=== PATIENT | female | born 1940 | race Caucasian/White ===

== ENCOUNTER 2022-12-03 08:52 | Outpatient (OUT) | payer MEDICARE, OTHER, SELFPAY ==
--- NOTE | 2022-12-03 | RT_ITS ---
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 Findings were considered accurate and reproducible. Both pre- and post-bronchodilator values utilized for spirometry. No prior studies available for comparison. Spirometry (based on pre-bronchodilator values): -FEV1/FVC: Normal @ 77% -FEV1: Normal @ 89% -FVC: Normal @ 85% -There is a positive bronchodilator resposne in [id number]%, but diagnostic and clinical significance is unclear. Lung volumes by plethysmography: -RV: Reduced @ 62% -TLC: Mildly reduced @ 72% -Airway resistance: Increased Diffusion capacity: -DLCO: Moderate reduction @ 59% when corrected for Hb 6.9g/dL -DLCO/VA: Normalizes to 95% when adjusted for alveolar volumes Flow-volume loop: -Mild obstructive pattern Impressions: -Non-diagnostic spirometry with mild restriction based on lung volumes, and moderate diffusion impairment that normalizes to lung volumes (given history of apparent lung resection). There are mixed obstructive and restrictive features. Anemia is present. Clinical correlation required. Electronically Signed On 12-04-2022 18:00:20 EDT by Marquise Salgado
[2022-12-03 10:36] LABS: Hemoglobin 6.9 g/dL (12.0-16.0)
[2022-12-03] MEDS: ALBUTEROL SULFATE 2.5 MG/3 ML VIAL NEB IH (10:43)
== END 2022-12-03 08:53 ==
LOC: CARD 08:55
PROVIDERS: PCP Internal Medicine; Visit Provider Internal Medicine Interventional Cardiology
DX: R06.02 Shortness of breath (principal)
CPT/HCPCS: 36415; 85018; 94060; 94726; 94729

== ENCOUNTER 2022-12-03 11:08 | Observation (INO) | payer MEDICARE, OTHER, SELFPAY ==
[2022-12-03] VITALS (29 sets, daily range): BP systolic 120–190; BP diastolic 57–107; PULSE 76–89; RESP 16–33; TEMP 36.6–37.7; O2SAT 92–100; BMI 26.5; BMI 30.8
--- NOTE | 2022-12-03 11:23 | ED_ITS ---
HPI - Recheck/Abnormal Lab/Rx General Chief Complaint: Recheck/Abnormal Lab/Rx Stated Complaint: ANEMIA Time Seen by Provider: 12/03/22 11:23 Source: patient Mode of arrival: walk-in Limitations: no limitations History of Present Illness HPI narrative: pt presents to emergency department complaining of an abnormal lab. Patient has a history of heart disease had a stent placed 2 years ago. She was doing well recently started becoming more short of breath than normal. Patient takes several to, and Plavix. She denies any trauma, fever, cough, chest pain, or palpitations. All states that she has been very fatigued and cannot walk more than 50 steps without stopping for getting so winded. The cough had pulmonary function tests ordered by the primary care doctor and they also order a hemoglobin level which was six-point notes and she was sent to the emergency department. Patient states one month ago she had black stool but that resolved and she did not make anything much of it. She attributed to something that she ate. She denies any vaginal bleeding, discharge. She denies any hematuria. She denies any tarry stools. She denies any abdominal pain. She takes omeprazole. She has not had a colonoscopy 10 years and she denies any history of ulcers. Related Data Home Medications Medication Instructions Recorded Confirmed atorvastatin 40 mg tablet 40 mg PO .qhs 12/03/22 12/03/22 cholecalciferol (vitamin D3) 25 25 mcg PO DAILY 12/03/22 12/03/22 mcg (1,000 unit) capsule clopidogrel 75 mg tablet 75 mg PO QDAY 12/03/22 12/03/22 docusate sodium 100 mg capsule 100 mg PO DAILY 12/03/22 12/03/22 (Colace) metoprolol tartrate 25 mg tablet 12.5 mg PO Q12H 12/03/22 12/03/22 multivitamin (Daily Multi-Vitamin 1 tab PO DAILY 12/03/22 12/03/22 tablet) omeprazole 40 mg capsule,delayed 40 mg PO QDAY 12/03/22 12/03/22 release rivaroxaban 20 mg tablet (Xarelto) 20 mg PO QDAY 12/03/22 12/03/22 Allergies Allergy/AdvReac Type Severity Reaction Status Date / Time No Known Drug Allergies Allergy Verified 12/03/22 11:15 Review of Systems ROS Status of ROS 10 or more systems reviewed and unremarkable except as noted in history and below [facility] Medical History (Updated 12/03/22 @ 16:03 by Yumiko Guerrero) Surgical History (Updated 12/03/22 @ 16:03 by Yumiko Guerrero) Family History (Updated 12/03/22 @ 16:04 by Yumiko Guerrero) Aunt No problems noted. Mother Family history of COPD (chronic obstructive pulmonary disease) Brother Family history of cancer Sister Family history of cancer Social History (Updated 12/03/22 @ 16:08 by Yumiko Guerrero) Within the past year, how often did you have a drink containing alcohol: never Within the past year, how often did you have six or more drinks on one occasion: never Score interpretation: A score less than 3 is consistent with normal alcohol consumption. Smoking status: Former smoker Non-prescribed substance use: denies use Previous occupational history: retired Known occupational exposures/hazards: No Highest level of school completed/degree received: some college, no degree Are you now , , , , never or living with a partner: In a typical week, how many times do you talk on the telephone with family, friends, or neighbors: 3 or more times per week How often do you get together with friends or relatives: twice per week How often do you attend bahai or anabaptist services: 4 or more times per year Do you belong to any clubs or organizations such as bahai groups unions, fraternal or athletic groups, or school groups: no Total score: 3 Score interpretation: A score of greater than or equal to 2 indicates the lowest level of social isolation. Little interest or pleasure in doing things: not at all Feeling down, depressed, or hopeless: not at all Feel stressed/tense/nervous/anxious/difficulty sleeping: not at all Due to disability, difficulty making decisions: No Do you think of yourself as: straight/heterosexual Gender Identity: female Exam Narrative Exam Narrative: Nurses notes and vital signs reviewed and patient is not hypoxic. General: Nontoxic, Well-appearing and in no apparent distress. Skin: Warm, dry, moderate pallor noted. No Rash Head: Normocephalic, atraumatic. Neck: Supple, non-tender. Eye: Pupils are equal, round and EOMI. No scleral icterus. Ears, Nose, Mouth, and Throat: TM clear, no posterior oropharynx erythema or nasal mucosal hypertrophy, uvula is mid-line Oral mucosa is moist Cardiovascular: Regular Rate and Rhythm without murmur, gallop or rub. Respiratory: No accessory muscle use or respiratory distress. Lungs are clear to auscultation, no wheezing, rales or rhonchi Chest Wall: no tenderness Back: No midline thoracic or lumbar vertebral tenderness. No CVA tenderness Musculoskeletal: normal ROM, no calf or popliteal tenderness, no lower extremity edema/swelling GI: Abdomen is soft, non-distended. Normal bowel sounds. No masses appreciated. No tenderness to palpation. No rebound, guarding, or rigidity noted. Neurological: A&O x4. No cranial nerve dysfunction observed. No truncal ataxia. Moves all extremities. Sensation intact. Psychiatric: Cooperative and interactive. Normal mood and affect. Constitutional Vital Signs - 24 hr 12/03/22 11:15 12/03/22 11:20 12/03/22 11:20 Temperature 98.6 F Pulse Rate 83 80 Pulse Rate [Monitor] 81 Respiratory Rate 18 33 H 26 H Blood Pressure 178/86 H Blood Pressure [Left Arm] 178/86 H Pulse Oximetry 98 97 100 Oxygen Delivery Method Room Air 12/03/22 11:28 12/03/22 11:31 12/03/22 11:45 Temperature Pulse Rate 82 82 81 Pulse Rate [Monitor] Respiratory Rate 19 26 H 20 Blood Pressure 183/78 H 150/107 H 132/84 H Blood Pressure [Left Arm] Pulse Oximetry 93 L 97 97 Oxygen Delivery Method 12/03/22 11:45 12/03/22 12:01 12/03/22 12:15 Temperature Pulse Rate 84 81 Pulse Rate [Monitor] Respiratory Rate 23 18 Blood Pressure 132/84 H 152/79 H 159/70 H Blood Pressure [Left Arm] Pulse Oximetry 98 98 Oxygen Delivery Method 12/03/22 12:34 12/03/22 12:41 12/03/22 12:41 Temperature Pulse Rate 89 84 85 Pulse Rate [Monitor] Respiratory Rate 20 19 28 H Blood Pressure 155/105 H Blood Pressure [Left Arm] Pulse Oximetry 100 97 96 Oxygen Delivery Method 12/03/22 12:45 12/03/22 13:00 Temperature Pulse Rate 81 82 Pulse Rate [Monitor] Respiratory Rate 21 33 H Blood Pressure 164/73 H 151/101 H Blood Pressure [Left Arm] Pulse Oximetry 97 98 Oxygen Delivery Method Course Vital Signs Vital signs: Vital Signs Temperature 98.6 F 12/03/22 11:15 Pulse Rate 81 12/03/22 11:15 Respiratory Rate 18 12/03/22 11:15 Blood Pressure 178/86 H 12/03/22 11:15 Pulse Oximetry 98 12/03/22 11:15 Oxygen Delivery Method Room Air 12/03/22 11:15 Temperature 98.1 F 12/04/22 04:58 Pulse Rate 91 H 12/04/22 08:01 Respiratory Rate 16 12/04/22 04:58 Blood Pressure 153/78 H 12/04/22 04:58 Pulse Oximetry 96 12/04/22 04:58 Oxygen Delivery Method Room Air 12/04/22 04:58 MDM - Recheck/Abnormal Lab/Rx MDM Narrative Medical decision making narrative: Labs studies were done. 2 units of packed red blood cells were ordered. Patient will be Discussed with Dr. Murillo and admitted for further workup. Lab Data Labs: Lab Results 12/03/22 12/03/22 Range/Units 11:30 12:30 WBC 5.2 (4.0-11.0) 10^3/uL RBC 2.91 L (4.20-5.40) 10^6/uL Hgb 7.2 L (12.0-16.0) g/dL Hct 22.8 L* (36.0-48.0) % MCV 78.4 L (81.0-99.0) fL MCH 24.7 L (26.7-34.0) pg MCHC 31.6 (29.9-35.2) g/dL RDW 15.2 H (11.0-15.0) % Plt Count 370 (150-450) 10^3/uL MPV 9.5 (9.5-13.5) fL Neut % (Auto) 71.9 (43.0-75.0) % Lymph % (Auto) 13.0 L (20.5-60.0) % [place]ent % (Auto) 13.5 H (1.7-12.0) % Eos % (Auto) 0.8 L (0.9-7.0) % Baso % (Auto) 0.4 (0.2-2.0) % Neut # (Auto) 3.8 (1.4-6.5) 10^3/uL Lymph # (Auto) 0.7 L (1.2-3.8) 10^3/uL S[place]ent # (Auto) 0.7 (0.3-0.8) 10^3/uL Eos # (Auto) 0.0 (0.0-0.7) 10^3/uL Baso # (Auto) 0.0 (0.0-0.1) 10^3/uL Abs Immat Gran (auto) 0.02 (0.00-0.03) 10^3/uL Imm/Tot Granulo (auto) 0.4 (0.0-0.5) % PT 10.5 (9.0-11.6) sec INR 0.99 Sodium 127 L (136-145) mmol/L Potassium 4.4 (3.5-5.1) mmol/L Chloride 93 L (98-107) mmol/L Carbon Dioxide 25.0 (21.0-32.0) mmol/L Anion Gap 13.4 BUN 14.0 (7.0-18.0) mg/dL Creatinine 0.97 (0.55-1.02) mg/dL Est GFR ( Amer) >60 (>=60) Est GFR (Non-Af Amer) 55 L (>=60) BUN/Creatinine Ratio 14.4 Glucose 95 (74-106) mg/dL Calcium 8.5 (8.5-10.1) mg/dL Total Bilirubin 0.3 (0.2-1.0) mg/dL AST 18 (15-37) U/L ALT 28 (14-59) U/L Alkaline Phosphatase 48 (46-116) U/L Total Creatine Kinase 152 (26-192) U/L CK-MB (CK-2) 2.41 (<=3.60) ng/mL Myoglobin 90 H (9-82) ng/mL Troponin I High Sens 11.0 (4.0-51.3) pg/mL NT-Pro-B Natriuret Pep 3358.0 H* (<=1800.0) pg/mL Total Protein 6.9 (6.4-8.2) g/dL Albumin 3.7 (3.4-5.0) g/dL Globulin 3.2 g/dL Albumin/Globulin Ratio 1.2 Lipase 112.0 (73.0-393.0) U/L Urine Color Lt. yellow (YELLOW) Urine Clarity Clear (CLEAR) Urine pH 7.0 (5.0-9.0) Ur Specific [place] <=1.005 A (1.005-1.025) Urine Protein Negative (NEG/TRACE) mg/dL Urine Glucose (UA) Negative (NEGATIVE) mg/dL Urine Ketones Negative (NEGATIVE) mg/dL Urine Occult Blood Negative (NEGATIVE) Urine Nitrite Negative (NEGATIVE) Urine Bilirubin Negative (NEGATIVE) Urine Urobilinogen 0.2 (0.2-1.0) EU/dL Ur Leukocyte Esterase Trace A (NEGATIVE) Blood Type A Positive Antibody Screen Negative Crossmatch See Detail Discharge Plan Discharge Chief Complaint: Recheck/Abnormal Lab/Rx Clinical Impression: Symptomatic anemia Patient Disposition: Admitted as Observation Time of Disposition Decision: 15:42 Condition: Good Discharge Date/Time: 12/03/22 14:42
--- NOTE | 2022-12-03 12:05 | XR_ITS ---
The [address] [address] Patient Name: ANH CASE MRN: [id number] date: 1940 Sex: F Assigned Patient Location: ER Current Patient Location: ER Accession/Order Number: [id number] Exam Date: 12/03/2022 12:20 Report Date: 12/03/2022 12:49 At the request of: ALVIN CASTANEDA Procedure: XR acute abdomen series EXAMINATION: XR acute abdomen series HISTORY: gi ulcer , shortness breath, low hemoglobin COMPARISON: XR chest 02/11/2021 FINDINGS: LUNGS: Mild opacities within left lung base partially obscuring the heart and diaphragm margins. Increased cardiomegaly. Marked atherosclerotic disease of thoracic and abdominal aorta. MEDIASTINUM: No abnormal widening. BOWEL GAS PATTERN: Non-obstructed. No abnormal dilation or suspicious fluid levels. Moderate stool burden. FREE AIR: None. CALCIFICATIONS: None significant. BONES: No fracture or visible bone lesion. OTHER: Negative. IMPRESSION: 1. Mild left basilar infiltrates versus atelectasis. 2. Cardiomegaly, increased since prior study. 3. Normal bowel gas pattern. No acute or suspicious abdominal findings. Electronically authenticated by: MANUEL MCKAY Date: 12/03/2022 12:49
--- NOTE | 2022-12-03 12:05 | ECG_ITS ---
The [facility] Test Date: 2022-12-03 Pat Name: Kacie Ayon Department: Room: - Gender: Female Hand Filer Balance Wheel: : 1940 Requested By: MOHAMUD CASTRO Order Number: [id number] Reading MD: NICOLE NAVA Measurements Intervals [place] Rate: 80 P: -30 LA: 148 QRS: 25 QRSD: 78 T: 42 QT: 392 QTc: 428 Interpretive Statements 1100 Sinus rhythm 9110 normal ECG No previous ECG available for comparison Electronically Signed On 12-04-2022 5:36:41 EDT by NICOLE NAVA
[2022-12-03 12:28] LABS: Basophils Percent Auto 0.4 % (0.2-2.0); Eosinophils Percent Auto 0.8 % (0.9-7.0); Hemoglobin 7.2 g/dL (12.0-16.0); Immature Granulocytes Abs Auto 0.02 10^3/uL (0.00-0.03); Immature Granulocytes Pct Auto 0.4 % (0.0-0.5); Lymphocytes Absolute Auto 0.7 10^3/uL (1.2-3.8); Mean Corpuscular HGB Conc 31.6 g/dL (29.9-35.2); Mean Corpuscular Hemoglobin 24.7 pg (26.7-34.0); Mean Corpuscular Volume 78.4 fL (81.0-99.0); Mean Platelet Volume 9.5 fL (9.5-13.5); Monocytes Absolute Auto 0.7 10^3/uL (0.3-0.8); Monocytes Percent Auto 13.5 % (1.7-12.0); Neutrophils Absolute Auto 3.8 10^3/uL (1.4-6.5); Neutrophils Percent Auto 71.9 % (43.0-75.0); Platelet Count 370 10^3/uL (150-450); Red Blood Count 2.91 10^6/uL (4.20-5.40); Red Cell Distribution Width 15.2 % (11.0-15.0); White Blood Count 5.2 10^3/uL (4.0-11.0)
[2022-12-03 12:37] LABS: Hematocrit 22.8 % (36.0-48.0)
[2022-12-03 12:38] LABS: INR 0.99; Prothrombin Time 10.5 sec (9.0-11.6)
[2022-12-03 12:45] LABS: Bilirubin Urine NEGATIVE (NEGATIVE); Blood Urine NEGATIVE (NEGATIVE); Clarity Urine CLEAR (CLEAR); Color Urine LT. YELLOW (YELLOW); Glucose Urine UA NEGATIVE (NEGATIVE); Ketones Urine NEGATIVE (NEGATIVE); Leukocyte Esterase Urine TRACE (NEGATIVE); Nitrite Urine NEGATIVE (NEGATIVE); Protein Urine NEGATIVE (NEG/TRACE); Specific Gravity Urine <=1.005 (1.005-1.025); Urobilinogen Urine 0.2 EU/dL (0.2-1.0)
--- NOTE | 2022-12-03 12:47 | PC.NURSE ---
URINE SAMPLE COLLECTED AT THIS TIME
--- NOTE | 2022-12-03 12:49 | PC.NURSE ---
blood consent retrieved at this time
[2022-12-03 13:27] LABS: Anion Gap 13.4; Chloride 93 mmol/L (98-107); Glucose 95 mg/dL (74-106); Potassium 4.4 mmol/L (3.5-5.1); Sodium 127 mmol/L (136-145)
[2022-12-03 13:28] LABS: BUN Creatinine Ratio 14.4; Calcium 8.5 mg/dL (8.5-10.1); Estimated GFR (African America >60 (>=60); Estimated GFR (Non-African Ame 55 (>=60)
[2022-12-03 13:30] LABS: Alanine Aminotransferase 28 U/L (14-59); Alkaline Phosphatase 48 U/L (46-116); Aspartate Amino Transferase 18 U/L (15-37); Bilirubin Total 0.3 mg/dL (0.2-1.0)
[2022-12-03 13:31] LABS: Creatine Kinase 152 U/L (26-192); Creatine Kinase MB 2.41 ng/mL (<=3.60); Myoglobin 90 ng/mL (9-82); Total Protein 6.9 g/dL (6.4-8.2)
[2022-12-03 13:32] LABS: Albumin Globulin Ratio 1.2; Albumin Level 3.7 g/dL (3.4-5.0); Globulin 3.2 g/dL
--- NOTE | 2022-12-03 16:06 | PC.NURSE ---
PT ADMITTED VIA BED AT THIS TIME WITH FAMILY AT BEDSIDE. PT HAS HER OWN BELONGINGS. PLACED ON TELEMETRY PRIOR. PT DENIES ANY NEEDS OR CONCERNS AT THIS TIME. FOLLOWING UPSTAIRS. BEDSIDE REPORT GIVEN TO RIYA GIBSON. ADMITTED TO MED SURG RM 218.
[2022-12-03] MEDS: 0.9 % SODIUM CHLORIDE 250 ML 30 ML IV (18:00)
[2022-12-03] MEDS: PANTOPRAZOLE SODIUM 40 MG VIAL IV (18:00)
[2022-12-04] VITALS (10 sets, daily range): BP systolic 138–153; BP diastolic 73–78; PULSE 78–97; RESP 16–18; TEMP 36.7–36.9; O2SAT 93–96
[2022-12-04 01:29] LABS: Basophils Percent Auto 0.7 % (0.2-2.0); Eosinophils Absolute Auto 0.1 10^3/uL (0.0-0.7); Eosinophils Percent Auto 1.4 % (0.9-7.0); Hematocrit 29.1 % (36.0-48.0); Hemoglobin 9.6 g/dL (12.0-16.0); Immature Granulocytes Abs Auto 0.01 10^3/uL (0.00-0.03); Immature Granulocytes Pct Auto 0.2 % (0.0-0.5); Lymphocytes Absolute Auto 0.8 10^3/uL (1.2-3.8); Lymphocytes Percent Auto 17.5 % (20.5-60.0); Mean Corpuscular Hemoglobin 26.5 pg (26.7-34.0); Mean Corpuscular Volume 80.4 fL (81.0-99.0); Mean Platelet Volume 8.9 fL (9.5-13.5); Monocytes Absolute Auto 0.6 10^3/uL (0.3-0.8); Monocytes Percent Auto 12.8 % (1.7-12.0); Neutrophils Percent Auto 67.4 % (43.0-75.0); Platelet Count 289 10^3/uL (150-450); Red Blood Count 3.62 10^6/uL (4.20-5.40); Red Cell Distribution Width 15.3 % (11.0-15.0); White Blood Count 4.4 10^3/uL (4.0-11.0)
[2022-12-04 04:49] LABS: Basophils Percent Auto 0.7 % (0.2-2.0); Eosinophils Absolute Auto 0.1 10^3/uL (0.0-0.7); Eosinophils Percent Auto 1.4 % (0.9-7.0); Hematocrit 29.2 % (36.0-48.0); Hemoglobin 9.5 g/dL (12.0-16.0); Immature Granulocytes Abs Auto 0.03 10^3/uL (0.00-0.03); Immature Granulocytes Pct Auto 0.7 % (0.0-0.5); Lymphocytes Absolute Auto 0.8 10^3/uL (1.2-3.8); Lymphocytes Percent Auto 18.3 % (20.5-60.0); Mean Corpuscular HGB Conc 32.5 g/dL (29.9-35.2); Mean Corpuscular Hemoglobin 26.3 pg (26.7-34.0); Mean Corpuscular Volume 80.9 fL (81.0-99.0); Mean Platelet Volume 9.5 fL (9.5-13.5); Monocytes Absolute Auto 0.6 10^3/uL (0.3-0.8); Monocytes Percent Auto 14.1 % (1.7-12.0); Neutrophils Absolute Auto 2.8 10^3/uL (1.4-6.5); Neutrophils Percent Auto 64.8 % (43.0-75.0); Platelet Count 322 10^3/uL (150-450); Red Blood Count 3.61 10^6/uL (4.20-5.40); Red Cell Distribution Width 15.4 % (11.0-15.0); White Blood Count 4.3 10^3/uL (4.0-11.0)
[2022-12-04 05:10] LABS: Alanine Aminotransferase 26 U/L (14-59); Albumin Globulin Ratio 1.1; Albumin Level 3.4 g/dL (3.4-5.0); Alkaline Phosphatase 47 U/L (46-116); Anion Gap 11.4; Aspartate Amino Transferase 17 U/L (15-37); BUN Creatinine Ratio 14.3; Bilirubin Total 1.9 mg/dL (0.2-1.0); Calcium 8.6 mg/dL (8.5-10.1); Carbon Dioxide 26.1 mmol/L (21.0-32.0); Chloride 97 mmol/L (98-107); Estimated GFR (African America >60 (>=60); Estimated GFR (Non-African Ame 59 (>=60); Glucose 101 mg/dL (74-106); Potassium 4.5 mmol/L (3.5-5.1); Sodium 130 mmol/L (136-145); Total Protein 6.4 g/dL (6.4-8.2)
--- NOTE | 2022-12-04 05:24 | PC.NURSE ---
Notified Dr. Mcnair of critical BNP
--- NOTE | 2022-12-04 09:08 | P.HP_ITS ---
H&P: HPI History of Present Illness Chief complaint: ANEMIA Narrative: Patient presented to the emergency room with increasing weakness. Found to have significant anemia. Is admitted for work-up and treatment of same [facility] Medical History (Updated 12/03/22 @ 16:03 by Yumiko Guerrero) Surgical History (Updated 12/03/22 @ 16:03 by Yumiko Guerrero) Family History (Updated 12/03/22 @ 16:04 by Yumiko Guerrero) Aunt No problems noted. Mother Family history of COPD (chronic obstructive pulmonary disease) Brother Family history of cancer Sister Family history of cancer Social History (Updated 12/03/22 @ 16:08 by Yumiko Guerrero) Within the past year, how often did you have a drink containing alcohol: never Within the past year, how often did you have six or more drinks on one occasion: never Score interpretation: A score less than 3 is consistent with normal alcohol consumption. Smoking status: Former smoker Non-prescribed substance use: denies use Previous occupational history: retired Known occupational exposures/hazards: No Highest level of school completed/degree received: some college, no degree Are you now , , , , never or living with a partner: In a typical week, how many times do you talk on the telephone with family, friends, or neighbors: 3 or more times per week How often do you get together with friends or relatives: twice per week How often do you attend sikh or mu-ism services: 4 or more times per year Do you belong to any clubs or organizations such as sikh groups unions, fraternal or athletic groups, or school groups: no Total score: 3 Score interpretation: A score of greater than or equal to 2 indicates the lowest level of social isolation. Little interest or pleasure in doing things: not at all Feeling down, depressed, or hopeless: not at all Feel stressed/tense/nervous/anxious/difficulty sleeping: not at all Due to disability, difficulty making decisions: No Do you think of yourself as: straight/heterosexual Gender Identity: female Meds Home Medications and Allergies Home Medications Medication Instructions Recorded Confirmed Type atorvastatin 40 mg tablet 40 mg PO .qhs 12/03/22 12/03/22 History cholecalciferol (vitamin D3) 25 25 mcg PO DAILY 12/03/22 12/03/22 History mcg (1,000 unit) capsule clopidogrel 75 mg tablet 75 mg PO QDAY 12/03/22 12/03/22 History docusate sodium 100 mg capsule 100 mg PO DAILY 12/03/22 12/03/22 History (Colace) metoprolol tartrate 25 mg tablet 12.5 mg PO Q12H 12/03/22 12/03/22 History multivitamin (Daily Multi-Vitamin 1 tab PO DAILY 12/03/22 12/03/22 History tablet) omeprazole 40 mg capsule,delayed 40 mg PO QDAY 12/03/22 12/03/22 History release rivaroxaban 20 mg tablet (Xarelto) 20 mg PO QDAY 12/03/22 12/03/22 History Allergies Allergy/AdvReac Type Severity Reaction Status Date / Time No Known Drug Allergies Allergy Verified 12/03/22 11:15 Exam Constitutional Vital Signs - 24 hr 12/03/22 11:15 12/03/22 11:20 12/03/22 11:20 Temperature 98.6 F Pulse Rate 83 80 Pulse Rate [Monitor] 81 Respiratory Rate 18 33 H 26 H Blood Pressure 178/86 H Blood Pressure [Left Arm] 178/86 H Blood Pressure [Right Arm] Pulse Oximetry 98 97 100 Oxygen Delivery Method Room Air 12/03/22 11:28 12/03/22 11:31 12/03/22 11:45 Temperature Pulse Rate 82 82 81 Pulse Rate [Monitor] Respiratory Rate 19 26 H 20 Blood Pressure 183/78 H 150/107 H 132/84 H Blood Pressure [Left Arm] Blood Pressure [Right Arm] Pulse Oximetry 93 L 97 97 Oxygen Delivery Method 12/03/22 11:45 12/03/22 12:01 12/03/22 12:15 Temperature Pulse Rate 84 81 Pulse Rate [Monitor] Respiratory Rate 23 18 Blood Pressure 132/84 H 152/79 H 159/70 H Blood Pressure [Left Arm] Blood Pressure [Right Arm] Pulse Oximetry 98 98 Oxygen Delivery Method 12/03/22 12:34 12/03/22 12:41 12/03/22 12:41 Temperature Pulse Rate 89 84 85 Pulse Rate [Monitor] Respiratory Rate 20 19 28 H Blood Pressure 155/105 H Blood Pressure [Left Arm] Blood Pressure [Right Arm] Pulse Oximetry 100 97 96 Oxygen Delivery Method 12/03/22 12:45 12/03/22 13:00 12/03/22 15:35 Temperature 97.8 F Pulse Rate 81 82 84 Pulse Rate [Monitor] Respiratory Rate 21 33 H 18 Blood Pressure 164/73 H 151/101 H Blood Pressure [Left Arm] Blood Pressure [Right Arm] 190/74 H Pulse Oximetry 97 98 98 Oxygen Delivery Method Room Air 12/03/22 15:58 12/03/22 15:59 12/03/22 17:50 Temperature 97.8 F Pulse Rate 84 76 87 Pulse Rate [Monitor] Respiratory Rate 18 Blood Pressure Blood Pressure [Left Arm] Blood Pressure [Right Arm] 190/74 H Pulse Oximetry 98 Oxygen Delivery Method 12/03/22 18:18 12/03/22 18:38 12/03/22 19:15 Temperature 98.0 F 98.9 F 99.0 F Pulse Rate 86 87 83 Pulse Rate [Monitor] Respiratory Rate 16 16 18 Blood Pressure 167/82 H 169/76 H Blood Pressure [Left Arm] 154/70 H Blood Pressure [Right Arm] Pulse Oximetry 98 98 97 Oxygen Delivery Method Room Air Room Air 12/03/22 19:31 12/03/22 19:26 12/03/22 19:57 Temperature 98.9 F Pulse Rate 87 88 Pulse Rate [Monitor] Respiratory Rate 18 Blood Pressure 120/65 H Blood Pressure [Left Arm] Blood Pressure [Right Arm] Pulse Oximetry 98 Oxygen Delivery Method Room Air 12/03/22 19:38 12/03/22 21:56 12/03/22 22:04 Temperature 98.6 F 100 F H 100 F H Pulse Rate 85 86 83 Pulse Rate [Monitor] Respiratory Rate 18 18 18 Blood Pressure 151/57 H 146/58 H 146/58 H Blood Pressure [Left Arm] Blood Pressure [Right Arm] Pulse Oximetry 99 98 Oxygen Delivery Method Room Air Room Air 12/03/22 22:15 12/03/22 22:19 12/03/22 22:28 Temperature 98 F 98.1 F Pulse Rate 84 85 83 Pulse Rate [Monitor] Respiratory Rate 18 18 Blood Pressure 136/66 H 146/67 H Blood Pressure [Left Arm] Blood Pressure [Right Arm] Pulse Oximetry Oxygen Delivery Method Room Air Room Air 12/03/22 22:20 12/04/22 00:21 12/04/22 00:28 Temperature 98.2 F 98.1 F Pulse Rate 86 88 97 H Pulse Rate [Monitor] Respiratory Rate 18 18 Blood Pressure 152/78 H 138/77 H Blood Pressure [Left Arm] Blood Pressure [Right Arm] Pulse Oximetry 92 L Oxygen Delivery Method Room Air Room Air 12/04/22 01:16 12/04/22 02:47 12/04/22 03:00 Temperature 98.5 F 98.2 F Pulse Rate 92 H 89 82 Pulse Rate [Monitor] Respiratory Rate 18 18 Blood Pressure 152/73 H Blood Pressure [Left Arm] 142/75 H Blood Pressure [Right Arm] Pulse Oximetry 96 Oxygen Delivery Method Room Air 12/04/22 03:58 12/04/22 04:12 12/04/22 04:58 Temperature 98.1 F Pulse Rate 78 Pulse Rate [Monitor] Respiratory Rate 16 Blood Pressure Blood Pressure [Left Arm] 153/78 H Blood Pressure [Right Arm] Pulse Oximetry 93 L 96 Oxygen Delivery Method Room Air Room Air 12/04/22 05:59 12/04/22 08:01 Temperature Pulse Rate 82 91 H Pulse Rate [Monitor] Respiratory Rate Blood Pressure Blood Pressure [Left Arm] Blood Pressure [Right Arm] Pulse Oximetry Oxygen Delivery Method Common normals: no apparent distress, average body habitus and oriented x3 Chest Common normals: inspection of chest normal Respiratory Common normals: normal respiratory effort, no retractions, no use of accessory muscles and clear to auscultation bilaterally Cardio Common normals: regular rate, regular rhythm and S1 normal heart sound GI Common normals: Normal to inspection, nondistended, normoactive bowel sounds present, soft to palpation, non-tender and no hepatosplenomegaly Neuro Common normals: CN's II-XII intact bilaterally and moves all extremities Results Labs Labs: Short CBC 12/03/22 12/04/22 12/04/22 Range/Units 11:30 01:21 03:58 WBC 5.2 4.4 4.3 (4.0-11.0) 10^3/uL Hgb 7.2 L 9.6 L 9.5 L (12.0-16.0) g/dL Hct 22.8 L* 29.1 L 29.2 L (36.0-48.0) % Plt Count 370 289 322 (150-450) 10^3/uL BMP 12/03/22 12/04/22 11:30 03:58 Sodium 127 L 130 L Potassium 4.4 4.5 Chloride 93 L 97 L Carbon Dioxide 25.0 26.1 BUN 14.0 13.0 Creatinine 0.97 0.91 Glucose 95 101 Calcium 8.5 8.6 Cardiac Enzymes 12/03/22 Range/Units 11:30 Total Creatine Kinase 152 (26-192) U/L CK-MB (CK-2) 2.41 (<=3.60) ng/mL Liver Function 12/03/22 12/04/22 Range/Units 11:30 03:58 Total Bilirubin 0.3 1.9 H (0.2-1.0) mg/dL AST 18 17 (15-37) U/L ALT 28 26 (14-59) U/L Alkaline Phosphatase 48 47 (46-116) U/L Albumin 3.7 3.4 (3.4-5.0) g/dL Urine 12/03/22 Range/Units 12:30 Urine Color Lt. yellow (YELLOW) Urine Clarity Clear (CLEAR) Urine pH 7.0 (5.0-9.0) Ur Specific [place] <=1.005 A (1.005-1.025) Urine Protein Negative (NEG/TRACE) mg/dL Urine Glucose (UA) Negative (NEGATIVE) mg/dL Assessment and Plan Assessment and Plan (1) Symptomatic anemia: Plan Acute blood loss anemia secondary to acute upper gastrointestinal bleeding- bleeding is likely stopped as her hemoglobin is improved by more than 2 points, she received 2 units, she feels improved overall although she did not feel that bad to begin with, she feels ready for discharge to home. As long she tolerates breakfast she can be discharged home in improving condition. Medications see list. Follow-up with her PCP for further work-up. Elzbieta was held here, she can resume at home, recommend at least an [id number] PPI Hyponatremia-improved Elevated BNP-we will try to check echocardiogram patient feels good enough and really wants to be discharged home if not completed prior to discharge would recommend getting one as an outpatient Hypertension-continue with home medications
--- NOTE | 2022-12-04 09:49 | CM.NOTE ---
Rounds made with Dr. Murillo. Plan for discharge is today. Kacie is independent at home with her . She uses no assistive devices. No needs verbalized or identified.
== END 2022-12-04 09:39 | disposition home or self-care (01) ==
LOC: ER 11:30 → MS 15:31
PROVIDERS: Admitting Provider Family Medicine; Emergency Provider Emergency Medicine; PCP Internal Medicine; Visit Provider Family Medicine
DX: D62 Acute posthemorrhagic anemia (principal); K92.2 Gastrointestinal hemorrhage, unspecified; E87.1 Hypo-osmolality and hyponatremia; I10 Essential (primary) hypertension; R79.89 Other specified abnormal findings of blood chemistry; Z87.891 Personal history of nicotine dependence; R06.02 Shortness of breath; Z79.899 Other long term (current) drug therapy
CPT/HCPCS: 36415; 36430; 74022; 80053; 80320; 81003; 82550; 82553; 83690; 83874; 83880; 84443; 84484; 85018; 85025; 85610; 86677; 86850; 86900; 86901; 86920; 93005; 94060; 94726; 94729; 94761; 96374; 97165; 99285; G0378; P9016

== ENCOUNTER 2022-12-08 14:49 | Outpatient (OUT) | payer MEDICARE, OTHER, SELFPAY ==
--- NOTE | 2022-12-08 14:54 | CA_ITS ---
Patient Name Site Name ANH CASE [facility] Account No Medical Record Number Age Sex Date Time [id number] [facility]:[id number] F 12/08/2022 15:00 At the Request Of Miriam Reddy ECHOCARDIOGRAM REPORT PROCEDURE: CA ECHO DOPPLER COMPLETE INDICATIONS: Chronic diastolic heart failure COMPARISON: None. DESCRIPTION: COMPLETE ECHOCARDIOGRAM Real-time transthoracic echocardiography with 2D, M-mode, spectral and color flow Doppler performed. QUALITY: Technical quality was good. LEFT VENTRICLE: Normal chamber size. Mild concentric left ventricular hypertrophy. Global left ventricular systolic function is normal. LV EF: Estimated left ventricular ejection fraction is 70% DIASTOLIC: Grade 2 diastolic dysfunction. ATRIAL SEPTUM: LEFT ATRIUM: Severe dilatation. RIGHT ATRIUM: Moderate dilatation. RIGHT VENTRICLE: Normal chamber size. Normal right ventricular systolic function. TRICUSPID VALVE: Normal mobility and thickness. No stenosis with trivial regurgitation. No evidence of pulmonary hypertension. RVSP 30 mmHg MITRAL VALVE: Normal mobility and thickness. No evidence of mitral valve stenosis. Mild mitral annular calcification. Moderate mitral regurgitation. AORTIC VALVE: Normal trileaflet appearance. Mildly calcified aortic valve. Mildly diminished mobility. Doppler velocity suggests no aortic valve stenosis. Mild aortic regurgitation. AORTIC ROOT: Normal diameter and appearance. Normal size ascending aorta measuring 3.5 cm. PULMONIC VALVE: Normal thickness and mobility. No stenosis. Trivial regurgitation. PERICARDIUM: Moderate circumferential pericardial effusion. No evidence of cardiac tamponade. IVC: Collapses with inspirations. Normal size. PLEURA: CONCLUSION: 1. Mild concentric left ventricular hypertrophy with normal ventricular systolic function. LVEF is estimated at 70%. 2. Normal right ventricular size and systolic function. 3. Moderate to severe biatrial dilatation. 4. Grade 2 diastolic dysfunction. 5. Mild to moderate mitral regurgitation. 6. Mild aortic valve regurgitation. 7. Normal right-sided pressures. 8. Moderate circumferential pericardial effusion with no echocardiographic signs of tamponade physiology. Adult Echocardiography Procedure Report Left Ventricle LVEDD (3.7 - 5.6 cm): 4.64 cm LVESD (2.2 - 4.0 cm): 3.28 cm LVIVS thickness (0.6 - 1.2 cm): 1.22 cm LVPW thickness (0.5 - 1.0 cm): 1.15 cm e': 0.09 m/s E - e': 12.17 LVOT Max Gradient: 3.59 mm[Hg], 3.20 mm[Hg] LVOT Area (cm2): 0.92 m/s Peak Velocity (LVOT): 0.95 m/s, 0.89 m/s Mean Velocity (LVOT): 0.64 m/s LVOT Diameter 1.98 cm Left Ventricular Ejection Fraction: 70 % Left Atrium LA Volume Index (2D A2C): 86.21 ml/m2 Left Atrium Systolic Dimension: 4.65 cm Mitral Valve MV E to A Ratio: 1.52, 1.46 Mitral Valve A-Wave Peak Velocity: 0.71 m/s Mitral Valve E-Wave Peak Velocity: 1.05 m/s Right Ventricle RV Internal Diastolic Dimension: 3.19 cm Aorta AO Root Diam: 2.76 cm Ascending Ao Diam: 3.52 cm Aortic Valve AoV Area (Peak Aman): 1.54 cm2, 1.60 cm2, 1.48 cm2 AoV Area (VTI): 1.63 cm2, 1.63 cm2, 1.63 cm2 Peak Velocity(Antegrade Flow): 1.83 m/s, 1.87 m/s Peak Gradient(Antegrade Flow): 13.44 mm[Hg], 13.97 mm[Hg] Mean Velocity(Antegrade Flow): 1.23 m/s, 1.23 m/s Mean Gradient(Antegrade Flow): 6.95 mm[Hg], 7.02 mm[Hg] Velocity Time Integral: 42.79 cm, 42.60 cm Tricuspid Valve Peak Velocity (Regurgitant Flow): 2.29 m/s, 2.58 m/s, 2.59 m/s Pulmonic Valve Mean Gradient: 2.27 mm[Hg], 2.02 mm[Hg] Mean Velocity: 0.73 m/s, 0.68 m/s Peak Velocity: 0.85 m/s Peak Gradient: 2.90 mm[Hg], 2.90 mm[Hg] Right Atrium Right Atrium Systolic Pressure: 54.33 ml, 54.33 ml Dictated by: Sherman Herman M.D. on 12/09/2022 at 18:31 Approved by: Sherman Herman M.D. on 12/09/2022 at 18:41
== END 2022-12-08 14:50 ==
LOC: CARD 14:50
PROVIDERS: PCP Internal Medicine; Visit Provider Internal Medicine Interventional Cardiology
DX: I50.32 Chronic diastolic (congestive) heart failure (principal); R06.02 Shortness of breath; I08.0 Rheumatic disorders of both mitral and aortic valves
CPT/HCPCS: 93306

== ENCOUNTER 2022-12-18 13:35 | Outpatient (OUT) | payer MEDICARE, OTHER, SELFPAY ==
--- NOTE | 2022-12-18 13:42 | CA_ITS ---
Patient: ANH CASE Exam Date: 12/18/2022 : 1940 Gender:F Ordering : DR SANDRO GODINEZ M.D. Admission #: [id number] Family : Order #: [id number] CLICK HERE TO VIEW EXAM ECHOCARDIOGRAM REPORT PROCEDURE: CA ECHO DOPPLER COMPLETE INDICATIONS: Pericardial effusion COMPARISON: None. DESCRIPTION: COMPLETE ECHOCARDIOGRAM Real-time transthoracic echocardiography with 2D, M-mode, spectral and color flow Doppler performed. QUALITY: Technical quality was good. LEFT VENTRICLE: Normal chamber size. Mild concentric left ventricular hypertrophy. Normal systolic function. LV EF: Normal left ventricular ejection fraction, (55%). DIASTOLIC: Diastolic function is indeterminate unction. ATRIAL SEPTUM: Visually appears intact. LEFT ATRIUM: Severe dilatation. RIGHT ATRIUM: Mild dilatation. RIGHT VENTRICLE: Normal chamber size. Normal right ventricular systolic function. TRICUSPID VALVE: Normal mobility and thickness. No stenosis with trivial regurgitation. MITRAL VALVE: Normal mobility and thickness. No evidence of mitral valve stenosis. Mild mitral annular calcification. Mild to moderate mitral regurgitation. AORTIC VALVE: Normal trileaflet appearance. Mildly calcified aortic valve. Mildly diminished mobility. No evidence of aortic valve stenosis. Mild aortic regurgitation. AORTIC ROOT: Normal diameter and appearance. PULMONIC VALVE: Normal thickness and mobility. No stenosis. Trivial regurgitation. PERICARDIUM: Moderate pericardial effusion, mostly posteriorly [1.9 cm]. There is evidence of echogenic material seen layering in the wall of the right ventricle consistent with possible thrombotic organization of the effusion. No echocardiographic signs of cardiac tamponade physiology. IVC: Collapses with inspirations. PLEURA: CONCLUSION: 1. Mild concentric left ventricular hypertrophy with normal systolic function. LVEF is 55%. 2. Normal right ventricular size and systolic function. 3. Mild right atrial and severe left atrial dilatation. 4. Mild to moderate mitral regurgitation. 5. Mild aortic regurgitation. 6. Moderate pericardial effusion with the majority of the effusion located posteriorly. There is thrombotic organization of the effusion layering the right ventricular free wall. 7. No echocardiographic signs of tamponade physiology. Adult Echocardiography Procedure Report Left Ventricle LVEDD (3.7 - 5.6 cm): 4.74 cm LVESD (2.2 - 4.0 cm): 3.51 cm LVIVS thickness (0.6 - 1.2 cm): 1.14 cm LVPW thickness (0.5 - 1.0 cm): 1.12 cm e': 0.08 m/s E - e': 9.23 LVOT Max Gradient: 1.53 mm[Hg] LVOT Area (cm2): 0.62 m/s Peak Velocity (LVOT): 0.62 m/s LVOT Diameter 2.05 cm Left Atrium LA Volume Index (2D A2C): 68.64 ml/m2 Left Atrium Systolic Dimension: 4.65 cm Mitral Valve MV E to A Ratio: 0.90 Mitral Valve A-Wave Peak Velocity: 0.80 m/s Mitral Valve E-Wave Peak Velocity: 0.72 m/s Right Ventricle Aorta AO Root Diam: 2.95 cm Ascending Ao Diam: 3.47 cm Aortic Valve AoV Area (Peak Aman): 1.70 cm2, 1.70 cm2 Peak Velocity(Antegrade Flow): 1.21 m/s Peak Gradient(Antegrade Flow): 5.85 mm[Hg] Tricuspid Valve Pulmonic Valve Peak Velocity: 0.68 m/s Peak Gradient: 1.77 mm[Hg], 1.96 mm[Hg] Right Atrium Right Atrium Systolic Pressure: 37.13 ml, 37.13 ml Dictated by: Sherman Herman M.D. on 12/19/2022 at 18:00 Approved by: Sherman Herman M.D. on 12/19/2022 at 18:08
== END 2022-12-18 13:36 ==
PROVIDERS: PCP Internal Medicine; Visit Provider Internal Medicine Interventional Cardiology
DX: I31.39 Other pericardial effusion (noninflammatory) (principal)
CPT/HCPCS: 93306

== ENCOUNTER 2022-12-25 09:27 | Outpatient (OUT) | payer MEDICARE, OTHER, SELFPAY ==
--- NOTE | 2022-12-25 09:33 | CT_ITS ---
[address] [address] Patient Name: ANH CASE MRN: [id number] date: 1940 Sex: F Assigned Patient Location: CT Current Patient Location: CT Accession/Order Number: [id number] Exam Date: 12/25/2022 09:35 Report Date: 12/25/2022 10:08 At the request of: SANDRO GODINEZ Procedure: CT chest high res EXAMINATION: CT chest high res HISTORY: SHORTNESS OF BREATH R06.02 COMPARISON: No relevant comparison available. TECHNIQUE: Axial images were obtained at 10 mm intervals during inspiration and expiration in the supine and prone positions. No IV contrast given. Dose reduction techniques were achieved by using automated exposure control and/or adjustment of mA and/or kV according to patient size and/or use of iterative reconstruction technique. FINDINGS: LUNGS: Minimal centrilobular emphysema with an upper lobe predominance. No subpleural honeycombing or significant interlobular septal thickening. Mild upper lobe bronchiectasis. Moderate calcifications of the tracheobronchial tree. Scattered partially visualized pulmonary nodules with a spiculated semisolid nodule measuring 6 mm right upper lobe axial image #7 and a bilobed solid nodule measuring 6.7 mm left upper lobe axial image #9 PLEURA: No mass, effusion, or pneumothorax. SHASHANK: No mass or adenopathy. MEDIASTINUM: Pericardial effusion measuring up to 2.1 cm. Extensive coronary atherosclerosis. Moderate to severe aortic atherosclerosis. Dilation of the descending thoracic aorta up to 3.4 cm CHEST WALL: No mass or axillary adenopathy LIMITED ABDOMEN: No suspicious findings. Limited images of the upper abdomen. OTHER: Negative. IMPRESSION: Scattered indeterminate pulmonary nodules, standard CT scan of the chest is recommended for further evaluation 2.1 cm pericardial effusion Minimal emphysema with no evidence of pulmonary fibrosis Electronically authenticated by: NOEL DANIELS Date: 12/25/2022 10:08
== END 2022-12-25 09:28 | disposition home or self-care (01) ==
LOC: CT 09:28
PROVIDERS: PCP Internal Medicine; Visit Provider Internal Medicine Interventional Cardiology
DX: R06.02 Shortness of breath (principal); R91.8 Other nonspecific abnormal finding of lung field; I31.39 Other pericardial effusion (noninflammatory); J43.9 Emphysema, unspecified
CPT/HCPCS: 71250

== ENCOUNTER 2022-12-29 09:44 | Outpatient (OUT) | payer MEDICARE, OTHER, SELFPAY ==
--- NOTE | 2022-12-29 08:45 | NM_ITS ---
Patient: ANH CASE Exam Date: 12/29/2022 : 1940 Gender:F Ordering : DR Miriam Reddy M.D. Admission #: [id number] Family : DR MOHAMUD CASTRO M.D. Order #: [id number] CLICK HERE TO VIEW EXAM RADIOLOGY REPORT PROCEDURE: NM ILIANA PERF SPECT REST STR COMPARISON: None. INDICATIONS: CHEST PAIN TECHNIQUE: Exam Description: Stress/Rest one day protocol gated SPECT Rest Imagin.5 mCi Tc-99m Cardiolite IV on 12/29/2022 Stress Imaging 30.0 mCi Tc-99m Cardiolite IV on 12/29/2022 Exercise Protocol: 0.4 mg Lexiscan given IV Heart Rate (bpm): Rest: 77 Max: 99 PMHR: 71 Blood Pressure: Rest: 140/96 Max: 144/88 Symptoms: Rest and peak stress ECG findings were normal and the exercise portion of the study was normal per attending physician Dr. Reddy . For more details please see separate cardiac stress test report. FINDINGS: QUALITY OF STUDY: Excellent. PERFUSION DEFECT: None. LOCATION: N/A SIZE: N/A. SEVERITY: N/A. TYPE: N/A. WALL MOTION: Normal. LV SIZE: Normal. 89 mL. TID / TCD: None; 1.2 LVEF: Abnormal. Calculated EF 53%. SUMMARY: Myocardial perfusion imaging study has ABNORMAL findings. CONCLUSION: 1. No acute or reversible ischemia. 2. Left ventricle ejection fraction is 53% which false just below lower limits of normal (55%). 3. Borderline transient ischemic dilation, 1.2. Dictated by: Oz Mauricio M.D. on 12/29/2022 at 14:09 Approved by: Oz Mauricio M.D. on 12/29/2022 at 14:11
[2022-12-29] MEDS: REGADENOSON 0.4 MG/5 ML SYRINGE IV (10:54)
--- NOTE | 2022-12-29 11:34 | PCN_ITS ---
CARDIAC STRESS TEST Requesting Physician:? Procedure Date:? 12/29/2022 INDICATIONS:? Shortness of breath, chest pain. METHODS:? After risks, benefits and alternatives were discussed, written informed consent was obtained.? The patient was brought to the stress lab in a resting and fasting state. Lexiscan 0.4 mg was infused intravenously.? She was monitored for the standard duration and discharged in a stable state.? There were no complications. FINDINGS: Hemodynamics:? Resting hear rate was 77 beats per minute, increasing to a mximum of 99 beats per minute.? Resting blood pressure was 140/96, decreasing to a minimum of 126/76. ELECTROCARDIOGRAPHY:? Resting EKG:? Sinus rhythm, supraventricular premature complexes.? During infusion and recovery:? No significant ST-T wave changes noted.? Premature ventricular contractions seen. FINAL IMPRESSIONS: 1.? No ischemic ST-T wave changes noted on Lexiscan pharmacological stress test. 2.? Nuclear images are to be read, interpreted and reported in a separate dictation. [facility]
[2022-12-29 14:38] LABS: Basophils Percent Auto 0.3 % (0.2-2.0); Eosinophils Percent Auto 0.1 % (0.9-7.0); Hematocrit 33.7 % (36.0-48.0); Immature Granulocytes Abs Auto 0.02 10^3/uL (0.00-0.03); Immature Granulocytes Pct Auto 0.3 % (0.0-0.5); Lymphocytes Absolute Auto 0.6 10^3/uL (1.2-3.8); Lymphocytes Percent Auto 8.6 % (20.5-60.0); Mean Corpuscular HGB Conc 32.6 g/dL (29.9-35.2); Mean Corpuscular Hemoglobin 27.5 pg (26.7-34.0); Mean Corpuscular Volume 84.3 fL (81.0-99.0); Mean Platelet Volume 10.3 fL (9.5-13.5); Monocytes Absolute Auto 0.5 10^3/uL (0.3-0.8); Monocytes Percent Auto 6.8 % (1.7-12.0); Neutrophils Absolute Auto 5.8 10^3/uL (1.4-6.5); Neutrophils Percent Auto 83.9 % (43.0-75.0); Platelet Count 234 10^3/uL (150-450); Red Cell Distribution Width 18.6 % (11.0-15.0)
== END 2022-12-29 09:45 | disposition home or self-care (01) ==
LOC: NM 09:45
PROVIDERS: PCP Internal Medicine; Visit Provider Internal Medicine Interventional Cardiology
DX: R07.9 Chest pain, unspecified (principal); I48.0 Paroxysmal atrial fibrillation; I51.9 Heart disease, unspecified; R94.39 Abnormal result of other cardiovascular function study
CPT/HCPCS: 36415; 78452; 85025; 93017; A9500; J2785

== ENCOUNTER 2023-01-14 10:18 | Outpatient (OUT) | payer MEDICARE, OTHER, SELFPAY ==
[2023-01-14 10:51] LABS: Basophils Percent Auto 0.6 % (0.2-2.0); Eosinophils Absolute Auto 0.1 10^3/uL (0.0-0.7); Eosinophils Percent Auto 2.7 % (0.9-7.0); Hematocrit 32.5 % (36.0-48.0); Hemoglobin 10.8 g/dL (12.0-16.0); Immature Granulocytes Abs Auto 0.02 10^3/uL (0.00-0.03); Immature Granulocytes Pct Auto 0.4 % (0.0-0.5); Lymphocytes Absolute Auto 0.5 10^3/uL (1.2-3.8); Lymphocytes Percent Auto 9.7 % (20.5-60.0); Mean Corpuscular HGB Conc 33.2 g/dL (29.9-35.2); Mean Corpuscular Hemoglobin 27.5 pg (26.7-34.0); Mean Corpuscular Volume 82.7 fL (81.0-99.0); Mean Platelet Volume 10.2 fL (9.5-13.5); Monocytes Absolute Auto 0.5 10^3/uL (0.3-0.8); Monocytes Percent Auto 10.9 % (1.7-12.0); Neutrophils Absolute Auto 3.7 10^3/uL (1.4-6.5); Neutrophils Percent Auto 75.7 % (43.0-75.0); Platelet Count 234 10^3/uL (150-450); Red Blood Count 3.93 10^6/uL (4.20-5.40); Red Cell Distribution Width 18.7 % (11.0-15.0); White Blood Count 4.9 10^3/uL (4.0-11.0)
[2023-01-14 12:51] LABS: Percent Iron Saturation 9.3 %
[2023-08-17 13:28] LABS: Reticulocyte Count 1.27 % (0.60-3.10)
== END 2023-01-14 10:19 | disposition home or self-care (01) ==
LOC: LAB 10:19
PROVIDERS: PCP Internal Medicine; Visit Provider Internal Medicine
DX: D64.9 Anemia, unspecified (principal)
CPT/HCPCS: 36415; 82607; 82728; 82746; 83540; 83550; 85025; 85045

== ENCOUNTER 2023-01-20 09:42 | Outpatient (OUT) | payer MEDICARE, OTHER, SELFPAY ==
[2023-01-20 10:28] LABS: Estimated GFR (African America 52 (>=60); Estimated GFR (Non-African Ame 43 (>=60)
--- NOTE | 2023-01-20 11:03 | CT_ITS ---
The [address] [address] Patient Name: ANH CASE MRN: [id number] date: 1940 Sex: F Assigned Patient Location: LAB Current Patient Location: LAB Accession/Order Number: [id number] Exam Date: 01/20/2023 10:47 Report Date: 01/20/2023 11:56 At the request of: SANDRO GODINEZ Procedure: CT chest wo/w con CT chest wo/w con CLINICAL HISTORY: Lung Nodule R91.1 COMPARISON: 12/25/2022. 10/25/2021. CT CHEST TECHNIQUE: Initial noncontrast axial CT images obtained from lung apices through lung bases. Subsequently, there is contrast CT of the chest with 100 mL Omnipaque 300. Coronal and sagittal reconstructions performed. Dose reduction techniques were achieved by using automated exposure control and/or adjustment of mA and/or kV according to patient size and/or use of iterative reconstruction technique. CT CHEST FINDINGS: Lower thyroid unremarkable. No axillary adenopathy. Thoracic spondylosis with multiple chronic compression fractures. Visualized upper abdomen with a few miniscule foci of pneumobilia. Cholecystectomy. Normal-sized adrenal glands. Cardiomegaly and coronary artery calcifications. Small to moderate sized pericardial effusion is similar to prior. No mediastinal adenopathy. Atherosclerotic aorta with normal caliber ascending thoracic aorta and aortic arch. No aortic dissection. Atherosclerotic aorta with descending thoracic ectasia of 3.3 cm. Lungs with no active airspace opacities or effusions. Mild pulmonary emphysema and small scattered areas of parenchymal scarring. 7 mm right upper lobe groundglass nodule on image 27 of series 9 is slightly increased in size and more solid compared to 202 of 5 mm. 8 mm right upper lobe nodule lateral and inferior posterior right upper lobe on image 33 similar to prior. 9 mm left upper lobe ill-defined groundglass nodularity on image 31. Similar. Anterior subpleural lingular 7 mm noncalcified nodule on image 43 is stable back to at least 2021. CT/CT chest wo/w con IMPRESSION: Increase size and solid nature of peripheral right upper lobe groundglass nodule compared to September 2021. 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 Recommend CT-guided biopsy. Additional scattered nodularities otherwise similar to prior. No new lesions. Stable mild pulmonary emphysema and chronic scarring. Atherosclerotic aorta without dissection. Ascending thoracic aortic ectasia. Stable small to moderate pericardial effusion. Electronically authenticated by: ENRIQUE PERSON Date: 01/20/2023 11:56
== END 2023-01-20 09:43 | disposition home or self-care (01) ==
LOC: LAB 09:42
PROVIDERS: PCP Internal Medicine; Visit Provider Internal Medicine Interventional Cardiology
DX: Z01.812 Encounter for preprocedural laboratory examination (principal); R91.1 Solitary pulmonary nodule; R91.8 Other nonspecific abnormal finding of lung field; J43.9 Emphysema, unspecified; I77.810 Thoracic aortic ectasia; I31.39 Other pericardial effusion (noninflammatory)
CPT/HCPCS: 36415; 71270; 82565; Q9967

== ENCOUNTER 2023-02-04 08:11 | Outpatient (OUT) | payer MEDICARE, OTHER, SELFPAY ==
[2023-02-07 18:09] LABS: Aspergillus flavus Negative (Neg:<1:1); Aspergillus fumigatus Negative (Neg:<1:1); Aspergillus niger Negative (Neg:<1:1); Blastomyces Abs, Qn, DID Negative (Neg:<1:1)
== END 2023-02-04 08:12 | disposition home or self-care (01) ==
LOC: LAB 08:13
PROVIDERS: PCP Internal Medicine; Visit Provider Internal Medicine
DX: R91.8 Other nonspecific abnormal finding of lung field (principal)
CPT/HCPCS: 36415; 86606; 86612; 86698; 87385

== ENCOUNTER 2023-02-18 11:09 | Outpatient (OUT) | payer MEDICARE, OTHER, SELFPAY | END 2023-02-18 11:10 | disposition home or self-care (01) | LOC: PST 11:09 | PROVIDERS: PCP Internal Medicine; Visit Provider Surgery | DX: Z01.818 Encounter for other preprocedural examination (principal); R19.5 Other fecal abnormalities ==

== ENCOUNTER 2023-02-20 07:30 | Day surgery (SDC) | payer MEDICARE, OTHER, SELFPAY ==
[2023-02-20 08:03] VITALS: BP 174/81; PULSE 77; RESP 16; TEMP 35.9; O2SAT 97; BMI 28.1
[2023-02-20] MEDS: LACTATED RINGER'S SOLUTION 1,000 ML 50 ML IV (08:23)
[2023-02-20 09:22] VITALS: BP 159/78; PULSE 75; RESP 16; TEMP 36.3; O2SAT 100
[2023-02-20 09:37] VITALS: BP 122/77; PULSE 78; RESP 16; O2SAT 96
--- NOTE | 2023-02-20 09:38 | PM.GSPRC ---
Date of procedure: 02/20/23 Indications for Procedure: This patient is a 82-year-old female who presents for EGD and colonoscopy due to recent finding of iron deficiency anemia and heme positive stool. The risks benefits options and potential complications of the procedures were discussed in detail with the patient and they agreed to proceed and consent was signed. Pre-op diagnosis: iron deficiency anemia, heme positive stool Post-op diagnosis: other (normal EGD, diverticulosis) Procedure: EGD, colonoscopy Anesthesia: MAC Surgeon: Paul De La Torre Procedure Summary: The patient was brought to the endoscopy suite and placed in the supine upright position. Under MAC a bite block was placed. The fiberoptic endoscope was then passed to the oropharynx into the esophagus. This was easily advanced into the stomach. The stomach was insufflated. The gastric mucosa appeared grossly normal. The endoscope was then passed through the pylorus into the duodenum. The 1st and 2nd portions of the duodenum appeared unremarkable. The endoscope was then withdrawn into the stomach and retroflexed. The upper portion stomach appeared grossly normal. There was no blood or bleeding noted throughout.the stomach was decompressed and the endoscope is gradually withdrawn. The remainder of the esophagus appeared grossly normal final withdrawal of the endoscope and this portion of procedure was ended. The patient was then placed in the left lateral decubitus position for colonoscopy.? Under MAC the fiberoptic colonoscope was introduced into the rectum. This was gradually advanced through the colon to the cecum. The cecal landmarks were identified. The bowel prep was good. Gradual withdrawal of the colonoscope was then undertaken. No vascular polypoid or mucosal lesions were noted throughout the entire length of the colon. There were scattered diverticuli in the descending colon. Once again there was no blood or bleeding noted. The anal rectal canal was unremarkable. The colon was decompressed. Digital rectal exam was unremarkable. The procedure was ended and the patient was transferred to the recovery area in stable condition. Estimated blood loss (mL): 0 Specimens: none Complications: No
[2023-02-20 09:52] VITALS: BP 135/79; PULSE 81; RESP 16; O2SAT 96
== END 2023-02-20 09:52 | disposition home or self-care (01) ==
PROVIDERS: PCP Internal Medicine; Visit Provider Surgery
PROC: (CPT 43235; principal; 2023-02-20 08:30)
DX: D50.9 Iron deficiency anemia, unspecified (principal); R19.5 Other fecal abnormalities; J43.2 Centrilobular emphysema; I25.10 Atherosclerotic heart disease of native coronary artery without angina pectoris; I10 Essential (primary) hypertension; I48.91 Unspecified atrial fibrillation; I70.90 Unspecified atherosclerosis; Z87.891 Personal history of nicotine dependence; Z79.01 Long term (current) use of anticoagulants; Z79.02 Long term (current) use of antithrombotics/antiplatelets; Z79.899 Other long term (current) drug therapy; Z85.118 Personal history of other malignant neoplasm of bronchus and lung; Z90.49 Acquired absence of other specified parts of digestive tract; Z90.710 Acquired absence of both cervix and uterus
CPT/HCPCS: 43235; 45378; J2704

== ENCOUNTER 2023-08-21 10:41 | Outpatient (OUT) | payer MEDICARE, OTHER, SELFPAY ==
--- NOTE | 2023-08-21 10:44 | US_ITS ---
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 FINDINGS: Within the subcutaneous fat of the lower left lateral chest wall is a rim calcified 7 mm round nodule of uncertain etiology. US/US chest IMPRESSION: 1. Nonspecific 7 mm nodule within lateral left chest wall. The dense rim calcifications favor benign etiology. On the patient's 06/05/2023 CT study there was a 6 mm round rim calcified nodule within the lateral left chest wall which may correspond. Electronically authenticated by: MANUEL MCKAY Date: 08/21/2023 13:05
== END 2023-08-21 10:42 | disposition home or self-care (01) ==
LOC: US 10:41
PROVIDERS: PCP Internal Medicine; Visit Provider Internal Medicine
DX: R22.2 Localized swelling, mass and lump, trunk (principal); C49.3 Malignant neoplasm of connective and soft tissue of thorax; C34.92 Malignant neoplasm of unspecified part of left bronchus or lung
CPT/HCPCS: 76604

== ENCOUNTER 2023-11-19 09:46 | Outpatient (OUT) | payer MEDICARE, OTHER, SELFPAY ==
--- NOTE | 2023-11-19 10:00 | CA_ITS ---
Patient Name: ANH CASE MR#: [id number] : 1940 Exam Date: 11/19/2023 Ordering Doctor: DR MIRIAM GODINEZ M.D. ECHOCARDIOGRAM REPORT PROCEDURE: CA ECHO LIMITED INDICATIONS: Pericardial effusion COMPARISON: None. DESCRIPTION: Limited ECHOCARDIOGRAM Real-time transthoracic echocardiography with 2D and M-mode performed. QUALITY: Technical quality was good. Limited echocardiogram per physician order. 59 , 142#, BP 146/74 LEFT VENTRICLE: Normal chamber size. Proximal septal hypertrophy (sigmoid septum). LV EF: Global left ventricular systolic function is normal; visually estimated ejection fraction is 55 to 60%. No significant wall motion abnormalities. LEFT ATRIUM: Severe dilatation. RIGHT ATRIUM: Mild dilatation. RIGHT VENTRICLE: Normal chamber size. Normal systolic function. TRICUSPID VALVE: Normal mobility and thickness. MITRAL VALVE: Mildly thickened with normal mobility. Mild mitral annular calcification. AORTIC VALVE: Normal trileaflet appearance. Mildly calcified aortic valve. Mildly diminished mobility. AORTIC ROOT: Normal diameter and appearance. PULMONIC VALVE: Normal thickness and mobility. PERICARDIUM: Moderate to large circumferential pericardial effusion (2.4 cm). There is evidence of echodense material anteriorly suggestive of clotted effusion. No convincing echocardiographic signs of tamponade physiology. IVC: Collapses with inspirations. CONCLUSION: 1. Global left ventricular systolic function is normal; visually estimated ejection fraction is 55 to 60% 2. Normal right ventricular size and systolic function 3. Biatrial enlargement 4. A moderate to large circumferential pericardial effusion is seen with echodense material suggestive of clot; no convincing signs of tamponade physiology Adult Echocardiography Procedure Report Left Ventricle LVEDD (3.7 - 5.6 cm): 4.35 cm LVESD (2.2 - 4.0 cm): 3.13 cm LVIVS thickness (0.6 - 1.2 cm): 1.55 cm LVPW thickness (0.5 - 1.0 cm): 0.94 cm LVOT Diameter 2.13 cm Left Atrium LA Volume Index (2D A2C): 60.06 ml/m2 Left Atrium Systolic Dimension: 3.98 cm Mitral Valve Right Ventricle Aorta AO Root Diam: 3.18 cm Ascending Ao Diam: 3.18 cm Aortic Valve Tricuspid Valve Pulmonic Valve Right Atrium Right Atrium Systolic Pressure: 38.49 ml, 38.49 ml Dictated by: Miriam Godinez M.D. on 11/20/2023 at 16:56 Approved by: Miriam Godinez M.D. on 11/20/2023 at 17:00
--- OUTSIDE RECORDS SUMMARY | 2023-11-19 10:07 | XMS_ITS | CCD ---
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 Name Role Phone Nicholas Tk Shine Primary Care Provider [phone] Tk Roque II Primary Care Provider Eugene Reece DO, George Cajetan Unavailable Barry BADILLO, Ehab Ahmed Unavailable JUNE NUR Attending Unavailable JUNE NUR Admitting Unavailable TK ROQUE Referring Unavailable TK ROQUE Primary Care Unavailable Tk Roque II Primary Care Provider Eugene Reece DO, George Cajetan Unavailable Barry BADILLO, Ehab Ahmed Unavailable MD LEXII DEUTSCHDHARTH Attending Unavailable MANUEL MCKAY Attending Unavailable Tk Roque II Primary Care Provider Eugene Reece DO, George Cajetan Unavailable Barry BADILLO, Ehab Ahmed Unavailable EUGENE, DR ANSARI Admitting Unavailable STEPPAZ, DR ANSARI Attending Unavailable STEPPAZ, DR ANSARI Consulting Unavailable JUDE, DR MALLORY Primary Care Unavailable JUDE, DR MALLORY Consulting Unavailable ZIEBJONG, DR MANUEL Calvillo Consulting Unavailable ANA ., DR ORTA Admitting Unavailable HAY ., DR ORTA Attending Unavailable JUDE, DR MALLORY Primary Care Unavailable FRANK DUDLEY Consulting Unavailab le STEPANIC, DR ANSARI Admitting Unavailable STEPANIC, DR ANSARI Attending Unavailable STEPPAZ, DR ANSARI Consulting Unavailable JUDE, DR MALLORY Primary Care Unavailable NELY, DR MANUEL Calvillo Consulting Unavailable NELY, DR MANUEL Calvillo Consulting Unavailable JUDE, DR MALLORY Primary Care Unavailable KUNTE, SOREN Admitting Unavailable KUNTE, SOREN Attending Unavailable KUNTE, SOREN Consulting Unavailable AMBERLY, VINCE Attending Unavailable VINCE GAMING Consulting Unavailable VINCE GAMING Admitting Unavailable DR TK ROQUE Primary Care Unavailable Tk Roque II Primary Care Provider [phone] Jude ASCENCIO MD, Daniel B Primary Care Provider TK ROQUE Attending Unavailable Jude ASCENCIO MD, Daniel B Primary Care Provider Barry BADILLO, Miriam Ahmed Unavailable ELTAHAWY, EHAB Attending Unavailable ELTAHAWY, EHAB Attending Unavailable ELTAHAWY, EHAB Attending Unavailable KAROLYNHAWMary, EHAB Attending Unavailable KRAOLYNHAWMary, EHAB Attending Unavailable BARRY, EHAB Attending Unavailable TK ROQUE II Primary Care Unavailable TK ROQUE II Primary Care Unavailable NIR VELASQUEZ Referring Unavailable TK ROQUE II Primary Care Unavailable TK ROQUE II Primary Care Unavailable NIR VELASQUEZ Attending Unavailable TK ROQUE II Primary Care Unavailable SAMCAPO ELIZABETH P Referring Unavailable TK ROQUE II Primary Care Unavailable NIR VELASQUEZ Referring Unavailable NIR VELASQUEZ Attending Unavailable TK ROQUE II Primary Care Unavailable TK ROQUE II Primary Care Unavailable NIR VELASQUEZ Referring Unavailable TK ROQUE II Primary Care Unavailable VINCE GAMING Attending Unavailable TK ROQUE II Primary Care Unavailable NIR VELASQUEZ Attending Unavailable NIR VELASQUEZ Referring Unavailable Medications Current Medications Medication Drug Class(es) Dates Sig (Normalized) Sig (Original) Acetaminophen / diphenhydrAMINE (20 sources) Histamine-1 Receptor Antagonist acetaminophen/diphen h ydramine (TYLENOL PM ORAL) Take by mouth. 0 Active Comment on above: Take by mouth. Ascorbic Acid (20 sources) Vitamin C ascorbic acid (VITAMIN C ORAL) Take by mouth. 0 Active Comment on above: Take by mouth. calcium carbonate 1500 mg oral tablet (20 sources) calcium carbonat e (CALTRATE) 600 mg calcium (1,500 mg) tab Take 600 mg by mouth. 0 Active Comment on above: Take 600 mg by mouth . cholecalciferol, vitamin D3, (VITAMIN D3 ORAL) (20 sources) cholecalciferol, vitamin D3, (VITAMIN D3 ORAL) Take by mouth. 0 Active Comment on above: Take by mouth. clopidogrel 75 mg oral tablet (20 sources) P2Y12 Platelet Inhibitor take 1 tablet by mouth once daily clopidogrel (PLAVIX) 75 mg tablet Take 75 mg by mouth once daily. 0 Active Comment on above: Take 75 mg by mouth once daily. docosahexaenoic acid/epa (FISH OIL ORAL) (20 sources) docosahexaenoic acid/epa (FISH OIL ORAL) Take by mouth. 0 Active Comment on above: Take by mouth. Docusate (13 sources) docusate sodium (STOOL SOFTENER ORAL) Take by mouth. 0 Active Comment on above: Take by mouth. 24 hr metoprolol succinate 25 mg extended release oral tablet (20 sources) beta-Adrenergic Lupe take 1 tablet by mouth twice daily metoprolol succinate ER (TOPROL XL) 25 mg 24 hr tablet Take 12.5 mg by mouth twice daily. 0 Active take 1 tablet by mouth once mari y metoprolol succinate ER (TOPROL XL) 25 mg 24 hr tablet Take 25 mg by mouth once daily. 0 Active Comment on above: Take 25 mg by mouth once daily. Take 12.5 mg by mout h twice daily. MULTIVITAMIN ORAL (20 sources) MULTIVITAMIN ORA L Take by mouth. 0 Active Comment on above: Take by mouth. 10 actuat olodaterol 0.0025 mg/actuat / tiotropium 0.0025 mg/actuat inhalation spray (2 sources) Anticholinergic, beta2-Adrenergic Agonist Start: 3 tiotropium-olodatero l (STIOLTO RESPIMAT) 2.5-2.5 mcg/actuation inhale 2 puffs by mouth and INTO THE LUNGS once daily 0 04/01/2023 Active Comment on above: inhale 2 puffs by mo [facility] and INTO THE LUNGS once daily omeprazole 20 mg delayed release oral capsule (20 sources) Proton Pump Inhibitor Start: 2 take 1 capsule by mouth once daily omeprazole (PRILOSEC) 20 mg capsule Take 1 capsule by mouth once daily. 0 12/29/2011 Active Comment on above: Take 1 capsule by mo [facility] once daily. oxyCODONE hydrochloride 5 mg oral tablet (4 sources) Opioid Agonist Start: 2 End: 2 take 1 tablet by mouth every six hours as needed for pain oxyCODONE IR (ROXICODONE) 5 mg immediate release tablet Indications: Neoplasm of lung Take 1 tablet by mouth every 6 hours as needed for pain for up to 7 days. 28 tablet 0 02/18/2022 02/26/2022 Active Start: 12-06-2021 End: 12-13-2021 take 1 tablet by mouth every six hours as needed for pain oxyCODONE IR (ROXICODONE) 5 mg immediate release tablet Indications: Neoplasm of lung Take 1 tablet by mouth every 6 hours as needed for pain for up to 7 days. 28 tablet 0 12/06/2021 12/13/2021 Active Comment on above: Take 1 tablet by kody th every 6 hours as needed for pain for up to 7 days. rivaroxaban 20 mg oral tablet (20 sources) Factor Xa Inhibitor take 1 tablet by mouth once daily at dinner rivaroxaban (XARELTO) 20 mg tablet Take 20 mg by mouth daily with dinner. 0 Active rivaroxaban (XAR ELTO) 20 mg tablet Take 15 mg by mouth daily with dinner. 0 Active take 1 tablet by kody th once daily at dinner rivaroxaban (XARELTO) 15 mg tablet Take 15 mg by mouth daily with dinner. 0 Active Comment on above: Take 15 mg by mouth daily with dinner. Take 20 mg by mouth daily with dinner. VEFKFHJ-DREX-GASLG-OREG-CAPR YL ORAL (20 sources) GMURDAJ-KNYS-TFR VE-OREG-CA PRYL ORAL Take by mouth. 0 Active Comment on above: Take by mouth. vit A/vit C/vit E/zinc/copper (PRESERVISION AREDS ORAL) (20 sources) vit A/vit C/vit E/zinc/copper (PRESERVISION AREDS ORAL) Take by mouth. 0 Active Comment on above: Take by mouth. Completed/Discontinued Medications Medication Drug Class(es) Dates Sig (Normalized) Sig (Original) acetaminophen 325 mg / HYDROcodone bitartrate 5 mg oral tablet (3 sources) Opioid Agonist End: 12-06-2021 take 1 tablet by mouth every eight hours as needed HYDROcodone-acetam inophen (NORCO) 5-325 mg per tablet Take 1 tablet by mouth every 8 hours as needed for pain. 0 12/06/2021 Discontinued Comment on above: Take 1 tablet by kody th every 8 hours as needed for pain. atorvastatin 10 mg oral tablet (20 sources) HMG-CoA Reductase Inhibitor Start: 12-29-2011 End: 12-06-2021 take 1 tablet by mouth once daily atorvastatin (LIPITOR) 10 mg tablet Take 1 tablet by mouth once daily. 0 12/29/2011 12/06/2021 Discontinued take 1 tablet by mouth once mari y atorvastatin (LIPITOR) 40 mg tablet Take 40 mg by mouth once daily. 0 Active Comment on above: Take 1 tablet by kody th once daily. Take 40 mg by mouth once daily. Calcium Carbonate / vitamin D3 (2 sources) End: 12-06-2021 calcium carbonate/vitamin D3 (CALCIUM 500 + D, D3, ORAL) Take by mouth. 0 12/06/2021 Discontinued (Discontinued by Patient) calcium carbonat e/vitamin D3 (CALCIUM 500 + D, D3, ORAL) Take by mouth. 0 Active Comment on above: Take by mouth. chondroitin sulfates 200 mg / glucosamine hydrochloride 250 mg oral tablet (20 sources) End: 05-20-20 Glucosamine-Chondroiti n 250-200 mg tab Take by mouth. 0 05/20/2022 Discontinued (Discontinued by Patient) Comment on above: Take by mouth. ibuprofen 800 mg oral tablet (3 sources) Nonsteroidal Anti-inflammatory Drug End: 12-07-19 take 1 tablet by mouth every six hours as needed ibuprofen (MOTRIN) 800 mg tablet Take 800 mg by mouth every 6 hours as needed. 0 12/06/2021 Discontinued (Discontinued by Patient) Comment on above: Take 800 mg by mouth every 6 hours as needed. iv contrast (will be provided with radiology test) (5 sources) Start: 03-05-20 End: 03-06-20 iv contrast (will be provided with radiology test) CT Chest W -Inject, intravenously, once for 1 dose.No IV access, insert saline lock prior to the beginning of sedation, infusion, injection of imaging exam. Discontinue saline lock post exam. If Pt. has a central line or IVAD, may access for administration according to line specific nursing protocol. Once exam is complete flush line and de-access according to line specific nursing protocol in the CT contrast administration guidelines link. 1 Each 0 03/05/2023 03/06/2023 Start: 03-05-2023 End: 03-06-2023 iv contrast (will be provide d with radiology test) CT Chest W -Inject, intravenously, once for 1 dose.No IV access, insert saline lock prior to the beginning of sedation, infusion, injection of imaging exam. Discontinue saline lock post exam. If Pt. has a central line or IVAD, may access for administration according to line specific nursing protocol. Once exam is complete flush line and de-access according to line specific nursing protocol in the CT contrast administration guidelines link. 1 Each 0 03/05/2023 03/06/2023 Active Start: 10-20-2022 End: 10-21-2022 iv contrast (will be provide d with radiology test) CT Chest W -Inject, intravenously, once for 1 dose.No IV access, insert saline lock prior to the beginning of sedation, infusion, injection of imaging exam. Discontinue saline lock post exam. If Pt. has a central line or IVAD, may access for administration according to line specific nursing protocol. Once exam is complete flush line and de-access according to line specific nursing protocol in the CT contrast administration guidelines link. 1 Each 0 10/20/2022 10/21/2022 Start: 12-06-2021 End: 12-07-2021 inject 1 dose intravenously once iv contrast (will be provided with radiology test) MRI Brain Inject, intravenously, once for 1 dose.No IV access, insert saline lock prior to beginning of sedation, infusion, injection of imaging exam.Discontinue saline lock post exam. If Pt. has a central line or IVAD, may access for administration according to line specific nursing protocol.Once exam is complete flush line and de-access according to line specific nursing protocol in the MR contrast administration guidelines link 1 Each 0 12/06/2021 12/07/2021 Active Comment on above: MRI Brain Inject, in travenously, once for 1 dose.No IV access, insert saline lock prior to beginning of sedation, infusion, injection of imaging exam.Discontinue saline lock post exam. If Pt. has a central line or IVAD, may access for administration according to line specific nursing protocol.Once exam is complete flush line and de-access according to line specific nursing protocol in the MR contrast administration guidelines link CT Chest W -Inject, intravenously, once for 1 dose.No IV access, insert saline lock prior to the beginning of sedation, infusion, injection of imaging exam. Discontinue saline lock post exam. If Pt. has a central line or IVAD, may access for administration according to line specific nursing protocol. Once exam is complete flush line and de-access according to line specific nursing protocol in the CT contrast administration guidelines link. methylPREDNISolone 4 mg oral tablet (7 sources) Corticosteroid End: 01-15-20 methylPREDNISolone (MEDROL) 4 mg Take by mouth once daily. 0 01/14/2022 Discontinued (Course of therapy completed) Comment on above: Take by mouth once d aily. 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; Translations: [MAL NEOPLASM CONN SOFT TISS THORAX] Onset: 12-02-2021 Chronic Cancer of bronchus; lung (20 sources) Malignant tumor of lung; Translations: [Malignant neoplasm of unspecified part of unspecified bronchus or lung] Onset: 01-07-2022 Chronic Cancer of bronchus; lung (1 source) History of malignant neoplasm of thoracic cavity structure; Translations: [Personal history of other malignant neoplasm of bronchus and lung] 08-20-2023 Episodic Cardiac dysrhythmias (2 sources) Paroxysmal atrial fibrillation; Translations: [Paroxysmal atrial fibrillation] Onset: 02-16-2023 Chronic Chronic obstructive pulmonary disease and bronchiectasis (1 source) Chronic obstructive lung disease; Translations: [Chronic obstructive pulmonary disease, unspecified] 03-06-2023 Chronic Coronary atherosclerosis and other heart disease (4 sources) Atherosclerotic heart disease of [place] coronary artery without angina pectoris; Translations: [Atherosclerotic heart disease of [place] coronary artery with unstable angina pectoris] Onset: 12-22-2022 Chronic Deficiency and other anemia (2 sources) Normocytic anemia; Translations: [Anemia, unspecified] Episodic Disorders of lipid metabolism (2 sources) Hyperlipidemia, unspecified; Translations: [Hyperlipidemia, unspecified] Onset: 11-18-2022 Chronic Esophageal disorders (1 source) Gastro-esophageal reflux disease without esophagitis; Translations: [GERD WITHOUT ESOPHAGITIS] Onset: 11-05-2022 Chronic Neoplasms of unspecified nature or uncertain behavior (4 sources) Neoplasm of lung ; Translations: [Neoplasm of unspecified behavior of respiratory system] Episodic Osteoarthritis (20 sources) Degenerative joint disease of shoulder region; Translations: [Primary osteoarthritis, unspecified shoulder] Onset: 12-29-2011 12-29-2011 Chronic Other aftercare (1 source) Other half-way (current) drug therapy; Translations: [OTH PENITENTIARY CURRENT DRUG THERAPY] Onset: 11-05-2022 Episodic Other aftercare (1 source) 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; Translations: [PENITENTIARY CURRNT USE ANTICOAGULANTS] Onset: 11-05-2022 Episodic Other and ill-defined heart disease (1 source) Heart disease; Translations: [Heart disease, unspecified] 03-06-2023 Chronic Other lower respiratory disease (3 sources) Nodule of lung; Translations: [Solitary pulmonary nodule] 02-04-2023 Episodic Residual codes; unclassified (1 source) Acquired absence of other specified parts of digestive tract; Translations: [ACQ ABSENCE OTH PART DIGESTV TRACT] Onset: 11-05-2022 Episodic Screening and history of mental health and substance abuse codes (1 source) Personal history of nicotine dependence; Translations: [PERSONAL HISTORY OF NICOTINE DEPEND] Onset: 11-05-2022 Episodic Skin and subcutaneous tissue infections (4 sources) Cutaneous abscess of chest wall; Translations: [CUTANEOUS ABSCESS OF CHEST WALL] Onset: 11-03-2022 Episodic Past or Other Problems Problem Classification Problem Date Documented Da te Episodic/Chronic Deficiency and other anemia (12 sources) Iron deficiency anemia; Translations: [Iron deficiency anemia, unspecified] Onset: 02-02-2023 02-02-2023 Episodic Deficiency and other anemia (1 source) Iron deficiency anemia, unspecified; Translations: [Iron deficiency anemia, unspecified iron deficiency anemia type] Onset: 02-02-2023 Episodic Malaise and fatigue (2 sources) Other malaise; Translations: [Other fatigue] Onset: 03-05-2023 Episodic Other connective tissue disease (1 source) Shoulder lesion, unspecified, left shoulder; Translations: [SHOULDER LESION UNS LEFT SHOULDER] Onset: 12-02-2021 Episodic Other skin disorders (5 sources) Localized swelling, mass and lump, trunk; Translations: [LOCALIZD SWELLING MASS AND LUMP TRUNK] Onset: 11-15-2021 Episodic Other skin disorders (4 sources) Localized swelling, mass and lump, left upper limb; Translations: [LOC SWELL MASS LUMP LT UPPER LIMB] Onset: 11-12-2021 Episodic Results Test Name Value Interpretation Reference Range Facility Office Visiton 11-02-2023 Follow-up visit [id number] Kacie Case 1940 F Date Provider Department Center 11/02/2023 271-MIRIAM REDDY CARD [facility] Family History Problem Relation Age of Onset Heart disease Mother Family Status - Relation Status Age at Mother Level of Service:03030 [place] OFFICE/OUTPATIENT ESTABLISHED LOW MDM 20 MIN Normal [facility] Orders Onlyon 11-02-2023 Orders Only [id number] Kacie Case 1940 F Date Provider Department Center 11/02/2023 LUIGI PEDRAZA CARD [facility] Family History Problem Relation Age of Onset Heart disease Mother Family Status - Relation Status Age at Mother Normal [facility] CNPNon 10-14-2023 CNPN Telephone ([place]) KACIE CASE ([id number]) 1940 F Date Time Provider Department 10/14/23 MALIK GONZALEZ During your visit today, we recorded the following information about you: Yasmin Guerrero MA 10/14/2023 1:01 PM Signed Patient coming in 10/22/23 for follow up with labs. Please add lab orders. Thanks. 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 - atorvastatin (LIPITOR) 40 mg tablet Take 40 mg by mouth once daily. - calcium carbonate (CALTRATE) 600 mg calcium (1,500 mg) tab Take 600 mg by mouth. - acetaminophen/diphenh ydramine (TYLENOL PM ORAL) Take by mouth. - MDIAXVW-LYFV-QOKWD-OR EG-CAPRYL ORAL Take by mouth. - rivaroxaban (XARELTO) 20 mg tablet Take 20 mg by mouth daily with dinner. - metoprolol succinate ER (TOPROL XL) 25 mg 24 hr tablet Take 12.5 mg by mouth twice daily. - clopidogrel (PLAVIX) 75 mg tablet Take 75 mg by mouth once daily. - vit A/vit C/vit E/zinc/copper (PRESERVISION AREDS ORAL) Take by mouth. - MULTIVITAMIN ORAL Take by mouth. - cholecalciferol, vitamin D3, (VITAMIN D3 ORAL) Take by mouth. - ascorbic acid (VITAMIN C ORAL) Take by mouth. - docosahexaenoic acid/epa (FISH OIL ORAL) Take by mouth. - omeprazole (PRILOSEC) 20 mg capsule Take 1 capsule by mouth once daily. 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 Tk Roque OTHER PHYSICIANS: Dr. Salgado, Dr. Gaming, Dr. Miriam Reddy ([facility]) Portions of this encounter note have been copied from my note from 03/05/2023 and has been updated where appropriate, and reflect my current medical decision making from today. CC: This is an 82 year old female with a history of recurrent lung cancer, persistent pulmonary nodules, and iron deficiency anemia - seen for scheduled follow-up. INTERIM HISTORY: Since the patient's last visit here she was started on a new inhaler per pulmonary, and her breathing has improved significantly since. She has an occasional cough, but very minimal shortness of breath. No hemoptysis. Overall the patient feels well. No unusual pain or other systemic complaints. No evidence of bleeding or bruising. MEDICATIONS: Current Outpatient Medications Medication Sig docusate sodium (STOOL SOFTENER ORAL) Take by mouth. atorvastatin (LIPITOR) 40 mg tablet Take 40 mg by mouth once daily. calcium carbonate (CALTRATE) 600 mg calcium (1,500 mg) tab Take 600 mg by mouth. acetaminophen/diphenh ydramine (TYLENOL PM ORAL) Take by mouth. DOKMFET-SDDN-ATDYW-OR EG-CAPRYL ORAL Take by mouth. rivaroxaban (XARELTO) 20 mg tablet Take 20 mg by mouth daily with dinner. metoprolol succinate ER (TOPROL XL) 25 mg 24 hr tablet Take 12.5 mg by mouth twice daily. clopidogrel (PLAVIX) 75 mg tablet Take 75 mg by mouth once daily. vit A/vit C/vit E/zinc/copper (PRESERVISION AREDS ORAL) Take by mouth. MULTIVITAMIN ORAL Take by mouth. cholecalciferol, vitamin D3, (VITAMIN D3 ORAL) Take by mouth. ascorbic acid (VITAMIN C ORAL) Take by mouth. docosahexaenoic acid/epa (FISH OIL ORAL) Take by mouth. omeprazole (PRILOSEC) 20 mg capsule Take 1 capsule by mouth once daily. (Patient taking differently: Take 40 mg by mouth once daily.) No current facility-administered medications for this visit. 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 PAST SURGICAL HISTORY: PAST SURGICAL HISTORY Procedure Laterality Date COLONSCOPY SCREENING HIGH RISK EGD HYSTERECTOMY REMOVAL GALLBLADDER SHX LOBECTOMY Left FAMILY HISTORY: FAMILY HISTORY Problem Relation Age of Onset Heart disease Mother COPD Mother Skin Cancer Father Lung Cancer Sister Lung Cancer Brother SOCIAL HISTORY: Social History Tobacco Use Smoking status: Former Packs/day: .25 Types: Cigarettes Quit date: 1969 Years since quittin.9 Smokeless tobacco: Never Substance Use Topics Alcohol use: No Drug use: Never COMPLETE REVIEW OF SYSTEMS: CONSTITUTION: Negative for pain, fatigue, weight loss, or appetite loss. EENT: Negative for mouth soreness, antibiotics use, epistaxis, visual problems, neck or facial swelling, fever/chills, bleeding gums, or hearing loss. CV: Negative for edema, calf swelling, palpitations, or chest pain. RESPIRATORY: Negative for cough, SOB, hemoptysis, or wheezing. GI: Negative for nausea/vomiting, heartburn, vomiting blood, dysphasia, diarrhea, blood in stool, constipation, early satiety, PICA, vegetarian, poor nutrition, abdominal fullness, or abdominal pain. NEUROLOGICAL: Negative for numbness/tingling, dizziness, gait disturbance, headache, speech disturbance, tremor, hemiparesis/sensory loss, or change in mental status. MUSCULOSKELETAL: Negative for joint pain, joint swelling, or proximal muscle weakness. SKIN: Negative for hair loss, bruising, nail changes, rash, itching, pallor, or jaundice. ENDO/URO: Negative for hot flashes, cold or heat intolerance, urinary frequency, urinary hesitancy, menorrhagia, or hematuria. PSYCH: Negative for anxiety, depression, or other. PHYSICAL EXAM: BP 156/72 Pulse 84 Temp 36.6 ?C (97.8 ?F) (Temporal) Resp 16 Ht 154.9 cm (5' 0.98 ) Wt 67.6 kg (149 lb 0.5 oz) SpO2 99% BMI 28.17 kg/m? GENERAL EXAM: Well developed/well nourished; in no acute distress. SKIN: Negative for lesions, rashes, or ulcers on the upper and lower extremities and face. Negative for palpations/nodules, purpura, and ecchymosis. EENT: Negative for conjunctiva, mucosal pallor, JVD, LAP, thyromegaly, (more content not included)... Normal [facility] Basic metabolic 2000 panelon 06-05-2023 Anion gap [Moles/Vol] 12 mmol/L Normal 9-18 [facility] Comment on above: Order Comment: Speci men Type: BLOOD SPECIMENOrdering Facility: [facility] Address: [address] [place] [address] Performed By: #### 2 4321-2 ####[facility] LABCLIA [id number] [place] [address] Calcium [Mass/Vol] 9.3 mg/dL Normal 8.5-10.2 [facility] Comment on above: Order Comment: Speci men Type: BLOOD SPECIMENOrdering Facility: [facility] Address: [address] [place] [address] Performed By: #### 2 4321-2 ####[facility] LABCLIA [id number] [place] [address] Chloride [Moles/Vol] 96 mmol/L Low 97-105 [facility] Comment on above: Order Comment: Speci men Type: BLOOD SPECIMENOrdering Facility: [facility] Address: [address] [place] [address] Performed By: #### 2 4321-2 ####[facility] LABCLIA [id number] [place] [address] CO2 [Moles/Vol] 26 mmol/L Normal 22-30 [facility] Comment on above: Order Comment: Speci men Type: BLOOD SPECIMENOrdering Facility: [facility] Address: [address] [place] [address] Performed By: #### 2 4321-2 ####[facility] LABCLIA [id number] [place] [address] Creatinine [Mass/Vol] 1.15 mg/dL High 0.58-0.96 [facility] Comment on above: Order Comment: Speci men Type: BLOOD SPECIMENOrdering Facility: [facility] Address: [address] [place] [address] Performed By: #### 2 4321-2 ####[facility] LABCLIA [id number] [place] [address] Creatinine and Glomerular filtration rate.predicted panel (S/P/Bld) 48 mL/min/1.73m??? Low >=60 [facility] Comment on above: Order Comment: Speci men Type: BLOOD SPECIMENOrdering Facility: [facility] Address: [address] [place] [address] Result Comment: Valentine mated Glomerular Filtration Rate (eGFR) is calculated using the 2020 CKD-EPI creatinine equation. This equation utilizes serum creatinine, sex, and age as parameters. The creatinine assay has traceable calibration to isotope dilution-mass spectrometry. Refer to KDIGO guidelines for clinical interpretation. In patients with unstable renal function, e.g. those with acute kidney injury, the eGFR may not accurately reflect actual GFR. Performed By: #### 2 4321-2 ####[facility] LABCLIA [id number] [place] [address] Glucose [Mass/Vol] 114 mg/dL High 74-99 [facility] Comment on above: Order Comment: Speci men Type: BLOOD SPECIMENOrdering Facility: [facility] Address: [address] [place] [address] Result Comment: The [place] Diabetes Association (ADA) provides guidance for cutoff values for fasting glucose and random glucose. The ADA defines fasting as no caloric intake for at least 8 hours. Fasting plasma glucose results between 100 to 125 mg/dL indicate increased risk for diabetes (prediabetes). Fasting plasma glucose results greater than or equal to 126 mg/dL meet the criteria for diagnosis of diabetes. In the absence of unequivocal hyperglycemia, results should be confirmed by repeat testing. In a patient with classic symptoms of hyperglycemia or hyperglycemic crisis, random plasma glucose results greater than or equal to 200 mg/dL meet the criteria for diagnosis of diabetes. Reference: Standards of Medical Care in Diabetes 2016, [place] [employer]. Diabetes Care. 2016.39(Suppl 1). Performed By: #### 2 4321-2 ####[facility] LABCLIA [id number] [place] [address] Potassium [Moles/Vol] 4.3 mmol/L Normal 3.7-5.1 [facility] Comment on above: Order Comment: Speci men Type: BLOOD SPECIMENOrdering Facility: [facility] Address: [address] [place] [address] Performed By: #### 2 4321-2 ####[facility] LABIA [id number] [place] [address] Sodium [Moles/Vol] 134 mmol/L Low 136-144 [facility] Comment on above: Order Comment: Dewaynei pat Type: BLOOD SPECIMENOrdering Facility: [facility] Address: [address] [place] [address] Performed By: #### 2 4321-2 ####[facility] LABCLIA [id number] [place] [address] Urea nitrogen [Mass/Vol] 17 mg/dL Normal 7-21 [facility] Comment on above: Order Comment: Speci men Type: BLOOD SPECIMENOrdering Facility: [facility] Address: [address] [place] [address] Performed By: #### 2 4321-2 ####[facility] LABIA [id number] [place] [address] CBC W Auto Differential pane l (Bld)on 06-05-2023 Basophils (Bld) [#/Vol] 0.03 10*3/uL Normal <0.11 [facility] Comment on above: Order Comment: Speci men Type: BLOOD SPECIMENOrdering Facility: [facility] Address: [address] [place] [address] Performed By: #### 5 7021-8 ####[facility] LABCLIA [id number] [place] [address] Basophils/100 WBC (Bld) 0.6 % Normal [facility] Comment on above: Order Comment: Speci men Type: BLOOD SPECIMENOrdering Facility: [facility] Address: [address] [place] [address] Performed By: #### 5 7021-8 ####[facility] LABCLIA [id number] [place] [address] Differential cell count method Nom (Bld) Auto Normal [facility] Comment on above: Order Comment: Speci men Type: BLOOD SPECIMENOrdering Facility: [facility] Address: [address] [place] [address] Performed By: #### 5 7021-8 ####[facility] LABCLIA [id number] [place] [address] Eosinophils (Bld) [#/Vol] 0.03 10*3/uL Normal <0.46 [facility] Comment on above: Order Comment: Speci men Type: BLOOD SPECIMENOrdering Facility: [facility] Address: [address] [place] [address] Performed By: #### 5 7021-8 ####[facility] LABCLIA [id number] [place] [address] Eosinophils/100 WBC (Bld) 0.6 % Normal [facility] Comment on above: Order Comment: Speci men Type: BLOOD SPECIMENOrdering Facility: [facility] Address: [address] [place] [address] Performed By: #### 5 7021-8 ####[facility] LABCLIA [id number] [place] [address] Erythrocyte distribution width (RBC) [Ratio] 13.7 % Normal 11.5-15.0 [facility] Comment on above: Order Comment: Speci men Type: BLOOD SPECIMENOrdering Facility: [facility] Address: [address] [place] [address] Performed By: #### 5 7021-8 ####[facility] LABCLIA [id number] [place] [address] Hematocrit (Bld) [Volume fraction] 34.2 % Low 36.0-46.0 [facility] Comment on above: Order Comment: Speci men Type: BLOOD SPECIMENOrdering Facility: [facility] Address: [address] [place] [address] Performed By: #### 5 7021-8 ####[facility] LABIA [id number] [place] [address] Hemoglobin (Bld) [Mass/Vol] 11.7 g/dL Normal 11.5-15.5 [facility] Comment on above: Order Comment: Speci men Type: BLOOD SPECIMENOrdering Facility: [facility] Address: [address] [place] [address] Performed By: #### 5 7021-8 ####[facility] LABIA [id number] [place] [address] Immature granulocytes (Bld) [#/Vol] 0.03 10*3/uL Normal <0.10 [facility] Comment on above: Order Comment: Speci men Type: BLOOD SPECIMENOrdering Facility: [facility] Address: [address] [place] [address] Performed By: #### 5 7021-8 ####[facility] LABIA [id number] [place] [address] Immature granulocytes/100 WBC (Bld) 0.6 % Normal [facility] Comment on above: Order Comment: Speci men Type: BLOOD SPECIMENOrdering Facility: [facility] Address: [address] [place] [address] Performed By: #### 5 7021-8 ####[facility] LABCLIA [id number] [place] [address] Lymphocytes (Bld) [#/Vol] 0.67 10*3/uL Low 1.00-4.00 [facility] Comment on above: Order Comment: Speci men Type: BLOOD SPECIMENOrdering Facility: [facility] Address: [address] [place] [address] Performed By: #### 5 7021-8 ####[facility] LABCLIA [id number] [place] [address] Lymphocytes/100 WBC (Bld) 12.5 % Normal [facility] Comment on above: Order Comment: Speci men Type: BLOOD SPECIMENOrdering Facility: [facility] Address: [address] [place] [address] Performed By: #### 5 7021-8 ####[facility] LABCLIA [id number] [place] [address] MCH (RBC) [Entitic mass] 31.0 pg Normal 26.0-34.0 [facility] Comment on above: Order Comment: Speci men Type: BLOOD SPECIMENOrdering Facility: [facility] Address: [address] [place] [address] Performed By: #### 5 7021-8 ####[facility] LABCLIA [id number] [place] [address] MCHC (RBC) [Mass/Vol] 34.2 g/dL Normal 30.5-36.0 [facility] Comment on above: Order Comment: Speci men Type: BLOOD SPECIMENOrdering Facility: [facility] Address: [address] [place] [address] Performed By: #### 5 7021-8 ####[facility] LABIA [id number] [place] [address] MCV (RBC) [Entitic vol] 90.5 fL Normal 80.0-100.0 [facility] Comment on above: Order Comment: Speci men Type: BLOOD SPECIMENOrdering Facility: [facility] Address: [address] [place] [address] Performed By: #### 5 7021-8 ####[facility] LABCLIA [id number] [place] [address] Monocytes (Bld) [#/Vol] 0.49 10*3/uL Normal <0.87 [facility] Comment on above: Order Comment: Speci men Type: BLOOD SPECIMENOrdering Facility: [facility] Address: [address] [place] [address] Performed By: #### 5 7021-8 ####[facility] LABCLIA [id number] [place] [address] Monocytes/100 WBC (Bld) 9.1 % Normal [facility] Comment on above: Order Comment: Speci men Type: BLOOD SPECIMENOrdering Facility: [facility] Address: [address] [place] [address] Performed By: #### 5 7021-8 ####[facility] LABCLIA [id number] [place] [address] Neutrophils (Bld) [#/Vol] 4.13 10*3/uL Normal 1.45-7.50 [facility] Comment on above: Order Comment: Speci men Type: BLOOD SPECIMENOrdering Facility: [facility] Address: [address] [place] [address] Performed By: #### 5 7021-8 ####[facility] LABCLIA [id number] [place] [address] Neutrophils/100 WBC (Bld) 76.6 % Normal [facility] Comment on above: Order Comment: Speci men Type: BLOOD SPECIMENOrdering Facility: [facility] Address: [address] [place] [address] Performed By: #### 5 7021-8 ####[facility] LABCLIA [id number] [place] [address] Nucleated RBC (Bld) [#/Vol] 10*3/uL Normal <0.01 [facility] Comment on above: Order Comment: Speci men Type: BLOOD SPECIMENOrdering Facility: [facility] Address: [address] [place] [address] Performed By: #### 5 7021-8 ####[facility] LABCLIA [id number] [place] [address] Nucleated RBC/100 WBC (Bld) [Ratio] 0.0 /100 WBC Normal [facility] Comment on above: Order Comment: Speci men Type: BLOOD SPECIMENOrdering Facility: [facility] Address: [address] [place] [address] Performed By: #### 5 7021-8 ####[facility] LABCLIA [id number] [place] [address] Platelet mean volume (Bld) [Entitic vol] 10.0 fL Normal 9.0-12.7 [facility] Comment on above: Order Comment: Speci men Type: BLOOD SPECIMENOrdering Facility: [facility] Address: [address] [place] [address] Performed By: #### 5 7021-8 ####[facility] LABCLIA [id number] [place] [address] Platelets (Bld) [#/Vol] 215 10*3/uL Normal 150-400 [facility] Comment on above: Order Comment: Speci men Type: BLOOD SPECIMENOrdering Facility: [facility] Address: [address] [place] [address] Performed By: #### 5 7021-8 ####[facility] LABCLIA [id number] [place] [address] RBC (Bld) [#/Vol] 3.78 10*6/uL Low 3.90-5.20 [facility] Comment on above: Order Comment: Speci men Type: BLOOD SPECIMENOrdering Facility: [facility] Address: [address] [place] [address] Performed By: #### 5 7021-8 ####[facility] LABCLIA [id number] [place] [address] WBC (Bld) [#/Vol] 5.38 10*3/uL Normal 3.70-11.00 [facility] Comment on above: Order Comment: Speci men Type: BLOOD SPECIMENOrdering Facility: [facility] Address: [place] [address] Performed By: #### 5 7021-8 ####[facility] LABCLIA [id number] [place] [address] CT [address] CHEST W IVCON * * *Final Report* * * DATE OF EXAM: Jun 05 2023 11:27AM [facility] 0539 - CT CHEST W IVCON / PROCEDURE REASON: Malignant neoplasm of unspecified part of unspecified bronchus or lung (HCC) * * * * Physician Interpretation * * * * RESULT: EXAMINATION: CHEST CT WITH CONTRAST CLINICAL HISTORY: Non-small cell lung cancer. Technique: Spiral CT acquisition of the chest from the thoracic inlet to the upper abdomen following IV contrast. MQ: CTCW_6 Contrast: 50 mL Omnipaque [address] Radiation dose: Integrated Dose-length product (DLP) for this visit = 202 mGy*cm CT Dose Reduction Employed: Automated exposure control (AEC) Comparison: PET CT from 02/26/2023, chest CT from 01/20/2023, and chest CT from 10/25/2021 RESULT: Limitations: None. Lines, tubes, and devices: None. Lung parenchyma and airways: Surgical changes compatible with at least partial resection of the left upper lobe. Mild centrilobular and paraseptal emphysema. Minimal paramedian consolidation in the right upper lobe and superior segment of the right lower lobe, likely due to post treatment change. 7 mm semisolid nodule in the posterior right upper lobe on slice 52 of series 4. Although stable when compared to recent exams, this has increased in size when compared to 10/25/2021, when it measured 5 mm. Therefore, the possibility of this representing adenocarcinoma should be considered. Stable 8 mm groundglass opacity in the lateral right upper lobe on slice 64 of series 4. Stable 5 mm solid nodule in the lateral left upper lung on slice 61 of series 4. Stable 8 mm groundglass opacity in the lateral left lower lobe on slice 66 of series 4. New area of pleural plaque or subpleural thickening in the lateral left lower lobe on slice 81 of series 4. This measures 5 mm in thickness. Lower neck, lymph nodes, and mediastinum: No suspicious axillary, mediastinal, or hilar lymphadenopathy. Heart, pericardium, and thoracic vessels: Stable moderate pericardial effusion. Moderate to marked coronary artery calcific communication. Bones and soft tissues: No destructive bone lesion. Chest wall is unremarkable. Upper abdomen: Limited images to the upper abdomen demonstrate pneumobilia. Mild bilateral renal cortical atrophy. Cholecystectomy. Building Mover (topogram) images: No additional findings. IMPRESSION: 1. There are multiple pulmonary nodules present. This includes solid nodules, semisolid nodules, and groundglass opacities. These appear stable when compared to the prior PET/CT from 02/26/2023 and a prior chest CT from 01/20/2023. However, the 7 mm semisolid nodule in the right upper lobe has increased in size when compared to more remote comparison imaging from 10/25/2021. Therefore, would advise continued close imaging surveillance. 2. Nonspecific area of pleural thickening on the lateral left lower lung which is new when compared to the prior study. This is nonspecific. Would advise a short-term follow-up chest CT with contrast in 3 months to reassess the pleural thickening. ACTIONABLE RESULT: FOLLOW-UP Acuity: Actionable Findings: Thoracic-Other Routing Code: CT_1 Recommendation: CT Chest W IVCON Time Frame: 1-3 months COMMUNICATION: Results will be communicated with the ordering provider via [employer] staff message or phone message by [employer] within 2 business days of report finalization. --END OF FINDING-- Algorithms for management of incidental imaging findings can be found on the [facility] Intranet Sharepoint site at: [email or web address] [email or web address] [email or web address] [email or web address] Transcribe Date/Time: Jun 05 2023 1:46P Dictated by: NORA GOODE MD This examination was interpreted and the report reviewed and electronically signed by: NORA GOODE MD on Jun 05 2023 2:12PM EST Thank you for allowing us to participate in the care of your patient. Should there be any questions regarding this interpretation, please call [phone]. If you are unable to reach us at the number above, please feel free to contact [facility] at [phone]. [id number] N ACTIONABLE Invalid Interpretation Code [facility] Ferritin SerPl-ncon 2022 Ferritin [Mass/Vol] 181.0 ng/mL Normal 14.7-205.1 [facility] Comment on above: Order Comment: Speci men Type: BLOOD SPECIMENOrdering Facility: [facility] Address: [address] [place] [address] Performed By: #### 2 276-4, 43762-2 ####[facility] [id number] [place] [address] [place] Iron and Iron binding capaci panelon 06-05-2023 Iron [Mass/Vol] 73 ug/dL Normal 41-186 [facility] Comment on above: Order Comment: Speci men Type: BLOOD SPECIMENOrdering Facility: [facility] Address: [address] [place] [address] Performed By: #### 2 276-4, 61837-2 ####[facility] LABIA [id number] [place] [address] [place] Iron binding capacity [Mass/Vol] 283 ug/dL Normal 232-386 [facility] Comment on above: Order Comment: Speci men Type: BLOOD SPECIMENOrdering Facility: [facility] Address: [address] [place] [address] Performed By: #### 2 276-4, 29628-2 ####[facility] LABIA [id number] [address] Iron/TIBC [Molar ratio] 25.8 % Normal 15.0-57.0 [facility] Comment on above: Order Comment: Speci men Type: BLOOD SPECIMENOrdering Facility: [facility] Address: [place] [address] Performed By: #### 2 276-4, 72674-4 ####[facility] LABCLIA [id number] [address] Office Visiton 04-16-2023 Follow-up visit [id number] Kacie Case 1940 F Date Provider Department Center 04/16/2023 Michael-MIRIAM REDDY Family History Problem Relation Age of Onset Heart disease Mother Family Status - Relation Status Age at Mother Level of Service:60028 [place] OFFICE/OUTPATIENT ESTABLISHED LOW MDM 20-29 MIN Normal [facility] CORTISOL BLDon 03-06-2023 Cortisol [Mass/Vol] 12.2 ug/dL 4.8 - 19.5 ug/dL [facility] FERRITIN BLDon 03-06-2023 Ferritin [Mass/Vol] 478.0 ng/mL High 14.7 - 205.1 ng/mL [facility] Iron and Iron binding capaci ty panelon 03-06-2023 Iron [Mass/Vol] 28 ug/dL Low 41 - 186 ug/dL [facility] Iron binding capacity [Mass/Vol] 332 ug/dL 232 - 386 ug/dL [facility] Iron/TIBC [Molar ratio] 8.4 % Low 15.0 - 57.0 % [facility] TSH BLDon 03-06-2023 TSH Qn 1.910 m[IU]/L 0.270 - 4.200 mIU/L [facility] Basic metabolic 2000 panelon 03-05-2023 Anion gap [Moles/Vol] 9 mmol/L Normal 9-18 [facility] Comment on above: Order Comment: Speci men Type: BLOOD SPECIMENOrdering Facility: [facility] Address: [address] [place] [phone] Performed By: #### 2 4321-2 ####[facility] LABCLIA [id number] [place] [address] Calcium [Mass/Vol] 9.1 mg/dL Normal 8.5-10.2 [facility] Comment on above: Order Comment: Speci men Type: BLOOD SPECIMENOrdering Facility: [facility] Address: [address] [place] [address] Performed By: #### 2 4321-2 ####[facility] LABCLIA [id number] [place] [address] Chloride [Moles/Vol] 99 mmol/L Normal 97-105 [facility] Comment on above: Order Comment: Speci men Type: BLOOD SPECIMENOrdering Facility: [facility] Address: [address] [place] [address] Performed By: #### 2 4321-2 ####[facility] LABCLIA [id number] [place] [address] CO2 [Moles/Vol] 23 mmol/L Normal 22-30 [facility] Comment on above: Order Comment: Speci men Type: BLOOD SPECIMENOrdering Facility: [facility] Address: [address] [place] [address] Performed By: #### 2 4321-2 ####[facility] LABCLIA [id number] [place] [address] Creatinine [Mass/Vol] 1.24 mg/dL High 0.58-0.96 [facility] Comment on above: Order Comment: Speci men Type: BLOOD SPECIMENOrdering Facility: [facility] Address: [address] [place] [address] Performed By: #### 2 4321-2 ####[facility] LABCLIA [id number] [place] [address] Creatinine and Glomerular filtration rate.predicted panel (S/P/Bld) 44 mL/min/1.73m??? Low >=60 [facility] Comment on above: Order Comment: Speci men Type: BLOOD SPECIMENOrdering Facility: [facility] Address: [address] [place] [phone] Result Comment: Valentine mated Glomerular Filtration Rate (eGFR) is calculated using the 2020 CKD-EPI creatinine equation. This equation utilizes serum creatinine, sex, and age as parameters. The creatinine assay has traceable calibration to isotope dilution-mass spectrometry. Refer to KDIGO guidelines for clinical interpretation. In patients with unstable renal function, e.g. those with acute kidney injury, the eGFR may not accurately reflect actual GFR. Performed By: #### 2 4321-2 ####[facility] LABCLIA [id number] [place] [address] Glucose [Mass/Vol] 99 mg/dL Normal 74-99 [facility] Comment on above: Order Comment: Salena stewart Type: BLOOD SPECIMENOrdering Facility: [facility] Address: [address] [place] [address] Result Comment: The [place] Diabetes [employer] (ADA) provides guidance for cutoff values for fasting glucose and random glucose. The ADA defines fasting as no caloric intake for at least 8 hours. Fasting plasma glucose results between 100 to 125 mg/dL indicate increased risk for diabetes (prediabetes). Fasting plasma glucose results greater than or equal to 126 mg/dL meet the criteria for diagnosis of diabetes. In the absence of unequivocal hyperglycemia, results should be confirmed by repeat testing. In a patient with classic symptoms of hyperglycemia or hyperglycemic crisis, random plasma glucose results greater than or equal to 200 mg/dL meet the criteria for diagnosis of diabetes. Reference: Standards of Medical Care in Diabetes 2016, [place] [employer]. Diabetes Care. 2016.39(Suppl 1). Performed By: #### 2 4321-2 ####[facility] LABIA [id number] [place] [address] Potassium [Moles/Vol] 4.6 mmol/L Normal 3.7-5.1 [facility] Comment on above: Order Comment: Salena stewart Type: BLOOD SPECIMENOrdering Facility: [facility] Address: [address] Performed By: #### 2 4321-2 ####[facility] LABCLIA [id number] [place] [address] Sodium [Moles/Vol] 131 mmol/L Low 136-144 [facility] Comment on above: Order Comment: Speci men Type: BLOOD SPECIMENOrdering Facility: [facility] Address: [address] [place] [address] Performed By: #### 2 4321-2 ####[facility] LABCLIA [id number] [place] [address] Urea nitrogen [Mass/Vol] 22 mg/dL High 7-21 [facility] Comment on above: Order Comment: Speci men Type: BLOOD SPECIMENOrdering Facility: [facility] Address: [address] [place] [address] Performed By: #### 2 4321-2 ####[facility] LABCLIA [id number] [place] [address] Anion gap [Moles/Vol] 9 mmol/L 9 - 18 mmol/L [facility] Calcium [Mass/Vol] 9.1 mg/dL 8.5 - 10. 2 mg/dL [facility] Chloride [Moles/Vol] 99 mmol/L 97 - 105 mmol/L [facility] CO2 [Moles/Vol] 23 mmol/L 22 - 30 mmol/L [facility] Creatinine [Mass/Vol] 1.24 mg/dL High 0.58 - 0.96 mg/dL [facility] Estimated Glomerular Filtration Rate 44 mL/min/1.73m Low >=60 mL/min/1.73m [facility] Glucose [Mass/Vol] 99 mg/dL 74 - 99 mg/dL [facility] Potassium [Moles/Vol] 4.6 mmol/L 3.7 - 5.1 mmol/L [facility] Sodium [Moles/Vol] 131 mmol/L Low 136 - 144 mmol/L [facility] Urea nitrogen [Mass/Vol] 22 mg/dL High 7 - 21 mg/dL [facility] CBC W Auto Differential pane l (Bld)on 03-05-2023 Basophils (Bld) [#/Vol] 0.03 10*3/uL Normal <0.11 [facility] Comment on above: Order Comment: Speci men Type: BLOOD SPECIMENOrdering Facility: [facility] Address: [address] [address] Performed By: #### 5 7021-8 ####[facility] LABCLIA [id number] [place] [address] Basophils/100 WBC (Bld) 0.4 % Normal [facility] Comment on above: Order Comment: Speci men Type: BLOOD SPECIMENOrdering Facility: [facility] Address: [address] [place] [address] Performed By: #### 5 7021-8 ####[facility] LABCLIA [id number] [place] [address] Differential cell count method Nom (Bld) Auto Normal [facility] Comment on above: Order Comment: Speci men Type: BLOOD SPECIMENOrdering Facility: [facility] Address: [address] [address] Performed By: #### 5 7021-8 ####[facility] LABCLIA [id number] [place] [address] Eosinophils (Bld) [#/Vol] 10*3/uL Normal <0.46 [facility] Comment on above: Order Comment: Speci men Type: BLOOD SPECIMENOrdering Facility: [facility] Address: [address] [address] Performed By: #### 5 7021-8 ####[facility] LABCLIA [id number] [place] [address] Eosinophils/100 WBC (Bld) 0.3 % Normal [facility] Comment on above: Order Comment: Speci men Type: BLOOD SPECIMENOrdering Facility: [facility] Address: [address] [place] [address] Performed By: #### 5 7021-8 ####[facility] LABCLIA [id number] [place] [address] Erythrocyte distribution width (RBC) [Ratio] 19.6 % High 11.5-15.0 [facility] Comment on above: Order Comment: Speci men Type: BLOOD SPECIMENOrdering Facility: [facility] Address: [address] [place] [address] Performed By: #### 5 7021-8 ####[facility] LABIA [id number] [place] [address] Hematocrit (Bld) [Volume fraction] 33.2 % Low 36.0-46.0 [facility] Comment on above: Order Comment: Speci men Type: BLOOD SPECIMENOrdering Facility: [facility] Address: [address] [place] [address] Performed By: #### 5 7021-8 ####[facility] LABIA [id number] [place] [address] Hemoglobin (Bld) [Mass/Vol] 10.9 g/dL Low 11.5-15.5 [facility] Comment on above: Order Comment: Speci men Type: BLOOD SPECIMENOrdering Facility: [facility] Address: [address] [place] [address] Performed By: #### 5 7021-8 ####[facility] LABIA [id number] [place] [address] Immature granulocytes (Bld) [#/Vol] 0.03 10*3/uL Normal <0.10 [facility] Comment on above: Order Comment: Speci men Type: BLOOD SPECIMENOrdering Facility: [facility] Address: [address] [place] [address] Performed By: #### 5 7021-8 ####[facility] LABIA [id number] [place] [address] Immature granulocytes/100 WBC (Bld) 0.4 % Normal [facility] Comment on above: Order Comment: Speci men Type: BLOOD SPECIMENOrdering Facility: [facility] Address: [address] [address] Performed By: #### 5 7021-8 ####[facility] LABCLIA [id number] [place] [address] Lymphocytes (Bld) [#/Vol] 0.40 10*3/uL Low 1.00-4.00 [facility] Comment on above: Order Comment: Speci men Type: BLOOD SPECIMENOrdering Facility: [facility] Address: [address] [place] [address] Performed By: #### 5 7021-8 ####[facility] LABIA [id number] [place] [address] Lymphocytes/100 WBC (Bld) 5.2 % Normal [facility] Comment on above: Order Comment: Speci men Type: BLOOD SPECIMENOrdering Facility: [facility] Address: [address] [place] [address] Performed By: #### 5 7021-8 ####[facility] LABIA [id number] [place] [address] MCH (RBC) [Entitic mass] 29.1 pg Normal 26.0-34.0 [facility] Comment on above: Order Comment: Speci men Type: BLOOD SPECIMENOrdering Facility: [facility] Address: [address] [place] [address] Performed By: #### 5 7021-8 ####[facility] LABIA [id number] [place] [address] MCHC (RBC) [Mass/Vol] 32.8 g/dL Normal 30.5-36.0 [facility] Comment on above: Order Comment: Speci men Type: BLOOD SPECIMENOrdering Facility: [facility] Address: [address] [place] [address] Performed By: #### 5 7021-8 ####[facility] LABCLIA [id number] [place] [address] MCV (RBC) [Entitic vol] 88.8 fL Normal 80.0-100.0 [facility] Comment on above: Order Comment: Speci men Type: BLOOD SPECIMENOrdering Facility: [facility] Address: [address] [place] [address] Performed By: #### 5 7021-8 ####[facility] LABCLIA [id number] [place] [address] Monocytes (Bld) [#/Vol] 0.54 10*3/uL Normal <0.87 [facility] Comment on above: Order Comment: Speci men Type: BLOOD SPECIMENOrdering Facility: [facility] Address: [address] [place] [address] Performed By: #### 5 7021-8 ####[facility] LABCLIA [id number] [place] [address] Monocytes/100 WBC (Bld) 7.1 % Normal [facility] Comment on above: Order Comment: Speci men Type: BLOOD SPECIMENOrdering Facility: [facility] Address: [address] [place] [address] Performed By: #### 5 7021-8 ####[facility] LABCLIA [id number] [place] [address] Neutrophils (Bld) [#/Vol] 6.61 10*3/uL Normal 1.45-7.50 [facility] Comment on above: Order Comment: Speci men Type: BLOOD SPECIMENOrdering Facility: [facility] Address: [address] [place] [address] Performed By: #### 5 7021-8 ####[facility] LABCLIA [id number] [place] [address] Neutrophils/100 WBC (Bld) 86.6 % Normal [facility] Comment on above: Order Comment: Speci men Type: BLOOD SPECIMENOrdering Facility: [facility] Address: [address] [place] [address] Performed By: #### 5 7021-8 ####[facility] LABCLIA [id number] [place] [address] Nucleated RBC (Bld) [#/Vol] 10*3/uL Normal <0.01 [facility] Comment on above: Order Comment: Speci men Type: BLOOD SPECIMENOrdering Facility: [facility] Address: [address] [place] [address] Performed By: #### 5 7021-8 ####[facility] LABCLIA [id number] [place] [address] Nucleated RBC/100 WBC (Bld) [Ratio] 0.0 /100 WBC Normal [facility] Comment on above: Order Comment: Speci men Type: BLOOD SPECIMENOrdering Facility: [facility] Address: [address] [place] [address] Performed By: #### 5 7021-8 ####[facility] LABIA [id number] [place] [address] Platelet mean volume (Bld) [Entitic vol] 10.0 fL Normal 9.0-12.7 [facility] Comment on above: Order Comment: Speci men Type: BLOOD SPECIMENOrdering Facility: [facility] Address: [address] [place] [address] Performed By: #### 5 7021-8 ####[facility] LABIA [id number] [place] [address] Platelets (Bld) [#/Vol] 217 10*3/uL Normal 150-400 [facility] Comment on above: Order Comment: Speci men Type: BLOOD SPECIMENOrdering Facility: [facility] Address: [address] [place] [address] Performed By: #### 5 7021-8 ####[facility] LABIA [id number] [place] [address] RBC (Bld) [#/Vol] 3.74 10*6/uL Low 3.90-5.20 [facility] Comment on above: Order Comment: Speci men Type: BLOOD SPECIMENOrdering Facility: [facility] Address: [address] [address] Performed By: #### 5 7021-8 ####[facility] LABCLIA [id number] [place] [address] WBC (Bld) [#/Vol] 7.63 10*3/uL Normal 3.70-11.00 [facility] Comment on above: Order Comment: Speci men Type: BLOOD SPECIMENOrdering Facility: [facility] Address: [address] [address] Performed By: #### 5 7021-8 ####[facility] LABCLIA [id number] [place] [address] Basophils (Bld) [#/Vol] 0.03 10*3/uL <0.11 k/uL [facility] Basophils/100 WBC (Bld) 0.4 % [facility] Differential cell count method Nom (Bld) Auto [facility] Eosinophils (Bld) [#/Vol] <0.46 k/uL [facility] Eosinophils/100 WBC (Bld) 0.3 % [facility] Erythrocyte distribution width (RBC) [Ratio] 19.6 % High 11.5 - 15.0 % [facility] Hematocrit (Bld) [Volume fraction] 33.2 % Low 36.0 - 46.0 % [facility] Hemoglobin (Bld) [Mass/Vol] 10.9 g/dL Low 11.5 - 15.5 g/dL [facility] Immature granulocytes (Bld) [#/Vol] 0.03 10*3/uL <0.10 k/uL [facility] Immature granulocytes/100 WBC (Bld) 0.4 % [facility] Lymphocytes (Bld) [#/Vol] 0.40 10*3/uL Low 1.00 - 4.00 k/uL [facility] Lymphocytes/100 WBC (Bld) 5.2 % [facility] MCH (RBC) [Entitic mass] 29.1 pg 26.0 - 34.0 pg [facility] MCHC (RBC) [Mass/Vol] 32.8 g/dL 30.5 - 36.0 g/dL [facility] MCV (RBC) [Entitic vol] 88.8 fL 80.0 - 100.0 fL [facility] Monocytes (Bld) [#/Vol] 0.54 10*3/uL <0.87 k/uL [facility] Monocytes/100 WBC (Bld) 7.1 % [facility] Neutrophils (Bld) [#/Vol] 6.61 10*3/uL 1.45 - 7.50 k/uL [facility] Neutrophils/100 WBC (Bld) 86.6 % [facility] Nucleated RBC (Bld) [#/Vol] <0.01 k/uL [facility] Nucleated RBC/100 WBC (Bld) [Ratio] 0.0 /100 WBC [facility] Platelet mean volume (Bld) [Entitic vol] 10.0 fL 9.0 - 12.7 fL [facility] Platelets (Bld) [#/Vol] 217 10*3/uL 150 - 400 k/uL [facility] RBC (Bld) [#/Vol] 3.74 10*6/uL Low 3.90 - 5.2 0 m/uL [facility] WBC (Bld) [#/Vol] 7.63 10*3/uL 3.70 - 11. 00 k/uL [facility] CNOVon 03-05-2023 CNOV Office Visit (RADTSA ) KACIE CASE ([id number]) 1940 F Date Time Provider Department 03/05/23 2:00 PM VINCE GAMING During your visit today, we recorded the following information about you: Vince Gaming MD 03/18/2023 5:06 AM Addendum Radiation Oncology - Follow Up Note PATIENT NAME: KACIE Case PATIENT DIAGNOSIS/PATIENT IDENTIFICATION: Ms. 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 She has opted for definitive/ablative SBRT treatment to the chest wall lesion which she completed on 02/07/2022 (5000 cGy in 5 fractions). INTERVAL HISTORY/ROS: Ms. Case returns to clinic today for routine follow-up approximately one year after the completion of her radiation treatments and four months since her last visit on 10/20/2022. In the interim, she notes mild tenderness in the treated chest wall area which is unchanged and mostly with pressure/palpation. She denies any overlying skin irritation or breakdown. She continues to note dyspnea on exertion which is somewhat worse and met with her pet counselor and was started on new medication. She notes mild cough which is stable and denies any hemoptysis or chest pain or difficulty swallowing. She had updated surveillance imaging with PET/CT on 02/26/2023 which showed continued stability in the area of the treated left chest wall however did note the interval development of a new 7 mm nodule in the right upper lobe of the lung too small to characterize on PET CT. No other regional or distant areas of concern. She otherwise denies any recent fevers, chills, headaches, difficulty with speech/swallowing, palpitations, abdominal pain, nausea, vomiting, change in bowel/urinary habits, difficulty with gait/balance, recent falls, etc. The remainder of the review of systems was performed and was otherwise noncontributory. ALLERGIES ALLERGIES No Known Allergies MEDICATIONS: Current Outpatient Medications: iv contrast (will be provided with radiology test) docusate sodium (STOOL SOFTENER ORAL) atorvastatin (LIPITOR) 40 mg tablet calcium carbonate (CALTRATE) 600 mg calcium (1,500 mg) tab acetaminophen/diphenh ydramine (TYLENOL PM ORAL) [id number]-MULZI-OR EG-CAPRYL ORAL rivaroxaban (XARELTO) 20 mg tablet metoprolol succinate ER (TOPROL XL) 25 mg 24 hr tablet clopidogrel (PLAVIX) 75 mg tablet vit A/vit C/vit E/zinc/copper (PRESERVISION AREDS ORAL) MULTIVITAMIN ORAL cholecalciferol, vitamin D3, (VITAMIN D3 ORAL) ascorbic acid (VITAMIN C ORAL) docosahexaenoic acid/epa (FISH OIL ORAL) omeprazole (PRILOSEC) 20 mg capsule PHYSICAL EXAM: GENERAL: elderly woman sitting in chair in no acute distress. VITALS: BP 96/53 Pulse 98 Temp 36.2 ?C (97.1 ?F) (Temporal) Resp 16 Ht 154.9 cm (5' 0.98 ) Wt 65.7 kg (144 lb 12.8 oz) SpO2 98% BMI 27.37 kg/m? KPS: 80 HEENT: NC/AT, anicteric sclera HEART: S1S2 LUNGS: non-labored breathing ABDOMEN: soft MUSCULOSKELETAL: no peripheral edema, moves all extremities. NEURO: no focal deficit; AANDO X3. RADIOLOGIC DATA: PET/CT (02/26/2023) IMPRESSION: HEAD/NECK: * No FDG avid neoplastic process. CHEST: * 0.7 cm groundglass nodule in the right upper lobe, too small to accurately characterize on FDG PET/CT. Recommend continued follow-up to exclude low metabolic rate neoplastic process, per clinical protocol. ACTIONABLE RESULT * Persistent left chest wall strandy uptake is likely related prior SBRT, and is unchanged from 10/15/2022; dimension follow-up studies. * Small-moderate non-FDG avid pericardial effusion, slightly increased from 01/20/2023. Extensive calcified coronary and aortic atherosclerosis noted. ABDOMEN/PELVIS: * No FDG avid neoplastic process. BONES/EXTREMITIES: * No suspicious FDG avid osseous lesion. ASSESSMENT AND PLAN: Ms. 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 She has opted for definitive/ablative SBRT treatment to the chest wall lesion which she completed on 02/07/2022 (5000 cGy in 5 fractions). Ms. Case is stable clinically approximately one year after the completion of her SBRT treatments to the left chest wall with no significant residual sequela at this time. Recent s (more content not included)... Normal [facility] CNOVSPon 03-05-2023 CNOVSP Visit (SP) Office ([facility]) KACIE CASE ([id number]) 1940 F Date Time Provider Department 03/05/23 1:30 PM NIR VELASQUEZ During your visit today, we recorded the following information about you: Temperature Pulse Respiration Blood pressure 97.1 degrees 98/minute 16/minute 96/53 Weight Height 65.7 kg 1.549 m Nir Velasquez MD 03/06/2023 8:33 AM Signed PATIENT NAME: KACIE Case DATE: 03/05/2023 PRIMARY CARE PHYSICIAN: Dr. Tk Roque OTHER PHYSICIANS: Dr. Salgado, Dr. Gaming, Dr. Mirima Reddy ([facility]) Portions of this encounter note have been copied from my note from 02/02/2023 and has been updated where appropriate, and reflect my current medical decision making from today. CC: This is an 82 year old female with a history of recurrent lung cancer, persistent pulmonary nodules, and iron deficiency anemia - seen for scheduled follow-up. INTERIM HISTORY: Since the patient's initial visit here she received IV iron with Monoferric on 02/10/2023. She tolerated the infusion well, and has felt somewhat better since. She underwent a repeat PET scan which revealed low-level uptake in the small pulmonary nodule, otherwise no significant abnormalities. On follow-up today she feels fairly well. She still has intermittent dyspnea on exertion, but has just recently started her prescribed bronchodilators. She denies any chest pain or other cardiac symptoms. No fevers or signs of infection. MEDICATIONS: Current Outpatient Medications Medication Sig docusate sodium (STOOL SOFTENER ORAL) Take by mouth. atorvastatin (LIPITOR) 40 mg tablet Take 40 mg by mouth once daily. calcium carbonate (CALTRATE) 600 mg calcium (1,500 mg) tab Take 600 mg by mouth. acetaminophen/diphenh ydramine (TYLENOL PM ORAL) Take by mouth. HFRPDPM-NVAZ-UDAKC-OR EG-CAPRYL ORAL Take by mouth. rivaroxaban (XARELTO) 20 mg tablet Take 20 mg by mouth daily with dinner. metoprolol succinate ER (TOPROL XL) 25 mg 24 hr tablet Take 12.5 mg by mouth twice daily. clopidogrel (PLAVIX) 75 mg tablet Take 75 mg by mouth once daily. vit A/vit C/vit E/zinc/copper (PRESERVISION AREDS ORAL) Take by mouth. MULTIVITAMIN ORAL Take by mouth. cholecalciferol, vitamin D3, (VITAMIN D3 ORAL) Take by mouth. ascorbic acid (VITAMIN C ORAL) Take by mouth. docosahexaenoic acid/epa (FISH OIL ORAL) Take by mouth. omeprazole (PRILOSEC) 20 mg capsule Take 1 capsule by mouth once daily. (Patient taking differently: Take 40 mg by mouth once daily.) No current facility-administered medications for this visit. 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 PAST SURGICAL HISTORY: PAST SURGICAL HISTORY Procedure Laterality Date COLONSCOPY SCREENING HIGH RISK EGD HYSTERECTOMY REMOVAL GALLBLADDER SHX LOBECTOMY Left FAMILY HISTORY: FAMILY HISTORY Problem Relation Age of Onset Heart disease Mother COPD Mother Skin Cancer Father Lung Cancer Sister Lung Cancer Brother SOCIAL HISTORY: Social History Tobacco Use Smoking status: Former Packs/day: .25 Types: Cigarettes Quit date: 1969 Years since quittin.7 Smokeless tobacco: Never Substance Use Topics Alcohol use: No Drug use: Never COMPLETE REVIEW OF SYSTEMS: CONSTITUTION: Negative for pain, fatigue, weight loss, or appetite loss. EENT: Negative for mouth soreness, antibiotics use, epistaxis, visual problems, neck or facial swelling, fever/chills, bleeding gums, or hearing loss. CV: Negative for edema, calf swelling, palpitations, or chest pain. RESPIRATORY: Negative for cough, SOB, hemoptysis, or wheezing. GI: Negative for nausea/vomiting, heartburn, vomiting blood, dysphasia, diarrhea, blood in stool, constipation, early satiety, PICA, vegetarian, poor nutrition, abdominal fullness, or abdominal pain. NEUROLOGICAL: Negative for numbness/tingling, dizziness, gait disturbance, headache, speech disturbance, tremor, hemiparesis/sensory loss, or change in mental status. MUSCULOSKELETAL: Negative for joint pain, joint swelling, or proximal muscle weakness. SKIN: Negative for hair loss, bruising, nail changes, rash, itching, pallor, or jaundice. ENDO/URO: Negative for hot flashes, cold or heat intolerance, urinary frequency, urinary hesitancy, menorrhagia, or hematuria. PSYCH: Negative for anxiety, depression, or other. PHYSICAL EXAM: BP 96/53 Pulse 98 Temp 36.2 ?C (97.1 ?F) (Temporal) Resp 16 Ht 154.9 cm (5' 0.98 ) Wt 65.7 kg (144 lb 12.8 oz) SpO2 98% BMI 27.37 kg/m? GENERAL EXAM: Well developed/well nourished; in no acute distress. SKIN: Negative for lesi (more content not included)... Normal [facility] Cortis SerPl-mCncon 03-05-20 Cortisol [Mass/Vol] 12.2 ug/dL Normal 4.8-19.5 [facility] Comment on above: Order Comment: Speci men Type: BLOOD SPECIMENOrdering Facility: [facility] Address: [address] [place] [address] Result Comment: Prov ided reference range is from 6-10 AM sample collection time. Cortisol Reference Range: 6-10 AM = 4.8-19.5 ug/dL, 4-8 PM = 2.5-11.9 ug/dL Performed By: #### 3 016-3, 2276-4, 2143-6, 98185-0 ####[facility] LABCLIA [id number] [place] [address] [place] Ferritin SerPl-mCncon 2022 Ferritin [Mass/Vol] 478.0 ng/mL High 14.7-205.1 [facility] Comment on above: Order Comment: Speci men Type: BLOOD SPECIMENOrdering Facility: [facility] Address: [address] [place], [place] [address] Performed By: #### 3 016-3, 2276-4, 2142-6, 32651-3 ####[facility] LABCLIA [id number] [address] [place] Iron and Iron binding capaci ty panelon 03-05-2023 Iron [Mass/Vol] 28 ug/dL Low 41-186 [facility] Comment on above: Order Comment: Speci men Type: BLOOD SPECIMENOrdering Facility: [facility] Address: [address] [place] [address] Performed By: #### 3 016-3, 2276-4, 2142-6, 06827-5 ####[facility] LABIA [id number] [place] [address] [place] Iron binding capacity [Mass/Vol] 332 ug/dL Normal 232-386 [facility] Comment on above: Order Comment: Speci men Type: BLOOD SPECIMENOrdering Facility: [facility] Address: [address] [place] [address] Performed By: #### 3 016-3, 2276-4, 2142-6, 38519-2 ####[facility] LABIA [id number] [place] [address] [place] Iron/TIBC [Molar ratio] 8.4 % Low 15.0-57.0 [facility] Comment on above: Order Comment: Speci men Type: BLOOD SPECIMENOrdering Facility: [facility] Address: [address] [place] [address] Performed By: #### 3 016-3, 2276-4, 2142-6, 24699-4 ####[facility] LABCLIA [id number] [place] [id number] [place] TSH SerPl-aCncon 03-05-2023 TSH Qn 1.910 m[IU]/L Normal 0.270-4.200 [facility] Comment on above: Order Comment: Speci men Type: BLOOD SPECIMENOrdering Facility: [facility] Address: [address] [place] [address] Performed By: #### 3 016-3, 2276-4, 2143-6, 41910-7 ####[facility] LABCLIA [id number] [id number] [address] [place] CNCOon 03-03-2023 CNCO Letter Text Normal [facility] NM PET/CT SKULL-THIGH SUBQon 02-26-2023 NM PET/CT SKULL-THIGH SUBQ * * *Final Report* * * DATE OF EXAM: Feb 26 2023 12:33PM NRN [id number] - NM PET/CT SKULL-THIGH SUBQ / PROCEDURE REASON: Malignant neoplasm of unspecified part of unspecified bronchus or lung (HCC) * * * * Physician Interpretation * * * * RESULT: EXAM: NM PET/CT SKULL-THIGH SUBQ HISTORY: 82 years old Female with a history of recurrent adenocarcinoma of the left lung. INDICATION: Subsequent treatment strategy TECHNIQUE: 6.2 mCi of F18-FDG administered IV followed about 60 minutes later by PET imaging from eyes to proximal thighs. Free breathing low dose CT was performed without contrast for attenuation correction and anatomic localization. - Blood glucose before FDG injection: 94 mg/dL CT Dose-Length Product (DLP): 206 mGy*cm CT Dose Reduction Employed: Automated exposure control (AEC) COMPARISON: FDG PET/CT 10/15/2022, 05/02/2022, 12/23/2021 CORRELATION: Chest CT 01/20/2023 RESULTS: REFERENCES: SUV reference values: - Mediastinal blood pool activity (max SUV): 2.9 - Background liver activity (max SUV): 3.2 Building Mover (topogram) images: No additional findings. HEAD AND NECK: Physiologic uptake in the visualized brain, extraocular muscles, parapharyngeal soft tissues, base of tongue, salivary glands, and vocal cords. Head and Neck: No focal tracer avid lesion. Lymph nodes: No tracer avid lymph nodes. Thyroid: No tracer avid lesion. CHEST: Lungs and Airways: No tracer avid consolidation, mass, or nodule. There is a 0.7 cm groundglass nodule in the posterior right upper lobe, which is below the resolution of PET and stable to slightly increased from 10/15/2022 patent but unchanged from 01/20/[address]. Additional scattered sub-5 mm nodules of the chest CT are too small to accurately assess on FDG PET/CT. * Please note, PET/CT is not sensitive for pulmonary nodules less than than 8 mm. Pleura: No tracer avid lesion. No pleural effusion. Mediastinum: No tracer avid mass. Lymph Nodes: No tracer avid lymph nodes. Cardiovascular: Physiologic blood pool and myocardial activity. Atherosclerotic calcification without thoracic aortic aneurysm. Small, non-FDG avid pericardial effusion, slightly increased in size from 01/20/2023. Chest Wall: Mild, nonspecific soft tissue stranding over the lateral left chest wall with a maximum SUV of 2.4, previously 2.6 on 10/15/2022, likely sequela of SBRT. No new or large FDG avid lesion. ABDOMEN AND PELVIS: Physiologic activity in the GI and tracts. Liver: No tracer avid lesion. Biliary: Cholecystectomy with pneumobilia. Spleen: No tracer avid lesion. No splenomegaly. Pancreas: No tracer avid lesion. Adrenals: No tracer avid lesion. Kidneys: No focal tracer avid lesion. No hydronephrosis or calculi. GI Tract: No focal tracer avid lesion. No dilated bowel. Colonic diverticulosis. Lymph Nodes: No tracer avid lymph nodes. Mesentery/Peritoneum: No tracer avid lesion. No ascites. Retroperitoneum: No tracer avid lesion. Vasculature: Atherosclerotic calcifications without an abdominal aortic aneurysm. Pelvis: No tracer avid lesion. Abdominal Wall: No tracer avid lesion. BONES AND EXTREMITIES: No tracer avid lesion or suspicious osseous lesion. There is a stable, non-FDG avid compression fracture of the T12 vertebral body. Multifocal degenerative osseous changes. IMPRESSION: HEAD/NECK: * No FDG avid neoplastic process. CHEST: * 0.7 cm groundglass nodule in the right upper lobe, too small to accurately characterize on FDG PET/CT. Recommend continued follow-up to exclude low metabolic rate neoplastic process, per clinical protocol. ACTIONABLE RESULT * Persistent left chest wall strandy uptake is likely related prior SBRT, and is unchanged from 10/15/2022; dimension follow-up studies. * Small-moderate non-FDG avid pericardial effusion, slightly increased from 01/20/2023. Extensive calcified coronary and aortic atherosclerosis noted. ABDOMEN/PELVIS: * No FDG avid neoplastic process. BONES/EXTREMITIES: * No suspicious FDG avid osseous lesion. ACTIONABLE RESULT: FOLLOW-UP Acuity: Actionable Findings: Thoracic-Lung nodules Routing code: [id number] Recommendation: Unlisted Recommendation (see report) Time Frame: At the discretion of the clinical team. COMMUNICATION: Results will be communicated with the ordering provider via [employer] staff message or phone message by [employer] within 2 business days of report finalization. Algorithms for management of incidental imaging findings can be found on the [facility] Intranet Sharepoint site at: [email or web address] [email or web address] [email or web address] [email or web address]/Fo [email or web address] Transcribe Date/Time: Feb 26 2023 2:37P Dictated by: NEEMA BLUE MD This examination was interpreted and the report reviewed and electronically signed by: ASHLEY KATE MD (more content not included)... Invalid Interpretation Code [facility]20[facility] KACIE CASE ([id number]) 1940 F Date Time Provider Department 02/24/23 KATHRINE ROD HEMTSA During your visit today, we recorded the following information about you: Kathrine Rod, RN 02/24/2023 9:57 AM Signed Please sign pending pet order. Order was lost when pt was rescheduled thanks! Allergies As of Date: 02/24/2023 (No Known Allergies) Date Reviewed: 02/24/2023 Reviewed by: Malik Gonzalez APRN.CLINICAL INFORMATICS SPEC - Fully Assessed Reason for Visit: Orders [681] Primary Visit Diagnosis:Malignant neoplasm of unspecified part of unspecified bronchus or lung (HCC) [C34.90] Order(s):NM PET/CT SKULL-THIGH SUBSEQUENT [5628119] Order #: [id number] FUTURE Prescriptions as of 03/25/2023 - docusate sodium (STOOL SOFTENER ORAL) Take by mouth. - atorvastatin (LIPITOR) 40 mg tablet Take 40 mg by mouth once daily. - calcium carbonate (CALTRATE) 600 mg calcium (1,500 mg) tab Take 600 mg by mouth. - acetaminophen/diphenh ydramine (TYLENOL PM ORAL) Take by mouth. - VRDHYDZ-IWOP-MOGWC-OR EG-CAPRYL ORAL Take by mouth. - rivaroxaban (XARELTO) 20 mg tablet Take 20 mg by mouth daily with dinner. - metoprolol succinate ER (TOPROL XL) 25 mg 24 hr tablet Take 12.5 mg by mouth twice daily. - clopidogrel (PLAVIX) 75 mg tablet Take 75 mg by mouth once daily. - vit A/vit C/vit E/zinc/copper (PRESERVISION AREDS ORAL) Take by mouth. - MULTIVITAMIN ORAL Take by mouth. - cholecalciferol, vitamin D3, (VITAMIN D3 ORAL) Take by mouth. - ascorbic acid (VITAMIN C ORAL) Take by mouth. - docosahexaenoic acid/epa (FISH OIL ORAL) Take by mouth. - omeprazole (PRILOSEC) 20 mg capsule Take 1 capsule by mouth once daily. 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 No psychosocial assessment is indicated. MILA Alejandra-Monique Allergies As of Date: 02/18/2023 (No Known Allergies) Date Reviewed: 02/10/2023 Reviewed by: Claribel Arciniega LPN - Fully Assessed Prescriptions as of 02/18/2023 - docusate sodium (STOOL SOFTENER ORAL) Take by mouth. - atorvastatin (LIPITOR) 40 mg tablet Take 40 mg by mouth once daily. - calcium carbonate (CALTRATE) 600 mg calcium (1,500 mg) tab Take 600 mg by mouth. - acetaminophen/diphenh ydramine (TYLENOL PM ORAL) Take by mouth. - WVZTVHF-XQIX-MABXP-OR EG-CAPRYL ORAL Take by mouth. - rivaroxaban (XARELTO) 20 mg tablet Take 20 mg by mouth daily with dinner. - metoprolol succinate ER (TOPROL XL) 25 mg 24 hr tablet Take 12.5 mg by mouth twice daily. - clopidogrel (PLAVIX) 75 mg tablet Take 75 mg by mouth once daily. - vit A/vit C/vit E/zinc/copper (PRESERVISION AREDS ORAL) Take by mouth. - MULTIVITAMIN ORAL Take by mouth. - cholecalciferol, vitamin D3, (VITAMIN D3 ORAL) Take by mouth. - ascorbic acid (VITAMIN C ORAL) Take by mouth. - docosahexaenoic acid/epa (FISH OIL ORAL) Take by mouth. - omeprazole (PRILOSEC) 20 mg capsule Take 1 capsule by mouth once daily. 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] 12/29/2011 Iron deficiency anemia [D50.9] 02/02/2023 Encounter Status:Closed by RONNA LANTIGUA on 02/18/23 Normal [facility] Office Visiton 02-16-2023 Follow-up visit [id number] Kacie Case 1940 F Date Provider Department Center 02/16/2023 271-[address] REDDY TYESHA Rosas Family History Problem Relation Age of Onset Heart disease Mother Family Status - Relation Status Age at Mother Level of Service:[address] [place] OFFICE/OUTPATIENT ESTABLISHED LOW MDM 20-29 MIN Normal [facility] CNPNon 02-10-2023 CNPN Telephone (HEMTSA) KACIE CASE ([id number]) 1940 F Date Time Provider Department 02/10/23 FINANCIAL NAVIGATOR SAGAR ANDERSON During your visit today, we recorded the following information about you: Tripp Valentino 02/10/2023 12:00 PM Signed Patient on 1st time treatment report-non oncology regimen (Monoferric) Patient holds medicare coverage and no FA available for this treatment. Allergies As of Date: 02/10/2023 (No Known Allergies) Date Reviewed: 02/10/2023 Reviewed by: Claribel Arciniega LPN - Fully Assessed Reason for Visit: Benefits Investigation [4098] Prescriptions as of 02/10/2023 - docusate sodium (STOOL SOFTENER ORAL) Take by mouth. - atorvastatin (LIPITOR) 40 mg tablet Take 40 mg by mouth once daily. - calcium carbonate (CALTRATE) 600 mg calcium (1,500 mg) tab Take 600 mg by mouth. - acetaminophen/diphenh ydramine (TYLENOL PM ORAL) Take by mouth. - YKFYTZC-LLXI-MCBGZ-OR EG-CAPRYL ORAL Take by mouth. - rivaroxaban (XARELTO) 20 mg tablet Take 20 mg by mouth daily with dinner. - metoprolol succinate ER (TOPROL XL) 25 mg 24 hr tablet Take 12.5 mg by mouth twice daily. - clopidogrel (PLAVIX) 75 mg tablet Take 75 mg by mouth once daily. - vit A/vit C/vit E/zinc/copper (PRESERVISION AREDS ORAL) Take by mouth. - MULTIVITAMIN ORAL Take by mouth. - cholecalciferol, vitamin D3, (VITAMIN D3 ORAL) Take by mouth. - ascorbic acid (VITAMIN C ORAL) Take by mouth. - docosahexaenoic acid/epa (FISH OIL ORAL) Take by mouth. - omeprazole (PRILOSEC) 20 mg capsule Take 1 capsule by mouth once daily. 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 I definitely believe she should undergo an upper and lower endoscopy to evaluate for GI bleeding. She can contact the previous physician who had scheduled these tests for her (and she previously canceled). Margarita Luz RN 02/04/2023 2:17 PM Signed FYI: Spoke with patient and she verbalized understanding. Patient will call and reschedule with Dr. De La Torre in [place]. She will also have them forward any information. No further questions. Margarita Luz RN Allergies As of Date: 02/04/2023 (No Known Allergies) Date Reviewed: 02/02/2023 Reviewed by: Marie Quiñones - Fully Assessed Reason for Visit: Results [95] Prescriptions as of 02/04/2023 - docusate sodium (STOOL SOFTENER ORAL) Take by mouth. - atorvastatin (LIPITOR) 40 mg tablet Take 40 mg by mouth once daily. - calcium carbonate (CALTRATE) 600 mg calcium (1,500 mg) tab Take 600 mg by mouth. - acetaminophen/diphenh ydramine (TYLENOL PM ORAL) Take by mouth. - QAOFUDJ-YVVY-YYZNA-OR EG-CAPRYL ORAL Take by mouth. - rivaroxaban (XARELTO) 20 mg tablet Take 20 mg by mouth daily with dinner. - metoprolol succinate ER (TOPROL XL) 25 mg 24 hr tablet Take 12.5 mg by mouth twice daily. - clopidogrel (PLAVIX) 75 mg tablet Take 75 mg by mouth once daily. - vit A/vit C/vit E/zinc/copper (PRESERVISION AREDS ORAL) Take by mouth. - MULTIVITAMIN ORAL Take by mouth. - cholecalciferol, vitamin D3, (VITAMIN D3 ORAL) Take by mouth. - ascorbic acid (VITAMIN C ORAL) Take by mouth. - docosahexaenoic acid/epa (FISH OIL ORAL) Take by mouth. - omeprazole (PRILOSEC) 20 mg capsule Take 1 capsule by mouth once daily. 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 Requesting [facility] last office note for Dr Salgado. Faxed [facility] 02/02/[address] Salgado office @ [phone]. Amy Ramirez Pss Allergies As of Date: 02/04/2023 (No Known Allergies) Date Reviewed: 02/02/2023 Reviewed by: Marie Quiñones - Fully Assessed Reason for Visit: Records Faxed To Dr Salgado [Other] Prescriptions as of 02/04/2023 - docusate sodium (STOOL SOFTENER ORAL) Take by mouth. - atorvastatin (LIPITOR) 40 mg tablet Take 40 mg by mouth once daily. - calcium carbonate (CALTRATE) 600 mg calcium (1,500 mg) tab Take 600 mg by mouth. - acetaminophen/diphenh ydramine (TYLENOL PM ORAL) Take by mouth. - BFLNRGX-QSFW-YRDUI-OR EG-CAPRYL ORAL Take by mouth. - rivaroxaban (XARELTO) 20 mg tablet Take 20 mg by mouth daily with dinner. - metoprolol succinate ER (TOPROL XL) 25 mg 24 hr tablet Take 12.5 mg by mouth twice daily. - clopidogrel (PLAVIX) 75 mg tablet Take 75 mg by mouth once daily. - vit A/vit C/vit E/zinc/copper (PRESERVISION AREDS ORAL) Take by mouth. - MULTIVITAMIN ORAL Take by mouth. - cholecalciferol, vitamin D3, (VITAMIN D3 ORAL) Take by mouth. - ascorbic acid (VITAMIN C ORAL) Take by mouth. - docosahexaenoic acid/epa (FISH OIL ORAL) Take by mouth. - omeprazole (PRILOSEC) 20 mg capsule Take 1 capsule by mouth once daily. 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 Can you please confirm how many venofer infusions you would like the pt to have so that we can get her scheduled accordingly? Thanks! RIYA Rivas Brian R, MD 02/04/2023 11:35 AM Signed Please verify with pharmacy if she is eligible to receive Monoferric. If not we will schedule Venofer 3 mg x 3. Antoinette Cevallos 02/04/2023 1:04 PM Addendum Patient's insurance is eligible for her to receive Monoferric; verifies for traditional Medicare - Monoferric preferred. Nir Miles MD 02/05/2023 8:40 AM Signed Will change iron to Monoferric. Carlos Cardozo Allergies As of Date: 02/04/2023 (No Known Allergies) Date Reviewed: 02/02/2023 Reviewed by: Marie Quiñones - Fully Assessed Reason for Visit: Appointment [186] Prescriptions as of 02/10/2023 - docusate sodium (STOOL SOFTENER ORAL) Take by mouth. - atorvastatin (LIPITOR) 40 mg tablet Take 40 mg by mouth once daily. - calcium carbonate (CALTRATE) 600 mg calcium (1,500 mg) tab Take 600 mg by mouth. - acetaminophen/diphenh ydramine (TYLENOL PM ORAL) Take by mouth. - HJLFLZL-PUXG-WCOAK-OR EG-CAPRYL ORAL Take by mouth. - rivaroxaban (XARELTO) 20 mg tablet Take 20 mg by mouth daily with dinner. - metoprolol succinate ER (TOPROL XL) 25 mg 24 hr tablet Take 12.5 mg by mouth twice daily. - clopidogrel (PLAVIX) 75 mg tablet Take 75 mg by mouth once daily. - vit A/vit C/vit E/zinc/copper (PRESERVISION AREDS ORAL) Take by mouth. - MULTIVITAMIN ORAL Take by mouth. - cholecalciferol, vitamin D3, (VITAMIN D3 ORAL) Take by mouth. - ascorbic acid (VITAMIN C ORAL) Take by mouth. - docosahexaenoic acid/epa (FISH OIL ORAL) Take by mouth. - omeprazole (PRILOSEC) 20 mg capsule Take 1 capsule by mouth once daily. 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 Occult stool result faxed to office as requested. Anna Thomas RN Allergies As of Date: 02/04/2023 (No Known Allergies) Date Reviewed: 02/02/2023 Reviewed by: Marie Quiñones - Fully Assessed Reason for Visit: Results [95] Prescriptions as of 02/04/2023 - docusate sodium (STOOL SOFTENER ORAL) Take by mouth. - atorvastatin (LIPITOR) 40 mg tablet Take 40 mg by mouth once daily. - calcium carbonate (CALTRATE) 600 mg calcium (1,500 mg) tab Take 600 mg by mouth. - acetaminophen/diphenh ydramine (TYLENOL PM ORAL) Take by mouth. - SIIEVAH-KZFW-ILDJL-OR EG-CAPRYL ORAL Take by mouth. - rivaroxaban (XARELTO) 20 mg tablet Take 20 mg by mouth daily with dinner. - metoprolol succinate ER (TOPROL XL) 25 mg 24 hr tablet Take 12.5 mg by mouth twice daily. - clopidogrel (PLAVIX) 75 mg tablet Take 75 mg by mouth once daily. - vit A/vit C/vit E/zinc/copper (PRESERVISION AREDS ORAL) Take by mouth. - MULTIVITAMIN ORAL Take by mouth. - cholecalciferol, vitamin D3, (VITAMIN D3 ORAL) Take by mouth. - ascorbic acid (VITAMIN C ORAL) Take by mouth. - docosahexaenoic acid/epa (FISH OIL ORAL) Take by mouth. - omeprazole (PRILOSEC) 20 mg capsule Take 1 capsule by mouth once daily. 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] 12/29/2011 Iron deficiency anemia [D50.9] 02/02/2023 Encounter Status:Closed by ANNA THOMAS on 02/04/23 Normal [facility] FECAL OCCULT BLOOD TESTon Lower GI hemoglobin IA Ql (Stl) Positive Abnormal Negative [facility] FERRITIN BLDon 02-03-2023 Ferritin [Mass/Vol] 31.6 ng/mL 14.7 - 205.1 ng/mL [facility] Hemoccult Stl Ql IAon 2022 Lower GI hemoglobin IA Ql (Stl) Positive Abnormal Negative [facility] Comment on above: Order Comment: Speci men Type: STOOL SPECIMENOrdering Facility: [facility] Address: [address] [address] Performed By: #### 2 9771-3 ####[facility] LABCLIA [id number] [facility] [id number] [place] [facility] Iron and Iron binding capaci ty panelon 02-03-2023 Iron [Mass/Vol] 29 ug/dL Low 41 - 186 ug/dL [facility] Iron binding capacity [Mass/Vol] 397 ug/dL High 232 - 386 ug/dL [facility] Iron/TIBC [Molar ratio] 7.3 % Low 15.0 - 57.0 % [facility] CBC W Auto Differential pane l (Bld)on 02-02-2023 Basophils (Bld) [#/Vol] 0.03 10*3/uL Normal <0.11 [facility] Comment on above: Order Comment: Speci men Type: BLOOD SPECIMENOrdering Facility: [facility] Address: [address] [address] Performed By: #### 5 7021-8 ####[facility] LABCLIA [id number] [place] [address] Basophils/100 WBC (Bld) 0.5 % Normal [facility] Comment on above: Order Comment: Speci men Type: BLOOD SPECIMENOrdering Facility: [facility] Address: [address] [address] Performed By: #### 5 7021-8 ####[facility] LABCLIA [id number] [place] [address] Differential cell count method Nom (Bld) Auto Normal [facility] Comment on above: Order Comment: Speci men Type: BLOOD SPECIMENOrdering Facility: [facility] Address: [address] [address] Performed By: #### 5 7021-8 ####[facility] LABCLIA [id number] [place] [address] Eosinophils (Bld) [#/Vol] 0.12 10*3/uL Normal <0.46 [facility] Comment on above: Order Comment: Speci men Type: BLOOD SPECIMENOrdering Facility: [facility] Address: [address] [address] Performed By: #### 5 7021-8 ####[facility] LABCLIA [id number] [place] [address] Eosinophils/100 WBC (Bld) 2.0 % Normal [facility] Comment on above: Order Comment: Speci men Type: BLOOD SPECIMENOrdering Facility: [facility] Address: [address] [place] [address] Performed By: #### 5 7021-8 ####[facility] LABCLIA [id number] [place] [address] Erythrocyte distribution width (RBC) [Ratio] 18.0 % High 11.5-15.0 [facility] Comment on above: Order Comment: Speci men Type: BLOOD SPECIMENOrdering Facility: [facility] Address: [address] [place] [address] Performed By: #### 5 7021-8 ####[facility] LABCLIA [id number] [place] [address] Hematocrit (Bld) [Volume fraction] 28.2 % Low 36.0-46.0 [facility] Comment on above: Order Comment: Speci men Type: BLOOD SPECIMENOrdering Facility: [facility] Address: [address] [place] [address] Performed By: #### 5 7021-8 ####[facility] LABCLIA [id number] [place] [address] Hemoglobin (Bld) [Mass/Vol] 9.3 g/dL Low 11.5-15.5 [facility] Comment on above: Order Comment: Speci men Type: BLOOD SPECIMENOrdering Facility: [facility] Address: [address] [place] [address] Performed By: #### 5 7021-8 ####[facility] LABCLIA [id number] [place] [address] Immature granulocytes (Bld) [#/Vol] 0.03 10*3/uL Normal <0.10 [facility] Comment on above: Order Comment: Speci men Type: BLOOD SPECIMENOrdering Facility: [facility] Address: [address] [place] [address] Performed By: #### 5 7021-8 ####[facility] LABCLIA [id number] [place] [address] Immature granulocytes/100 WBC (Bld) 0.5 % Normal [facility] Comment on above: Order Comment: Speci men Type: BLOOD SPECIMENOrdering Facility: [facility] Address: [address] [place] [address] Performed By: #### 5 7021-8 ####[facility] LABCLIA [id number] [place] [address] Lymphocytes (Bld) [#/Vol] 0.79 10*3/uL Low 1.00-4.00 [facility] Comment on above: Order Comment: Speci men Type: BLOOD SPECIMENOrdering Facility: [facility] Address: [address] [place] [address] Performed By: #### 5 7021-8 ####[facility] LABCLIA [id number] [place] [address] Lymphocytes/100 WBC (Bld) 13.5 % Normal [facility] Comment on above: Order Comment: Speci men Type: BLOOD SPECIMENOrdering Facility: [facility] Address: [address] [place] [address] Performed By: #### 5 7021-8 ####[facility] LABCLIA [id number] [place] [address] MCH (RBC) [Entitic mass] 27.5 pg Normal 26.0-34.0 [facility] Comment on above: Order Comment: Speci men Type: BLOOD SPECIMENOrdering Facility: [facility] Address: [address] [place] [address] Performed By: #### 5 7021-8 ####[facility] LABCLIA [id number] [place] [address] MCHC (RBC) [Mass/Vol] 33.0 g/dL Normal 30.5-36.0 [facility] Comment on above: Order Comment: Speci men Type: BLOOD SPECIMENOrdering Facility: [facility] Address: [address] [place] [address] Performed By: #### 5 7021-8 ####[facility] LABIA [id number] [place] [address] MCV (RBC) [Entitic vol] 83.4 fL Normal 80.0-100.0 [facility] Comment on above: Order Comment: Speci men Type: BLOOD SPECIMENOrdering Facility: [facility] Address: [address] [place] [address] Performed By: #### 5 7021-8 ####[facility] LABCLIA [id number] [place] [address] Monocytes (Bld) [#/Vol] 0.76 10*3/uL Normal <0.87 [facility] Comment on above: Order Comment: Speci men Type: BLOOD SPECIMENOrdering Facility: [facility] Address: [address] [place] [address] Performed By: #### 5 7021-8 ####[facility] LABCLIA [id number] [place] [address] Monocytes/100 WBC (Bld) 13.0 % Normal [facility] Comment on above: Order Comment: Speci men Type: BLOOD SPECIMENOrdering Facility: [facility] Address: [address] [address] Performed By: #### 5 7021-8 ####[facility] LABCLIA [id number] [place] [address] Neutrophils (Bld) [#/Vol] 4.13 10*3/uL Normal 1.45-7.50 [facility] Comment on above: Order Comment: Speci men Type: BLOOD SPECIMENOrdering Facility: [facility] Address: [address] [place] [address] Performed By: #### 5 7021-8 ####[facility] LABCLIA [id number] [place] [address] Neutrophils/100 WBC (Bld) 70.5 % Normal [facility] Comment on above: Order Comment: Speci men Type: BLOOD SPECIMENOrdering Facility: [facility] Address: [address] [place] [address] Performed By: #### 5 7021-8 ####[facility] LABCLIA [id number] [place] [address] Nucleated RBC (Bld) [#/Vol] 10*3/uL Normal <0.01 [facility] Comment on above: Order Comment: Speci men Type: BLOOD SPECIMENOrdering Facility: [facility] Address: [address] [place] [address] Performed By: #### 5 7021-8 ####[facility] LABCLIA [id number] [place] [address] Nucleated RBC/100 WBC (Bld) [Ratio] 0.0 /100 WBC Normal [facility] Comment on above: Order Comment: Speci men Type: BLOOD SPECIMENOrdering Facility: [facility] Address: [address] [place] [address] Performed By: #### 5 7021-8 ####[facility] LABCLIA [id number] [place] [address] Platelet mean volume (Bld) [Entitic vol] 9.7 fL Normal 9.0-12.7 [facility] Comment on above: Order Comment: Speci men Type: BLOOD SPECIMENOrdering Facility: [facility] Address: [address] [place] [address] Performed By: #### 5 7021-8 ####[facility] LABCLIA [id number] [place] [address] Platelets (Bld) [#/Vol] 263 10*3/uL Normal 150-400 [facility] Comment on above: Order Comment: Speci men Type: BLOOD SPECIMENOrdering Facility: [facility] Address: [address] [place] [address] Performed By: #### 5 7021-8 ####[facility] LABIA [id number] [place] [address] RBC (Bld) [#/Vol] 3.38 10*6/uL Low 3.90-5.20 [facility] Comment on above: Order Comment: Speci men Type: BLOOD SPECIMENOrdering Facility: [facility] Address: [address] [place] [address] Performed By: #### 5 7021-8 ####[facility] LABCLIA [id number] [place] [address] WBC (Bld) [#/Vol] 5.86 10*3/uL Normal 3.70-11.00 [facility] Comment on above: Order Comment: Speci men Type: BLOOD SPECIMENOrdering Facility: [facility] Address: [address] [place] [address] Performed By: #### 5 7021-8 ####[facility] LABCLIA [id number] [place] [address] Basophils (Bld) [#/Vol] 0.03 10*3/uL <0.11 k/uL [facility] Basophils/100 WBC (Bld) 0.5 % [facility] Differential cell count method Nom (Bld) Auto [facility] Eosinophils (Bld) [#/Vol] 0.12 10*3/uL <0.46 k/uL [facility] Eosinophils/100 WBC (Bld) 2.0 % [facility] Erythrocyte distribution width (RBC) [Ratio] 18.0 % High 11.5 - 15.0 % [facility] Hematocrit (Bld) [Volume fraction] 28.2 % Low 36.0 - 46.0 % [facility] Hemoglobin (Bld) [Mass/Vol] 9.3 g/dL Low 11.5 - 15.5 g/dL [facility] Immature granulocytes (Bld) [#/Vol] 0.03 10*3/uL <0.10 k/uL [facility] Immature granulocytes/100 WBC (Bld) 0.5 % [facility] Lymphocytes (Bld) [#/Vol] 0.79 10*3/uL Low 1.00 - 4.00 k/uL [facility] Lymphocytes/100 WBC (Bld) 13.5 % [facility] MCH (RBC) [Entitic mass] 27.5 pg 26.0 - 34.0 pg [facility] MCHC (RBC) [Mass/Vol] 33.0 g/dL 30.5 - 36.0 g/dL [facility] MCV (RBC) [Entitic vol] 83.4 fL 80.0 - 100.0 fL [facility] Monocytes (Bld) [#/Vol] 0.76 10*3/uL <0.87 k/uL [facility] Monocytes/100 WBC (Bld) 13.0 % [facility] Neutrophils (Bld) [#/Vol] 4.13 10*3/uL 1.45 - 7.50 k/uL [facility] Neutrophils/100 WBC (Bld) 70.5 % [facility] Nucleated RBC (Bld) [#/Vol] <0.01 k/uL [facility] Nucleated RBC/100 WBC (Bld) [Ratio] 0.0 /100 WBC [facility] Platelet mean volume (Bld) [Entitic vol] 9.7 fL 9.0 - 12.7 fL [facility] Platelets (Bld) [#/Vol] 263 10*3/uL 150 - 400 k/uL [facility] RBC (Bld) [#/Vol] 3.38 10*6/uL Low 3.90 - 5.2 0 m/uL [facility] WBC (Bld) [#/Vol] 5.86 10*3/uL 3.70 - 11. 00 k/uL [facility] CNOVSPon 02-02-2023 CNOVSP Visit (SP) Office ([place]) EVIEKACIE ([id number]) 1940 F Date Time Provider Department 02/02/23 11:00 AM NIR VELASQUEZ During your visit today, we recorded the following information about you: Temperature Pulse Respiration Blood pressure 97.9 degrees 70/minute 18/minute 136/57 Weight 69.3 kg Nir Velasquez MD 02/04/2023 6:09 AM Signed PATIENT NAME: KACIE Case DATE: 02/02/2023 PRIMARY CARE PHYSICIAN: Dr. Tk Roque OTHER PHYSICIANS: Dr. Salgado, Dr. Gaming, Dr. Miriam Reddy ([facility]) HPI: This is an 82 year old female with a history of recurrent lung cancer, referred for evaluation of suspicious pulmonary nodules and iron deficiency anemia. In 2002 the patient was diagnosed with adenocarcinoma of the left lung. Primary treatment consisted of left upper lobectomy followed by adjuvant chemotherapy and adjuvant radiation therapy. In November 2021 she was found to have a local recurrence in the left chest wall. Biopsy 12/12/2021 confirmed adenocarcinoma. She subsequently received definitive radiation with SBRT to the involved area completed 02/07/2022 (5000 cGy in 5 fractions). Follow-up PET scan 10/15/2022 revealed no evidence of active disease. Recently the patient presented with increasing shortness of breath. She was seen by her cro, and apparently cardiac evaluation was unremarkable. However, repeat chest CT 01/20/2023 revealed a small right upper lobe nodule which had increased in size and density slightly compared to prior. The patient is aware that a pulmonary nodule less than 1 cm most likely is not the cause of her shortness of breath. In addition, the patient was recently found to have anemia. Apparently she was hospitalized at [facility] November 2022 with severe anemia (hemoglobin 7.2) and additional labs consistent with iron deficiency. She received PRBC x 2. It was felt she most likely had occult GI bleeding exacerbated by anticoagulants. GI evaluation with upper and lower endoscopy was recommended, but apparently the patient declined. Current labs are consistent with ongoing iron deficiency. Throughout this time the patient denies any obvious signs of GI bleeding. Her primary complaint at this time is progressive fatigue and severe shortness of breath. No unusual chest pain. No significant cough. No hemoptysis. The patient has a past use of smoking, quit in 1989 MEDICATIONS: Current Outpatient Medications Medication Sig docusate sodium (STOOL SOFTENER ORAL) Take by mouth. atorvastatin (LIPITOR) 40 mg tablet Take 40 mg by mouth once daily. calcium carbonate (CALTRATE) 600 mg calcium (1,500 mg) tab Take 600 mg by mouth. acetaminophen/diphenh ydramine (TYLENOL PM ORAL) Take by mouth. LQGIQUD-YFHZ-WAQIP-OR EG-CAPRYL ORAL Take by mouth. rivaroxaban (XARELTO) 20 mg tablet Take 20 mg by mouth daily with dinner. metoprolol succinate ER (TOPROL XL) 25 mg 24 hr tablet Take 12.5 mg by mouth twice daily. clopidogrel (PLAVIX) 75 mg tablet Take 75 mg by mouth once daily. vit A/vit C/vit E/zinc/copper (PRESERVISION AREDS ORAL) Take by mouth. MULTIVITAMIN ORAL Take by mouth. cholecalciferol, vitamin D3, (VITAMIN D3 ORAL) Take by mouth. ascorbic acid (VITAMIN C ORAL) Take by mouth. docosahexaenoic acid/epa (FISH OIL ORAL) Take by mouth. omeprazole (PRILOSEC) 20 mg capsule Take 1 capsule by mouth once daily. (Patient taking differently: Take 40 mg by mouth once daily.) No current facility-administered medications for this visit. 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 EENT: Negative for mouth soreness, antibiotics use, epistaxis, visual problems, neck or facial swelling, fever/chills, bleeding gums, or hearing loss. CV: Negative for edema, calf swelling, palpitations, or chest pain. RESPIRATORY: Negative for cough, SOB, hemoptysis, or wheezing. GI: Negative for nausea/vomiting, heartburn, vomiting blood, dysphasia, diarrhea, blood in stool, constipation, early satiety, PICA, vegetarian, poor nutrit (more content not included)... Normal [facility] Comprehensive metabolic 2000 panelon 02-02-2023 Albumin [Mass/Vol] 4.5 g/dL Normal 3.9-4.9 [facility] Comment on above: Order Comment: Speci men Type: BLOOD SPECIMENOrdering Facility: [facility] Address: [address] [place] [address] Performed By: #### 2 4323-8 ####[facility] LABCLIA [id number] [place] [address] ALP [Catalytic activity/Vol] 48 U/L Normal 34-123 [facility] Comment on above: Order Comment: Speci men Type: BLOOD SPECIMENOrdering Facility: [facility] Address: [address] [id number] Performed By: #### 2 4323-8 ####[facility] LABCLIA [id number] [place] [address] ALT [Catalytic activity/Vol] 18 U/L Normal 7-38 [facility] Comment on above: Order Comment: Speci men Type: BLOOD SPECIMENOrdering Facility: [facility] Address: [address] [address] Performed By: #### 2 4323-8 ####[facility] LABCLIA [id number] [place] [address] Anion gap [Moles/Vol] 10 mmol/L Normal 9-18 [facility] Comment on above: Order Comment: Speci men Type: BLOOD SPECIMENOrdering Facility: [facility] Address: [address] [address] Performed By: #### 2 4323-8 ####[facility] LABCLIA [id number] [place] [address] AST [Catalytic activity/Vol] 22 U/L Normal 13-35 [facility] Comment on above: Order Comment: Speci men Type: BLOOD SPECIMENOrdering Facility: [facility] Address: [address] [address] Performed By: #### 2 4323-8 ####[facility] LABCLIA [id number] [place] [address] Bilirubin [Mass/Vol] 0.2 mg/dL Normal 0.2-1.3 [facility] Comment on above: Order Comment: Speci men Type: BLOOD SPECIMENOrdering Facility: [facility] Address: [address] [place] [address] Performed By: #### 2 4323-8 ####[facility] LABCLIA [id number] [place] [address] Calcium [Mass/Vol] 9.0 mg/dL Normal 8.5-10.2 [facility] Comment on above: Order Comment: Speci men Type: BLOOD SPECIMENOrdering Facility: [facility] Address: [address] [place] [address] Performed By: #### 2 4323-8 ####[facility] LABCLIA [id number] [place] [address] Chloride [Moles/Vol] 92 mmol/L Low 97-105 [facility] Comment on above: Order Comment: Speci men Type: BLOOD SPECIMENOrdering Facility: [facility] Address: [address] [place] [address] Performed By: #### 2 4323-8 ####[facility] LABCLIA [id number] [place] [address] CO2 [Moles/Vol] 24 mmol/L Normal 22-30 [facility] Comment on above: Order Comment: Speci men Type: BLOOD SPECIMENOrdering Facility: [facility] Address: [address] [place] [address] Performed By: #### 2 4323-8 ####[facility] LABCLIA [id number] [place] [address] Creatinine [Mass/Vol] 1.18 mg/dL High 0.58-0.96 [facility] Comment on above: Order Comment: Speci men Type: BLOOD SPECIMENOrdering Facility: [facility] Address: [address] [place] [address] Performed By: #### 2 4323-8 ####[facility] LABCLIA [id number] [place] [address] ESTIMATED GLOMERULAR FILTRATION RATE 46 mL/min/1.73m??? Low >=60 [facility] Comment on above: Order Comment: Speci men Type: BLOOD SPECIMENOrdering Facility: [facility] Address: [address] [place] [address] Result Comment: Valentine mated Glomerular Filtration Rate (eGFR) is calculated using the 2020 CKD-EPI creatinine equation. This equation utilizes serum creatinine, sex, and age as parameters. The creatinine assay has traceable calibration to isotope dilution-mass spectrometry. Refer to KDIGO guidelines for clinical interpretation. In patients with unstable renal function, e.g. those with acute kidney injury, the eGFR may not accurately reflect actual GFR. Performed By: #### 2 4323-8 ####[facility] LABCLIA [id number] [place] [address] Glucose [Mass/Vol] 106 mg/dL High 74-99 [facility] Comment on above: Order Comment: Speci men Type: BLOOD SPECIMENOrdering Facility: [facility] Address: [address] [place] [address] Result Comment: The [place] Diabetes Association (ADA) provides guidance for cutoff values for fasting glucose and random glucose. The ADA defines fasting as no caloric intake for at least 8 hours. Fasting plasma glucose results between 100 to 125 mg/dL indicate increased risk for diabetes (prediabetes). Fasting plasma glucose results greater than or equal to 126 mg/dL meet the criteria for diagnosis of diabetes. In the absence of unequivocal hyperglycemia, results should be confirmed by repeat testing. In a patient with classic symptoms of hyperglycemia or hyperglycemic crisis, random plasma glucose results greater than or equal to 200 mg/dL meet the criteria for diagnosis of diabetes. Reference: Standards of Medical Care in Diabetes 2016, [place] [employer] Association. Diabetes Care. 2016.39(Suppl 1). Performed By: #### 2 4323-8 ####[facility] LABCLIA [id number] [place] [address] Potassium [Moles/Vol] 5.2 mmol/L High 3.7-5.1 [facility] Comment on above: Order Comment: Speci men Type: BLOOD SPECIMENOrdering Facility: [facility] Address: [address] [place] [address] Performed By: #### 2 4323-8 ####[facility] LABCLIA [id number] [place] [address] Protein [Mass/Vol] 6.3 g/dL Normal 6.3-8.0 [facility] Comment on above: Order Comment: Speci men Type: BLOOD SPECIMENOrdering Facility: [facility] Address: [address] [place] [address] Performed By: #### 2 4323-8 ####[facility] LABCLIA [id number] [place] [address] Sodium [Moles/Vol] 126 mmol/L Low 136-144 [facility] Comment on above: Order Comment: Speci men Type: BLOOD SPECIMENOrdering Facility: [facility] Address: [address] [address] Performed By: #### 2 4323-8 ####[facility] LABCLIA [id number] [place] [address] Urea nitrogen [Mass/Vol] 15 mg/dL Normal 7-21 [facility] Comment on above: Order Comment: Speci men Type: BLOOD SPECIMENOrdering Facility: [facility] Address: [address] [address] Performed By: #### 2 4323-8 ####[facility] LABCLIA [id number] [place] [address] Albumin [Mass/Vol] 4.5 g/dL 3.9 - 4.9 g/dL [facility] ALP [Catalytic activity/Vol] 48 U/L 34 - 123 U/L [facility] ALT [Catalytic activity/Vol] 18 U/L 7 - 38 U/L [facility] Anion gap [Moles/Vol] 10 mmol/L 9 - 18 mmol/L [facility] AST [Catalytic activity/Vol] 22 U/L 13 - 35 U/L [facility] Bilirubin [Mass/Vol] 0.2 mg/dL 0.2 - 1.3 mg/dL [facility] Calcium [Mass/Vol] 9.0 mg/dL 8.5 - 10. 2 mg/dL [facility] Chloride [Moles/Vol] 92 mmol/L Low 97 - 105 mmol/L [facility] CO2 [Moles/Vol] 24 mmol/L 22 - 30 mmol/L [facility] Creatinine [Mass/Vol] 1.18 mg/dL High 0.58 - 0.96 mg/dL [facility] Estimated Glomerular Filtration Rate 46 mL/min/1.73m Low >=60 mL/min/1.73m [facility] Glucose [Mass/Vol] 106 mg/dL High 74 - 99 mg/dL [facility] Potassium [Moles/Vol] 5.2 mmol/L High 3.7 - 5.1 mmol/L [facility] Protein [Mass/Vol] 6.3 g/dL 6.3 - 8.0 g/dL [facility] Sodium [Moles/Vol] 126 mmol/L Low 136 - 144 mmol/L [facility] Urea nitrogen [Mass/Vol] 15 mg/dL 7 - 21 mg/dL [facility] Ferritin SerPl-mCncon 2022 Ferritin [Mass/Vol] 31.6 ng/mL Normal 14.7-205.1 [facility] Comment on above: Order Comment: Speci men Type: BLOOD SPECIMENOrdering Facility: [facility] Address: [address] Performed By: #### 2 276-4, 76875-4 ####[facility] LABIA [id number] [place] [address] [place] Iron and Iron binding capaci ty panelon 02-02-2023 Iron [Mass/Vol] 29 ug/dL Low 41-186 [facility] Comment on above: Order Comment: Speci men Type: BLOOD SPECIMENOrdering Facility: [facility] Address: [address] Performed By: #### 2 276-4, 90815-2 ####[facility] LABIA [id number] [place] [address] [place] Iron binding capacity [Mass/Vol] 397 ug/dL High 232-386 [facility] Comment on above: Order Comment: Speci men Type: BLOOD SPECIMENOrdering Facility: [facility] Address: [address] Performed By: #### 2 276-4, 36767-4 ####[facility] LABIA [id number] [place] [address] [place] Iron/TIBC [Molar ratio] 7.3 % Low 15.0-57.0 [facility] Comment on above: Order Comment: Speci men Type: BLOOD SPECIMENOrdering Facility: [facility] Address: [address] Performed By: #### 2 276-4, 13656-4 ####[facility] LABCLIA [id number] [address] STATES OF [facility] Office Visiton 12-29-2022 Follow-up visit [id number] Kacie Case 1940 Date Provider Department Center 12/29/2022 MIRIAM CALDERÓN [facility] Family History Problem Relation Age of Onset Heart disease Mother Family Status - Relation Status Age at Mother Level of Service:50721 [place] OFFICE/OUTPATIENT ESTABLISHED LOW MDM 20-29 MIN [facility] Office Visiton 12-22-2022 Follow-up visit [id number] Sierra 1940 Provider Department Center 12/22/2022 MIRIAM CALDERÓN Hos Family History Problem Relation Age of Onset Heart disease Mother Family Status - Relation Status Age at Mother Level of Service:88034 [place] OFFICE/OUTPATIENT ESTABLISHED HIGH MDM 40-54 MIN [facility] Orders Onlyon 12-22-2022 Orders Only [id number] Kacie Case 1940 Provider Department Center 12/22/2022 LUIGI PEDRAZA [facility] Family History Problem Relation Age of Onset Heart disease Mother Family Status - Relation Status Age at Mother [facility] Refillon 12-10-2022 Refill [id number] Sierra 1940 Provider Department Center 12/10/2022 MIRIAM CALDERÓN [facility] Family History Problem Relation Age of Onset Heart disease Mother Family Status - Relation Status Age at Mother Reason for Visit and Comments: Med Refill [[id number]] [facility] 36on 12-04-2022 36 Patient notified and she's going to call and schedule. [facility] 36 [facility] testing and labs yesterday. The patient states she has now been admitted with a hemoglobin of 6.9. The patient stated she had to have multiple blood transfusions and the hospital is questing why she's on Xarelto and Plavix. Patient would like at call Please advise Normal [facility] Office Visiton 11-18-2022 Follow-up visit [id number] Jeanette Casekat Martinez 1940 Provider Department Center 11/18/2022 MIRIAM CALDERÓN CARD [facility] Family History Problem Relation Age of Onset Heart disease Mother Family Status - Relation Status Age at Mother Level of Service:73816 [place] OFFICE/OUTPATIENT ESTABLISHED MOD MDM 30-39 MIN Reason for Visit and Comments: Follow-up [[id number]] - 6 month follow up [facility] Orders Onlyon 11-18-2022 Orders Only [id number] Kacie Case 1940 Provider Department [place] 11/18/2022 LUIGI PEDRAZA [facility] Family History Problem Relation Age of Onset Heart disease Mother Family Status - Relation Status Age at Mother Normal [facility] MISC [id number] 03-05-2022 Misc Sendout See Report Normal [facility] Comment on above: Order Comment: Patho logy add-on testing requested 12/24/2021 on [id number] to [facility] Performed By: #### 1 [id number] #### [facility] Services [address] [place] [address] Oceanographic Meteorologist: German San MD HEMOGLOBINon 01-07-2022 Hemoglobin (Bld) [Mass/Vol] 10.8 g/dL Critically low 12.0-16.0 [facility] Comment on above: Performed By: #### H GB #### [facility] [address] [address] [address] Lilibeth Farooq Addendum Reporton 12-27-2021 Addendum Report [facility] Department of Pathology [address] [place] [id number] Name: KACIE CASE : 1940 Financial [id number] Number: Gender: Female Location: [facility] Admit 81 years Attending MANUEL MCKAY Age: Provider: Ordering MANUEL MCKAY Provider: Consulting: Surgical Pathology Report ACCESSION: COLLECTED DATE/TIME: RECEIVED DATE/TIME: PATHOLOGIST: [id number] 11/18/2021 16:30 EDT 11/19/2021 13:44 EDT JASWINDER BADILLO, GERMAN CRONIN Surgical Path Addendum Report SLIDES HAVE BEEN REVIEWED BY AN OUTSIDE INSTITUTION. THE REPORT CAN BE VIEWED UNDER DOCUMENTS IN THE PATIENT'S CHART. GERMAN SAN PATHOLOGIST (Electronic Signature) Date Verified 12/27/2021 [facility] Surgical Path Addendum Report SLIDES HAVE BEEN REVIEWED BY AN OUTSIDE INSTITUTION. THE REPORT CAN BE VIEWED UNDER DOCUMENTS IN THE PATIENT'S CHART. GERMAN SAN PATHOLOGIST (Electronic Signature) Date Verified 12/17/2021 [facility] Final Diagnosis Report for [facility] [place] (A) ULTRASOUND GUIDED CORE BIOPSY, LEFT SHOULDER MASS: - FRAGMENTS OF SKELETAL MUSCLE AND ADIPOSE TISSUE. COMMENT: Evidence of malignancy is not seen in multiple tissue sections. The possibility of an intramuscular lipoma is raised. 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 COMMENT: Immunostains were performed and the tumor shows the following profile: CK7: Positive. Print Date/ 12/27/2021 09:34 EDT Number: Time: [facility] Department of Pathology [address] [place] [phone] Name: KACIE CASE : 1940 [facility] [id number] Number: Gender: Female Location: [facility] Admit 81 years Attending MANUEL MCKAY Age: Provider: Ordering MANUEL MCKAY Provider: Consulting: Surgical Pathology Report ACCESSION: COLLECTED DATE/TIME: RECEIVED DATE/TIME: PATHOLOGIST: [id number] 11/18/2021 16:30 EDT 11/19/2021 13:44 EDT GERMAN SAN MD Final Diagnosis CK20: Negative. ERA: Negative. GATA3: Negative. GCDFP-15: Negative. Mammaglobin: Negative Napsin A: Positive. PRA: Negative. TTF-1: Positive. These results support the above diagnosis and 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 GERMAN SAN PATHOLOGIST (Electronic Signature) Date Verified 11/21/2021 CL Clinical Data PRE-OP DIAGNOSIS: Not specified POST-OP DIAGNOSIS: Left deltoid mass and left chest wall mass PROCEDURES: US guided core biopsy SPECIMEN: (A) Left shoulder mass (B) Left lateral chest wall mass / Ambulatory Surgery Print Date/ 12/27/2021 09:34 EDT Number: Time: [facility] Department of Pathology [address] [place] [phone] Name: KACIE CASE : 1940 [facility] [id number] Number: Gender: Female Location: [facility] Admit 81 years Attending MANUEL MCKAY Age: Provider: Ordering MANUEL MCKAY Provider: Consulting: Surgical Pathology Report ACCESSION: COLLECTED DATE/TIME: RECEIVED DATE/TIME: PATHOLOGIST: [id number] 11/18/2021 16:30 EDT 11/19/2021 13:44 EDT GERMAN SAN MD Gross Description (A) Labeled left deltoid mass. Received in formalin are multiple fragments of antunez pink soft tissue. The specimen is filtered and has a filtrate aggregate dimension of 0.6 x 0.3 x 0.1 cm. The specimen is entirely submitted in one cassette. (B) Labeled left lateral chest wall mass. Received in formalin are multiple cylindrical segments of antunez soft tissue. These measure in aggregate 1.3 x 0.3 x 0.1 cm. The specimen is entirely submitted in one cassette. MP/vishal 11/19/2021 Tissue pathology report for: [facility], [address] [place] [address]; PATHOLOGY SERVICES PROVIDED BY [employer] (CLIA #[id number]) in cooperation with [facility] at [address] [place] [address] (CLIA #[id number]) Microscopic Diagnosis NOTE: One or more of the reagents used to perform assays on this specimen MAY have contained components considered to be analyte specific reagents ( ASRs). ASRs have not been cleared or approved by the U.S. Food and Drug Administration. The performance characteristics of these assays have been determined by the Department of Pathology at [facility]. This assay was performed subsequent to (more content not included)... Normal [facility] Comment on above: Performed By: #### [id number] #### [facility] Laboratory Services [address] [place] [address] Oceanographic Meteorologist: German San MD Addendum Reporton 12-17-2021 Addendum Report [facility] Department of Pathology [address] [place] [phone] Name: KACIE CASE : 1940 [facility] [id number] Number: Gender: Female Location: [facility] Admit 81 years Attending MANUEL MCKAY Age: Provider: Ordering MANUEL MCKAY Provider: Consulting: Surgical Pathology Report ACCESSION: COLLECTED DATE/TIME: RECEIVED DATE/TIME: PATHOLOGIST: [id number] 11/18/2021 16:30 EDT 11/19/2021 13:44 EDT JASWINDERGERMAN OZUNA MD Surgical Path Addendum Report SLIDES HAVE BEEN REVIEWED BY AN OUTSIDE INSTITUTION. THE REPORT CAN BE VIEWED UNDER DOCUMENTS IN THE PATIENT'S CHART. GERMAN SAN PATHOLOGIST (Electronic Signature) Date Verified 12/17/2021 CL Final Diagnosis Report for [facility], [place], [place] (A) ULTRASOUND GUIDED CORE BIOPSY, LEFT SHOULDER MASS: - FRAGMENTS OF SKELETAL MUSCLE AND ADIPOSE TISSUE. COMMENT: Evidence of malignancy is not seen in multiple tissue sections. The possibility of an intramuscular lipoma is raised. 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 COMMENT: Immunostains were performed and the tumor shows the following profile: CK7: Positive. CK20: Negative. ERA: Negative. GATA3: Negative. GCDFP-15: Negative. Mammaglobin: Negative Napsin A: Positive. PRA: Negative. TTF-1: Positive. Print Date/ 12/17/2021 09:25 EDT Number: Time: [facility] Department of Pathology [address] [place] [phone] Name: KACIE CASE : 1940 [facility] [id number] Number: Gender: Female Location: [facility] Admit 81 years Attending MANUEL MCKAY Age: Provider: Ordering MANUEL MCKAY Provider: Consulting: Surgical Pathology Report ACCESSION: COLLECTED DATE/TIME: RECEIVED DATE/TIME: PATHOLOGIST: [id number] 11/18/2021 16:30 EDT 11/19/2021 13:44 EDT GERMAN SAN MD Final Diagnosis These results support the above diagnosis and 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 GERMAN SAN PATHOLOGIST (Electronic Signature) Date Verified 11/21/2021 CL Clinical Data PRE-OP DIAGNOSIS: Not specified POST-OP DIAGNOSIS: Left deltoid mass and left chest wall mass PROCEDURES: US guided core biopsy SPECIMEN: (A) Left shoulder mass (B) Left lateral chest wall mass / Ambulatory Surgery Gross Description (A) Labeled left deltoid mass. Received in formalin are multiple fragments of antunez pink soft tissue. The specimen is filtered and has a filtrate aggregate dimension of 0.6 x 0.3 x 0.1 cm. The specimen is entirely submitted in one cassette. (B) Labeled left lateral chest wall mass. Received in formalin are multiple cylindrical segments of antunez soft tissue. These measure in aggregate 1.3 x 0.3 x 0.1 cm. The specimen is entirely submitted in one cassette. MP/vishal 11/19/2021 Print Date/ 12/17/2021 09:25 EDT Number: Time: [facility] Department of Pathology [address] [place], [place] [phone] Name: KACIE CASE : 1940 [facility] [id number] Number: Gender: Female Location: [facility] Admit 81 years Attending MANUEL MCKAY Age: Provider: Ordering MANUEL MCKAY Provider: Consulting: Surgical Pathology Report ACCESSION: COLLECTED DATE/TIME: RECEIVED DATE/TIME: PATHOLOGIST: [id number] 11/18/2021 16:30 EDT 11/19/2021 13:44 EDT GERMAN SAN MD Gross Description Tissue pathology report for: [facility], [address] [place] [address]; PATHOLOGY SERVICES PROVIDED BY [employer] (CLIA #[id number]) in cooperation with [facility] at [address] [place] [address], [place] [address] (CLIA #[id number]) Microscopic Diagnosis NOTE: One or more of the reagents used to perform assays on this specimen MAY have contained components considered to be analyte specific reagents ( ASRs). ASRs have not been cleared or approved by the U.S. Food and Drug Administration. The performance characteristics of these assays have been determined by the Department of Pathology at [facility]. This assay was performed subsequent to the H and E examination. Appropriate positive and negative controls were examined with appropriate reactivity. Codes CPT CODE: 51740 x2 + 80987 + 21984 x8 (more content not included)... Normal [facility] Comment on above: Performed By: #### [id number] #### [facility] Laboratory Services [address] [place] [address] Oceanographic Meteorologist: German San MD MRI BRAIN WO W CONon 022 MRI BRAIN WO W CON EXAMINATION: MRI BRAIN WO W CON HISTORY: Primary malignant neoplasm of bronchus , staging, rule out metastases to brain COMPARISON: No relevant comparison available. TECHNIQUE: A variety of imaging planes and parameters were utilized for visualization of suspected pathology. Images were performed without and with ml Dot[employer] contrast. FINDINGS: CEREBRUM: Numerous T2 hyperintensities within the periventricular and subcortical deep white matter bilaterally. No edema, hemorrhage, mass, acute infarction, or inappropriate atrophy. Multiple tiny pockets of CSF signal within the basal ganglia bilaterally most likely representing prominent chronic small vessel ischemic changes. An old lacunar infarction intermixed with these findings cannot be excluded. No enhancing lesions. CEREBELLUM: No edema, hemorrhage, mass, acute infarction, or inappropriate atrophy. BRAINSTEM: No edema, hemorrhage, mass, acute infarction, or inappropriate atrophy. CSF SPACES: Ventricles, cisterns, and sulci are appropriate for age. No hydrocephalus, subarachnoid hemorrhage, or mass. SKULL: No mass or other significant visible lesion. SINUSES: Limited views demonstrate no significant mucosal thickening or fluid. ORBITS: Limited views are unremarkable. OTHER: No abnormal meningeal or parenchymal enhancement. IMPRESSION: 1. No evidence of metastatic disease to the brain. 2. Age consistent atrophy and chronic small vessel ischemic changes. Deep white matter T2 hyperintensities favoring chronic small vessel ischemic changes rather than a demyelinating process. Electronically authenticated by: MANUEL MCKAY Date: 2021-12-11 09:11 Normal [facility] CBC W Auto Differential pane l (Bld)on 12-06-2021 Abs Immature Gran <0.03 <0.10 k/uL [facility] Basophils (Bld) [#/Vol] 0.03 10*3/uL <0.11 k/uL [facility] Basophils/100 WBC (Bld) 0.5 % [facility] Differential cell count method Nom (Bld) Auto [facility] Eosinophils (Bld) [#/Vol] 0.06 10*3/uL <0.46 k/uL [facility] Eosinophils/100 WBC (Bld) 1.0 % [facility] Erythrocyte distribution width (RBC) [Ratio] 13.1 % 11.5 - 15.0 % [facility] Hematocrit (Bld) [Volume fraction] 30.1 % Low 36.0 - 46.0 % [facility] Hemoglobin (Bld) [Mass/Vol] 10.2 g/dL Low 11.5 - 15.5 g/dL [facility] Immature Gran % 0.3 % [facility] Lymphocytes (Bld) [#/Vol] 1.10 10*3/uL 1.00 - 4.00 k/uL [facility] Lymphocytes/100 WBC (Bld) 18.3 % [facility] MCH (RBC) [Entitic mass] 31.6 pg 26.0 - 34.0 pg [facility] MCHC (RBC) [Mass/Vol] 33.9 g/dL 30.5 - 36.0 g/dL [facility] MCV (RBC) [Entitic vol] 93.2 fL 80.0 - 100.0 fL [facility] Monocytes (Bld) [#/Vol] 0.71 10*3/uL <0.87 k/uL [facility] Monocytes/100 WBC (Bld) 11.8 % [facility] Neutrophils (Bld) [#/Vol] 4.09 10*3/uL 1.45 - 7.50 k/uL [facility] Neutrophils/100 WBC (Bld) 68.1 % [facility] Nucleated RBC (Bld) [#/Vol] 10*3/uL <0.01 k/uL [facility] Nucleated RBC/100 WBC (Bld) [Ratio] 0.0 /100 WBC [facility] Platelet mean volume (Bld) [Entitic vol] 9.6 fL 9.0 - 12.7 fL [facility] Platelets (Bld) [#/Vol] 249 10*3/uL 150 - 400 k/uL [facility] RBC (Bld) [#/Vol] 3.23 10*6/uL Low 3.90 - 5.2 0 m/uL [facility] WBC (Bld) [#/Vol] 6.01 10*3/uL 3.70 - 11. 00 k/uL [facility] Comprehensive metabolic 2000 panelon 12-06-2021 Albumin [Mass/Vol] 4.9 g/dL 3.9 - 4.9 g/dL [facility] ALP [Catalytic activity/Vol] 66 U/L 34 - 123 U/L [facility] ALT [Catalytic activity/Vol] 16 U/L 7 - 38 U/L [facility] Anion gap [Moles/Vol] 8 mmol/L Low 9 - 18 mmol/L [facility] AST [Catalytic activity/Vol] 18 U/L 13 - 35 U/L [facility] Bilirubin [Mass/Vol] 0.2 mg/dL 0.2 - 1.3 mg/dL [facility] Calcium [Mass/Vol] 9.6 mg/dL 8.5 - 10. 2 mg/dL [facility] Chloride [Moles/Vol] 97 mmol/L 97 - 105 mmol/L [facility] CO2 [Moles/Vol] 27 mmol/L 22 - 30 mmol/L [facility] Creatinine [Mass/Vol] 1.06 mg/dL High 0.58 - 0.96 mg/dL [facility] Estimated Glomerular Filtration Rate 53 mL/min/1.73m Low >=60 mL/min/1.73m [facility] Glucose [Mass/Vol] 97 mg/dL 74 - 99 mg/dL [facility] Potassium [Moles/Vol] 4.7 mmol/L 3.7 - 5.1 mmol/L [facility] Protein [Mass/Vol] 6.8 g/dL 6.3 - 8.0 g/dL [facility] Sodium [Moles/Vol] 132 mmol/L Low 136 - 144 mmol/L [facility] Urea nitrogen [Mass/Vol] 28 mg/dL High 7 - 21 mg/dL [facility]_SOFT TISSUE BXon [facility] BX Begin Addendum #1 COLLECTED DATE/TIME: 11/18/2021 16:30 EDT Final Diagnosis Report for [facility] [place], [place] (A) ULTRASOUND GUIDED CORE BIOPSY, LEFT SHOULDER MASS: -FRAGMENTS OF SKELETAL MUSCLE AND ADIPOSE TISSUE. COMMENT: Evidence of malignancy is not seen in multiple tissue sections. The possibility of an intramuscular lipoma is raised. 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 11/26/[address] Knight. Also faxed to Dr. Roque. 11/27/[address] Knight's office and [facility] confirmed pathology report was present in office. Original Report EXAMINATION: US MUSC_SOFT TISSUE BX HISTORY: Disorder of shoulder ; mass arising from deltoid muscle of left shoulder COMPARISON: Ultrasound extremity nonvascular Limited 11/12/2021, MRI shoulder 10/29/2021 TECHNIQUE: After obtaining informed consent, an ultrasound-guided biopsy was performed in the usual sterile manner. FINDINGS: IMAGING: Ultrasound guidance BIOPSY NEEDLE: 18-gauge spring-loaded core biopsy needle SPECIMEN TYPE, #, LOCATION: 3 core samples; lateral left deltoid mass MEDICATION: 1% buffered lidocaine for local anesthesia COMPLICATIONS: None. LABORATORY: Pending OTHER: Negative. IMPRESSION: Uneventful ultrasound guided biopsy of left shoulder deltoid muscle mass. The patient was instructed to obtain follow up care and biopsy results from the referring physician. Normal [facility] SURGICAL PATH REPORTon 11-21 SURGICAL PATH REPORT [facility] Department of Pathology [address] [place] [phone] Name: KACIE CASE : 1940 [employer] [id number] Number: Gender: Female Location: [facility] Admit 81 years Attending MANUEL MCKAY Age: Provider: Ordering MANUEL MCKAY Provider: Consulting: Surgical Pathology Report ACCESSION: COLLECTED DATE/TIME: RECEIVED DATE/TIME: PATHOLOGIST: [id number] 11/18/2021 16:30 EDT 11/19/2021 13:44 EDT GERMAN SAN MD Final Diagnosis Report for [facility] [place] (A) ULTRASOUND GUIDED CORE BIOPSY, LEFT SHOULDER MASS: - FRAGMENTS OF SKELETAL MUSCLE AND ADIPOSE TISSUE. COMMENT: Evidence of malignancy is not seen in multiple tissue sections. The possibility of an intramuscular lipoma is raised. 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 COMMENT: Immunostains were performed and the tumor shows the following profile: CK7: Positive. CK20: Negative. ERA: Negative. GATA3: Negative. GCDFP-15: Negative. Mammaglobin: Negative Napsin A: Positive. PRA: Negative. TTF-1: Positive. These results support the above diagnosis and 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 GERMAN SAN PATHOLOGIST (Electronic Signature) Date Verified 11/21/2021 CL Print Date/ 11/21/2021 12:45 EDT Number: Time: [facility] Department of Pathology [address] [place] [phone] Name: KACIE CASE : 1940 [employer] [id number] Number: Gender: Female Location: [facility] Admit 81 years Attending MANUEL MCKAY Age: Provider: Ordering MANUEL MCKAY Provider: Consulting: Surgical Pathology Report ACCESSION: COLLECTED DATE/TIME: RECEIVED DATE/TIME: PATHOLOGIST: [id number] 11/18/2021 16:30 EDT 11/19/2021 13:44 EDT GERMAN SAN MD Clinical Data PRE-OP DIAGNOSIS: Not specified POST-OP DIAGNOSIS: Left deltoid mass and left chest wall mass PROCEDURES: US guided core biopsy SPECIMEN: (A) Left shoulder mass (B) Left lateral chest wall mass / Ambulatory Surgery Gross Description (A) Labeled left deltoid mass. Received in formalin are multiple fragments of antunez pink soft tissue. The specimen is filtered and has a filtrate aggregate dimension of 0.6 x 0.3 x 0.1 cm. The specimen is entirely submitted in one cassette. (B) Labeled left lateral chest wall mass. Received in formalin are multiple cylindrical segments of antunez soft tissue. These measure in aggregate 1.3 x 0.3 x 0.1 cm. The specimen is entirely submitted in one cassette. MP/vishal 11/19/2021 Tissue pathology report for: [facility], [address] [place] [address]; PATHOLOGY SERVICES PROVIDED BY [employer] (CLIA #[id number]) in cooperation with [facility] at [address] [place] [address] (CLIA #[id number]) Microscopic Diagnosis NOTE: One or more of the reagents used to perform assays on this specimen MAY have contained components considered to be analyte specific reagents ( ASRs). ASRs have not been cleared or approved by the U.S. Food and Drug Administration. The performance characteristics of these assays have been determined by the Department of Pathology at [facility]. Print Date/ 11/21/2021 12:45 EDT Number: Time: [facility] Department of Pathology [address] [place] [phone] Name: KACIE CASE : 1940 [facility] [id number] Number: Gender: Female Location: [facility] Admit 81 years Attending MANUEL MCKAY Age: Provider: Ordering MANUEL MCKAY Provider: Consulting: Surgical Pathology Report ACCESSION: COLLECTED DATE/TIME: RECEIVED DATE/TIME: PATHOLOGIST: [id number] 11/18/2021 16:30 EDT 11/19/2021 13:44 EDT JASWINDER BADILLO, GERMAN Microscopic Diagnosis This assay was performed subsequent to the H and E examination. Appropriate positive and negative controls were examined with appropriate reactivity. Codes CPT CODE: 67836 x2 + 43248 + 41188 x8 Print Date11/21/2021 12:45 EDT Number: Time: [facility] Comment on above: Performed By: #### [id number] #### [facility] Laboratory Services [address] [place] [address] Oceanographic Meteorologist: German San MD US MUSC_SOFT TISSUE BXon MUSC_SOFT TISSUE BX EXAMINATION: US MUSC_SOFT TISSUE BX HISTORY: Disorder of shoulder ; left lateral chest wall mass COMPARISON: Ultrasound chest 11/12/2021, CT chest 10/25/2021 TECHNIQUE: After obtaining informed consent, an ultrasound-guided biopsy was performed in the usual sterile manner. FINDINGS: IMAGING: Ultrasound guidance BIOPSY NEEDLE: 18-gauge regular core biopsy needle SPECIMEN TYPE, #, LOCATION: 3 core samples, upper lateral left chest wall below axilla MEDICATION: 1% buffered lidocaine for local anesthesia COMPLICATIONS: None. LABORATORY: Pending OTHER: Negative. IMPRESSION: Uneventful ultrasound guided biopsy of lateral left chest wall mass. The patient was instructed to obtain follow up care and biopsy results from the referring physician. Electronically authenticated by: MANUEL MCKAY Date: 2021-11-18 15:50 Normal [facility] US EXT NON VASC LIMITED LTon 11-12-2021 US EXT NON VASC LIMITED LT EXAM: US CHEST, US EXT NON VASC LIMITED LT HISTORY: Mass of trunk ; lateral left chest lump for 2 years: Lateral left shoulder lump for 2 years COMPARISON: MRI shoulder left 10/29/2021, CT chest 10/25/2021 TECHNIQUE: Ultrasound evaluation of left chest wall FINDINGS: Heterogeneous, hypoechoic, geographic shaped mass within left lateral chest wall corresponding to patient's palpable lump, 2.7 x 2.2 x 2.1 cm. Color Doppler demonstrates internal blood flow. Isoechoic 4.2 x 2.2 x 1.1 cm poorly defined mass lateral to left shoulder corresponding to patient's palpable lump. No appreciable internal blood flow on color Doppler. IMPRESSION: 1. Left lateral chest wall mass suspicious for malignancy. Ultrasound-guided biopsy is recommended. 2. Left lateral shoulder soft tissue mass of uncertain etiology. On recent MRI this appears to be composed mainly of fat, but appears to arise within the muscle and has some striated components. Ultrasound-guided tissue sampling is recommended as this could represent a liposarcoma. Electronically authenticated by: MANUEL MCKAY Date: 2021-11-12 11:12 Normal [facility] XR lumbar spine AP/LAT/FLX/E XTon 11-22-2020 XR lumbar spine AP/LAT/FLX/EXT [facility] [place] [address] XRay Report Signed Patient: Kacie Case MR#: [id number] : 1940 Acct:[id number] Age/Sex: 80 / F ADM Date: 11/22/20 Loc: XD Room: Type: [facility] Attending Dr: Ventura Tierney MD Ordering Provider: Ventura Tierney MD Date of Service: 11/22/20 XR/XR lumbar spine AP/LAT/FLX/EXT: Low back pain Copies to: Ventura Tierney MD XR lumbar spine AP/LAT/FLX/EXT 11/22/2020 1:15 PM SIGNS AND SYMPTOMS: Chronic low back pain, left leg pain PROTOCOLS: Frontal and lateral radiographs of the lumbar spine including flexion and extension views. COMPARISON: PET/CT 01/06/2008 FINDINGS: There is 5 mm of anterolisthesis of L4 upon L5. There is a compression deformity of the T12 vertebral body at the superior endplate. This is unchanged. There is moderate to severe disc height loss at L4-L5 and L5-S1. Facet hypertrophy is noted throughout, greatest at L4-L5. Atherosclerotic changes are noted in the abdominal aorta. There is evidence of prior cholecystectomy. Degenerative changes are noted in the hips and sacroiliac joints. Flexion and extension views show no pathologic movement. XR/XR lumbar spine AP/LAT/FLX/EXT IMPRESSION: There is a compression fracture of the superior endplate of T12 which is unchanged. Facet hypertrophy contributes to 5 mm of anterolisthesis of L4 upon L5. No pathologic movement is noted on flexion or extension. Impression dictated by: Janes Houston M.D.11/22/2020 4:21 PM Dictation Location: [place] [address] Transcribed By: [facility] 11/22/20 1621 Dictated By: Janes Houston II, MD 11/22/20 1618 Signed By: 11/22/20 1621 [facility] Vital Signs Date Time Vital Sign Value Performing Clinician Timi leta 03-05-2023 13:18-0400 Body height 154.9 cm Nir Velasquez MD Work Phone: [facility] 03-05-2023 13:18-040 Body temperature 97.11 [degF] Nir Velasquez MD Work Phone: [facility] 03-05-2023 13:18-0400 Body weight 65.68 kg Nir Velasquez MD Work Phone: [facility] 03-05-2023 13:18-0400 Diastolic blood pressure 53 mm[Hg] Nir Velasquez MD Work Phone: [facility] 03-05-2023 13:18-0400 Heart rate 98 /min Nir Velasquez MD Work Phone: [facility] 03-05-2023 13:18-0400 Respiratory rate 16 /min Nir Velasquez MD Work Phone: [facility] 03-05-2023 13:18-0400 SaO2% (BldA) [Mass fraction] 98 % Nir Velasquez MD Work Phone: [facility] 03-05-2023 13:18-0400 Systolic blood pressure 96 mm[Hg] Nir Velasquez MD Work Phone: [facility] 02-02-2023 11:04-0400 Body temperature 97.9 [degF] Nir Velasquez MD Work Phone: [facility] 02-02-2023 11:04-0400 Body weight 69.31 kg Nir Velasquez MD Work Phone: [facility] 02-02-2023 11:04-0400 Diastolic blood pressure 57 mm[Hg] Nir Velasquez MD Work Phone: [facility] 02-02-2023 11:04-0400 Heart rate 70 /min Nir Velasquez MD Work Phone: [facility] 02-02-2023 11:04-0400 Respiratory rate 18 /min Nir Velasquez MD Work Phone: [facility] 02-02-2023 11:04-0400 SaO2% (BldA) [Mass fraction] 100 % Nir Velasquez MD Work Phone: [facility] 02-02-2023 11:04-0400 Systolic blood pressure 136 mm[Hg] Nir Velasquez MD Work Phone: [facility] 10-20-2022 10:28-0400 Body temperature 96.8 [degF] Vince Gaming MD Work Phone: [facility] 10-20-2022 10:28-0400 Body weight 68.95 kg Vince Gaming MD Work Phone: [facility] 10-20-2022 10:28-0400 Diastolic blood pressure 82 mm[Hg] Vince Gaming MD Work Phone: [facility] 10-20-2022 10:28-0400 Heart rate 80 /min Vince Gaming MD Work Phone: [facility] 10-20-2022 10:28-0400 Respiratory rate 18 /min Vince Gaming MD Work Phone: [facility] 10-20-2022 10:28-0400 SaO2% (BldA) [Mass fraction] 98 % Vince Gaming MD Work Phone: [facility] 10-20-2022 10:28-0400 Systolic blood pressure 169 mm[Hg] Vince Gaming MD Work Phone: [facility] 05-09-2022 10:41-0500 Body temperature 97.3 [degF] Vince Gaming MD Work Phone: [facility] 05-09-2022 10:41-0500 Body weight 70.31 kg Vince Gaming MD Work Phone: [facility] 05-09-2022 10:41-0500 Diastolic blood pressure 83 mm[Hg] Vince Gaming MD Work Phone: [facility] 05-09-2022 10:41-0500 Heart rate 76 /min Vince Gaming MD Work Phone: [facility] 05-09-2022 10:41-0500 Respiratory rate 16 /min Vince Gaming MD Work Phone: [facility] 05-09-2022 10:41-0500 SaO2% (BldA) [Mass fraction] 99 % Vince Gaming MD Work Phone: [facility] 05-09-2022 10:41-0500 Systolic blood pressure 149 mm[Hg] Vince Gaming MD Work Phone: [facility] 01-02-2022 09:06-0400 Body temperature 96.69 [degF] Vince Gaming MD Work Phone: [facility] 01-02-2022 09:06-0400 Body weight 69.4 kg Vince Gaming MD Work Phone: [facility] 01-02-2022 09:06-0400 Diastolic blood pressure 90 mm[Hg] Vince Gaming MD Work Phone: [facility] 01-02-2022 09:06-0400 Heart rate 71 /min Vince Gaming MD Work Phone: [facility] 01-02-2022 09:06-0400 Respiratory rate 18 /min Vince Gaming MD Work Phone: [facility] 01-02-2022 09:06-0400 SaO2% (BldA) [Mass fraction] 100 % Vince Gaming MD Work Phone: [facility] 01-02-2022 09:06-0400 Systolic blood pressure 144 mm[Hg] Vince Gaming MD Work Phone: [facility] 12-27-2021 10:43-0400 Body height 154.9 cm Soren Deutsch MD Work Phone: [facility] 12-27-2021 10:43-0400 Body temperature 97.3 [degF] Soren Deutsch MD Work Phone: [facility] 12-27-2021 10:43-0400 Body weight 69.22 kg Soren Deutsch MD Work Phone: [facility] 12-27-2021 10:43-0400 Diastolic blood pressure 51 mm[Hg] Soren Deutsch MD Work Phone: [facility] 12-27-2021 10:43-0400 Heart rate 77 /min Soren Deutsch MD Work Phone: [facility] 12-27-2021 10:43-0400 Respiratory rate 16 /min Soren Deutsch MD Work Phone: [facility] 12-27-2021 10:43-0400 SaO2% (BldA) [Mass fraction] 99 % Soren Deutsch MD Work Phone: [facility] 12-27-2021 10:43-0400 Systolic blood pressure 141 mm[Hg] Soren Deutsch MD Work Phone: [facility] 12-06-2021 15:47-0400 Body height 154.9 cm Soren Deutsch MD Work Phone: [facility] 12-06-2021 15:47-0400 Body temperature 97.7 [degF] Soren Deutsch MD Work Phone: [facility] 12-06-2021 15:47-0400 Body weight 68.49 kg Soren Deutsch MD Work Phone: [facility] 12-06-2021 15:47-0400 Diastolic blood pressure 80 mm[Hg] Soren Deutsch MD Work Phone: [facility] 12-06-2021 15:47-0400 Heart rate 85 /min Soren Deutsch MD Work Phone: [facility] 12-06-2021 15:47-0400 Respiratory rate 16 /min Soren Deutsch MD Work Phone: [facility] 12-06-2021 15:47-0400 SaO2% (BldA) [Mass fraction] 99 % Soren Deutsch MD Work Phone: [facility] 12-06-2021 15:47-0400 Systolic blood pressure 156 mm[Hg] Soren Deutsch MD Work Phone: [facility] Encounters Encounter Date Encounter Type Care Provider Facility Start: 11-02-2023 End: 11-02-[address] [facility] Start: 10-14-2023 Telephone encounter Malik mata APRN.CNP Work Phone: Hematology/Oncology Comment on above: Lab Orders Start: 08-20-2023 Helena Thomas RN Hemat ology/Oncology Comment on above: pain/CT order Start: 08-17-2023 End: 08-17-2023 ambulatory TK ROQUE Not Available Start: 06-11-2023 End: 06-11-2023 ambulatory NIR VELASQUEZ Facility:[facility] Start: 06-05-2023 End: 06-05-2023 ambulatory TK ROQUE II Facility:[facility] Start: 04-16-2023 End: 04-16-2023 ambulatory [facility] Start: 03-05-2023 End: 03-05-2023 ambulatory TK ROQUE II Facility:[facility] Start: 03-05-2023 End: 03-05-2023 ambulatory Nir Velasquez MD Work Phone: Hematology/Oncology Comment on above: 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); Lung nodule; Iron deficiency anemia, unspecified iron deficiency anemia type; Heart disease; Chronic obstructive pulmonary disease, unspecified COPD type (HCC) Start: 03-05-2023 End: 03-05-2023 Patient encounter procedure Nir Velasquez MD Work Phone: [facility] Comment on above: Malignant neoplasm o f unspecified part of unspecified bronchus or lung (HCC) (Primary Dx) Start: 02-26-2023 End: 02-26-2023 ambulatory TK ROQUE II Facility:[facility] Start: 02-18-2023 Social Work Ronna MARTINEZ Hematolo gy/Oncology Start: 02-16-2023 End: 02-16-2023 ambulatory [facility] Start: 02-10-2023 Telephone encounter Financial Navigator Sagar Work Phone: Hematology/Oncology Comment on above: Benefits Investigati on Start: 02-10-2023 End: 02-11-2023 ambulatory TK ROQUE II Facility:[facility] Start: 02-04-2023 Telephone encounter Margarita Luz RN Hematology/Oncology Comment on above: Results Appointment Start: 02-03-2023 End: 02-03-2023 ambulatory TK ROQUE II Facility:[facility] Start: 02-02-2023 End: 02-02-2023 ambulatory Nir Velasquez MD Work Phone: Hematology/Oncology Comment on above: 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 Facility: Start: 10-20-2022 End: 10-20-2022 Patient encounter procedure Vince Gaming MD Work Phone: Radiation Oncology Comment on above: Malignant neoplasm o f unspecified part of unspecified bronchus or lung (HCC) (Primary Dx); Neoplasm of lung Start: 09-19-2022 Telephone encounter Vince Gaming MD Work Phone: Radiation Oncology Comment on above: Lump Start: 05-09-2022 End: 05-09-2022 Patient encounter procedure Vince Gaming MD Work Phone: Radiation Oncology Comment on above: Malignant neoplasm o f unspecified part of unspecified bronchus or lung (HCC) (Primary Dx) Start: 03-04-2022 Telephone encounter Vince Gaming MD Work Phone: Radiation Oncology Comment on above: Nurse Triage Call (P ost Radiation Treatment Call ) Start: 02-21-2022 Patient encounter procedure Vince Gaming MD Work Phone: [facility] Start: 02-21-2022 Radiation Oncology Note Vince headley MD Work Phone: Radiation Oncology Comment on above: Procedure Start: 02-18-2022 Telephone encounter Anna William Guzman Hematology/Oncology Comment on above: Appointment Refill Request Start: 02-07-2022 Patient encounter procedure Vince Gaming MD Work Phone: [facility] Start: 02-07-2022 Radiation Oncology Note Vince headley MD Work Phone: Radiation Oncology Comment on above: Completion Note Start: 02-05-2022 Patient encounter procedure Vince Gaming MD Work Phone: [facility] Start: 02-05-2022 Radiation Oncology Note Vince headley MD Work Phone: Radiation Oncology Comment on above: Procedure Start: 02-03-2022 Patient encounter procedure Vince Gaming MD Work Phone: [facility] Start: 02-03-2022 Radiation Oncology Note Vince headley MD Work Phone: Radiation Oncology Comment on above: Procedure Start: 01-31-2022 End: 01-31-2022 Patient encounter procedure Jared Freeman MD Work Phone: Radiation Oncology Comment on above: Malignant neoplasm o f lung, unspecified laterality, unspecified part of lung (HCC) (Primary Dx) Start: 01-31-2022 Radiation Oncology Note G Kiko Freeman MD Work Phone: Radiation Oncology Comment on above: Procedure Start: 01-30-2022 Telephone encounter Vince Gaming MD Work Phone: Radiation Oncology Comment on above: Orders Start: 01-29-2022 Patient encounter procedure Vince Gaming MD Work Phone: [facility] Start: 01-29-2022 Radiation Oncology Note Vince headley MD Work Phone: Radiation Oncology Comment on above: Procedure Start: 01-17-2022 Patient encounter procedure [facility] Provider [facility] Department Start: 01-16-2022 End: 01-16-2022 Patient encounter procedure Vince Gaming MD Work Phone: [facility] Comment on above: Malignant neoplasm o f lung, unspecified laterality, unspecified part of lung (HCC) (Primary Dx) Start: 01-16-2022 Radiation Oncology Note Vince headley MD Work Phone: Radiation Oncology Comment on above: Simulation Note Treatment Planning Start: 01-07-2022 End: 01-08-2022 ambulatory VINCE GAMING Facility: Start: 01-02-2022 Telephone encounter Soren Deutsch MD Work Phone: Radiation Oncology Comment on above: Results Start: 01-02-2022 End: 01-02-2022 Patient encounter procedure Vinec Gaming MD Work Phone: Radiation Oncology Comment on above: Malignant neoplasm o f lung, unspecified laterality, unspecified part of lung (HCC) Start: 12-27-2021 End: 12-27-2021 ambulatory Soren Deutsch MD Work Phone: Hematology/Oncology Comment on above: Normocytic anemia (P rimary Dx); Malignant neoplasm of lung, unspecified laterality, unspecified part of lung (HCC) Start: 12-27-2021 End: 12-27-2021 Patient encounter procedure Soren Deutsch MD Work Phone: [facility] Start: 12-23-2021 Orders Only Soren ny MD Work Phone: Hematology/Oncology Comment on above: Malignant neoplasm o f lung, unspecified laterality, unspecified part of lung (HCC) (Primary Dx) Start: 12-12-2021 End: 12-13-2021 ambulatory MD SOREN DEUTSCH Facility:[id number] Start: 12-10-2021 End: 12-11-[address] MANUEL MCKAY Facility:[facility] Start: 12-06-2021 End: 12-06-2021 ambulatory Soren Deutsch MD Work Phone: Hematology/Oncology Comment on above: Malignant neoplasm o f lung, unspecified laterality, unspecified part of lung (HCC) (Primary Dx); Neoplasm of lung; Malignant neoplasm of upper lobe, left bronchus or lung (HCC) ; Normocytic anemia Start: 12-06-2021 End: 12-06-2021 Patient encounter procedure Soren Deutsch MD Work Phone: [facility] Start: 12-06-2021 Telephone encounter Soren Deutsch [facility]: Future Appointment Start: 12-04-2021 Chart abstracting Soren crooks MD Work Phone: Hematology/Oncology Start: 11-18-2021 End: 11-19-2021 ambulatory MANUEL MCKAY Facility:[facility] Start: 11-12-2021 End: 11-13-[address] COTY KNIGHT Facility:[facility] Start: 01-30-2021 End: 01-31-2021 ambulatory JUNE NUR Facility:[facility] Procedures Date Procedure Procedure Detail Performing Clinician Start: 02-03-2023 Blood occult fecal h gb deter ia qual feces 1-3 Nir Velasquez MD Work Phone: Plan of Treatment Date Care Activity Detail Author Start: 06-05-2026 [facility] Start: 03-05-2026 DIABETES SCREEN DIABETES SCREEN [facility] Start: 03-05-2026 Diabetes Screening Diabetes Screenin [facility] Start: 02-02-2026 DIABETES SCREEN DIABETES SCREEN [facility] Start: 12-06-2024 DIABETES SCREEN DIABETES SCREEN [facility] Start: 10-15-2023 End: 01-14-2024 CBC W Auto Differential panel - Blood COMPLETE BLOOD COUNT AND DIFFERENTIAL Lab Routine 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) Expected: 10/15/2023, Expires: 01/14/2024 [facility] Work Phone: Comment on above: Expected: 10/15/2023 , Expires: 01/14/2024 Start: 10-15-2023 End: 01-14-2024 Comprehensive metabolic 2000 panel - Serum or Plasma COMPREHENSIVE METABOLIC PANEL Lab Routine 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) Expected: 10/15/2023, Expires: 01/14/2024 [facility] Comment on above: Expected: 10/15/2023 , Expires: 01/14/2024 Start: 10-15-2023 End: 01-14-2024 Ferritin [Mass/volume] in Serum or Plasma FERRITIN Lab Routine 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) Expected: 10/15/2023, Expires: 01/14/2024 [facility] Comment on above: Expected: 10/15/2023 , Expires: 01/14/2024 Start: 10-15-2023 End: 01-14-2024 Iron and Iron binding capacity panel - Serum or Plasma IRON AND TIBC Lab Routine 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) Expected: 10/15/2023, Expires: 01/14/2024 [facility] Comment on above: Expected: 10/15/2023 , Expires: 01/14/2024 Start: 06-29-2023 Advance Directive Discussion Advance Directive Discussion [facility] Start: 06-29-2023 Behavioral Health Screening Behavioral Health Screening [facility] Start: 06-29-2023 Depression Assessment Depression Ass essment [facility] Start: 06-04-2023 End: 08-04-2023 Basic metabolic 2000 panel - Serum or Plasma BASIC METABOLIC PNL Lab Routine 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) Expected: 06/04/2023 (Approximate), Expires: 08/04/2023 [facility] Work Phone: Comment on above: Expected: 06/04/2023 (Approximate), Expires: 08/04/2023 Start: 06-04-2023 End: 08-04-2023 CBC W Auto Differential panel - Blood CBC + DIFF Lab Routine 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) Expected: 06/04/2023 (Approximate), Expires: 08/04/2023 [facility] Work Phone: Comment on above: Expected: 06/04/2023 (Approximate), Expires: 08/04/2023 Start: 06-04-2023 End: 04-03-2024 CT CHEST W IVCON CT CHEST W IVCON Radiology Routine Expected: 06/04/2023 (Approximate), Expires: 04/03/2024 [facility] Work Phone: Comment on above: Expected: 06/04/2023 (Approximate), Expires: 04/03/2024 Start: 06-04-2023 End: 08-04-2023 Ferritin [Mass/volume] in Serum or Plasma FERRITIN BLD Lab Routine 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) Expected: 06/04/2023 (Approximate), Expires: 08/04/2023 [facility] Work Phone: Comment on above: Expected: 06/04/2023 (Approximate), Expires: 08/04/2023 Start: 06-04-2023 End: 08-04-2023 Iron and Iron binding capacity panel - Serum or Plasma IRON + TIBC Lab Routine 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) Expected: 06/04/2023 (Approximate), Expires: 08/04/2023 [facility] Work Phone: Comment on above: Expected: 06/04/2023 (Approximate), Expires: 08/04/2023 Start: 02-27-2023 Covid-19 Vaccine ( season) Covid-19 Vaccine () [facility] Start: 02-27-2023 Influenza vaccination [facility] Start: 02-09-2023 End: 11-19-2023 CT CHEST W IVCON CT CHEST W IVCON Radiology Routine Neoplasm of lung Expected: 02/09/2023, Expires: 11/19/2023 [facility] Work Phone: Comment on above: Expected: 02/09/2023 , Expires: 11/19/2023 Start: 10-24-2022 End: 06-08-2023 NM PET/CT SKULL-THIGH SUBSEQUENT NM PET/CT SKULL-THIGH SUBSEQUENT Radiology Routine Malignant neoplasm of unspecified part of unspecified bronchus or lung (HCC) Expected: 10/24/2022, Expires: 06/08/2023 [facility] Work Phone: Comment on above: Expected: 10/24/2022 , Expires: 06/08/2023 Start: 10-20-2022 End: 12-20-2022 CREATININE BLD CREATININE BLD Lab Routine Malignant neoplasm of unspecified part of unspecified bronchus or lung (HCC) Neoplasm of lung Expected: 10/20/2022, Expires: 12/20/2022 [facility] Work Phone: Comment on above: Expected: 10/20/2022 , Expires: 12/20/2022 Start: 06-29-2022 ADVANCE DIRECTIVE DISCUSSION ADVANCE DIRECTIVE DISCUSSION [facility] Start: 06-29-2022 DEPRESSION ASSESSMENT DEPRESSION ASS ESSMENT [facility] Start: 05-13-2022 End: 03-01-2023 NM PET/CT SKULL-THIGH SUBSEQUENT NM PET/CT SKULL-THIGH SUBSEQUENT Radiology Routine Malignant neoplasm of lung, unspecified laterality, unspecified part of lung (HCC) Malignant neoplasm of unspecified part of unspecified bronchus or lung (HCC) Expected: 05/13/2022, Expires: 03/01/2023 [facility] Work Phone: Comment on above: Expected: 05/13/2022 , Expires: 03/01/2023 Start: 02-27-2022 Influenza vaccination [facility] Start: 12-07-2021 End: 02-06-2022 CBC W Auto Differential panel - Blood CBC + DIFF Lab Routine Malignant neoplasm of lung, unspecified laterality, unspecified part of lung (HCC) Normocytic anemia Expected: 12/07/2021, Expires: 02/06/2022 [facility] Work Phone: Comment on above: Expected: 12/07/2021 , Expires: 02/06/2022 Start: 12-07-2021 End: 02-06-2022 Cobalamin (Vitamin B12) [Mass/volume] in Serum or Plasma VITAMIN B12 BLOOD Lab Routine Malignant neoplasm of lung, unspecified laterality, unspecified part of lung (HCC) Normocytic anemia Expected: 12/07/2021, Expires: 02/06/2022 [facility] Work Phone: Comment on above: Expected: 12/07/2021 , Expires: 02/06/2022 Start: 12-07-2021 End: 02-06-2022 Ferritin [Mass/volume] in Serum or Plasma FERRITIN BLD Lab Routine Malignant neoplasm of lung, unspecified laterality, unspecified part of lung (HCC) Normocytic anemia Expected: 12/07/2021, Expires: 02/06/2022 [facility] Work Phone: Comment on above: Expected: 12/07/2021 , Expires: 02/06/2022 Start: 12-07-2021 End: 02-06-2022 Haptoglobin [Mass/volume] in Serum or Plasma HAPTOGLOBIN BLD Lab Routine Malignant neoplasm of lung, unspecified laterality, unspecified part of lung (HCC) Normocytic anemia Expected: 12/07/2021, Expires: 02/06/2022 [facility] Work Phone: Comment on above: Expected: 12/07/2021 , Expires: 02/06/2022 Start: 12-07-2021 End: 02-06-2022 Iron and Iron binding capacity panel - Serum or Plasma IRON + TIBC Lab Routine Malignant neoplasm of lung, unspecified laterality, unspecified part of lung (HCC) Normocytic anemia Expected: 12/07/2021, Expires: 02/06/2022 [facility] Work Phone: Comment on above: Expected: 12/07/2021 , Expires: 02/06/2022 Start: 12-07-2021 End: 02-06-2022 RETIC COUNT RETIC COUNT Lab Routine Malignant neoplasm of lung, unspecified laterality, unspecified part of lung (HCC) Normocytic anemia Expected: 12/07/2021, Expires: 02/06/2022 [facility] Work Phone: Comment on above: Expected: 12/07/2021 , Expires: 02/06/2022 Start: 06-29-2021 ADVANCE DIRECTIVE DISCUSSION ADVANCE DIRECTIVE DISCUSSION [facility] Start: 06-29-2021 DEPRESSION ASSESSMENT DEPRESSION ASS ESSMENT [facility] Start: 2006 BONE DENSITY BONE DENSITY [facility] Start: 2006 Bone Density Screening Bone Density Screening [facility] Start: 2006 PNEUMOCOCCAL: 65+ (1 - PCV) PNEUMOCOCCAL: 65+ (1 - PCV) [facility] Start: 2006 Screening for osteoporosis Bone Density Screening [facility] Start: 2001 RSV Vaccine (1 - 1-d ose 60+ series) RSV Vaccine (1 - 1-dose 60+ series) [facility] Start: 10-28-1991 SHINGRIX VACCINE (1 of 2) SHINGRIX VACCINE (1 of 2) [facility] Start: 1986 DIABETES SCREEN DIABETES SCREEN [facility] Start: 1960 Urine microalbumin profile [facility] Start: 1953 Adult depression screening assessment DEPRESSION SCREENING [facility] Start: 1946 COVID-19 VACCINE (#1) COVID-19 VACCI NE (#1) [facility] Start: [birth year]-29[birth year]1942 COVID-19 VACCINE (#1) COVID-19 VACCI NE (#1) [facility] End: 01-05-2023 Mri brain brain stem w/o w/contrast material MRI BRAIN WO/W IVCON Radiology Routine Malignant neoplasm of lung, unspecified laterality, unspecified part of lung (HCC) 1 Occurrences starting 12/06/2021 until 01/05/2023 [facility] Work Phone: Comment on above: 1 Occurrences starti ng 12/06/2021 until 01/05/2023 End: 03-03-2024 NM PET/CT SKULL-THIGH SUBSEQUENT NM PET/CT SKULL-THIGH SUBSEQUENT Radiology Routine 1 Occurrences starting 02/02/2023 until 03/03/2024 [facility] Work Phone: Comment on above: 1 Occurrences starti ng 02/02/2023 until 03/03/2024 OUTSIDE SURG PATH SL JOHANNE REVIEW OUTSIDE SURG PATH SLIDE REVIEW Lab Routine Ordered: 12/06/2021 [facility] Work Phone: Comment on above: Ordered: 12/06/2021 End: 01-05-[address] attenuation skull base mid-thigh NM PET/CT SKULL-THIGH INITIAL Radiology Routine Neoplasm of lung Malignant neoplasm of upper lobe, left bronchus or lung (HCC) 1 Occurrences starting 12/06/2021 until 01/05/2023 [facility] Work Phone: Comment on above: 1 Occurrences starti ng 12/06/2021 until 01/05/2023 REFERRAL FOR ADDITIO NAL BIOMARKER AND MOLECULAR TESTING REFERRAL FOR ADDITIONAL BIOMARKER AND MOLECULAR TESTING Lab Routine Malignant neoplasm of lung, unspecified laterality, unspecified part of lung (HCC) 12/23/2021 12:02 PM EDT [facility] Work Phone: End: 02-01-2023 SPIROMETRY BASELINE ONLY SPIROMETRY BASELINE ONLY PFT Routine Malignant neoplasm of lung, unspecified laterality, unspecified part of lung (HCC) 1 Occurrences starting 01/02/2022 until 02/01/2023 [facility] Work Phone: Comment on above: 1 Occurrences starti ng 01/02/2022 until 02/01/2023 [facility] Immunizations Immunization Date Immunization Notes Care Provider [facility] 04-19-2022 influenza virus vacc ine, unspecified formulation Vince Gaming MD Work Phone: [facility] 04-08-2021 influenza, high dose seasonal, preservative-free Soren Deutsch MD Work Phone: [facility] 03-26-2020 influenza, high dose seasonal, preservative-free Soren Deutsch MD Work Phone: [facility] 11-01-2019 zoster vaccine recombinant Soren Deutsch MD Work Phone: [facility] 03-25-2019 AS03 adjuvant Soren ny MD Work Phone: [facility] 03-25-2019 Seasonal trivalent influenza vaccine, adjuvanted, preservative free Soren Deutsch MD Work Phone: [facility] 03-25-2019 zoster vaccine recombinant Soren Deutsch MD Work Phone: [facility] 03-24-2018 influenza, high dose seasonal, preservative-free Soren Deutsch MD Work Phone: [facility] 03-17-2017 influenza, high dose seasonal, preservative-free Soren Deutsch MD Work Phone: [facility] 03-02-2017 influenza, injectabl e, quadrivalent, preservative free Soren Deutsch MD Work Phone: [facility] 09-01-2016 pneumococcal polysaccharide vaccine, 23 valent Soren Deutsch MD Work Phone: [facility] 04-07-2016 pneumococcal conjuga te vaccine, 13 valent Soren Deutsch MD Work Phone: [facility] 10-26-2015 seasonal influenza, intradermal, preservative free Soren Deutsch MD Work Phone: [facility] 04-09-2015 influenza, high dose seasonal, preservative-free Soren Deutsch MD Work Phone: [facility] Payers Date Payer Category Payer Unknown [employer] MEDIC[employer] SUPPLEMENT [id number] 2013-Present [phone] [id number] [employer] [place] [place] [address] Indemnity [id number] 2013 Unknown [id number] 2008 Unknown [id number] 2006 Medicare MEDICARE MEDICAR E A AND B [id number] 2006-Present [phone] [address] [address] [place] [address] Medicare [id number] 2006 Medicare [id number] 1959 Medicare [id number] 1959 Unknown [id number] 1941 Unknown [id number] 1941 Unknown [id number] 9 1941 Unknown [id number] 3 1941 Unknown [id number] 3 1941 Unknown [id number] 3 1941 Unknown [id number] 3 1941 Unknown [id number] 3 1941 Unknown [id number] Social History Date Type Detail Facility Start: 12-29-2011 Tobacco smoking stat us MDIS Never smoked tobacco [facility] Start: 12-29-2011 End: 02-02-2023 Tobacco use and exposure Smokeless tobacco non-user [facility] Start: 12-04-2021 End: 06-11-2023 Alcohol intake Current non-drinker of alcohol (finding) [facility] Start: 1940 Sex Assigned At Not on file [facility] Start: 12-06-2021 End: 02-02-2023 Tobacco smoking status NHIS Ex-smoker [facility] Start: 11-26-2021 End: 05-09-2022 Exposure to SARS-CoV-2 (event) Not sure [facility] End: 06-29-1969 History of tobacco use Current smoker [facility] End: 06-29-1969 History of tobacco use Cigarette Smoker [facility] Start: 11-06-2022 End: 02-02-2023 Cigarettes smoked current (pack per day) - Reported 0.3 [facility] Start: 11-06-2022 End: 02-02-2023 Tobacco use panel [facility] Adult Depression Scr eening Assessment 0 [facility] Clinical Notes 12-06-2021 to 11-02-2023 Telephone Encounter - Cesar YasminANTOINETTE - 10/14/2023 1:00 PM EDTTelephone Encounter - Yasmin Guerrero MA - 10/14/2023 1:00 PM EDTTelephone Encounter - Anna Thomas RN - 08/20/2023 3:05 PM EST Note Date & Type Note Facility 11-02-2023 Note [facility] Cardiology Clinic Note Chief Complaint: Patient here for 6 mo follow up CAD, PAF, and hypertension. Her recently. C/o dizzy episodes. Denies chest pain, SOB, and palpitations. Says her pill cutter doesn't always split her metoprolol evenly. HPI: Kacie Case is a 83 y.o. female with history of coronary and peripheral arterial disease here in routine follow-up. Appears to be doing well from a cardiovascular standpoint. Cardiology ROS: Review of Systems Musculoskeletal: Positive for arthritis and back pain. Neurological: Positive for dizziness. All other systems reviewed and are negative. Past Medical History She has a past medical history of Abnormal ECG, Aneurysm (CMS/HCC), Arrhythmia, Atrial fibrillation (CMS/HCC), Cancer (CMS/HCC), Coronary artery disease, Hypertension, Pericardial effusion, and Subclavian artery stenosis, left (CMS/HCC). Surgical History She has a past surgical history that includes CTA Head W IV Contrast (12/07/2020); CTA Neck W IV Contrast (12/08/2020); CTA Aorta And Bilateral Iliofemoral Runoff W IV Contrast (12/28/2020); and Cardiac catheterization (12/03/2020). Social History She reports that she has quit smoking. Her smoking use included cigarettes. She has never used smokeless tobacco. She reports that she does not currently use alcohol. She reports that she does not use drugs. Family History Family History Problem Relation Name Age of Onset Heart disease Mother Allergies Patient has no known allergies. Medications Current Outpatient Medications: atorvastatin (Lipitor) 40 mg tablet, TAKE 1 TABLET BY MOUTH EVERY NIGHT AT BEDTIME, Disp: 90 tablet, Rfl: 3 calcium carbonate (CALCIUM 500 ORAL), calcium, Disp: , Rfl: cholecalciferol (Vitamin D-3) 10 MCG (400 UNIT) tablet, Take 400 Units by mouth., Disp: , Rfl: clopidogrel (Plavix) 75 mg tablet, Take 1 tablet (75 mg) by mouth in the morning., Disp: 90 tablet, Rfl: 1 ferrous sulfate 325 (65 Fe) MG EC tablet, Take 325 mg by mouth in the morning., Disp: , Rfl: metoprolol tartrate (Lopressor) 25 mg tablet, take 1/2 tablet by mouth IN THE MORNING and at bedtime, Disp: 90 tablet, Rfl: 3 MULTIVITAMIN ORAL, Take by mouth., Disp: , Rfl: omega 1-adc-btt-fish oil (Fish OiL) 100-160-1,000 mg capsule, Fish Oil, Disp: , Rfl: omeprazole (PriLOSEC) [address] capsule, take 1 capsule by mouth EVERY MORNING BEFORE BREAKFAST, Disp: 90 capsule, Rfl: 3 rivaroxaban (Xarelto) 20 mg tablet, Take 1 tablet (20 mg) by mouth daily with evening meal. Take with food., Disp: 90 tablet, Rfl: 3 Stiolto Respimat 2.5-2.5 mcg/actuation mist inhaler, inhale 2 puffs by mouth and INTO THE LUNGS once daily, Disp: , Rfl: Last Recorded Vitals BP 138/82 (BP Location: Left arm, Patient Position: Sitting) Pulse 79 Ht 1.549 m (5' 1 ) Wt 64.9 kg (143 lb) SpO2 98% BMI 27.02 kg/m??? Physical Examination: GENERAL: alert and oriented x3, well developed, in no acute distress. HEAD: atraumatic, normocephalic. EYES: CAMILLE, EOMI. NECK: trachea midline, no JVD present, no carotid bruits present. CARDIAC: S1, S2 present. RRR. No murmur, rubs, or gallops. RESPIRATORY: CTAB, no increased effort of breathing, no rales, rhonchi, or wheezing. ABDOMEN: soft, nontender, nondistended. EXTREMITIES: no lower extremity edema, peripheral pulses are 2+ bilaterally. No rash/skin discoloration present. NEURO: strength/sensation equal and symmetric in bilateral upper and lower extremities. PSYCH: appropriate mood, affect, and judgement. Assessment: 1. Coronary atherosclerosis - s/p LAD stent, residual 60% RCA lesion DECEMBER 2020 2. Atrial fibrillation - S/p THIERNO and cardioversion 3. Post-catheterization femoral pseudoaneurysm - 4. Essential hypertension 5. Dyspnea on exertion - Chronic R06.09: Other forms of dyspnea + Cough 6. Stenosis of left subclavian artery - Asymptomatic; I70.8: Atherosclerosis of other arteries 7. Pain in lower limb - Right leg 8. Malignant tumor of lung - History of C34.90: Malignant neoplasm of unspecified part of unspecified bronchus or lung 9. Mass of chest wall R22.2: Localized swelling, mass and lump, trunk 10. Pericardial effusion - Small to moderate on PET scan I31.3: Pericardial effusion (noninflammatory) 11. Anemia; questionable blood loss 12. Fatigue 13. Emphysema no evidence of pulmonary fibrosis; scattered pulmonary nodules 14. Orthostatic hypotension - dizziness Plan: I was upset to hear her ; his esophageal cancer did not respond to chemotherapy and radiation therapy. I expressed my condolences. She gave me a $2 bill! Continue optimal medical therapy for coronary artery disease including Xarelto, Lipitor, Plavix, and a beta-lupe Repeat limited echocardiogram to evaluate the pericardial effusion Inhaler therapy for her emphysema and follow-up with her pet counselor RTC in 6 months or sooner should problems nisha (more content not included)... [facility] 10-14-2023 Telephone encounter Note Patient coming in 10/22/23 for follow up with labs. Please add lab orders. Thanks. Yasmin Guerrero MA [facility] 09-28-2023 Miscellaneous Notes Patient coming in 10/22/23 for follow up with labs. Please add lab orders. Thanks. Yasmin Guerrero MA documented in this encounter [facility] 08-20-2023 Miscellaneous Notes Discussed with BRJuan. He would like to await the results of the US scheduled. He will see her, if needed, based on the results. Pt will let Dr Roque know to forward the results to BRM for review, if indicated. 10/22/23 appointment verified Anna Thomas RN Pt is having tenderness to L breast/rib/lung area. PCP ordered US of area to be completed tomorrow at [facility]. Pt asking if she is supposed to have a CT of her chest soon, as well. BRM note 06/11/[address] Chest in 6 months (November) BRM: please advise when you would like the CT completed. I pended an order, as one was not placed yet. Anna Thomas RN documented in this encounter [facility] 06-11-2023 Note HNO ID: [id number] Author: Nir Velasquez MD Service: ? Author Type: Physician Type: Progress Notes Filed: 06/11/2023 8:24 PM Note Text: PATIENT NAME: KACIE Case DATE: 06/11/2023 PRIMARY CARE PHYSICIAN: Dr. Tk Roque OTHER PHYSICIANS: Dr. Salgado, Dr. Gaming, Dr. Miriam Reddy ([facility]) Portions of this encounter note have been copied from my note from 03/05/2023 and has been updated where appropriate, and reflect my current medical decision making from today. CC: This is an 82 year old female with a history of recurrent lung cancer, persistent pulmonary nodules, and iron deficiency anemia - seen for scheduled follow-up. INTERIM HISTORY: Since the patient's last visit here she was started on a new inhaler per pulmonary, and her breathing has improved significantly since. She has an occasional cough, but very minimal shortness of breath. No hemoptysis. Overall the patient feels well. No unusual pain or other systemic complaints. No evidence of bleeding or bruising. MEDICATIONS: Current Outpatient Medications Medication Sig docusate sodium (STOOL SOFTENER ORAL) Take by mouth. atorvastatin (LIPITOR) 40 mg tablet Take 40 mg by mouth once daily. calcium carbonate (CALTRATE) 600 mg calcium (1,500 mg) tab Take 600 mg by mouth. acetaminophen/diphenhydramine (TYLENOL PM ORAL) Take by mouth. [id number]-YCYL-KUYWY-OREG-CAPRYL ORAL Take by mouth. rivaroxaban (XARELTO) 20 mg tablet Take 20 mg by mouth daily with dinner. metoprolol succinate ER (TOPROL XL) 25 mg 24 hr tablet Take 12.5 mg by mouth twice daily. clopidogrel (PLAVIX) 75 mg tablet Take 75 mg by mouth once daily. vit A/vit C/vit E/zinc/copper (PRESERVISION AREDS ORAL) Take by mouth. MULTIVITAMIN ORAL Take by mouth. cholecalciferol, vitamin D3, (VITAMIN D3 ORAL) Take by mouth. ascorbic acid (VITAMIN C ORAL) Take by mouth. docosahexaenoic acid/epa (FISH OIL ORAL) Take by mouth. omeprazole (PRILOSEC) 20 mg capsule Take 1 capsule by mouth once daily. (Patient taking differently: Take 40 mg by mouth once daily.) No current facility-administered medications for this visit. 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 PAST SURGICAL HISTORY: PAST SURGICAL HISTORY Procedure Laterality Date COLONSCOPY SCREENING HIGH RISK EGD HYSTERECTOMY REMOVAL GALLBLADDER SHX LOBECTOMY Left FAMILY HISTORY: FAMILY HISTORY Problem Relation Age of Onset Heart disease Mother COPD Mother Skin Cancer Father Lung Cancer Sister Lung Cancer Brother SOCIAL HISTORY: Social History Tobacco Use Smoking status: Former Packs/day: .25 Types: Cigarettes Quit date: 1970 Years since quittin.9 Smokeless tobacco: Never Substance Use Topics Alcohol use: No Drug use: Never COMPLETE REVIEW OF SYSTEMS: CONSTITUTION: Negative for pain, fatigue, weight loss, or appetite loss. EENT: Negative for mouth soreness, antibiotics use, epistaxis, visual problems, neck or facial swelling, fever/chills, bleeding gums, or hearing loss. CV: Negative for edema, calf swelling, palpitations, or chest pain. RESPIRATORY: Negative for cough, SOB, hemoptysis, or wheezing. GI: Negative for nausea/vomiting, heartburn, vomiting blood, dysphasia, diarrhea, blood in stool, constipation, early satiety, PICA, vegetarian, poor nutrition, abdominal fullness, or abdominal pain. NEUROLOGICAL: Negative for numbness/tingling, dizziness, gait disturbance, headache, speech disturbance, tremor, hemiparesis/sensory loss, or change in mental status. MUSCULOSKELETAL: Negative for joint pain, joint swelling, or proximal muscle weakness. SKIN: Negative for hair loss, bruising, nail changes, rash, itching, pallor, or jaundice. ENDO/URO: Negative for hot flashes, cold or heat intolerance, urinary frequency, urinary hesitancy, menorrhagia, or hematuria. PSYCH: Negative for anxiety, depression, or other. PHYSICAL EXAM: BP 156/72 Pulse 84 Temp 36.6 ?C (97.8 ?F) (Temporal) Resp 16 Ht 154.9 cm (5' 0.98 ) Wt 67.6 kg (149 lb 0.5 oz) SpO2 99% BMI 28.17 kg/m? GENERAL EXAM: Well developed/well nourished; in no acute distress. SKIN: Negative for lesions, rashes, or ulcers on the upper and lower extremities and face. Negative for palpations/nodules, purpura, and ecchymosis. EENT: Negative for conjunctiva, mucosal pallor, JVD, LAP, thyromegaly, and glossitis. Supple AND PERRL. EXTREMITIES: Negative for cyanosis, clubbing, and crepitus. LUNGS: Negative to auscultation, respiratory effort, and percussion. CARDIOVASCULAR: Regular rate. Negative for murmurs/S3S4/abnormal sounds, edema, and carotid bruits. ABDOMEN: Negative for masses, hernia, and (more content not included)... [facility] 06-05-2023 Note HNO ID: [id number] Author: Tripp Madden RN Service: ? Author Type: Registered Nurse Type: Progress Notes Filed: 06/05/2023 10:22 AM Note Text: Radiology Service Progress Note DATE OF SERVICE: June 05, 2023 TIME: 10:22 AM PATIENT WEIGHT: 146LBS PATIENT IDENTITY VERIFICATION COMPLETED USING TWO (2) STANDARD IDENTIFIERS: Name and Date of confirmed by patient verbally. FALL SCREENING: Has the patient had 2 falls in the last year or 1 fall with injury or currently using an Ambulatory Assistive Device (Walker, Cane, Wheelchair, Crutches, etc.)? No PATIENT GENDER DATA: Male ALLERGIES: Reviewed and unchanged CONTRAST ALLERGY: No EXAM: CT -CONTRAST INDUCED NEPHROPATHY RISK FACTORS: Patient age > 60 years CREATININE: Creatinine Date Value Ref Range Status 03/05/2023 1.24 (H) 0.58 - 0.96 mg/dL Final 02/02/2023 1.18 (H) 0.58 - 0.96 mg/dL Final 12/06/2021 1.06 (H) 0.58 - 0.96 mg/dL Final Estimated Glomerular Filtration Rate Date Value Ref Range Status 03/05/2023 44 (L) >=60 mL/min/1.73m? Final Comment: Estimated Glomerular Filtration Rate (eGFR) is calculated using the 2020 CKD-EPI creatinine equation. This equation utilizes serum creatinine, sex, and age as parameters. The creatinine assay has traceable calibration to isotope dilution-mass spectrometry. Refer to KDIGO guidelines for clinical interpretation. In patients with unstable renal function, e.g. those with acute kidney injury, the eGFR may not accurately reflect actual GFR. P.O.C.T. RESULTS: POC done: Yes, See Lab Tab June 05, 2023 TREATMENT: N/A IV SITE: Ambulatory: A peripheral IV was started in the Left antecubital site with a Angio cath: 20 gauge. IV SITE APPEARANCE: Clean,Dry and Intact SIGNATURE: Tripp Madden RN PATIENT NAME: KACIE Case DATE: June 05, 2023 TIME: 10:22 AM [facility] 06-05-2023 Note HNO ID: [id number] Author: Claudia Baron RT(R) Service: ? Author Type: Technologist Type: Progress Notes Filed: 06/05/2023 11:33 AM Note Text: Radiology Service Progress Note PATIENT NAME: KACIE Case DATE OF SERVICE: June 05, 2023 TIME: 11:32 AM PATIENT IDENTITY VERIFICATION COMPLETED USING TWO (2) IDENTIFIERS: Name and Date of confirmed by patient verbally. FALL SCREENING: Has the patient had 2 falls in the last year or 1 fall with injury or currently using an Ambulatory Assistive Device (Walker, Cane, Wheelchair, Crutches, etc.)? No PATIENT GENDER DATA: Female. status: : No status: NO. PATIENT RELEVANT IMPLANT DATA REVIEWED: Not Applicable RADIOLOGY DEPARTMENT: CT; Exam(s) Completed: Chest PERIPHERAL IV DATA: Site assessment: Clean,Dry and Intact, Site disposition Discontinued SIGNED BY: Claudia Baron, RT(R) June 05, 2023 11:32 AM [facility] 04-16-2023 Note [facility] Cardiology Clinic Note Chief Complaint: Patient here for 2 mo follow up CAD, PAF, and hypertension. Denies chest pain, SOB, and bleeding on Xarelto. New inhaler from Dr. Salgado has really helped her breathing. HPI: Kacie Case is a 82 y.o. female With history of coronary and peripheral arterial disease here in routine follow-up. Appears to be doing well from a cardiovascular standpoint. Cardiology ROS: Review of Systems Musculoskeletal: Positive for arthritis and back pain. All other systems reviewed and are negative. Past Medical History She has a past medical history of Aneurysm (CMS/HCC), Atrial fibrillation (CMS/HCC), Coronary artery disease, Hypertension, Pericardial effusion, and Subclavian artery stenosis, left (CMS/HCC). Surgical History She has a past surgical history that includes CTA head w and wo IV contrast (12/07/2020); CTA neck w and wo IV contrast (12/08/2020); CTA aorta and bilateral iliofemoral runoff w and/or wo IV contrast (12/28/2020); and Cardiac catheterization (12/03/2020). Social History She reports that she has quit smoking. Her smoking use included cigarettes. She has never used smokeless tobacco. She reports that she does not currently use alcohol. She reports that she does not use drugs. Family History Family History Problem Relation Name Age of Onset Heart disease Mother Allergies Patient has no known allergies. Medications Current Outpatient Medications: atorvastatin (Lipitor) 40 mg tablet, Take 1 tablet (40 mg) by mouth at bedtime., Disp: 90 tablet, Rfl: 3 calcium carbonate (CALCIUM 500 ORAL), calcium, Disp: , Rfl: cholecalciferol (Vitamin D-3) 10 MCG (400 UNIT) tablet, Take 400 Units by mouth., Disp: , Rfl: clopidogrel (Plavix) 75 mg tablet, Take 1 tablet (75 mg) by mouth in the morning., Disp: 90 tablet, Rfl: 1 ferrous sulfate 325 (65 Fe) MG EC tablet, Take 325 mg by mouth in the morning., Disp: , Rfl: metoprolol tartrate (Lopressor) 25 mg tablet, Take 0.5 tablets (12.5 mg) by mouth in the morning and at bedtime., Disp: 90 tablet, Rfl: 1 MULTIVITAMIN ORAL, Take by mouth., Disp: , Rfl: omega 9-uxg-aci-fish oil (Fish OiL) 100-160-1,000 mg capsule, Fish Oil, Disp: , Rfl: omeprazole (PriLOSEC) [address] capsule, take 1 capsule by mouth EVERY MORNING BEFORE BREAKFAST, Disp: , Rfl: rivaroxaban (Xarelto) 20 mg tablet, Take 1 tablet (20 mg) by mouth daily with evening meal. Take with food., Disp: 90 tablet, Rfl: 3 Last Recorded Vitals BP 141/80 (BP Location: Left arm, Patient Position: Sitting) Pulse 79 Ht 1.549 m (5' 1 ) Wt 66.7 kg (147 lb) SpO2 99% BMI 27.78 kg/m??? Physical Examination: GENERAL: alert and oriented x3, well developed, in no acute distress. HEAD: atraumatic, normocephalic. EYES: CAMILLE, EOMI. NECK: trachea midline, no JVD present, no carotid bruits present. CARDIAC: S1, S2 present. RRR. No murmur, rubs, or gallops. RESPIRATORY: CTAB, no increased effort of breathing, no rales, rhonchi, or wheezing. ABDOMEN: soft, nontender, nondistended. EXTREMITIES: no lower extremity edema, peripheral pulses are 2+ bilaterally. No rash/skin discoloration present. NEURO: strength/sensation equal and symmetric in bilateral upper and lower extremities. PSYCH: appropriate mood, affect, and judgement. Assessment: 1. Coronary atherosclerosis - s/p LAD stent, residual 60% RCA lesion DECEMBER 2020 2. Atrial fibrillation - S/p THIERNO and cardioversion 3. Post-catheterization femoral pseudoaneurysm - 4. Essential hypertension 5. Dyspnea on exertion - Chronic R06.09: Other forms of dyspnea + Cough 6. Stenosis of left subclavian artery - Asymptomatic; I70.8: Atherosclerosis of other arteries 7. Pain in lower limb - Right leg 8. Malignant tumor of lung - History of C34.90: Malignant neoplasm of unspecified part of unspecified bronchus or lung 9. Mass of chest wall R22.2: Localized swelling, mass and lump, trunk 10. Pericardial effusion - Small to moderate on PET scan I31.3: Pericardial effusion (noninflammatory) 11. Anemia; questionable blood loss 12. Fatigue 13. Emphysema no evidence of pulmonary fibrosis; scattered pulmonary nodules Plan: I was upset to see her was not with her today; he is not feeling well. His esophageal cancer did not respond to chemotherapy and he will need radiation therapy. I asked her to relay my best wishes. Continue optimal medical therapy for coronary artery disease including Xarelto, Lipitor, Plavix, and a beta-lupe Inhaler therapy for her emphysema and follow-up with her pet counselor RTC in 6 months or sooner should problems arise Miriam Reddy MD, MPH, [facility], [facility], [facility] Interventional Cardiology Pager Email: [email or web address] 03-05-2023 Note HNO ID: [id number] Author: Vince Gaming MD Service: ? Author Type: Physician Type: Progress Notes Filed: 03/18/2023 5:06 AM Note Text: Radiation Oncology - Follow Up Note PATIENT NAME: KACIE Case PATIENT DIAGNOSIS/PATIENT IDENTIFICATION: Ms. 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 She has opted for definitive/ablative SBRT treatment to the chest wall lesion which she completed on 02/07/2022 (5000 cGy in 5 fractions). INTERVAL HISTORY/ROS: Ms. Case returns to clinic today for routine follow-up approximately one year after the completion of her radiation treatments and four months since her last visit on 10/20/2022. In the interim, she notes mild tenderness in the treated chest wall area which is unchanged and mostly with pressure/palpation. She denies any overlying skin irritation or breakdown. She continues to note dyspnea on exertion which is somewhat worse and met with her pet counselor and was started on new medication. She notes mild cough which is stable and denies any hemoptysis or chest pain or difficulty swallowing. She had updated surveillance imaging with PET/CT on 02/26/2023 which showed continued stability in the area of the treated left chest wall however did note the interval development of a new 7 mm nodule in the right upper lobe of the lung too small to characterize on PET CT. No other regional or distant areas of concern. She otherwise denies any recent fevers, chills, headaches, difficulty with speech/swallowing, palpitations, abdominal pain, nausea, vomiting, change in bowel/urinary habits, difficulty with gait/balance, recent falls, etc. The remainder of the review of systems was performed and was otherwise noncontributory. ALLERGIES ALLERGIES No Known Allergies MEDICATIONS: Current Outpatient Medications: iv contrast (will be provided with radiology test) docusate sodium (STOOL SOFTENER ORAL) atorvastatin (LIPITOR) 40 mg tablet calcium carbonate (CALTRATE) 600 mg calcium (1,500 mg) tab acetaminophen/diphenhydramine (TYLENOL PM ORAL) [id number]-OREG-CAPRYL ORAL rivaroxaban (XARELTO) 20 mg tablet metoprolol succinate ER (TOPROL XL) 25 mg 24 hr tablet clopidogrel (PLAVIX) 75 mg tablet vit A/vit C/vit E/zinc/copper (PRESERVISION AREDS ORAL) MULTIVITAMIN ORAL cholecalciferol, vitamin D3, (VITAMIN D3 ORAL) ascorbic acid (VITAMIN C ORAL) docosahexaenoic acid/epa (FISH OIL ORAL) omeprazole (PRILOSEC) 20 mg capsule PHYSICAL EXAM: GENERAL: elderly woman sitting in chair in no acute distress. VITALS: BP 96/53 Pulse 98 Temp 36.2 ?C (97.1 ?F) (Temporal) Resp 16 Ht 154.9 cm (5' 0.98 ) Wt 65.7 kg (144 lb 12.8 oz) SpO2 98% BMI 27.37 kg/m? KPS: 80 HEENT: NC/AT, anicteric sclera HEART: S1S2 LUNGS: non-labored breathing ABDOMEN: soft MUSCULOSKELETAL: no peripheral edema, moves all extremities. NEURO: no focal deficit; AANDO X3. RADIOLOGIC DATA: PET/CT (02/26/2023) IMPRESSION: HEAD/NECK: * No FDG avid neoplastic process. CHEST: * 0.7 cm groundglass nodule in the right upper lobe, too small to accurately characterize on FDG PET/CT. Recommend continued follow-up to exclude low metabolic rate neoplastic process, per clinical protocol. ACTIONABLE RESULT * Persistent left chest wall strandy uptake is likely related prior SBRT, and is unchanged from 10/15/2022; dimension follow-up studies. * Small-moderate non-FDG avid pericardial effusion, slightly increased from 01/20/2023. Extensive calcified coronary and aortic atherosclerosis noted. ABDOMEN/PELVIS: * No FDG avid neoplastic process. BONES/EXTREMITIES: * No suspicious FDG avid osseous lesion. ASSESSMENT AND PLAN: Ms. 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 She has opted for definitive/ablative SBRT treatment to the chest wall lesion which she completed on 02/07/2022 (5000 cGy in 5 fractions). Ms. Case is stable clinically approximately one year after the completion of her SBRT treatments to the left chest wall with no significant residual sequela at this time. Recent surveillance imaging with PET/CT on 02/26/2023 confirms stability in the treated area with no new FDG area areas of concern regionally or distantly. Was noted a new 7 mm right upper lobe (more content not included)... [facility] 03-05-2023 History of Present illness Narrative Radiation Oncology - Follow Up Note PATIENT NAME: KACIE Case PATIENT DIAGNOSIS/PATIENT IDENTIFICATION: Ms. 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 She has opted for definitive/ablative SBRT treatment to the chest wall lesion which she completed on 02/07/2022 (5000 cGy in 5 fractions). INTERVAL HISTORY/ROS: Ms. Case returns to clinic today for routine follow-up approximately one year after the completion of her radiation treatments and four months since her last visit on 10/20/2022. In the interim, she notes mild tenderness in the treated chest wall area which is unchanged and mostly with pressure/palpation. She denies any overlying skin irritation or breakdown. She continues to note dyspnea on exertion which is somewhat worse and met with her pet counselor and was started on new medication. She notes mild cough which is stable and denies any hemoptysis or chest pain or difficulty swallowing. She had updated surveillance imaging with PET/CT on 02/26/2023 which showed continued stability in the area of the treated left chest wall however did note the interval development of a new 7 mm nodule in the right upper lobe of the lung too small to characterize on PET CT. No other regional or distant areas of concern. She otherwise denies any recent fevers, chills, headaches, difficulty with speech/swallowing, palpitations, abdominal pain, nausea, vomiting, change in bowel/urinary habits, difficulty with gait/balance, recent falls, etc. The remainder of the review of systems was performed and was otherwise noncontributory. ALLERGIES ALLERGIES No Known Allergies MEDICATIONS: Current Outpatient Medications: iv contrast (will be provided with radiology test) docusate sodium (STOOL SOFTENER ORAL) atorvastatin (LIPITOR) 40 mg tablet calcium carbonate (CALTRATE) 600 mg calcium (1,500 mg) tab acetaminophen/diphenhydramine (TYLENOL PM ORAL) [id number]-OREG-CAPRYL ORAL rivaroxaban (XARELTO) 20 mg tablet metoprolol succinate ER (TOPROL XL) 25 mg 24 hr tablet clopidogrel (PLAVIX) 75 mg tablet vit A/vit C/vit E/zinc/copper (PRESERVISION AREDS ORAL) MULTIVITAMIN ORAL cholecalciferol, vitamin D3, (VITAMIN D3 ORAL) ascorbic acid (VITAMIN C ORAL) docosahexaenoic acid/epa (FISH OIL ORAL) omeprazole (PRILOSEC) 20 mg capsule PHYSICAL EXAM: GENERAL: elderly woman sitting in chair in no acute distress. VITALS: BP 96/53 Pulse 98 Temp 36.2 C (97.1 F) (Temporal) Resp 16 Ht 154.9 cm (5' 0.98 ) Wt 65.7 kg (144 lb 12.8 oz) SpO2 98% BMI 27.37 kg/m KPS: 80 HEENT: NC/AT, anicteric sclera HEART: S1S2 LUNGS: non-labored breathing ABDOMEN: soft MUSCULOSKELETAL: no peripheral edema, moves all extremities. NEURO: no focal deficit; A&O X3. RADIOLOGIC DATA: PET/CT (02/26/2023) IMPRESSION: HEAD/NECK: * No FDG avid neoplastic process. CHEST: * 0.7 cm groundglass nodule in the right upper lobe, too small to accurately characterize on FDG PET/CT. Recommend continued follow-up to exclude low metabolic rate neoplastic process, per clinical protocol. ACTIONABLE RESULT * Persistent left chest wall strandy uptake is likely related prior SBRT, and is unchanged from 10/15/2022; dimension follow-up studies. * Small-moderate non-FDG avid pericardial effusion, slightly increased from 01/20/2023. Extensive calcified coronary and aortic atherosclerosis noted. ABDOMEN/PELVIS: * No FDG avid neoplastic process. BONES/EXTREMITIES: * No suspicious FDG avid osseous lesion. ASSESSMENT AND PLAN: Ms. 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 She has opted for definitive/ablative SBRT treatment to the chest wall lesion which she completed on 02/07/2022 (5000 cGy in 5 fractions). Ms. Case is stable clinically approximately one year after the completion of her SBRT treatments to the left chest wall with no significant residual sequela at this time. Recent surveillance imaging with PET/CT on 02/26/2023 confirms stability in the treated area with no new FDG area areas of concern regionally or distantly. Was noted a new 7 mm right upper lobe lung nodule too small to characterize on PET/CT. At this point she will continue her follow-up and surveillance with Dr. Velasquez who has ordered a CT scan in 3 months and will have an open follow-up with us here in the radiation medicine clinic. The patient is aware to contact the clinic should any questions or concerns arise. Thank you for allowing us to participate in the care of this patient. .sararise Signed by: Vince Gaming MD I spent a total of 20 minutes on the date of the service which included preparing to see the patient, [id number] patient care, counseling and educating the patient/family/caregiver, and communicating results to the patient/family/caregiver. This document has been created with the use of voice recognition technology. It may contain inaccuracies, misspellings, inaccurate syntax or inappropriate word context that are a result of the inadequacies/shortcomings of said technology/software. documented in this encounter [facility] 03-05-2023 Nurse Note Patient is on a temporary inhaler but cannot remember the name of it. Deborah Patel MA documented in this encounter [facility] 03-05-2023 Note HNO ID: [id number] Author: Nir Velasquez MD Service: ? Author Type: Physician Type: Progress Notes Filed: 03/06/2023 8:33 AM Note Text: PATIENT NAME: KACIE Case DATE: 03/05/2023 PRIMARY CARE PHYSICIAN: Dr. Tk Roque OTHER PHYSICIANS: Dr. Salgado, Dr. Gaming, Dr. Miriam Reddy ([facility]) Portions of this encounter note have been copied from my note from 02/02/2023 and has been updated where appropriate, and reflect my current medical decision making from today. CC: This is an 82 year old female with a history of recurrent lung cancer, persistent pulmonary nodules, and iron deficiency anemia - seen for scheduled follow-up. INTERIM HISTORY: Since the patient's initial visit here she received IV iron with Monoferric on 02/10/2023. She tolerated the infusion well, and has felt somewhat better since. She underwent a repeat PET scan which revealed low-level uptake in the small pulmonary nodule, otherwise no significant abnormalities. On follow-up today she feels fairly well. She still has intermittent dyspnea on exertion, but has just recently started her prescribed bronchodilators. She denies any chest pain or other cardiac symptoms. No fevers or signs of infection. MEDICATIONS: Current Outpatient Medications Medication Sig docusate sodium (STOOL SOFTENER ORAL) Take by mouth. atorvastatin (LIPITOR) 40 mg tablet Take 40 mg by mouth once daily. calcium carbonate (CALTRATE) 600 mg calcium (1,500 mg) tab Take 600 mg by mouth. acetaminophen/diphenhydramine (TYLENOL PM ORAL) Take by mouth. [id number]-[id number]-OREG-CAPRYL ORAL Take by mouth. rivaroxaban (XARELTO) 20 mg tablet Take 20 mg by mouth daily with dinner. metoprolol succinate ER (TOPROL XL) 25 mg 24 hr tablet Take 12.5 mg by mouth twice daily. clopidogrel (PLAVIX) 75 mg tablet Take 75 mg by mouth once daily. vit A/vit C/vit E/zinc/copper (PRESERVISION AREDS ORAL) Take by mouth. MULTIVITAMIN ORAL Take by mouth. cholecalciferol, vitamin D3, (VITAMIN D3 ORAL) Take by mouth. ascorbic acid (VITAMIN C ORAL) Take by mouth. docosahexaenoic acid/epa (FISH OIL ORAL) Take by mouth. omeprazole (PRILOSEC) 20 mg capsule Take 1 capsule by mouth once daily. (Patient taking differently: Take 40 mg by mouth once daily.) No current facility-administered medications for this visit. 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 PAST SURGICAL HISTORY: PAST SURGICAL HISTORY Procedure Laterality Date COLONSCOPY SCREENING HIGH RISK EGD HYSTERECTOMY REMOVAL GALLBLADDER SHX LOBECTOMY Left FAMILY HISTORY: FAMILY HISTORY Problem Relation Age of Onset Heart disease Mother COPD Mother Skin Cancer Father Lung Cancer Sister Lung Cancer Brother SOCIAL HISTORY: Social History Tobacco Use Smoking status: Former Packs/day: .25 Types: Cigarettes Quit date: 1969 Years since quittin.7 Smokeless tobacco: Never Substance Use Topics Alcohol use: No Drug use: Never COMPLETE REVIEW OF SYSTEMS: CONSTITUTION: Negative for pain, fatigue, weight loss, or appetite loss. EENT: Negative for mouth soreness, antibiotics use, epistaxis, visual problems, neck or facial swelling, fever/chills, bleeding gums, or hearing loss. CV: Negative for edema, calf swelling, palpitations, or chest pain. RESPIRATORY: Negative for cough, SOB, hemoptysis, or wheezing. GI: Negative for nausea/vomiting, heartburn, vomiting blood, dysphasia, diarrhea, blood in stool, constipation, early satiety, PICA, vegetarian, poor nutrition, abdominal fullness, or abdominal pain. NEUROLOGICAL: Negative for numbness/tingling, dizziness, gait disturbance, headache, speech disturbance, tremor, hemiparesis/sensory loss, or change in mental status. MUSCULOSKELETAL: Negative for joint pain, joint swelling, or proximal muscle weakness. SKIN: Negative for hair loss, bruising, nail changes, rash, itching, pallor, or jaundice. ENDO/URO: Negative for hot flashes, cold or heat intolerance, urinary frequency, urinary hesitancy, menorrhagia, or hematuria. PSYCH: Negative for anxiety, depression, or other. PHYSICAL EXAM: BP 96/53 Pulse 98 Temp 36.2 ?C (97.1 ?F) (Temporal) Resp 16 Ht 154.9 cm (5' 0.98 ) Wt 65.7 kg (144 lb 12.8 oz) SpO2 98% BMI 27.37 kg/m? GENERAL EXAM: Well developed/well nourished; in no acute distress. SKIN: Negative for lesions, rashes, or ulcers on the upper and lower extremities and face. Negative for palpations/nodules, purpura, and ecchymosis. EENT: Negative for conjunctiva, mucosal pallor, JVD, LAP, thyromegaly, and glossitis. Supple AND PERRL. EXTREMITIES: Negative for cyanosis, clubbing, and crepitus. LUNGS: Negative (more content not included)... [facility] 03-05-2023 History of Present illness Narrative PATIENT NAME: KACIE Case DATE: 03/05/2023 PRIMARY CARE PHYSICIAN: Dr. Tk Roque OTHER PHYSICIANS: Dr. Salgado, Dr. Gaming, Dr. Miriam Reddy ([facility]) Portions of this encounter note have been copied from my note from 02/02/2023 and has been updated where appropriate, and reflect my current medical decision making from today. CC: This is an 82 year old female with a history of recurrent lung cancer, persistent pulmonary nodules, and iron deficiency anemia - seen for scheduled follow-up. INTERIM HISTORY: Since the patient's initial visit here she received IV iron with Monoferric on 02/10/2023. She tolerated the infusion well, and has felt somewhat better since. She underwent a repeat PET scan which revealed low-level uptake in the small pulmonary nodule, otherwise no significant abnormalities. On follow-up today she feels fairly well. She still has intermittent dyspnea on exertion, but has just recently started her prescribed bronchodilators. She denies any chest pain or other cardiac symptoms. No fevers or signs of infection. MEDICATIONS: Current Outpatient Medications Medication Sig docusate sodium (STOOL SOFTENER ORAL) Take by mouth. atorvastatin (LIPITOR) 40 mg tablet Take 40 mg by mouth once daily. calcium carbonate (CALTRATE) 600 mg calcium (1,500 mg) tab Take 600 mg by mouth. acetaminophen/diphenhydramine (TYLENOL PM ORAL) Take by mouth. [id number]-[id number]-[id number]-OREG-CAPRYL ORAL Take by mouth. rivaroxaban (XARELTO) 20 mg tablet Take 20 mg by mouth daily with dinner. metoprolol succinate ER (TOPROL XL) 25 mg 24 hr tablet Take 12.5 mg by mouth twice daily. clopidogrel (PLAVIX) 75 mg tablet Take 75 mg by mouth once daily. vit A/vit C/vit E/zinc/copper (PRESERVISION AREDS ORAL) Take by mouth. MULTIVITAMIN ORAL Take by mouth. cholecalciferol, vitamin D3, (VITAMIN D3 ORAL) Take by mouth. ascorbic acid (VITAMIN C ORAL) Take by mouth. docosahexaenoic acid/epa (FISH OIL ORAL) Take by mouth. omeprazole (PRILOSEC) 20 mg capsule Take 1 capsule by mouth once daily. (Patient taking differently: Take 40 mg by mouth once daily.) No current facility-administered medications for this visit. 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 PAST SURGICAL HISTORY: PAST SURGICAL HISTORY Procedure Laterality Date COLONSCOPY SCREENING HIGH RISK EGD HYSTERECTOMY REMOVAL GALLBLADDER SHX LOBECTOMY Left FAMILY HISTORY: FAMILY HISTORY Problem Relation Age of Onset Heart disease Mother COPD Mother Skin Cancer Father Lung Cancer Sister Lung Cancer Brother SOCIAL HISTORY: Social History Tobacco Use Smoking status: Former Packs/day: .25 Types: Cigarettes Quit date: 1969 Years since quittin.7 Smokeless tobacco: Never Substance Use Topics Alcohol use: No Drug use: Never COMPLETE REVIEW OF SYSTEMS: CONSTITUTION: Negative for pain, fatigue, weight loss, or appetite loss. EENT: Negative for mouth soreness, antibiotics use, epistaxis, visual problems, neck or facial swelling, fever/chills, bleeding gums, or hearing loss. CV: Negative for edema, calf swelling, palpitations, or chest pain. RESPIRATORY: Negative for cough, SOB, hemoptysis, or wheezing. GI: Negative for nausea/vomiting, heartburn, vomiting blood, dysphasia, diarrhea, blood in stool, constipation, early satiety, PICA, vegetarian, poor nutrition, abdominal fullness, or abdominal pain. NEUROLOGICAL: Negative for numbness/tingling, dizziness, gait disturbance, headache, speech disturbance, tremor, hemiparesis/sensory loss, or change in mental status. MUSCULOSKELETAL: Negative for joint pain, joint swelling, or proximal muscle weakness. SKIN: Negative for hair loss, bruising, nail changes, rash, itching, pallor, or jaundice. ENDO/URO: Negative for hot flashes, cold or heat intolerance, urinary frequency, urinary hesitancy, menorrhagia, or hematuria. PSYCH: Negative for anxiety, depression, or other. PHYSICAL EXAM: BP 96/53 Pulse 98 Temp 36.2 C (97.1 F) (Temporal) Resp 16 Ht 154.9 cm (5' 0.98 ) Wt 65.7 kg (144 lb 12.8 oz) SpO2 98% BMI 27.37 kg/m GENERAL EXAM: Well developed/well nourished; in no acute distress. SKIN: Negative for lesions, rashes, or ulcers on the upper and lower extremities and face. Negative for palpations/nodules, purpura, and ecchymosis. EENT: Negative for conjunctiva, mucosal pallor, JVD, LAP, thyromegaly, and glossitis. Supple & PERRL. EXTREMITIES: Negative for cyanosis, clubbing, and crepitus. LUNGS: Negative to auscultation, respiratory effort, and percussion. CARDIOVASCULAR: Regular rate. Negative for murmurs/S3S4/abnormal sounds, edema, and carotid bruits. ABDOMEN: Negative for masses, hernia, and spleen/liver abnormalities. RECTAL: Not done PSYCHIATRIC: Negative for mood/affect changes, recent & remote memory changes, and judgement and insight. NEUROLOGICAL: Alert, oriented x person, place, time. Cranial nerves 2-12 intact. Sensory for pain, light touch, vibration intact on all 4 extremities. Reflexes symmetric for biceps/brachioradial/patella/achi lles. MUSCULOSKELETAL: Negative examination of joints, bones, muscles/tendons of all four extremities for inspection, percussion, and palpation. Negative for misallignment, asymmetry, crepitation, tenderness, mass, effusions. Range of motion normal. Negative for joint instability, laxity, dislocation. Gait steady. Negative for swelling, erythema, tenderness, soft tissue swelling, and atrophy. PATHOLOGY: 11/19/2021 Left lateral chest wall mass, biopsy ([id number]; 11/19/2021): - Adenocarcinoma. PD-L1 expression 0% NGS analysis : BRAF negative, EGFR negative, K-evelin G12F detected. 01/30/2003 Left upper lobectomy and mediastinal lymph node dissection ([facility]) Adenocarcinoma, acinar type, moderately differentiated. Primary tumor size 1.8 cm. 1 left hilar lymph node positive for metastasis. LABS: Hemoglobin (g/dL) Date Value 03/05/2023 10.9 Hematocrit (%) Date Value 03/05/2023 33.2 WBC (k/uL) Date Value 03/05/2023 7.63 Platelet Count (k/uL) Date Value 03/05/2023 217 RADIOLOGY/OTHER STUDIES: 02/26/2023 PET scan IMPRESSION: HEAD/NECK: * No FDG avid neoplastic process. CHEST: * 0.7 cm groundglass nodule in the right upper lobe, too small to accurately characterize on FDG PET/CT. Recommend continued follow-up to exclude low metabolic rate neoplastic process, per clinical protocol. ACTIONABLE RESULT * Persistent left chest wall strandy uptake is likely related prior SBRT, and is unchanged from 10/15/2022; dimension follow-up studies. * Small-moderate non-FDG avid pericardial effusion, slightly increased from 01/20/2023. Extensive calcified coronary and aortic atherosclerosis noted. ABDOMEN/PELVIS: * No FDG avid neoplastic process. BONES/EXTREMITIES: * No suspicious FDG avid osseous lesion. 01/20/[address] ([facility]) Increased size and solid nature of peripheral right upper lobe nodule compared to September 2022. 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 CT-guided biopsy recommended. Additional scattered nodularities similar to prior. Stable mild pulmonary emphysema. 10/15/2022 PET scan IMPRESSION: 1. Neck: No suspicious hypermetabolic foci 2. Chest: No new suspicious hypermetabolic foci Stable mild activity in the left lateral chest wall. 3. Abdomen and pelvis: No evidence of FDG avid neoplastic process 4. Skeleton: No hypermetabolic osseous lesions ASSESSMENT/PLAN: 1. 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 Primary treatment consisted of left upper lobectomy and regional lymph node dissection 01/30/2003. Postop the patient received adjuvant chemotherapy followed by adjuvant radiation therapy completed March 2003. In November 2021 the patient was found to have a local recurrence in the left chest wall. Biopsy 12/12/2021 confirmed adenocarcinoma. She subsequently received definitive radiation with SBRT to the involved area completed 02/07/2022 (5000 cGy in 5 fractions). Follow-up scans have revealed subtle abnormalities, but no clear-cut evidence of recurrence. Most recent chest CT 01/20/2023 revealed a 0.8 cm nodule in the right upper lobe which had increased in size and density slightly compared to prior. Repeat PET scan 02/26/2023 revealed a 0.7 cm groundglass nodule in the right upper lobe, too small to accurately characterize. At this time it is difficult to know the significance of her residual pulmonary nodule, but it is felt not to be contributing to her current YADAV. At this time I suggested continued close observation. We will repeat her chest CT in 3 months, she will then return for follow-up. Based on any radiographic changes further evaluation (biopsy) will be considered. 2. Iron deficiency anemia - ICD9: 280.9, ICD10: D50.9 The patient was hospitalized at [facility] November 2022 with anemia (hemoglobin 7.2), labs consistent with iron deficiency, and she received PRBC x 2. Most likely the patient had occult GI bleeding exacerbated by anticoagulants. GI evaluation with upper and lower endoscopy has been recommended, but apparently the patient declined. The patient received IV iron with Monoferric 02/10/2023. CBC currently improved. We will monitor her labs closely and give additional IV iron if indicated. We will monitor for evidence of GI bleeding, and refer to GI for endoscopic evaluation as indicated. 3. Emphysema The patient has a long history of smoking, quit approximately 1989. Recent chest CT revealed radiographic findings consistent with emphysema. Most likely emphysema is contributing to her chronic shortness of breath. Continue management per PCP/pulmonary. 4. History of coronary artery disease Coronary artery disease diagnosed 2020. Status post stent placement November 2020. Stable on current medications. Continue management per PCP/cardiology. Nir Velasquez MD CC: Dr. Salgado ([facility]), Dr. Miriam Reddy ([facility]) documented in this encounter [facility] 02-26-2023 Note HNO ID: [id number] Author: Claudia Baron RT(R) Service: ? Author Type: Technologist Type: Progress Notes Filed: 02/26/2023 11:05 AM Note Text: RADIOLOGY SERVICE PROGRESS NOTE SERVICE DATE: 02/26/2023 SERVICE TIME: 11:02 AM PATIENT IDENTITY VERIFICATION COMPLETED USING TWO (2) STANDARD IDENTIFIERS: Name and Date of confirmed by patient verbally POST EXAM PIV STATUS: Discontinued PROCEDURE TYPE: NM INJECT: PET/CT BODY SCAN. 6.2 mCi F18 FDG. No other medications given.. ADMINISTRATION TIME: 915 PATIENT DISCHARGED TO: Ambulatory patient, left [place] department area. A Diagnostic radioactive procedure has taken place, with no further precautions necessary other than routine body substance precautions. More information regarding radiation safety can be found using this link: [email or web address] SIGNATURE: RT Laith(R) PATIENT NAME: KACIE Case DATE: February 26, 2023 TIME: 11:02 AM PAGER/CONTACT #: [facility] 02-26-2023 Note HNO ID: [id number] Author: Kathrine Rod RN Service: ? Author Type: Registered Nurse Type: Progress Notes Filed: 02/26/2023 9:25 AM Note Text: Radiology Service Progress Note DATE OF SERVICE: February 26, 2023 TIME: 9:23 AM PATIENT IDENTITY VERIFICATION COMPLETED USING TWO (2) STANDARD IDENTIFIERS: Name and Date of confirmed by patient verbally. FALL SCREENING: Has the patient had 2 falls in the last year or 1 fall with injury or currently using an Ambulatory Assistive Device (Walker, Cane, Wheelchair, Crutches, etc.)? No PATIENT GENDER DATA: Female. status: : No status: NO. ALLERGIES: Reviewed and unchanged CONTRAST ALLERGY: No EXAM: CT -CONTRAST INDUCED NEPHROPATHY RISK FACTORS: Patient age > 60 years CREATININE: Creatinine Date Value Ref Range Status 02/02/2023 1.18 (H) 0.58 - 0.96 mg/dL Final 12/06/2021 1.06 (H) 0.58 - 0.96 mg/dL Final Estimated Glomerular Filtration Rate Date Value Ref Range Status 02/02/2023 46 (L) >=60 mL/min/1.73m? Final Comment: Estimated Glomerular Filtration Rate (eGFR) is calculated using the 2020 CKD-EPI creatinine equation. This equation utilizes serum creatinine, sex, and age as parameters. The creatinine assay has traceable calibration to isotope dilution-mass spectrometry. Refer to KDIGO guidelines for clinical interpretation. In patients with unstable renal function, e.g. those with acute kidney injury, the eGFR may not accurately reflect actual GFR. P.O.C.T. RESULTS: POC done: Yes, See Lab Tab February 26, 2023 TREATMENT: No Hydration needed. IV SITE: Ambulatory: A peripheral IV was started in the Right forearm with a Angio cath: 24 gauge. IV SITE APPEARANCE: Clean,Dry and Intact SIGNATURE: Kathrine Rod RN PATIENT NAME: KACIE Case DATE: February 26, 2023 TIME: 9:23 AM [facility] 02-18-2023 Note HNO ID: [id number] Author: Ronna Lantigua LSW Service: ? Author Type: Cell Operation Supervisor Type: Progress Notes Filed: 02/18/2023 1:46 PM Note Text: Patient appears on the [facility] First Time Treatment List for a non-oncology treatment. No psychosocial assessment is indicated. RUTH Alejandra [facility] 02-18-2023 History of Present illness Narrative Patient appears on the [facility] First Time Treatment List for a non-oncology treatment. No psychosocial assessment is indicated. RUTH Alejandra documented in this encounter [facility] 02-16-2023 Note [facility] Cardiology Clinic Note Chief Complaint: Patient here for 6 week follow up echoes and CT. Having EGD/colonoscopy soon. Denies chest pain. HPI: Kacie Case is a 82 y.o. female With complex vascular disease, pulmonary disease, history of prior lung cancer here in routine follow-up Since I last saw her, she seems to have stabilized. Her shortness of breath persists. She denies chest pain. She has no orthopnea, no paroxysmal external dyspnea, no lower extremity edema. It does not appear that she is using her inhalers appropriately. She is currently seeing pulmonology, Hematology oncology, and gastroenterology. She is scheduled to have upper and lower endoscopy this Thursday. She has been off Plavix and is taking aspirin 81 mg daily. She will stop her Eliquis 48 hours prior to the procedure. She is also scheduled to have a PET scan given her abnormal CT scan of the chest. Cardiology ROS: Review of Systems Cardiovascular: Positive for dyspnea on exertion. Respiratory: Positive for cough and shortness of breath. Musculoskeletal: Positive for arthritis and back pain. Neurological: Positive for dizziness. All other systems reviewed and are negative. Past Medical History She has a past medical history of Aneurysm (CMS/HCC), Atrial fibrillation (CMS/HCC), Coronary artery disease, Hypertension, Pericardial effusion, and Subclavian artery stenosis, left (CMS/HCC). Surgical History She has a past surgical history that includes CTA head w and wo IV contrast (12/07/2020); CTA neck w and wo IV contrast (12/08/2020); CTA aorta and bilateral iliofemoral runoff w and/or wo IV contrast (12/28/2020); and Cardiac catheterization (12/03/2020). Social History She reports that she has quit smoking. Her smoking use included cigarettes. She has never used smokeless tobacco. She reports that she does not currently use alcohol. She reports that she does not use drugs. Family History Family History Problem Relation Name Age of Onset Heart disease Mother Allergies Patient has no known allergies. Medications Current Outpatient Medications: atorvastatin (Lipitor) 40 mg tablet, Take 1 tablet (40 mg) by mouth at bedtime., Disp: 90 tablet, Rfl: 3 calcium carbonate (CALCIUM 500 ORAL), calcium, Disp: , Rfl: cholecalciferol (Vitamin D-3) 10 MCG (400 UNIT) tablet, Take 400 Units by mouth., Disp: , Rfl: clopidogrel (Plavix) 75 mg tablet, Take 1 tablet (75 mg) by mouth in the morning., Disp: 90 tablet, Rfl: 1 ferrous sulfate 325 (65 Fe) MG EC tablet, Take 325 mg by mouth in the morning., Disp: , Rfl: metoprolol tartrate (Lopressor) 25 mg tablet, Take 0.5 tablets (12.5 mg) by mouth in the morning and at bedtime., Disp: 90 tablet, Rfl: 1 MULTIVITAMIN ORAL, Take by mouth., Disp: , Rfl: omega 1-dvq-wnr-fish oil (Fish OiL) 100-160-1,000 mg capsule, Fish Oil, Disp: , Rfl: omeprazole (PriLOSEC) [address] capsule, take 1 capsule by mouth EVERY MORNING BEFORE BREAKFAST, Disp: , Rfl: rivaroxaban (Xarelto) 20 mg tablet, Take 1 tablet (20 mg) by mouth daily with evening meal. Take with food., Disp: 90 tablet, Rfl: 3 Last Recorded Vitals BP 140/80 (BP Location: Right arm, Patient Position: Sitting) Pulse 75 Ht 1.549 m (5' 1 ) Wt 67.6 kg (149 lb) SpO2 99% BMI 28.15 kg/m??? Physical Examination: GENERAL: alert and oriented x3, well developed, in no acute distress. HEAD: atraumatic, normocephalic. EYES: CAMILLE, EOMI. NECK: trachea midline, no JVD present, no carotid bruits present. CARDIAC: S1, S2 present. RRR. No murmur, rubs, or gallops. RESPIRATORY: CTAB, no increased effort of breathing, no rales, rhonchi, or wheezing. ABDOMEN: soft, nontender, nondistended. EXTREMITIES: no lower extremity edema, peripheral pulses are 2+ bilaterally. No rash/skin discoloration present. NEURO: strength/sensation equal and symmetric in bilateral upper and lower extremities. PSYCH: appropriate mood, affect, and judgement. Assessment: 1. Coronary atherosclerosis - s/p LAD stent, residual 60% RCA lesion DECEMBER 2020 2. Atrial fibrillation - S/p THIERNO and cardioversion 3. Post-catheterization femoral pseudoaneurysm - 4. Essential hypertension 5. Dyspnea on exertion - Chronic R06.09: Other forms of dyspnea + Cough 6. Stenosis of left subclavian artery - Asymptomatic; I70.8: Atherosclerosis of other arteries 7. Pain in lower limb - Right leg 8. Malignant tumor of lung - History of C34.90: Malignant neoplasm of unspecified part of unspecified bronchus or lung 9. Mass of chest wall R22.2: Localized swelling, mass and lump, trunk 10. Pericardial effusion - Small to moderate on PET scan I31.3: Pericardial effusion (noninflammatory) 11. Anemia; questionable blood loss 12. Fatigue 13. Emphysema no evidence of pulmonary fibrosis; scattered pulmonary nodules Plan: Continue current medical therapy No plans for invasive cardiac testing at this juncture given a number of possi (more content not included)... [facility] 02-10-2023 Miscellaneous Notes Patient on 1st time treatment report-non oncology regimen (Monoferric) Patient holds medicare coverage and no FA available for this treatment. documented in this encounter [facility] 02-05-2023 Miscellaneous Notes Will change iron to Monoferric. Carlos Cardozo Patient's insurance is eligible for her to receive Monoferric; verifies for traditional Medicare - Monoferric preferred. Antoinette Cevallos Please verify with pharmacy if she is eligible to receive Monoferric. If not we will schedule Venofer 3 mg x 3. Pt is scheduled on Saturday 02/10 for 1 dose of Venofer, there are orders for 3 doses. Can you please confirm how many venofer infusions you would like the pt to have so that we can get her scheduled accordingly? Thanks! Kelly Zamudio RN documented in this encounter [facility] 02-04-2023 Miscellaneous Notes Pt called to inform of GI appt next week with Dr De La Torre. Occult stool result faxed to office as requested. Anna Thomas RN documented in this encounter [facility] 02-04-2023 Miscellaneous Notes FYI: Spoke with patient and she verbalized understanding. Patient will call and reschedule with Dr. De La Torre in [place]. She will also have them forward any information. No further questions. Margarita Luz RN ----- Message from Nir Velasquez MD sent at 02/04/2023 12:24 PM EDT ----- Please inform the patient that her stools for occult blood were positive. I definitely believe she should undergo an upper and lower endoscopy to evaluate for GI bleeding. She can contact the previous physician who had scheduled these tests for her (and she previously canceled). documented in this encounter [facility] 02-02-2023 Note HNO ID: [id number] Author: Nir Velasquez MD Service: ? Author Type: Physician Type: Progress Notes Filed: 02/04/2023 6:09 AM Note Text: PATIENT NAME: KACIE Case DATE: 02/02/2023 PRIMARY CARE PHYSICIAN: Dr. Tk Roque OTHER PHYSICIANS: Dr. Salgado, Dr. Gaming, Dr. Miriam Reddy ([facility]) HPI: This is an 82 year old female with a history of recurrent lung cancer, referred for evaluation of suspicious pulmonary nodules and iron deficiency anemia. In 2002 the patient was diagnosed with adenocarcinoma of the left lung. Primary treatment consisted of left upper lobectomy followed by adjuvant chemotherapy and adjuvant radiation therapy. In November 2021 she was found to have a local recurrence in the left chest wall. Biopsy 12/12/2021 confirmed adenocarcinoma. She subsequently received definitive radiation with SBRT to the involved area completed 02/07/2022 (5000 cGy in 5 fractions). Follow-up PET scan 10/15/2022 revealed no evidence of active disease. Recently the patient presented with increasing shortness of breath. She was seen by her cro, and apparently cardiac evaluation was unremarkable. However, repeat chest CT 01/20/2023 revealed a small right upper lobe nodule which had increased in size and density slightly compared to prior. The patient is aware that a pulmonary nodule less than 1 cm most likely is not the cause of her shortness of breath. In addition, the patient was recently found to have anemia. Apparently she was hospitalized at [facility] November 2022 with severe anemia (hemoglobin 7.2) and additional labs consistent with iron deficiency. She received PRBC x 2. It was felt she most likely had occult GI bleeding exacerbated by anticoagulants. GI evaluation with upper and lower endoscopy was recommended, but apparently the patient declined. Current labs are consistent with ongoing iron deficiency. Throughout this time the patient denies any obvious signs of GI bleeding. Her primary complaint at this time is progressive fatigue and severe shortness of breath. No unusual chest pain. No significant cough. No hemoptysis. The patient has a past use of smoking, quit in 1989 MEDICATIONS: Current Outpatient Medications Medication Sig docusate sodium (STOOL SOFTENER ORAL) Take by mouth. atorvastatin (LIPITOR) 40 mg tablet Take 40 mg by mouth once daily. calcium carbonate (CALTRATE) 600 mg calcium (1,500 mg) tab Take 600 mg by mouth. acetaminophen/diphenhydramine (TYLENOL PM ORAL) Take by mouth. UVYZSZA-LSUN-PDUWP-OREG-CAPRYL ORAL Take by mouth. rivaroxaban (XARELTO) 20 mg tablet Take 20 mg by mouth daily with dinner. metoprolol succinate ER (TOPROL XL) 25 mg 24 hr tablet Take 12.5 mg by mouth twice daily. clopidogrel (PLAVIX) 75 mg tablet Take 75 mg by mouth once daily. vit A/vit C/vit E/zinc/copper (PRESERVISION AREDS ORAL) Take by mouth. MULTIVITAMIN ORAL Take by mouth. cholecalciferol, vitamin D3, (VITAMIN D3 ORAL) Take by mouth. ascorbic acid (VITAMIN C ORAL) Take by mouth. docosahexaenoic acid/epa (FISH OIL ORAL) Take by mouth. omeprazole (PRILOSEC) 20 mg capsule Take 1 capsule by mouth once daily. (Patient taking differently: Take 40 mg by mouth once daily.) No current facility-administered medications for this visit. 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 EENT: Negative for mouth soreness, antibiotics use, epistaxis, visual problems, neck or facial swelling, fever/chills, bleeding gums, or hearing loss. CV: Negative for edema, calf swelling, palpitations, or chest pain. RESPIRATORY: Negative for cough, SOB, hemoptysis, or wheezing. GI: Negative for nausea/vomiting, heartburn, vomiting blood, dysphasia, diarrhea, blood in stool, constipation, early satiety, PICA, vegetarian, poor nutrition, abdominal fullness, or abdominal pain. NEUROLOGICAL: Negative for numbness/tingling, dizziness, gait disturbance, headache, speech disturbance, tremor, hemiparesis/sensory loss, or change in mental status. MUSCULOSKELETAL: Negative for joint pain, joint swelling, or proximal muscle wea (more content not included)... [facility] 02-02-2023 History of Present illness Narrative PATIENT NAME: KACIE Case DATE: 02/02/2023 PRIMARY CARE PHYSICIAN: Dr. Tk Roque OTHER PHYSICIANS: Dr. Salgado, Dr. Gaming, Dr. Miriam Reddy ([facility]) HPI: This is an 82 year old female with a history of recurrent lung cancer, referred for evaluation of suspicious pulmonary nodules and iron deficiency anemia. In 2002 the patient was diagnosed with adenocarcinoma of the left lung. Primary treatment consisted of left upper lobectomy followed by adjuvant chemotherapy and adjuvant radiation therapy. In November 2021 she was found to have a local recurrence in the left chest wall. Biopsy 12/12/2021 confirmed adenocarcinoma. She subsequently received definitive radiation with SBRT to the involved area completed 02/07/2022 (5000 cGy in 5 fractions). Follow-up PET scan 10/15/2022 revealed no evidence of active disease. Recently the patient presented with increasing shortness of breath. She was seen by her cro, and apparently cardiac evaluation was unremarkable. However, repeat chest CT 01/20/2023 revealed a small right upper lobe nodule which had increased in size and density slightly compared to prior. The patient is aware that a pulmonary nodule less than 1 cm most likely is not the cause of her shortness of breath. In addition, the patient was recently found to have anemia. Apparently she was hospitalized at [facility] November 2022 with severe anemia (hemoglobin 7.2) and additional labs consistent with iron deficiency. She received PRBC x 2. It was felt she most likely had occult GI bleeding exacerbated by anticoagulants. GI evaluation with upper and lower endoscopy was recommended, but apparently the patient declined. Current labs are consistent with ongoing iron deficiency. Throughout this time the patient denies any obvious signs of GI bleeding. Her primary complaint at this time is progressive fatigue and severe shortness of breath. No unusual chest pain. No significant cough. No hemoptysis. The patient has a past use of smoking, quit in 1989 MEDICATIONS: Current Outpatient Medications Medication Sig docusate sodium (STOOL SOFTENER ORAL) Take by mouth. atorvastatin (LIPITOR) 40 mg tablet Take 40 mg by mouth once daily. calcium carbonate (CALTRATE) 600 mg calcium (1,500 mg) tab Take 600 mg by mouth. acetaminophen/diphenhydramine (TYLENOL PM ORAL) Take by mouth. QUCLRXR-RDYN-GXRMP-OREG-CAPRYL ORAL Take by mouth. rivaroxaban (XARELTO) 20 mg tablet Take 20 mg by mouth daily with dinner. metoprolol succinate ER (TOPROL XL) 25 mg 24 hr tablet Take 12.5 mg by mouth twice daily. clopidogrel (PLAVIX) 75 mg tablet Take 75 mg by mouth once daily. vit A/vit C/vit E/zinc/copper (PRESERVISION AREDS ORAL) Take by mouth. MULTIVITAMIN ORAL Take by mouth. cholecalciferol, vitamin D3, (VITAMIN D3 ORAL) Take by mouth. ascorbic acid (VITAMIN C ORAL) Take by mouth. docosahexaenoic acid/epa (FISH OIL ORAL) Take by mouth. omeprazole (PRILOSEC) 20 mg capsule Take 1 capsule by mouth once daily. (Patient taking differently: Take 40 mg by mouth once daily.) No current facility-administered medications for this visit. 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 EENT: Negative for mouth soreness, antibiotics use, epistaxis, visual problems, neck or facial swelling, fever/chills, bleeding gums, or hearing loss. CV: Negative for edema, calf swelling, palpitations, or chest pain. RESPIRATORY: Negative for cough, SOB, hemoptysis, or wheezing. GI: Negative for nausea/vomiting, heartburn, vomiting blood, dysphasia, diarrhea, blood in stool, constipation, early satiety, PICA, vegetarian, poor nutrition, abdominal fullness, or abdominal pain. NEUROLOGICAL: Negative for numbness/tingling, dizziness, gait disturbance, headache, speech disturbance, tremor, hemiparesis/sensory loss, or change in mental status. MUSCULOSKELETAL: Negative for joint pain, joint swelling, or proximal muscle weakness. SKIN: Negative for hair loss, bruising, nail changes, rash, itching, pallor, or jaundice. ENDO/URO: Negative for hot flashes, cold or heat intolerance, urinary frequency, urinary hesitancy, menorrhagia, or hematuria. PSYCH: Negative for anxiety, depression, or other. PHYSICAL EXAM: BP 136/57 Pulse 70 Temp 36.6 C (97.9 F) (Temporal) Resp 18 Wt 69.3 kg (152 lb 12.8 oz) SpO2 100% BMI 28.89 kg/m GENERAL EXAM: Well developed/well nourished; in no acute distress. SKIN: Negative for lesions, rashes, or ulcers on the upper and lower extremities and face. Negative for palpations/nodules, purpura, and ecchymosis. EENT: Negative for conjunctiva, mucosal pallor, JVD, LAP, thyromegaly, and glossitis. Supple & PERRL. EXTREMITIES: Negative for cyanosis, clubbing, and crepitus. LUNGS: Negative to auscultation, respiratory effort, and percussion. CARDIOVASCULAR: Regular rate. Negative for murmurs/S3S4/abnormal sounds, edema, and carotid bruits. ABDOMEN: Negative for masses, hernia, and spleen/liver abnormalities. RECTAL: Not done PSYCHIATRIC: Negative for mood/affect changes, recent & remote memory changes, and judgement and insight. NEUROLOGICAL: Alert, oriented x person, place, time. Cranial nerves 2-12 intact. Sensory for pain, light touch, vibration intact on all 4 extremities. Reflexes symmetric for biceps/brachioradial/patella/achi lles. MUSCULOSKELETAL: Negative examination of joints, bones, muscles/tendons of all four extremities for inspection, percussion, and palpation. Negative for misallignment, asymmetry, crepitation, tenderness, mass, effusions. Range of motion normal. Negative for joint instability, laxity, dislocation. Gait steady. Negative for swelling, erythema, tenderness, soft tissue swelling, and atrophy. PATHOLOGY: 11/19/2021 Left lateral chest wall mass, biopsy ([id number]; 11/19/2021): - Adenocarcinoma. PD-L1 expression 0% NGS analysis : BRAF negative, EGFR negative, K-evelin G12F detected. LABS: Hemoglobin (g/dL) Date Value 02/02/2023 9.3 Hematocrit (%) Date Value 02/02/2023 28.2 WBC (k/uL) Date Value 02/02/2023 5.86 Platelet Count (k/uL) Date Value 02/02/2023 263 RADIOLOGY/OTHER STUDIES: 01/20/[address] ([facility]) Increased size and solid nature of peripheral right upper lobe nodule compared to September 2022. 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 CT-guided biopsy recommended. Additional scattered nodularities similar to prior. Stable mild pulmonary emphysema. 10/15/2022 PET scan IMPRESSION: 1. Neck: No suspicious hypermetabolic foci 2. Chest: No new suspicious hypermetabolic foci Stable mild activity in the left lateral chest wall. 3. Abdomen and pelvis: No evidence of FDG avid neoplastic process 4. Skeleton: No hypermetabolic osseous lesions ASSESSMENT/PLAN: 1. 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 Primary treatment consisted of left upper lobectomy followed by adjuvant chemotherapy and adjuvant radiation therapy. In November 2021 she was found to have a local recurrence in the left chest wall. Biopsy 12/12/2021 confirmed adenocarcinoma. She subsequently received definitive radiation with SBRT to the involved area completed 02/07/2022 (5000 cGy in 5 fractions). Follow-up scans have revealed subtle abnormalities, but no clear-cut evidence of recurrence. Most recent chest CT 01/20/2023 revealed a 0.8 cm nodule in the right upper lobe which has increased in size and density slightly compared to prior. Significance is unknown, but clear this may represent a new lung primary or metastasis from her previous lung cancer. Options for management discussed at length with the patient and her family. We have elected to repeat her PET scan. Based on these results further evaluation (biopsy) will be considered. I will see the patient back in 4 weeks for follow-up. 2. Iron deficiency anemia - ICD9: 280.9, ICD10: D50.9 The patient was hospitalized at [facility] November 2022 with anemia (hemoglobin 7.2) and labs consistent with iron deficiency. She received PRBC x 2. Most likely the patient has occult GI bleeding exacerbated by anticoagulants. GI evaluation with upper and lower endoscopy has been recommended, but apparently the patient declined. Current labs are consistent with ongoing iron deficiency. We will arrange for IV iron next week. We will check stools for occult blood, and if positive the patient has agreed to reconsider GI evaluation. 3. Emphysema The patient has a long history of smoking, quit approximately 1989. Recent chest CT revealed radiographic findings consistent with emphysema. Most likely emphysema is contributing to her chronic shortness of breath. Continue management per PCP/pulmonary. 4. History of coronary artery disease Coronary artery disease, status post stent placement November 2020. Stable on current medications. Continue management per PCP/cardiology. Nir Velasquez MD CC: Dr. Salgado ([facility]), Dr. Miriam Reddy ([facility]) documented in this encounter [facility] 12-31-[address] [facility] 12-29-2022 Note [facility] Cardiology Clinic Note Chief Complaint: Patient here for follow up CT chest and stress test. HPI: Kacie Case is a 82 y.o. female With a history of coronary artery disease, malignant tumor of the lung and chest wall, moderate pericardial effusion, anemia presumably of blood loss here in routine follow-up She still continues to be short of breath with minimal exertion. She denies chest pain. She does have fatigue. She is intentionally lost some weight recently. No orthopnea, no paroxysmal tunnel dyspnea, no lower extremity edema. Cardiology ROS: Review of Systems Cardiovascular: Positive for dyspnea on exertion. Respiratory: Positive for cough and shortness of breath. Musculoskeletal: Positive for arthritis and back pain. Neurological: Positive for dizziness. All other systems reviewed and are negative. Past Medical History She has a past medical history of Aneurysm (CMS/HCC), Atrial fibrillation (CMS/HCC), Coronary artery disease, Hypertension, Pericardial effusion, and Subclavian artery stenosis, left (CMS/HCC). Surgical History She has a past surgical history that includes CTA head w and wo IV contrast (12/07/2020); CTA neck w and wo IV contrast (12/08/2020); CTA aorta and bilateral iliofemoral runoff w and/or wo IV contrast (12/28/2020); and Cardiac catheterization (12/03/2020). Social History She reports that she has quit smoking. Her smoking use included cigarettes. She has never used smokeless tobacco. She reports that she does not currently use alcohol. She reports that she does not use drugs. Family History Family History Problem Relation Name Age of Onset Heart disease Mother Allergies Patient has no known allergies. Medications Current Outpatient Medications: atorvastatin (Lipitor) 40 mg tablet, Take 1 tablet (40 mg) by mouth at bedtime., Disp: 90 tablet, Rfl: 3 calcium carbonate (CALCIUM 500 ORAL), calcium, Disp: , Rfl: cholecalciferol (Vitamin D-3) 10 MCG (400 UNIT) tablet, Take 400 Units by mouth., Disp: , Rfl: clopidogrel (Plavix) 75 mg tablet, Take 1 tablet (75 mg) by mouth in the morning., Disp: 90 tablet, Rfl: 1 ferrous sulfate 325 (65 Fe) MG EC tablet, Take 325 mg by mouth in the morning., Disp: , Rfl: metoprolol tartrate (Lopressor) 25 mg tablet, Take 0.5 tablets (12.5 mg) by mouth in the morning and at bedtime., Disp: 90 tablet, Rfl: 1 MULTIVITAMIN ORAL, Take by mouth., Disp: , Rfl: omega 4-fas-lty-fish oil (Fish OiL) 100-160-1,000 mg capsule, Fish Oil, Disp: , Rfl: omeprazole (PriLOSEC) [address] capsule, take 1 capsule by mouth EVERY MORNING BEFORE BREAKFAST, Disp: , Rfl: rivaroxaban (Xarelto) 20 mg tablet, Take 1 tablet (20 mg) by mouth daily with evening meal. Take with food., Disp: 90 tablet, Rfl: 3 Last Recorded Vitals BP 126/68 (BP Location: Left arm, Patient Position: Sitting) Pulse 83 Ht 1.549 m (5' 1 ) Wt 65.8 kg (145 lb) SpO2 99% BMI 27.40 kg/m??? Physical Examination: GENERAL: alert and oriented x3, well developed, in no acute distress. HEAD: atraumatic, normocephalic. EYES: CAMILLE, EOMI. NECK: trachea midline, no JVD present, no carotid bruits present. CARDIAC: S1, S2 present. RRR. No murmur, rubs, or gallops. RESPIRATORY: CTAB, no increased effort of breathing, no rales, rhonchi, or wheezing. ABDOMEN: soft, nontender, nondistended. EXTREMITIES: no lower extremity edema, peripheral pulses are 2+ bilaterally. No rash/skin discoloration present. NEURO: strength/sensation equal and symmetric in bilateral upper and lower extremities. PSYCH: appropriate mood, affect, and judgement. Investigations: High-resolution CT scan of the lungs: Impression: Scattered indeterminate pulmonary nodules, standard CT scan of the chest is recommended for further evaluation 2.1 cm pericardial effusion Minimal emphysema with no evidence of pulmonary fibrosis Electronically authenticated [facility] date 12/26/2019 Lexiscan stress test 12/29/2022: No ischemic EKG changes; infrequent premature ventricular contractions I personally reviewed the results of her nuclear imaging; there is no evidence of significant transient ischemic dilation, there appears to be a fixed inferior wall defect likely diaphragmatic attenuation. I see no obvious reversible defect suggesting ischemia. Assessment: 1. Coronary atherosclerosis - S/p LAD stent, residual 60% RCA lesion DECEMBER 2020 2. Atrial fibrillation - S/p THIERNO and cardioversion 3. Post-catheterization femoral pseudoaneurysm - 4. Essential hypertension 5. Dyspnea on exertion - Chronic R06.09: Other forms of dyspnea + Cough 6. Stenosis of left subclavian artery - Asymptomatic; I70.8: Atherosclerosis of other arteries 7. Pain in lower limb - Right leg 8. Malignant tumor of lung - History of C34.90: Malignant neoplasm of unspecified part of unspecified bronchus or lung 9. Mass of chest wall R22.2: Localized swelling, mass and lump, trunk 10. Per (more content not included)... [facility] 12-22-2022 Note [facility] Cardiology Clinic Note Chief Complaint: Patient here for follow up echo on 12/08 and 12/18 for pericardial effusion. HPI: Kacie Case is a 82 y.o. female With a history of coronary artery disease, peripheral arterial disease, atrial fibrillation who is here in follow-up I had scheduled her for pulmonary function test; she was found to be severely anemic with a hemoglobin of above 6. She was given 2 units of packed red blood cells and discharge. She underwent no endoscopies. She continues to be extremely fatigued and short of breath at rest and with exertion. She denies orthopnea but appears to have some degree of paroxysmal external dyspnea. She has no lower extremity edema. Pertinently, she has had a chronic cough productive of thick viscid mucus for the past 3 to 4 months at least. She has a history of lung cancer and chest wall malignancy. These are in remission. Cardiology ROS: Review of Systems Cardiovascular: Positive for dyspnea on exertion. Respiratory: Positive for cough and shortness of breath. Musculoskeletal: Positive for arthritis and back pain. Neurological: Positive for dizziness. All other systems reviewed and are negative. Past Medical History She has a past medical history of Aneurysm (CMS/HCC), Atrial fibrillation (CMS/HCC), Coronary artery disease, Hypertension, Pericardial effusion, and Subclavian artery stenosis, left (CMS/HCC). Surgical History She has a past surgical history that includes CTA head w and wo IV contrast (12/07/2020); CTA neck w and wo IV contrast (12/08/2020); CTA aorta and bilateral iliofemoral runoff w and/or wo IV contrast (12/28/2020); and Cardiac catheterization (12/03/2020). Social History She reports that she has quit smoking. Her smoking use included cigarettes. She has never used smokeless tobacco. She reports that she does not currently use alcohol. She reports that she does not use drugs. Family History Family History Problem Relation Name Age of Onset Heart disease Mother Allergies Patient has no known allergies. Medications Current Outpatient Medications: atorvastatin (Lipitor) 40 mg tablet, Take 1 tablet (40 mg) by mouth at bedtime., Disp: 90 tablet, Rfl: 3 calcium carbonate (CALCIUM 500 ORAL), calcium, Disp: , Rfl: cholecalciferol (Vitamin D-3) 10 MCG (400 UNIT) tablet, Take 400 Units by mouth., Disp: , Rfl: clopidogrel (Plavix) 75 mg tablet, Take 1 tablet (75 mg) by mouth in the morning., Disp: 90 tablet, Rfl: 1 metoprolol tartrate (Lopressor) 25 mg tablet, Take 0.5 tablets (12.5 mg) by mouth in the morning and at bedtime., Disp: 90 tablet, Rfl: 1 MULTIVITAMIN ORAL, Take by mouth., Disp: , Rfl: omega 4-ysc-rat-fish oil (Fish OiL) 100-160-1,000 mg capsule, Fish Oil, Disp: , Rfl: omeprazole (PriLOSEC) [address] capsule, take 1 capsule by mouth EVERY MORNING BEFORE BREAKFAST, Disp: , Rfl: rivaroxaban (Xarelto) 20 mg tablet, Take 1 tablet (20 mg) by mouth daily with evening meal. Take with food., Disp: 90 tablet, Rfl: 3 Last Recorded Vitals BP 124/72 (BP Location: Left arm, Patient Position: Sitting) Pulse 83 Ht 1.549 m (5' 1 ) Wt 67.1 kg (148 lb) SpO2 98% BMI 27.96 kg/m??? Physical Examination: GENERAL: alert and oriented x3, well developed, in no acute distress. HEAD: atraumatic, normocephalic. EYES: CAMILLE, EOMI. NECK: trachea midline, no JVD present, no carotid bruits present. CARDIAC: S1, S2 present. RRR. No murmur, rubs, or gallops. RESPIRATORY: CTAB, no increased effort of breathing, no rales, rhonchi, or wheezing. ABDOMEN: soft, nontender, nondistended. EXTREMITIES: no lower extremity edema, peripheral pulses are 2+ bilaterally. No rash/skin discoloration present. NEURO: strength/sensation equal and symmetric in bilateral upper and lower extremities. PSYCH: appropriate mood, affect, and judgement. Echocardiogram 12/18/2022 Conclusion: 1 mild concentric left ventricular hypertrophy with normal systolic function. EF is 55% 2 normal right ventricular size and systolic function 3 mild right atrial and severe left atrial dilatation 4 mild to moderate mitral regurgitation 5 mild aortic valve regurgitation 6 moderate pericardial effusion with the majority of the effusion located posteriorly. There is thrombotic organization and layering the right ventricular free wall. 7 no echocardiographic signs of tamponade physiology Assessment: 1. Coronary atherosclerosis - S/p LAD stent, residual 60% RCA lesion DECEMBER 2020 2. Atrial fibrillation - S/p THIERNO and cardioversion 3. Post-catheterization femoral pseudoaneurysm - 4. Essential hypertension 5. Dyspnea on exertion - Chronic R06.09: Other forms of dyspnea 6. Stenosis of left subclavian artery - Asymptomatic; I70.8: Atherosclerosis of other arteries 7. Pain in lower limb - Right leg 8. Malignant tumor of lung - History of C34.90: Malignant neoplasm of unspecified part of unspecified bronchus o (more content not included)... [facility] 11-18-2022 Note [facility] Cardiology Clinic Note Chief Complaint: patient is here today for a 6 mo follow up HPI: Kacie Case is a 82 y.o. female With a history of coronary artery disease and peripheral arterial disease as well as lung cancer and a chest wall mass who is here in follow-up She has noticed that she has become extremely short of breath over the past 3 to 4 months or so. She can barely walk from the car to the office without significant dyspnea. She is also noticed a cough and irritation in the upper airway. There is no expectoration. She denies fevers, she has had no chills. Pertinently, she denies chest pain. She has no orthopnea, she denies paroxysmal external dyspnea. She has had no weight gain. She has had no lower extremity edema. Cardiology ROS: Review of Systems Cardiovascular: Positive for dyspnea on exertion. Respiratory: Positive for cough and shortness of breath. Musculoskeletal: Positive for arthritis and back pain. Neurological: Positive for dizziness. All other systems reviewed and are negative. Past Medical History She has a past medical history of Aneurysm (CMS/HCC), Atrial fibrillation (CMS/HCC), Coronary artery disease, Hypertension, Pericardial effusion, and Subclavian artery stenosis, left (CMS/HCC). Surgical History She has a past surgical history that includes CTA head w and wo IV contrast (12/07/2020); CTA neck w and wo IV contrast (12/08/2020); CTA aorta and bilateral iliofemoral runoff w and/or wo IV contrast (12/28/2020); and Cardiac catheterization (12/03/2020). Social History She reports that she has quit smoking. Her smoking use included cigarettes. She has never used smokeless tobacco. She reports that she does not currently use alcohol. She reports that she does not use drugs. Family History Family History Problem Relation Name Age of Onset Heart disease Mother Allergies Patient has no known allergies. Medications Current Outpatient Medications: atorvastatin (Lipitor) 40 mg tablet, Take 1 tablet (40 mg) by mouth at bedtime., Disp: 90 tablet, Rfl: 3 clopidogrel (Plavix) 75 mg tablet, Take 1 tablet (75 mg) by mouth in the morning., Disp: 90 tablet, Rfl: 1 metoprolol tartrate (Lopressor) 25 mg tablet, Take 0.5 tablets (12.5 mg) by mouth in the morning and at bedtime., Disp: 90 tablet, Rfl: 1 omeprazole (PriLOSEC) [address] capsule, take 1 capsule by mouth EVERY MORNING BEFORE BREAKFAST, Disp: , Rfl: rivaroxaban (Xarelto) 20 mg tablet, Take 1 tablet (20 mg) by mouth with evening meal. Take with food., Disp: 90 tablet, Rfl: 3 Last Recorded Vitals BP 127/63 (BP Location: Left arm, Patient Position: Sitting, BP Cuff Size: Adult) Pulse 75 Ht 1.549 m (5' 1 ) Wt 69.9 kg (154 lb) SpO2 100% BMI 29.10 kg/m??? Physical Examination: GENERAL: alert and oriented x3, well developed, in no acute distress. HEAD: atraumatic, normocephalic. EYES: CAMILLE, EOMI. NECK: trachea midline, no JVD present, no carotid bruits present. CARDIAC: S1, S2 present. RRR. No murmur, rubs, or gallops. RESPIRATORY: CTAB, no increased effort of breathing, no rales, rhonchi, or wheezing. ABDOMEN: soft, nontender, nondistended. EXTREMITIES: no lower extremity edema, peripheral pulses are 2+ bilaterally. No rash/skin discoloration present. NEURO: strength/sensation equal and symmetric in bilateral upper and lower extremities. PSYCH: appropriate mood, affect, and judgement. Echocardiogram 02/04/2022: Global left ventricular systolic function is normal. EF is 55% visually. No regional wall motion abnormality. There is a small to moderate pericardial effusion. This is unchanged from prior study of 01/21/2022. Features are not consistent with tamponade physiology. Assessment: 1. Coronary atherosclerosis - S/p LAD stent, residual 60% RCA lesion DECEMBER 2020 2. Atrial fibrillation - S/p THIERNO and cardioversion 3. Post-catheterization femoral pseudoaneurysm - 4. Essential hypertension 5. Dyspnea on exertion - Chronic R06.09: Other forms of dyspnea 6. Stenosis of left subclavian artery - Asymptomatic I70.8: Atherosclerosis of other arteries 7. Pain in lower limb - Right leg 8. Malignant tumor of lung - History of C34.90: Malignant neoplasm of unspecified part of unspecified bronchus or lung 9. Mass of chest wall R22.2: Localized swelling, mass and lump, trunk 10. Pericardial effusion - Small to moderate on PET scan I31.3: Pericardial effusion (noninflammatory) Plan: Continue medical therapy in the form of Lipitor, Plavix, and Xarelto A complete echocardiogram Will consider an ischemic work-up depending on the results of the echocardiogram; given her known, severe, calcific vascular disease and complications post cardiac catheterization, would prefer to defer unless absolutely necessary Pulmonary function tests given her extreme shortness of breath Given her history of lung cancer, and chest wall cancer, it would b (more content not included)... [facility] 10-20-2022 History of Present illness Narrative Radiation Oncology - Follow Up Note PATIENT NAME: KACIE Case PATIENT DIAGNOSIS/PATIENT IDENTIFICATION: Ms. 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 She has opted for definitive/ablative SBRT treatment to the chest wall lesion which she completed on 02/07/2022 (5000 cGy in 5 fractions). INTERVAL HISTORY/ROS: Ms. Case returns to clinic today for routine follow-up approximately six months after the completion of her radiation treatments and three months since her last visit on 05/09/2022. In the interim, she had repeat imaging with PET/CT last week on 10/15/2022 showing stable findings in the treated left chest wall region with slightly less FDG avidity (2.6 from 3.0 SUV) from 3 months ago. No new hypermetabolic areas concerning for disease were identified. She came back from [place] last week and has been noting discomfort in the area of the left chest wall the past few weeks with tenderness to palpation which she rates today at 2/10 and is unchanged since onset. She is not using any pain medication or heat to the area. She does note cough which is unchanged as well as somewhat increased dyspnea on exertion and fatigue. She otherwise denies any recent fevers, chills, headaches, difficulty with speech/swallowing, shortness of breath, chest pain/palpitations, abdominal pain, nausea, vomiting, change in bowel/urinary habits, difficulty with gait/balance, recent falls, etc. The remainder of the review of systems was performed and was otherwise noncontributory. ALLERGIES ALLERGIES No Known Allergies MEDICATIONS: Current Outpatient Medications: docusate sodium (STOOL SOFTENER ORAL) atorvastatin (LIPITOR) 40 mg tablet calcium carbonate (CALTRATE) 600 mg calcium (1,500 mg) tab acetaminophen/diphenhydramine (TYLENOL PM ORAL) rivaroxaban (XARELTO) 20 mg tablet metoprolol succinate ER (TOPROL XL) 25 mg 24 hr tablet clopidogrel (PLAVIX) 75 mg tablet vit A/vit C/vit E/zinc/copper (PRESERVISION AREDS ORAL) MULTIVITAMIN ORAL cholecalciferol, vitamin D3, (VITAMIN D3 ORAL) ascorbic acid (VITAMIN C ORAL) docosahexaenoic acid/epa (FISH OIL ORAL) omeprazole (PRILOSEC) 20 mg capsule [id number] ORAL PHYSICAL EXAM: GENERAL: Elderly woman sitting in chair in no acute distress. VITALS: BP 169/82 Pulse 80 Temp 96.8 Resp 18 Wt 152 lb (68.9kg) SpO2 98% KPS: 80 HEENT: NC/AT, anicteric sclera HEART: S1S2 LUNGS: non-labored breathing ABDOMEN: soft MUSCULOSKELETAL: no peripheral edema, moves all extremities. Has tenderness to palpation along the left lateral chest wall. NEURO: no focal deficit; A&O X3. RADIOLOGIC DATA: PET/CT (10/15/2022) IMPRESSION: 1. Neck: No suspicious hypermetabolic foci 2. Chest: No new suspicious hypermetabolic foci Stable mild activity in the left lateral chest wall. 3. Abdomen and pelvis: No evidence of FDG avid neoplastic process 4. Skeleton: No hypermetabolic osseous lesions CHEST: There are aortic and coronary calcifications. There is no hypermetabolic hilar or mediastinal lymphadenopathy. There is no hypermetabolic axillary lymphadenopathy. Small non-FDG avid pericardial effusion. Stable mild activity in left lateral chest wall max SUV 2.6 (compared to previously max SUV 3). Scattered atelectatic changes. Non-FDG avid opacities in the lungs. There are no hypermetabolic foci in the lungs. ASSESSMENT AND PLAN: Ms. 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 She has opted for definitive/ablative SBRT treatment to the chest wall lesion which she completed on 02/07/2022 (5000 cGy in 5 fractions). Ms. Case is doing well clinically approximately 6 months after the completion of her SBRT treatments to the left chest wall. Her most recent imaging with PET/CT last week on 10/15/2022 shows overall stability in the treated area in the left chest wall with slight decrease in FDG avidity (2.6 to 3.0 SUV) with no new hypermetabolic areas concerning for disease. She does note development of left chest wall discomfort in the treatment area over the past few weeks with tenderness to palpation. Given the imaging findings, I am not concerned for recurrent disease at this time and feel that this is likely musculoskeletal in origin or related to irritation of the nerves in the chest wall from reirradiation. We will continue to manage conservatively at this time and will see her back in [address] of the chest. The patient is aware to contact the clinic in the interim should any questions or concerns arise or should there be any changes to the treatment area. Thank you for allowing us to participate in the care of this patient. Signed by: Vince Gaming MD I spent a total of 20 minutes on the date of the service which included preparing to see the patient, [id number] patient care, and counseling and educating the patient/family/caregiver. This document has been created with the use of voice recognition technology. It may contain inaccuracies, misspellings, inaccurate syntax or inappropriate word context that are a result of the inadequacies/shortcomings of said technology/software. documented in this encounter [facility] 09-19-2022 Miscellaneous Notes Patient appointments have been adjusted as instructed. Patient called and notified of appointment dates and times. Darrius Cooley Dr. Gaming approved moving up Kacie's PET to after October 14, 2022. Darrius: Will you please call patient and reschedule PET and follow up? She will return to [place] 10/14/22. Claribel Arciniega LPN Kacie called stating she noticed a tender lump in her left rib area this a.m. She denies any recent injury. She was prescribed cefdinir 300mg BID x 7 days for c/o productive cough which she completed a couple days ago. She said she does have a non productive cough which is not new. She denies shortness of breath. She is scheduled for a PET scan mid October 2022 but would like to have that moved up if possible. She is currently in [place] and will return 10/14/22. Please advise. Claribel Arciniega LPN documented in this encounter [facility] 05-09-2022 History of Present illness Narrative Radiation Oncology - Follow Up Note PATIENT NAME: KACIE Case PATIENT Signed by: Vince Gaming MD I spent a total of 20 minutes on the date of the service which included preparing to see the patient, [id number] patient care, and counseling and educating the patient/family/caregiver. This document has been created with the use of voice recognition technology. It may contain inaccuracies, misspellings, inaccurate syntax or inappropriate word context that are a result of the inadequacies/shortcomings of said technology/software. documented in this encounter [facility] 03-04-2022 Miscellaneous Notes RADIATION POST TREATMENT CALL BACK Today's date: March 04, 2022 Patient's final treatment on 02/07. Treatment site Lung Called patient to follow-up on symptom management and follow-up appointments. Spoke with patient. Focused Toxicity Assessment: Chest/Lung Fatigue: none Shortness of breath: none Increased Oxygen needs: no Cough: None Dysphagia: none Pain with Swallowing: none Appetite: no changes in appetite Erythema/Hyperpigmentation: none Desquamation: none Rash: none Skin Care: None Skin Sensation: Within Normal Limits Pt reports pain is much better and she is rarely needing pain meds anymore. Follow up appointment: Reminded patient of face to face visit on 05/09/[address] Gaming[address] Jsesica Montanez RN documented in this encounter [facility] 02-21-2022 History of Present illness Narrative KACIE CASE [id number] [facility] Radiation Oncology Department STEREOTACTIC BODY RADIOTHERAPY (SBRT) DAILY PROCEDURE NOTE DATE OF PROCEDURE: 02/07/2022 DIAGNOSIS: Ms. 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 She has chosen to be aggressive and move forward with definitive/ablative SBRT treatment to the chest wall lesion. FRACTION NUMBER: 5of [id number] FRACTIONAL DOSE: 1000 cGy CUMULATIVE DOSE: 5000 cGy of 5000 cGy PROCEDURE: The patient was evaluated by the physician prior to the treatment. Under the supervision of the Radiation Oncologist, the patient was set up on the treatment table and all treatment parameters were verified. Image guidance was supervised, corrected, and approved in real time by the physician. On-Board stereoscopic X-ray images initially and cone beam CT were acquired and the radiation oncologist reviewed images with the biomedical equipment specialist to verify that the internal isocenter in the reconstructed 3D volume is positioned appropriately in reference to the observed tumor location in accordance with previously designed treatment plan. Once the beam was turned on, the patient position was continuously monitored during delivery via visual observation and triggered imaging. Triggered images were acquired every 30 degrees. The physician assessed and approved all the ongoing images used for localization and tumor tracking. At all points of decision-making with regard to patient setup, the Radiation Oncologist conferred with biomedical equipment specialist to approve the final setup. The Radiation Oncologist was available throughout the SBRT treatment to manage the execution of the treatment and make real-time adjustments in response to patient motion, target movement, or equipment issues to ensure accuracy and safety. The patient was discharged home in stable condition. DESCRIPTION OF IMMBOLIZATION/PROCEDURE: # ARCS/PEPPER TREATED Dynamic Conformal Arcs Body Fix SBRT Framewith respiratory suppression. Inverse Plan Algorithm/IMRT Beams Abdominal compression- pneumatic device Vmat TREATMENT VOLUMES:PTV DOSES:PTV Total Dose PHYSICIST: Mitchel Del Cid INTERVENTIONS: None ASSESSMENT: Patient tolerated procedure well. Electronically Signed VINCE GAMING MD 21:52 PM documented in this encounter [facility] 02-18-2022 Miscellaneous Notes Pt LM on refill line requesting oxycodone refill. She saw Dr Deutsch, but has not been scheduled with another med onc yet. Please review and sign if agreeable. Jessica Montanez RN documented in this encounter [facility] 02-18-2022 Miscellaneous Notes Called patient and explained to her about the last appointment and what corby had said. Pt called to ask about a statement she rec'd regarding Dr Deutsch leaving and she needed to reschedule with another physician. Anna Thomas RN documented in this encounter [facility] 02-07-2022 History of Present illness Narrative [facility] Radiation Oncology Department RADIATION ONCOLOGY - SBRT COMPLETION NOTE PATIENT: KACIE CASE: 1940 DATES OF TREATMENT: 01/29/2022 to 02/07/2022 DIAGNOSIS: Ms. 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 She has opted for definitive/ablative SBRT treatment to the chest wall lesion. AREA TREATED: Left Chest Wall DELIVERED DOSE: Area: Left Chest Wall 5,000 cGy in 5 fractions, 2 Arcs, IMRT/SBRT, 6FFF with daily CBCT and triggered imaging TOTAL: 5,000 cGy in 5 Fractions ELAPSED TIME: 9 days. CLINICAL SUMMARY: The patient tolerated course of SBRT well with treatment related fatigue and chest wall discomfort as expected. No other significant issues. The patient was able to complete treatment as intended without break interruption or modification of prescription plan. The patient will be evaluated in 3-4 weeks for postradiation follow-up with plans for initial post-treatment imaging in approximately 12 weeks to assess treatment response. Staff Physician Vince Gaming M.D. / CAMACHO 26:34 PM Electronically Signed cc: Soren Deutsch MD ([facility]) Tk Roque II, MD [address] [address] [address] documented in this encounter [facility] 02-05-2022 History of Present illness Narrative KACIE CASE [id number] [facility] Radiation Oncology Department STEREOTACTIC BODY RADIOTHERAPY (SBRT) DAILY PROCEDURE NOTE DATE OF PROCEDURE: 02/05/2022 DIAGNOSIS: Ms. 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 She has chosen to be aggressive and move forward with definitive/ablative SBRT treatment to the chest wall lesion. FRACTION NUMBER: 4of 5 FRACTIONAL DOSE: 1000 cGy CUMULATIVE DOSE: 4000 cGy of 5000 cGy PROCEDURE: The patient was evaluated by the physician prior to the treatment. Under the supervision of the Radiation Oncologist, the patient was set up on the treatment table and all treatment parameters were verified. Image guidance was supervised, corrected, and approved in real time by the physician. On-Board stereoscopic X-ray images initially and cone beam CT were acquired and the radiation oncologist reviewed images with the biomedical equipment specialist to verify that the internal isocenter in the reconstructed 3D volume is positioned appropriately in reference to the observed tumor location in accordance with previously designed treatment plan. Once the beam was turned on, the patient position was continuously monitored during delivery via visual observation and triggered imaging. Triggered images were acquired every 30 degrees. The physician assessed and approved all the ongoing images used for localization and tumor tracking. At all points of decision-making with regard to patient setup, the Radiation Oncologist conferred with biomedical equipment specialist to approve the final setup. The Radiation Oncologist was available throughout the SBRT treatment to manage the execution of the treatment and make real-time adjustments in response to patient motion, target movement, or equipment issues to ensure accuracy and safety. The patient was discharged home in stable condition. DESCRIPTION OF IMMBOLIZATION/PROCEDURE: # ARCS/PEPPER TREATED Dynamic Conformal Arcs Body Fix SBRT Framewith respiratory suppression. Inverse Plan Algorithm/IMRT Beams Abdominal compression- pneumatic device Vmat TREATMENT VOLUMES:PTV DOSES:PTV Total Dose PHYSICIST: Reggie Morse INTERVENTIONS: None ASSESSMENT: Patient tolerated procedure well. Electronically Signed VINCE GAMING MD 25:40 AM documented in this encounter [facility] 02-03-2022 History of Present illness Narrative KACIE CASE [id number] [facility] Radiation Oncology Department STEREOTACTIC BODY RADIOTHERAPY (SBRT) DAILY PROCEDURE NOTE DATE OF PROCEDURE: 02/03/2022 DIAGNOSIS: Ms. 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 She has chosen to be aggressive and move forward with definitive/ablative SBRT treatment to the chest wall lesion. FRACTION NUMBER: 3of 5 FRACTIONAL DOSE: 1000 cGy CUMULATIVE DOSE: 3000 cGy of 5000 cGy PROCEDURE: The patient was evaluated by the physician prior to the treatment. Under the supervision of the Radiation Oncologist, the patient was set up on the treatment table and all treatment parameters were verified. Image guidance was supervised, corrected, and approved in real time by the physician. On-Board stereoscopic X-ray images initially and cone beam CT were acquired and the radiation oncologist reviewed images with the biomedical equipment specialist to verify that the internal isocenter in the reconstructed 3D volume is positioned appropriately in reference to the observed tumor location in accordance with previously designed treatment plan. Once the beam was turned on, the patient position was continuously monitored during delivery via visual observation and triggered imaging. Triggered images were acquired every 30 degrees. The physician assessed and approved all the ongoing images used for localization and tumor tracking. At all points of decision-making with regard to patient setup, the Radiation Oncologist conferred with biomedical equipment specialist to approve the final setup. The Radiation Oncologist was available throughout the SBRT treatment to manage the execution of the treatment and make real-time adjustments in response to patient motion, target movement, or equipment issues to ensure accuracy and safety. The patient was discharged home in stable condition. DESCRIPTION OF IMMBOLIZATION/PROCEDURE: # ARCS/PEPPER TREATED Dynamic Conformal Arcs Body Fix SBRT Framewith respiratory suppression. Inverse Plan Algorithm/IMRT Beams Abdominal compression- pneumatic device Vmat TREATMENT VOLUMES:PTV DOSES:PTV Total Dose PHYSICIST: Reggie Morse INTERVENTIONS: None ASSESSMENT: Patient tolerated procedure well. Electronically Signed VINCE GAMING MD 21:00 PM documented in this encounter [facility] 01-31-2022 History of Present illness Narrative See mosaiq note documented in this encounter [facility] 01-31-2022 History of Present illness Narrative KACIE CASE [id number] [facility] Radiation Oncology Department STEREOTACTIC BODY RADIOTHERAPY (SBRT) DAILY PROCEDURE NOTE DATE OF PROCEDURE: 01/31/2022 DIAGNOSIS: Secondary malignant neoplasm of other specified [id number] FRACTION NUMBER: 2 of 5 FRACTIONAL DOSE: 1,000 cGy CUMULATIVE DOSE: 2,000 cGy of 5,000 cGy PROCEDURE: The patient was evaluated by the physician prior to the treatment. Under the direct supervision of the Radiation Oncologist, the patient was set up on the treatment table and all treatment parameters were verified. Image guidance was supervised, corrected, and approved in real time by the physician. On-Board stereoscopic X-ray images initially and cone beam CT were acquired and the radiation oncologist reviewed images with the biomedical equipment specialist to verify that the internal isocenter in the reconstructed 3D volume is positioned appropriately in reference to the observed tumor location in accordance with previously designed treatment plan. Once the beam was turned on, the patient position was continuously monitored during delivery via visual observation and triggered imaging. Triggered images were acquired every 30 degrees. The physician assessed and approved all the ongoing images used for localization and tumor tracking. At all points of decision-making with regard to patient setup, the Radiation Oncologist conferred with biomedical equipment specialist to approve the final setup. The Radiation Oncologist was available throughout the SBRT treatment to manage the execution of the treatment and make real-time adjustments in response to patient motion, target movement, or equipment issues to ensure accuracy and safety. The patient was discharged home in stable condition. DESCRIPTION OF IMMBOLIZATION/PROCEDURE: # ARCS/PEPPER TREATED Dynamic Conformal Arcs Body Fix SBRT Framewith respiratory suppression. Inverse Plan Algorithm/IMRT Beams Abdominal compression- pneumatic device Vmat TREATMENT VOLUMES:PTV DOSES:PTV Total Dose PHYSICIST: Reggie Morse INTERVENTIONS: None ASSESSMENT: Patient tolerated procedure well. Electronically Signed KALYANI FREEMAN MD 2:52 PM documented in this encounter [facility] 01-30-2022 Miscellaneous Notes PET scan order for 3 mos post tx completion pending your approval Claribel Arciniega LPN documented in this encounter [facility] 01-29-2022 History of Present illness Narrative KACIE CASE [id number] [facility] Radiation Oncology Department STEREOTACTIC BODY RADIOTHERAPY (SBRT) DAILY PROCEDURE NOTE DATE OF PROCEDURE: 01/29/2022 DIAGNOSIS: Secondary malignant neoplasm of other specified [id number] FRACTION NUMBER: 1 of 5 FRACTIONAL DOSE: 1,000 cGy CUMULATIVE DOSE: 1,000 cGy of 5,000 cGy PROCEDURE: The patient was evaluated by the physician prior to the treatment. Under the direct supervision of the Radiation Oncologist, the patient was set up on the treatment table and all treatment parameters were verified. Image guidance was supervised, corrected, and approved in real time by the physician. On-Board stereoscopic X-ray images initially and cone beam CT were acquired and the radiation oncologist reviewed images with the biomedical equipment specialist to verify that the internal isocenter in the reconstructed 3D volume is positioned appropriately in reference to the observed tumor location in accordance with previously designed treatment plan. Once the beam was turned on, the patient position was continuously monitored during delivery via visual observation and triggered imaging. Triggered images were acquired every 30 degrees. The physician assessed and approved all the ongoing images used for localization and tumor tracking. At all points of decision-making with regard to patient setup, the Radiation Oncologist conferred with biomedical equipment specialist to approve the final setup. The Radiation Oncologist was available throughout the SBRT treatment to manage the execution of the treatment and make real-time adjustments in response to patient motion, target movement, or equipment issues to ensure accuracy and safety. The patient was discharged home in stable condition. DESCRIPTION OF IMMBOLIZATION/PROCEDURE: # ARCS/PEPPER TREATED Dynamic Conformal Arcs Body Fix SBRT Framewith respiratory suppression. Inverse Plan Algorithm/IMRT Beams Abdominal compression- pneumatic device Vmat TREATMENT VOLUMES:PTV DOSES:PTV Total Dose PHYSICIST: Reggie Morse INTERVENTIONS: None ASSESSMENT: Patient tolerated procedure well. Electronically Signed VINCE GAMING MD 26:17 PM documented in this encounter [facility] 01-16-2022 History of Present illness Narrative Radiation Oncology - Follow Up Note PATIENT NAME: KACIE Case PATIENT DIAGNOSIS/PATIENT IDENTIFICATION: Ms. Case is an 81-year-old woman diagnosed with Locally advanced NSCLC arising from the left chest s/p resection (lobectomy) followed by chemotherapy and radiation in 2003 now with left chest wall recurrence status post biopsy on 12/12/2021 and PET/CT on 12/23/2021 confirming hypermetabolic activity in this lesion with no other evidence of local regional or distant disease. She was referred to the radiation medicine clinic to have a discussion regarding the role of radiation therapy in the treatment of her recurrent left chest wall disease. Ms. Case returns to clinic today for simulation as previously discussed during consultation on 01/02/2022. We again briefly reviewed the rationale, logistics, and toxicity of stereotactic radiation therapy to the chest wall in this recurrent setting including risk of rib fracture and chest wall pain syndrome. After all of her questions were answered, informed consent was obtained. She will proceed to CT simulation following this visit to begin treatment planning and I anticipate starting radiation shortly. Thank you for allowing us to participate in the care of this patient. Signed by: Vince Gaming MD I spent a total of 10 minutes on the date of the service which included preparing to see the patient, [id number] patient care, and counseling and educating the patient/family/caregiver. This document has been created with the use of voice recognition technology. It may contain inaccuracies, misspellings, inaccurate syntax or inappropriate word context that are a result of the inadequacies/shortcomings of said technology/software. documented in this encounter [facility] 01-16-2022 History of Present illness Narrative JAYLEN CASEANNKat Martinez [id number] 01/16/2022 [facility] Department of Radiation Oncology SBRT CT Simulation Diagnosis/Disease:Secondary malignant neoplasm of other specified [id number] Therapist: Julieta Hayward Consent: Yes Area: Left Chestwall SBRT Procedure: A time-out was conducted and recorded by the therapist. Patient simulated at [facility] for SBRT. Compression device in place, and a 4D CT was conducted. Position: Thigh Positioner: 0 With Riser 1 Without Riser 1 Abdominal Cuff: SecureVac Cushion Index to Base @58 1 T-Vac Cushion Rt. Side [id number] Tri-Vac Cushion Lt. side [id number] Pump 0 [id number] Wingboard: Head Pad (B or F) :F Index to Base @ (A-F):B Vertical Height (A-E):E Superior to Inferior: 2 Additional Notes: 50ml of OMNI 300 was injected via the Right wrist Immobilization: In order to achieve accurate and reproducible treatments, the patient is to be immobilized with a custom created full body Vacbag device. Contrast: IV Patient marked. Planning: PET CT fusion for target delineation and normal tissue avoidance. (change notes to document fusions as requested by the physician) Assessment/Plan: Patient tolerated simulation procedure well. Treatments will be initiated after treatment planning. Electronically Signed VINCE GAMING M.D. 24:37 PM documented in this encounter [facility] 01-16-2022 History of Present illness Narrative KACIE CASE [id number] 01/16/2022 [facility] Department of Radiation Oncology Treatment Planning Note For reasons stated in the consult note, Kacie Case is a candidate for radiation therapy. Based on review and interpretation of the relevant diagnostic studies together with the exam findings, Kacie Case was simulated on 01/16/2022 at which time the target volume and/or requisite pepper were delineated, as indicated in the simulation note, to be treated according to the prescription. An ITV was created from all the phases of respiratory motion captured by the 4DCT image sets. Motion management allowed for design of patient specific planning target volume and reduced the radiation exposure to normal tissues. The treatment target and organs at risk were contoured on the simulation scan Using the fused PET. Special consideration to these and other structures was given in light of the potential for increased toxicities of stereotactic body radiation therapy (SBRT). Pulmonary function testing was reviewed. After reviewing multiple treatment plans with dosimetry, the best plan was approved to deliver the prescribed course of radiation to the target area using inverse planning to allow for the best sodose distribution, treating to the 75.5% isodose line with 6MV FFF and 2 pepper. Custom MLC for IMRT was the treatment device used to shape/modify the beams. Limiting dose to normal tissue was confirmed upon review of the calculated dose volume histogram. IMRT planning was used because it best met the dose/volume constraints for the organs at risk for this patient, better than what could be achieved using conventional or 3D planning. The specific dose requirements for the PTV, organs at risk and dose-volume histograms are contained in this treatment plan and/or elsewhere in the medical record. A completed summary of this plan dated 01/28/2022 incorporated herein by reference includes dose, beam arrangements, energy, blocking, isodose distribution, and/or ports and DVH. Electronically Signed Vince Gaming M.D. 26:16 PM documented in this encounter [facility] 01-03-2022 Miscellaneous Notes Patient was notified. Jessica Montanez RN Hi. I do not have any more results than what I had mentioned last week. I should have them back hopefully next week. Thanks, RONALDK Pt here to see Dr Gaming for radiation consult today. Patient and family inquiring about results you were waiting on from [facility] to determine treatment options? I do not see any new results in chart at this time and did notify them of this. They'd like contacted [facility] when you get results that you are waiting on. Thank you Jessica Montanez RN documented in this encounter [facility] 01-02-2022 History of Present illness Narrative Images from the original note were not included. Radiation Oncology - New Patient/Consult Note PATIENT NAME: KACIE Case PATIENT Signed: Vince Gaming MD I spent a total of 60 minutes on the date of the service which included preparing to see the patient, [id number] patient care and counseling and educating the patient/family/caregiver. This document has been created with the use of voice recognition technology. It may contain inaccuracies, misspellings, inaccurate syntax or inappropriate word context that are a result of the inadequacies/shortcomings of said technology/software. documented in this encounter [facility] 12-27-2021 History of Present illness Narrative THORACIC ONCOLOGY FOLLOW UP Elements in this clinic note that are critical to medical decision making have been carefully reviewed and included from my prior clinic note dated: December 06, 2021 December 27, 2021 PCP and other physicians involved in patient's care: Tk Roque (PCP), Coty Knight DIAGNOSIS: NSCLC, adenocarcinoma, chest wall recurrence BIOMARKERS: Pending ONCOLOGIC HISTORY AND TREATMENT DETAILS: 2002, diagnosed with lung cancer during preop evaluation prior to cholecystectomy; treated with left upper lobe lobectomy and postoperative radiation with weekly chemotherapy (Dr. Le). I do not have these results or pathology. Presented with a left chest wall mass that was slowly growing over 2 years; medical attention sought for increasing local pain October 25, 2021 CT chest was notable for a 3.2 x 1.4 x 2.6 cm soft tissue density in the left lateral chest wall October 29, 2021 MRI left shoulder notable for a fat filled mass in the left shoulder November 18, 2021 ultrasound-guided biopsy of the left lateral chest wall mass consistent with metastatic moderately differentiated adenocarcinoma in the skeletal muscle and fibrous tissue; IHC positive for CK7, Napsin A, and TTF-1, and negative for CK20, GATA3 and mammaglobin; biopsy of the left shoulder mass was benign December 11, 2021 MRI brain without evidence of intracranial spread; notable for chronic small vessel ischemic changes December 23, 2021 PET scan with FDG avid soft tissue mass in the skeletal muscle of left lateral chest wall and moderate pleural effusion INTERVAL HISTORY: Kacie returns for a follow up. She is here with her , Darrell and daughter, Asuncion. Here to discuss scan results. ROS is negative except that mentioned in HPI PAST MEDICAL SURGICAL FAMILY AND SOCIAL HISTORY: She has a history of Lung cancer, resected in 2002 Coronary artery disease, stented in 2020, on clopidogrel Atrial fibrillation, on rivaroxaban Osteoarthritis Previous surgeries include left upper lobe resection in 2002. Family history significant for lung cancer in 3 siblings, all . She is a former smoker and quit in 1991. She lives with her , Darrell in [place], [place]. 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 I do not have the treatment details or the pathology. She had a slowly growing left lateral chest wall mass since 2020 with increasing pain that was biopsy-proven to be an adenocarcinoma of lung origin. Biomarkers are pending. PET scan and MRI brain show the left chest wall to be only site of metastasis. I have requested a referral for her to see radiation oncology for consideration of SBRT as her symptoms are mostly local. Trial of oxycodone for pain as needed. I will call her back with the biomarkers once they have resulted. Anemia is normocytic and likely related to underlying malignancy or CKD. She is on full dose anticoagulation but there is no history suggestive of GI/ losses. Work-up from today is in process. PET scan also shows small to moderate pericardial effusion. She follows with cardiology (Dr. Reddy) at [facility]. I have asked her to reach out to his team for a follow up. Follow up after radiation for surveillance scans Soren Deutsch MD I spent a total of 30 minutes on the date of the service which included preparing to see the patient, [id number] patient care, completing clinical documentation, obtaining and/or reviewing separately obtained history, performing a medically appropriate examination, counseling and educating the patient/family/caregiver, ordering medications, tests, or procedures, independently interpreting results (not separately reported) and communicating results to the patient/family/caregiver. CC: Coty Reddy, [facility] documented in this encounter [facility] 12-23-2021 History of Present illness Narrative Orders for lung adenocarcinoma NGS documented in this encounter [facility] 12-06-2021 Miscellaneous Notes 2nd opinion pathology requested from [facility] to be sent to [facility] pathology for review. documented in this encounter [facility] 12-06-2021 History of Present illness Narrative THORACIC ONCOLOGY INITIAL CONSULTATION December 06, 2021 REFERRAL REQUESTED BY: Coty Knight PCP and other physicians involved in patient's care: Tk Roque (PCP), Coty Knight REASON FOR CONSULTATION: NSCLC, adenocarcinoma ONCOLOGIC HISTORY AND TREATMENT DETAILS: 2002, diagnosed with lung cancer during preop evaluation prior to cholecystectomy; treated with left upper lobe lobectomy and postoperative radiation with weekly chemotherapy (Dr. Le). I do not have these results or pathology Presented with a left chest wall mass that was slowly growing over 2 years; medical attention sought for increasing local pain October 25, 2021 CT chest was notable for a 3.2 x 1.4 x 2.6 cm soft tissue density in the left lateral chest wall October 29, 2021 MRI left shoulder notable for a fat filled mass in the left shoulder November 18, 2021 ultrasound-guided biopsy of the left lateral chest wall mass consistent with metastatic moderately differentiated adenocarcinoma in the skeletal muscle and fibrous tissue; IHC positive for CK7, Napsin A, and TTF-1, and negative for CK20, GATA3 and mammaglobin; biopsy of the left shoulder mass was benign HPI: This is an 81-year-old female who comes to the clinic with a diagnosis of adenocarcinoma lung origin in the lateral chest wall. Her oncologic history is as detailed above. She is here with her , Darrell and daughter, Asuncion. Briefly, patient was diagnosed with lung cancer in 2002 and treated with surgery and postoperative chemoradiation. I do not have the details of the pathology or treatments. She was doing fine until 2 years back when she started noticing a slowly growing left lateral chest wall mass. This was asymptomatic and she initially chose to observe it. This was also in the background of a left shoulder mass that was diagnosed as lipoma. Over the last 6 months, she has had increasing pain in the left lateral chest wall area. She is taking acetaminophen and [place] as needed. Imaging was notable for 3.2 cm soft tissue density in the left lateral chest wall. This was biopsy-proven to be adenocarcinoma that was positive for CK7, Napsin A and TTF-1, suggesting a lung primary. CT chest without contrast did not show any lung mass or max enlargement. ROS is negative except that mentioned in HPI PAST MEDICAL SURGICAL FAMILY AND SOCIAL HISTORY: She has a history of Lung cancer, resected in 2002 Coronary artery disease, stented in 2020, on clopidogrel Atrial fibrillation, on rivaroxaban Osteoarthritis Previous surgeries include left upper lobe resection in 2002. Family history significant for lung cancer in 3 siblings, all . She is a former smoker and quit in 1991. She lives with her , Darrell in [place], [place]. MEDICATIONS AND ALLERGIES: Reviewed PHYSICAL EXAM BP 156/80 Pulse 85 Temp 36.5 C (97.7 F) (Temporal) Resp 16 Ht 154.9 cm (5' 1 ) Wt 68.5 kg (151 lb) SpO2 99% BMI 28.53 kg/m PS - 0, Head atraumatic, no pallor, icterus or lymphadenopathy, lungs clear to auscultation, heart sounds regular, abdomen soft without distension or organomegaly, neuro grossly non-focal, skin without rash, extremities without swelling LABORATORY, IMAGING AND PATHOLOGY CBC and CMP reviewed Hemoglobin 10.2, MCV [address] scans and pathology reviewed ASSESSMENT AND RECOMMENDATIONS 81 female with left chest wall adenocarcinoma, likely of pulmonary origin Patient has a history of lung cancer that was resected in 2002 and treated with postoperative AUTOMATION TESTER. I do not have these details or pathology. She has a slowly growing left lateral chest wall mass with increasing pain that was biopsy-proven to be an adenocarcinoma. Immunohistochemical analysis suggest this to be a lung primary. I will have this biopsy internally reviewed. We will start with staging PET scan and MRI brain. She will need tissue-based NGS once the pathology is confirmed. Further treatment recommendations will be based on the staging scans. I will see her back after the scans to discuss results and next steps. Anemia is normocytic and likely related to underlying malignancy or CKD. She is on full dose anticoagulation but there is no history suggestive of GI/ losses. We will evaluate the anemia further at next visit. Trial of oxycodone for pain as needed. Soren Deutsch MD I spent a total of 60 minutes on the date of the service which included preparing to see the patient, [id number] patient care, completing clinical documentation, obtaining and/or reviewing separately obtained history, performing a medically appropriate examination, counseling and educating the patient/family/caregiver, ordering medications, tests, or procedures, independently interpreting results (not separately reported) and communicating results to the patient/family/caregiver. CC: Coty Knight documented in this encounter [facility] Evaluation note Diagnosis Malignant neoplasm of lung, unspecified laterality, unspecified part of lung (HCC)- Primary Neoplasm of lung Neoplasm of unspecified nature of respiratory system Malignant neoplasm of upper lobe, left bronchus or lung (HCC) Normocytic anemia Anemia, unspecified [facility] Diagnosis Malignant neoplasm of lung, unspecified laterality, unspecified part of lung (HCC)- Primary [facility] Diagnosis Normocytic anemia- Primary Anemia, unspecified Malignant neoplasm of lung, unspecified laterality, unspecified part of lung (HCC) [facility] Diagnosis Malignant neoplasm of lung, unspecified laterality, unspecified part of lung (HCC) [facility] Diagnosis Malignant neoplasm of lung, unspecified laterality, unspecified part of lung (HCC)- Primary [facility] Diagnosis Malignant neoplasm of lung, unspecified laterality, unspecified part of lung (HCC)- Primary [facility] Diagnosis Malignant neoplasm of lung, unspecified laterality, unspecified part of lung (HCC)- Primary Malignant neoplasm of unspecified part of unspecified bronchus or lung (HCC) [facility] Diagnosis Neoplasm of lung Neoplasm of unspecified nature of respiratory system [facility] Diagnosis Malignant neoplasm of unspecified part of unspecified bronchus or lung (HCC)- Primary [facility] Diagnosis Malignant neoplasm of unspecified part of unspecified bronchus or lung (HCC)- Primary Neoplasm of lung Neoplasm of unspecified nature of respiratory system [facility] Diagnosis 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)- Primary Lung nodule Solitary pulmonary nodule Iron deficiency anemia, unspecified iron deficiency anemia type [facility] Diagnosis 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)- Primary Lung nodule Solitary pulmonary nodule Iron deficiency anemia, unspecified iron deficiency anemia type Heart disease Heart disease, unspecified Chronic obstructive pulmonary disease, unspecified COPD type (HCC) [facility] Diagnosis Malignant neoplasm of unspecified part of unspecified bronchus or lung (HCC)- Primary [facility] Diagnosis History of lung cancer- Primary Personal history of malignant neoplasm of bronchus and lung Lung nodule Solitary pulmonary nodule 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) Neoplasm of lung Neoplasm of unspecified nature of respiratory system [facility] Diagnosis 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)- Primary documented in this encounter [facility] for referral (narrative)* Diagnostic Procedure Only (Routine) - Pending Review Specialty Diagnoses / Procedures [facility] Referred To Contact MOLECULAR & FUNCTIONAL IMAGING Diagnoses Neoplasm of lung Malignant neoplasm of upper lobe, left bronchus or lung (HCC) Procedures NM PET/CT SKULL-THIGH INITIAL PET IMAGING CT ATTENUATION SKULL BASE MID-THIGH Soren Deutsch MD [address] [place] [address] [place] [address] Molecular & Functional Imaging [address] [place] [address] Referral ID Status Reason Start Date Expiration Date Visits Requested Visits Authorized [id number] Pending Review Auto-Generat ed Referral 12/06/2021 01/05/2023 1 1 * MRI/CT (Routine) - Pending Review Specialty Diagnoses / Procedures [facility] Referred To Contact MR IMAGING Diagnoses Malignant neoplasm of lung, unspecified laterality, unspecified part of lung (HCC) Procedures MRI BRAIN WO/W IVCON MRI BRAIN BRAIN STEM W/O W/CONTRAST MATERIAL Soren Deutsch MD [address] [place] [address] [place] [address] Mr Imaging Referral ID Status Reason Start Date Expiration Date Visits Requested Visits Authorized [id number] Pending Review Auto-Generat ed Referral 12/06/2021 01/05/2023 1 1 [facility] for referral (narrative)* Outpatient Procedure (Routine) - Pending Review Specialty Diagnoses / Procedures [facility] Ref[facility] To Contact [facility] Diagnoses Malignant neoplasm of lung, unspecified laterality, unspecified part of lung (HCC) Procedures SPIROMETRY BASELINE ONLY SPMTRY W/VC EXPIRATORY MEGHAN W/WO MXML VOL VNTJ Vince Gaming MD [address] [place] [address] [place] [address] Res[facility] [address] [place] [address] Referral ID Status Reason Start Date Expiration Date Visits Requested Visits Authorized [id number] Pending Review Auto-Generat ed Referral 01/02/2022 02/01/2023 1 1 T [facility] for referral (narrative)* Diagnostic Procedure Only (Routine) - Pending Review Specialty Diagnoses / Procedures Referred By Cont[facility] t Referred To Contact MOLECULAR & FUNCTIONAL IMAGING Diagnoses Malignant neoplasm of lung, unspecified laterality, unspecified part of lung (HCC) Malignant neoplasm of unspecified part of unspecified bronchus or lung (HCC) Procedures NM PET/CT SKULL-THIGH SUBSEQUENT PET IMAGING CT ATTENUATION SKULL BASE MID-THIGH Vince Gaming MD [address] [place] [address] [place] [address] Molecular & Functional Imaging [address] [place] [address] Referral ID Status Reason Start Date Expiration Date Visits Requested Visits Authorized [id number] Pending Review Auto-Generat ed Referral 03/01/2023 1 1 [facility] for referral (narrative)* Diagnostic Procedure Only (Routine) - Pending Review Specialty Diagnoses / Procedures Referred By Contac t Referred To Contact MOLECULAR & FUNCTIONAL IMAGING Diagnoses Malignant neoplasm of unspecified part of unspecified bronchus or lung (HCC) Procedures NM PET/CT SKULL-THIGH SUBSEQUENT PET IMAGING CT ATTENUATION SKULL BASE MID-THIGH Vince Gaming MD [address] [place] [address] [place] [address] Molecular & Functional Imaging [address] [place] [address] Referral ID Status Reason Start Date Expiration Date Visits Requested Visits Authorized [id number] Pending Review Auto-Generat ed Referral 10/24/2022 06/08/2023 1 [facility] Diagnostic Procedure Only (Routine) - Authorized Specialty Diagnoses / Procedures Referred By Contac t Referred To Contact MOLECULAR & FUNCTIONAL IMAGING Diagnoses Malignant neoplasm of unspecified part of unspecified bronchus or lung (HCC) Procedures NM PET/CT SKULL-THIGH SUBSEQUENT PET IMAGING CT ATTENUATION SKULL BASE MID-THIGH Nir Velasquez MD [address] [place] [address] [place] [address] Molecular & Functional Imaging [address] [place] [address] Referral ID Status Reason Start Date Expiration Date Visits Requested Visits Authorized [id number] Authorized Auto-Generat ed Referral 02/02/2023 03/03/2024 1 1 T [facility] Summary Purpose Family History No Family History Records FoundNo Family History Records FoundNo Family History Records FoundNo Family History Records FoundNo Family History Records FoundNo Family History Records FoundNo Family History Records Found Advance Directives No Advanced Directives Records FoundNo Advanced Directives Records FoundNo Advanced Directives Records FoundNo Advanced Directives Records FoundNo Advanced Directives Records FoundNo Advanced Directives Records FoundNo Advanced Directives Records Found Reason for Referral Specialty Diagnoses / Procedures Referred By Contac t Referred To Contact Radiation Oncology Diagnoses Malignant neoplasm of lung, unspecified laterality, unspecified part of lung (HCC) Procedures RAD/ONC CONSULT OFFICE/OUTPATIENT [facility] 60-74 MINUTES Soren Deutsch MD [address] [place] [address] [place] [address] Referral ID Status Reason Start Date Expiration Date Visits Requested Visits Authorized [id number] Authorized PCP Requested Referral 12/27/2021 12/27/2022 1 1 Specialty Diagnoses / Procedures Referred By Contac t Referred To Contact CT IMAGING Diagnoses Neoplasm of lung Procedures CT CHEST W IVCON DIAGNOSTIC COMPUTED TOMOGRAPHY THORAX W/CONTRAST Vince Gaming MD [address] [place] [address] [place] [address] Ct Imaging Referral ID Status Reason Start Date Expiration Date Visits Requested Visits Authorized [id number] Authorized Auto-Generat ed Referral 02/09/2023 11/19/2023 1 1 Specialty Diagnoses / Procedures Referred By Yolande gallegos Referred To Contact CT IMAGING Diagnoses Malignant neoplasm of unspecified part of unspecified bronchus or lung (HCC) Procedures CT CHEST W IVCON DIAGNOSTIC COMPUTED TOMOGRAPHY THORAX W/CONTRAST Nir Velasquez MD [address] [place] [address] [place] [address] [place] [address] Referral ID Status Reason Start Date Expiration Date Visits Requested Visits Authorized [id number] Authorized Auto-Generat ed Referral 06/04/2023 04/03/2024 1 1 Additional Source Comments INFORMATION SOURCE (unrecogn ized section and content) DATE CREATED AUTHOR 07/17/2021 [facility] DATE CREATED AUTHOR AUTHOR'S ORGANIZ ATION 01/22/2022 [facility] DATE CREATED AUTHOR AUTHOR'S ORGANIZ ATION 04/21/2022 [facility] DATE CREATED AUTHOR AUTHOR'S ORGANIZ ATION 11/06/2022 [facility]ital DATE CREATED AUTHOR AUTHOR'S ORGANIZ ATION 08/18/2023 [facility] dical [facility] EPIC DATE CREATED AUTHOR AUTHOR'S ORGANIZ ATION 11/06/2023 [facility] DATE CREATED AUTHOR AUTHOR'S ORGANIZ ATION 11/07/2023 [facility] Source Comments (unrecognize d section and content) In the event this informatio n is protected by the Federal Confidentiality of Alcohol and Drug Abuse Patient Records regulations: The Federal rules restrict any use of the information to criminally investigate or prosecute any alcohol or drug abuse patient.[facility] the event this information is protected by the Federal Confidentiality of Alcohol and Drug Abuse Patient Records regulations: The Federal rules restrict any use of the information to criminally investigate or prosecute any alcohol or drug abuse patient.[facility] the event this information is protected by the Federal Confidentiality of Alcohol and Drug Abuse Patient Records regulations: The Federal rules restrict any use of the information to criminally investigate or prosecute any alcohol or drug abuse patient.[facility] the event this information is protected by the Federal Confidentiality of Alcohol and Drug Abuse Patient Records regulations: The Federal rules restrict any use of the information to criminally investigate or prosecute any alcohol or drug abuse patient.[facility] the event this information is protected by the Federal Confidentiality of Alcohol and Drug Abuse Patient Records regulations: The Federal rules restrict any use of the information to criminally investigate or prosecute any alcohol or drug abuse patient.[facility] the event this information is protected by the Federal Confidentiality of Alcohol and Drug Abuse Patient Records regulations: The Federal rules restrict any use of the information to criminally investigate or prosecute any alcohol or drug abuse patient.[facility] the event this information is protected by the Federal Confidentiality of Alcohol and Drug Abuse Patient Records regulations: The Federal rules restrict any use of the information to criminally investigate or prosecute any alcohol or drug abuse patient.[facility] the event this information is protected by the Federal Confidentiality of Alcohol and Drug Abuse Patient Records regulations: The Federal rules restrict any use of the information to criminally investigate or prosecute any alcohol or drug abuse patient.[facility] the event this information is protected by the Federal Confidentiality of Alcohol and Drug Abuse Patient Records regulations: The Federal rules restrict any use of the information to criminally investigate or prosecute any alcohol or drug abuse patient.[facility] the event this information is protected by the Federal Confidentiality of Alcohol and Drug Abuse Patient Records regulations: The Federal rules restrict any use of the information to criminally investigate or prosecute any alcohol or drug abuse patient.[facility] the event this information is protected by the Federal Confidentiality of Alcohol and Drug Abuse Patient Records regulations: The Federal rules restrict any use of the information to criminally investigate or prosecute any alcohol or drug abuse patient.[facility] the event this information is protected by the Federal Confidentiality of Alcohol and Drug Abuse Patient Records regulations: The Federal rules restrict any use of the information to criminally investigate or prosecute any alcohol or drug abuse patient.[facility] the event this information is protected by the Federal Confidentiality of Alcohol and Drug Abuse Patient Records regulations: The Federal rules restrict any use of the information to criminally investigate or prosecute any alcohol or drug abuse patient.[facility] the event this information is protected by the Federal Confidentiality of Alcohol and Drug Abuse Patient Records regulations: The Federal rules restrict any use of the information to criminally investigate or prosecute any alcohol or drug abuse patient.[facility] the event this information is protected by the Federal Confidentiality of Alcohol and Drug Abuse Patient Records regulations: The Federal rules restrict any use of the information to criminally investigate or prosecute any alcohol or drug abuse patient.[facility] Center[facility] the event this information is protected by the Federal Confidentiality of Alcohol and Drug Abuse Patient Records regulations: The Federal rules restrict any use of the information to criminally investigate or prosecute any alcohol or drug abuse patient.[facility] Center[facility] the event this information is protected by the Federal Confidentiality of Alcohol and Drug Abuse Patient Records regulations: The Federal rules restrict any use of the information to criminally investigate or prosecute any alcohol or drug abuse patient.[facility] Center[facility] the event this information is protected by the Federal Confidentiality of Alcohol and Drug Abuse Patient Records regulations: The Federal rules restrict any use of the information to criminally investigate or prosecute any alcohol or drug abuse patient.[facility] Center[facility] the event this information is protected by the Federal Confidentiality of Alcohol and Drug Abuse Patient Records regulations: The Federal rules restrict any use of the information to criminally investigate or prosecute any alcohol or drug abuse patient.[facility] Center[facility] the event this information is protected by the Federal Confidentiality of Alcohol and Drug Abuse Patient Records regulations: The Federal rules restrict any use of the information to criminally investigate or prosecute any alcohol or drug abuse patient.[facility] the event this information is protected by the Federal Confidentiality of Alcohol and Drug Abuse Patient Records regulations: The Federal rules restrict any use of the information to criminally investigate or prosecute any alcohol or drug abuse patient.[facility] Center[facility] the event this information is protected by the Federal Confidentiality of Alcohol and Drug Abuse Patient Records regulations: The Federal rules restrict any use of the information to criminally investigate or prosecute any alcohol or drug abuse patient.[facility] the event this information is protected by the Federal Confidentiality of Alcohol and Drug Abuse Patient Records regulations: The Federal rules restrict any use of the information to criminally investigate or prosecute any alcohol or drug abuse patient.[facility] the event this information is protected by the Federal Confidentiality of Alcohol and Drug Abuse Patient Records regulations: The Federal rules restrict any use of the information to criminally investigate or prosecute any alcohol or drug abuse patient.[facility] the event this information is protected by the Federal Confidentiality of Alcohol and Drug Abuse Patient Records regulations: The Federal rules restrict any use of the information to criminally investigate or prosecute any alcohol or drug abuse patient.[facility] CenterIn the event this information is protected by the Federal Confidentiality of Alcohol and Drug Abuse Patient Records regulations: The Federal rules restrict any use of the information to criminally investigate or prosecute any alcohol or drug abuse patient.[facility] CenterIn the event this information is protected by the Federal Confidentiality of Alcohol and Drug Abuse Patient Records regulations: The Federal rules restrict any use of the information to criminally investigate or prosecute any alcohol or drug abuse patient.[facility] CenterIn the event this information is protected by the Federal Confidentiality of Alcohol and Drug Abuse Patient Records regulations: The Federal rules restrict any use of the information to criminally investigate or prosecute any alcohol or drug abuse patient.[facility] CenterIn the event this information is protected by the Federal Confidentiality of Alcohol and Drug Abuse Patient Records regulations: The Federal rules restrict any use of the information to criminally investigate or prosecute any alcohol or drug abuse patient.[facility] CenterIn the event this information is protected by the Federal Confidentiality of Alcohol and Drug Abuse Patient Records regulations: The Federal rules restrict any use of the information to criminally investigate or prosecute any alcohol or drug abuse patient.[facility] CenterIn the event this information is protected by the Federal Confidentiality of Alcohol and Drug Abuse Patient Records regulations: The Federal rules restrict any use of the information to criminally investigate or prosecute any alcohol or drug abuse patient.[facility] CenterIn the event this information is protected by the Federal Confidentiality of Alcohol and Drug Abuse Patient Records regulations: The Federal rules restrict any use of the information to criminally investigate or prosecute any alcohol or drug abuse patient.[facility] CenterIn the event this information is protected by the Federal Confidentiality of Alcohol and Drug Abuse Patient Records regulations: The Federal rules restrict any use of the information to criminally investigate or prosecute any alcohol or drug abuse patient.[facility] CenterIn the event this information is protected by the Federal Confidentiality of Alcohol and Drug Abuse Patient Records regulations: The Federal rules restrict any use of the information to criminally investigate or prosecute any alcohol or drug abuse patient.[facility] CenterIn the event this information is protected by the Federal Confidentiality of Alcohol and Drug Abuse Patient Records regulations: The Federal rules restrict any use of the information to criminally investigate or prosecute any alcohol or drug abuse patient.[facility] Care Teams (unrecognized sec tion and content) Production Machinist Relationship Specialty Start Date End Date Tk Nicholas PCP - General Family Practice 12/03/11 Production Machinist Relationship Specialty Start Date End Date Tk Roque II [address] [facility] [address] [place] [address] PCP - General Internal Medicine 12/06/21 Coty Knight Jr., DO [address] [place] [address] [place] [address] Orthopedics 12/06/21 Miriam Reddy MD [address] [facility] [place] [address] Cardiology 12/06/21 Production Machinist Relationship Specialty Start Date End Date Tk Roque II [address] [place] [address] [place] [address] PCP - General Internal Medicine 12/06/21 Coty Knight Jr., DO [address] [place] [address] [place] [address] Orthopedics 12/06/21 Miriam Reddy MD [address] [facility] [place] [address] Cardiology 12/06/21 Production Machinist Relationship Specialty Start Date End Date Tk Roque II [address] [place] [address] [place] [address] PCP - General Internal Medicine 12/06/21 Coty Knight Jr., DO [address] [place] [address] [place] [address] Orthopedics 12/06/21 Miriam Reddy MD [address] [facility] [place] [address] Cardiology 12/06/21 Production Machinist Relationship Specialty Start Date End Date Tk Roque II [address] [place] [address] [place] [address] PCP - General Internal Medicine 12/06/21 Stepanic, Coty Cajetan Jr., DO [address] [place] [address] [place] [address] Orthopedics 12/06/21 Miriam Reddy MD [address] [facility] [place] [address] Cardiology 12/06/21 Production Machinist Relationship Specialty Start Date End Date Tk Roque II [address] [place] [address] [place] [address] PCP - General Internal Medicine 12/06/21 Coty Knight Jr., DO [address] [place] [address] [place] [address] Orthopedics 12/06/21 Miriam Reddy MD [address] [facility] [place] [address] Cardiology 12/06/21 Production Machinist Relationship Specialty Start Date End Date Tk Roque II [address] [place] [address] [place] [address] PCP - General Internal Medicine 12/06/21 Coty Knight Jr., DO [address] [place] [address] [place] [address] Orthopedics 12/06/21 Miriam Reddy MD [address] [facility] [place] [address] Cardiology 12/06/21 Production Machinist Relationship Specialty Start Date End Date Tk Roque II [address] [place] [address] [place] [address] PCP - General Internal Medicine 12/06/21 Coty Knight Jr., DO [address] [place] [address] [place] [address] Orthopedics 12/06/21 Miriam Reddy MD [address] [facility] [place] [address] Cardiology 12/06/21 Production Machinist Relationship Specialty Start Date End Date Tk Roqeu II [address] [place] [address] [place] [address] PCP - General Internal Medicine 12/06/21 Coty Knight Jr., DO [address] [place] [address] [place] [address] Orthopedics 12/06/21 Miriam Reddy MD [address] [facility] [place] [address] Cardiology 12/06/21 Production Machinist Relationship Specialty Start Date End Date Tk Roque II [address] [place] [address] [place] [address] PCP - General Internal Medicine 12/06/21 Coty Knight Jr., DO [address] [place] [address] [place] [address] Orthopedics 12/06/21 Miriam Reddy MD [address] [facility] [place] [address] Cardiology 12/06/21 Production Machinist Relationship Specialty Start Date End Date Tk Roque II [address] [place] [address] [place] [address] PCP - General Internal Medicine 12/06/21 Coty Knight Jr., DO [address] [place] [address] [place] [address] Orthopedics 12/06/21 Miriam Reddy MD [address] [facility] [place] [phone] Cardiology 12/06/21 Production Machinist Relationship Specialty Start Date End Date Tk Roque II [address] [place] [address] [place] [address] PCP - General Internal Medicine 12/06/21 Coty Knight Jr., DO [address] [place] [address] [place] [address] Orthopedics 12/06/21 Miriam Reddy MD [address] [facility] [place] [address] Cardiology 12/06/21 Production Machinist Relationship Specialty Start Date End Date Tk Roque II [address] [place] [address] [place] [address] PCP - General Internal Medicine 12/06/21 Coty Knight Jr., DO [address] [place] [address] [place] [address] Orthopedics 12/06/21 Miriam Reddy MD [address] [facility] [place] [address] Cardiology 12/06/21 Production Machinist Relationship Specialty Start Date End Date Tk Roque II [address] [place] [address] [place] [address] PCP - General Internal Medicine 12/06/21 Coty Knight Jr., DO [address] [place] [address] [place] [address] Orthopedics 12/06/21 Miriam Reddy MD [address] [facility] [place] [address] Cardiology 12/06/21 Production Machinist Relationship Specialty Start Date End Date Tk Roque II [address] [place] [address] [place] [address] PCP - General Internal Medicine 12/06/21 Coty Knight Jr., DO [address] [place] [address] [place] [address] Orthopedics 12/06/21 Miriam Reddy MD [address] [facility] [place] [address] Cardiology 12/06/21 Production Machinist Relationship Specialty Start Date End Date Tk Roque II [address] [place] [address] [place] [address] PCP - General Internal Medicine 12/06/21 Coty Knight Jr., DO [address] [place] [address] [place] [address] Orthopedics 12/06/21 Miriam Reddy MD [address] [facility] [place] [address] Cardiology 12/06/21 Production Machinist Relationship Specialty Start Date End Date Tk Roque II, MD [address] [place] [address] [place] [address] PCP - General Internal Medicine 12/06/21 Coty Knight Jr., DO [address] [place] [address] [place] [address] Orthopedics 12/06/21 Miriam Reddy MD [address] [facility] [place] [address] Cardiology 12/06/21 Production Machinist Relationship Specialty Start Date End Date Tk Roque II, MD [address] [place] [address] [place] [address] PCP - General Internal Medicine 12/06/21 Coty Knight Jr., DO [address] [place] [address] Orthopedics 12/06/21 Miriam Reddy MD [address] [facility] [place] [address] Cardiology 12/06/21 Production Machinist Relationship Specialty Start Date End Date Tk Roque II, MD [address] [facility] [address] [place] [address] PCP - General Internal Medicine 12/06/21 Coty Knight Jr., DO [address] [facility] [address] [place] [address] Orthopedics 12/06/21 Miriam Reddy MD [address] [facility] [place] [address] Cardiology 12/06/21 Production Machinist Relationship Specialty Start Date End Date Tk Roque II, MD [address] [facility] [address] [place] [address] PCP - General Internal Medicine 12/06/21 Coty Knight Jr., DO [address] [place] [address] [place] [address] Orthopedics 12/06/21 Miriam Reddy MD [address] [facility] [place] [address] Cardiology 12/06/21 Production Machinist Relationship Specialty Start Date End Date Tk Roque II, MD [address] [place] [address] [place] [address] PCP - General Internal Medicine 12/06/21 Coty Knight Jr., DO [address] [place] [address] [place] [address] Orthopedics 12/06/21 Miriam Reddy MD [address] [facility] [place] [address] Cardiology 12/06/21 Production Machinist Relationship Specialty Start Date End Date Tk Roque II, MD [address] [facility] [address] [place] [address] PCP - General Internal Medicine 12/06/21 Coty Knight Jr., DO [address] [place] [address] [place] [address] Orthopedics 12/06/21 Miriam Reddy MD [address] [facility] [place] [address] Cardiology 12/06/21 Production Machinist Relationship Specialty Start Date End Date Tk Roque II, MD [address] [place] [address] [place] [address] PCP - General Internal Medicine 12/06/21 Coty Knight Jr., DO [address] [place] [address] [place] [address] Orthopedics 12/06/21 Miriam Reddy MD [address] [place] [address] [place] [address] Cardiology 12/06/21 Reason for Visit (unrecogniz ed section and content) Reason Comments Lung Cancer Specialty Diagnoses / Procedures Referred By Contac t Referred To Contact Radiation Oncology Diagnoses Malignant neoplasm of lung, unspecified laterality, unspecified part of lung (HCC) Procedures RAD/ONC CONSULT OFFICE/OUTPATIENT [facility] 60-74 MINUTES Soren Deutsch MD [address] [place] [address] [place] [address] Referral ID Status Reason Start Date Expiration Date V isits Requested Visits Authorized [id number] Closed PCP Requested Referral 12/27/2021 12/27/2022 1 1 Reason Comments Future Appointment Reason Comments Lung Cancer Reason Comments Results Reason Comments Lung Cancer SIM Reason Comments Orders Reason Comments Appointment Reason Onset Date Comments Refill Request 02/18/2022 Reason Comments Nurse Triage Call Post Radiation Treat ment Call Reason Comments Lump Reason Comments Consult Reason Comments Benefits Investigation Reason Comments Lung Cancer 1 month follow up Reason Comments Lung Cancer Reason Onset Date Comments pain/CT order 08/20/2023 Reason Comments Lab Orders FOR RECORDS PERTAINING TO PATIENTS WHO ARE OR HAVE BEEN ENROLLED IN A CHEMICAL DEPENDENCY/SUBSTANCEABUSE PROGRAM, SOME INFORMATION MAY BE OMITTED. This clinical summary was aggregated from multiple sources. Caution should be exercised in using it in the provision of clinical care. This summary normalizes information from multiple sources, and as a consequence, information in this document may materially change the coding, format and clinical context of patient data. In addition, data may be omitted in some cases. CLINICAL DECISIONS SHOULD BE BASED ON THE PRIMARY CLINICAL RECORDS. [facility]. provides no warranty or guarantee of the accuracy or completeness of information in this document.
== END 2023-11-19 09:47 | disposition home or self-care (01) ==
LOC: CARD 09:46
PROVIDERS: PCP Internal Medicine; Visit Provider Internal Medicine Interventional Cardiology
DX: J90 Pleural effusion, not elsewhere classified (principal); R68.89 Other general symptoms and signs; I31.39 Other pericardial effusion (noninflammatory)
CPT/HCPCS: 93308

== ENCOUNTER 2024-02-02 09:46 | Outpatient (OUT) | payer MEDICARE, OTHER, SELFPAY ==
--- NOTE | 2024-02-02 09:51 | CA_ITS ---
Patient Name: ANH CASE MR#: [id number] : 1940 Exam Date: 02/02/2024 Ordering Doctor: DR SANDRO GODINEZ M.D. ECHOCARDIOGRAM REPORT PROCEDURE: CA ECHO DOPPLER COMPLETE INDICATIONS: Pericardial effusin COMPARISON: None. DESCRIPTION: COMPLETE ECHOCARDIOGRAM Real-time transthoracic echocardiography with 2D, M-mode, spectral and color flow Doppler performed. QUALITY: Technical quality was good. LEFT VENTRICLE: Normal chamber size. Mild concentric left ventricular hypertrophy. Global left ventricular systolic function is normal. LV EF: Estimated left ventricular ejection fraction is 60% DIASTOLIC: ATRIAL SEPTUM: LEFT ATRIUM: Severe dilatation. RIGHT ATRIUM: Mild dilatation. RIGHT VENTRICLE: Normal chamber size. Normal right ventricular systolic function. TRICUSPID VALVE: Normal mobility and thickness. No stenosis with trivial regurgitation. Mild pulmonary hypertension. RVSP 43 mmHg MITRAL VALVE: Normal mobility and thickness. No evidence of mitral valve stenosis. Mild mitral annular calcification. Moderate mitral regurgitation. AORTIC VALVE: Normal trileaflet appearance. No visible sclerosis. Normal leaflet mobility. No evidence of aortic valve stenosis. Mild aortic regurgitation. AORTIC ROOT: Normal diameter and appearance. Upper normal in size ascending aorta measuring 3.5 cm. PULMONIC VALVE: Normal thickness and mobility. No stenosis. Trivial regurgitation. PERICARDIUM: Moderate to large circumferential pericardial effusion. Measuring 2.8 cm at its largest diameter. Echodense material is seen layering in the free wall of the right ventricle indicative of clotting or fibrinous material in the pericardial effusion. No echocardiographic evidence of tamponade physiology. IVC: Collapses with inspirations. Normal size. PLEURA: CONCLUSION: 1. Mild concentric left regular hypertrophy with normal systolic function. LVEF is 60%. 2. Normal right ventricular size and systolic function. 3. Severe left atrial dilatation. 4. Moderate mitral regurgitation. 5. Mild aortic regurgitation. 6. Moderate to large circumferential pericardial effusion with echodense material suggestive of clotting or fibrinous material within the effusion. No echocardiographic signs of tamponade physiology. Adult Echocardiography Procedure Report Left Ventricle LVEDD (3.7 - 5.6 cm): 4.17 cm LVESD (2.2 - 4.0 cm): 2.70 cm LVIVS thickness (0.6 - 1.2 cm): 1.12 cm LVPW thickness (0.5 - 1.0 cm): 1.12 cm e': 0.06 m/s E - e': 16.56 LVOT Max Gradient: 1.67 mm[Hg] LVOT Area (cm2): 0.65 m/s Peak Velocity (LVOT): 0.65 m/s Mean Velocity (LVOT): 0.49 m/s LVOT Diameter 1.96 cm Left Ventricular Ejection Fraction: 60 % Left Atrium LA Volume Index (2D A2C): 84.75 ml/m2 Left Atrium Systolic Dimension: 4.50 cm Mitral Valve MV E to A Ratio: 1.80, 1.93 Mitral Valve A-Wave Peak Velocity: 0.52 m/s Mitral Valve E-Wave Peak Velocity: 0.97 m/s Right Ventricle RV Internal Diastolic Dimension: 3.42 cm Aorta AO Root Diam: 2.73 cm Ascending Ao Diam: 3.48 cm Aortic Valve AoV Area (Peak Aman): 1.53 cm2, 1.53 cm2 AoV Area (VTI): 1.48 cm2, 1.48 cm2 Deceleration Mcdonald: 1.59 m/s2 Pressure Half-Time: 595.52 ms Peak Velocity(Antegrade Flow): 1.28 m/s Peak Gradient(Antegrade Flow): 6.51 mm[Hg] Mean Velocity(Antegrade Flow): 0.92 m/s Mean Gradient(Antegrade Flow): 3.79 mm[Hg] Velocity Time Integral: 32.74 cm Tricuspid Valve Peak Velocity (Regurgitant Flow): 2.08 m/s, 2.60 m/s, 3.16 m/s Pulmonic Valve Peak Velocity: 0.71 m/s Peak Gradient: 1.67 mm[Hg], 2.40 mm[Hg] Right Atrium Right Atrium Systolic Pressure: 57.08 ml, 57.08 ml Dictated by: Sherman Herman M.D. on 02/02/2024 at 12:20 Approved by: Sherman Herman M.D. on 02/02/2024 at 12:29
== END 2024-02-02 09:47 | disposition home or self-care (01) ==
LOC: CARD 09:46
PROVIDERS: PCP Internal Medicine; Visit Provider Internal Medicine Interventional Cardiology
DX: I31.39 Other pericardial effusion (noninflammatory) (principal); I08.0 Rheumatic disorders of both mitral and aortic valves
CPT/HCPCS: 93306

== ENCOUNTER 2024-02-08 10:30 | Outpatient (OUT) | payer MEDICARE, OTHER, SELFPAY ==
[2024-02-08 11:04] LABS: Basophils Percent Auto 0.5 % (0.2-2.0); Eosinophils Absolute Auto 0.1 10^3/uL (0.0-0.7); Eosinophils Percent Auto 0.8 % (0.9-7.0); Hematocrit 33.1 % (36.0-48.0); Hemoglobin 11.1 g/dL (12.0-16.0); Immature Granulocytes Abs Auto 0.04 10^3/uL (0.00-0.03); Immature Granulocytes Pct Auto 0.6 % (0.0-0.5); Lymphocytes Absolute Auto 0.7 10^3/uL (1.2-3.8); Lymphocytes Percent Auto 10.7 % (20.5-60.0); Mean Corpuscular HGB Conc 33.5 g/dL (29.9-35.2); Mean Corpuscular Hemoglobin 30.7 pg (26.7-34.0); Mean Corpuscular Volume 91.7 fL (81.0-99.0); Mean Platelet Volume 10.2 fL (9.5-13.5); Monocytes Absolute Auto 0.5 10^3/uL (0.3-0.8); Monocytes Percent Auto 8.3 % (1.7-12.0); Neutrophils Absolute Auto 4.9 10^3/uL (1.4-6.5); Neutrophils Percent Auto 79.1 % (43.0-75.0); Platelet Count 219 10^3/uL (150-450); Red Blood Count 3.61 10^6/uL (4.20-5.40); Red Cell Distribution Width 13.1 % (11.0-15.0); White Blood Count 6.2 10^3/uL (4.0-11.0)
[2024-02-08 11:08] LABS: Erythrocyte Sedimentation Rate 28 mm/hr (<=30)
[2024-02-08 12:16] LABS: Anion Gap 12.1; BUN Creatinine Ratio 21.6; Calcium 8.7 mg/dL (8.5-10.1); Carbon Dioxide 28.3 mmol/L (21.0-32.0); Chloride 96 mmol/L (98-107); Estimated GFR (African America 57 (>=60); Estimated GFR (Non-African Ame 47 (>=60); Glucose 123 mg/dL (74-106); Potassium 4.4 mmol/L (3.5-5.1); Sodium 132 mmol/L (136-145)
[2024-02-09 04:07] LABS: C-Reactive Protein, Cardiac 0.43 mg/L (0.00-3.00)
== END 2024-02-08 10:31 | disposition home or self-care (01) ==
PROVIDERS: PCP Internal Medicine; Visit Provider Internal Medicine Interventional Cardiology
DX: Z01.812 Encounter for preprocedural laboratory examination (principal)
CPT/HCPCS: 36415; 80048; 85025; 85652; 86140

== ENCOUNTER 2024-03-04 08:03 | Outpatient (OUT) | payer MEDICARE, OTHER, SELFPAY ==
--- OUTSIDE RECORDS SUMMARY | 2024-03-04 08:14 | XMS_ITS | CCD ---
Author Organization [facility] Care Team Providers Care Vision Therapist Name Role Phone Nicholas Tk Shine Primary Care Provider [phone] Tk Roque II Primary Care Provider Eugene [...] Unavailab le STEPANIC, DR ANSARI Admitting Unavailable STEPPAZ, DR ANSARI Attending Unavailable STEPPAZ, DR ANSARI Consulting Unavailable JUDE, DR MALLORY Primary Care Unavailable NELY, DR MANUEL Calvillo Consulting Unavailable NELY, DR MANUEL Calvillo Consulting Unavailable JUDE, DR MALLORY Primary Care Unavailable KUNTE, SOREN Admitting Unavailable KUNTE, SOREN Attending Unavailable KUNTE, SOREN Consulting Unavailable SA AMBERLYJU Attending Unavailable VINCE GAMING Consulting Unavailable VINCE GAMING Admitting Unavailable DR TK ROQUE Primary Care Unavailable Tk Roque II Primary Care Provider [phone] Jude ASCENCIO MD, Daniel B Primary Care Provider Jude ASCENCIO MD, Daniel B Primary Care Provider Barry BADILLO, [facility] Unavailable TK ROQUE II Primary Care Unavailable TK ROQUE II Primary Care Unavailable NIR VELASQUEZ Referring Unavailable JUDE ASCENCIO, TK Gonzalez Primary Care Unavailable JUDE ASCENCIO, TK Gonzalez Primary Care Unavailable NIR VELASQUEZ Attending Unavailable JUDE ASCENCIO, TK Gonzalez Primary Care Unavailable CAPO MARAVILLA Referring Unavailable JUDE ASCENCIO, TK B Primary Care Unavailable NIR VELASQUEZ Referring Unavailable NIR VELASQUEZ Attending Unavailable TK ROQUE II Primary Care Unavailable TK ROQUE II Primary Care Unavailable NIR VELASQUEZ Referring Unavailable TK ROQUE II Primary Care Unavailable VINCE GAMING Attending Unavailable TK ROQUE II Primary Care Unavailable NIR VELASQUEZ Attending Unavailable NIR VELASQUEZ Referring Unavailable TK ROQUE Attending Unavailable ANNA PEREIRA Attending Unavailable ELTAHAWY, EHAB Referring Unavailable ELTAHAWY, EHAB Admitting Unavailable ELTAHAWY, EHAB Attending Unavailable ELTAHAWY, EHAB Referring Unavailable [facility] Attending Unavailable ELTAHAWY, EHAB Attending Unavailable ELTAHAWY, EHAB Attending Unavailable Medications Current Medications Medication Drug Class(es) [...] Comment on above: inhale 2 puffs by [facility] and INTO THE LUNGS once daily omeprazole 20 mg delayed release oral capsule (20 sources) Proton Pump Inhibitor Start: 2 take 1 capsule by mouth once daily omeprazole (PRILOSEC) 20 mg capsule Take 1 capsule by mouth once daily. 0 12/29/2011 Active Comment on above: Take 1 capsule by mo [facility] once daily. oxyCODONE hydrochloride 5 mg [...] 20 mg by mouth daily with dinner. NSKHMZL-DEGK-IQVWZ-OREG-CAPR YL ORAL (20 sources) BSSFPPO-JSNR-RQK VE-OREG-CA PRYL ORAL Take by mouth. 0 [...] neoplasm of bronchus and lung] 08-20-2023 Episodic Chronic obstructive pulmonary disease and bronchiectasis (1 source) Chronic obstructive lung disease; Translations: [Chronic obstructive pulmonary disease, unspecified] 03-06-2023 Chronic Coronary atherosclerosis and other heart disease (2 sources) Atherosclerotic heart disease of [place] coronary artery without angina pectoris; Translations: [Atherosclerotic heart disease of [place] coronary artery without angina pectoris] Onset: 11-02-2023 Chronic Deficiency and other anemia (2 sources) Normocytic anemia; Translations: [Anemia, unspecified] Episodic Esophageal disorders (1 source) Gastro-esophageal reflux disease without esophagitis; Translations: [GERD WITHOUT ESOPHAGITIS] Onset: 11-05-2022 Chronic Neoplasms of unspecified nature or uncertain behavior (4 sources) Neoplasm of lung ; Translations: [Neoplasm of unspecified behavior of respiratory system] Episodic Osteoarthritis (20 sources) Degenerative joint disease of shoulder region; Translations: [Primary osteoarthritis, unspecified shoulder] Onset: 12-29-2011 12-29-2011 Chronic Other aftercare (1 source) 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; Translations: [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 THERAPY] Onset: 11-05-2022 Episodic Other aftercare (1 source) retirement (current) use of anticoagulants; Translations: [SKILLED NURSING CURRNT USE ANTICOAGULANTS] Onset: 11-05-2022 Episodic Other and ill-defined heart disease (1 source) Heart disease; Translations: [Heart disease, unspecified] 03-06-2023 Chronic Other lower respiratory disease (3 sources) Nodule of lung; Translations: [Solitary pulmonary nodule] 02-04-2023 Episodic Other lower respiratory disease (2 sources) Shortness of breath; Translations: [Shortness of breath] Onset: 02-08-2024 Episodic Residual codes; unclassified (1 source) Acquired [...] ABSCESS OF CHEST WALL] Onset: 11-03-2022 Episodic Unclassified (1 source) Other pericardial effusion (noninflammatory); Translations: [Other pericardial effusion (noninflammatory)] Onset: 02-19-2024 Past or Other Problems Problem Classification Problem [...] LUMP LT UPPER LIMB] Onset: 11-12-2021 Episodic Unclassified (1 source) Other pericardial effusion (noninflammatory); Translations: [Other pericardial effusion (noninflammatory)] Onset: 02-19-2024 Results Test Name Value Interpretation Reference Range Facility [facility] 02-19-2024 ANES -- Attestation signed by Miriam Reddy MD at 02/19/2024 9:43 AM Miriam Reddy MD, MPH, [facility], [facility], [facility] Interventional Cardiology Pager Email: [email or web address] Patient: Kacie Case Procedure Information Date/Time: 02/19/2430 Procedures: Right heart cath (Right) - TO BE DONE 2023 PERICARDIOCETESIS ECHO GUIDED Pericardiocentesis - ECHO GUIDED Location: [facility] 3 / [facility] V[facility]ULAR [facility] (Cath) Providers: Miriam Reddy MD Clinical information reviewed: Allergies Meds OB Status Physical Exam Airway Mallampati: I TM distance: <3 FB Neck ROM: full Cardiovascular Rhythm: regular Rate: normal (-) murmur, peripheral edema Dental - normal exam Pulmonary - normal exam Breath sounds clear to auscultation Abdominal - normal exam Abdomen: soft Anesthesia Plan ASA 3 other (Conscious sedation) Anesthetic plan and risks discussed with patient. Use of blood products discussed with patient who consented to blood products. Plan discussed with attending. Additional Equipment [facility] reviewed. The patient was examined and there are no changes to the H&P. Miriam Reddy MD, MPH, [facility], [facility], [facility] Interventional Cardiology Pager Email: [email or web address] .[facility] HP H&P reviewed. The patient was examined and there are no changes to the H&P. Plan to proceed with pericardiocentesis due to moderate to large circumferential pericardial effusion and right heart catheterization due to dyspnea on exertion. Procedure was explained to patient at length and in detail. Risks, benefits, and alternatives were discussed. Patient is informed that risks of this invasive procedure include, but are not limited to, bleeding, hematoma, kidney injury, CVA, arrythmia requiring defibrillation, need for emergent open heart surgery, and . Patient understands these risks and wishes to proceed. Signed, Elise Copeland MD PGY-4 [employer]ed [employer] Manager Pager: [phone] [facility] NURSNOTEon 02-19-2024 NURSNOTE RN educated pt on d/ c instructions. RN encouraged pt to voice any questions or concerns. Pt verbalizes no questions or concerns at this time. Pt was wheeled off of unit with all of belongings. [facility] 02-08-2024 [facility] Cardiology Clinic Note Chief Complaint: Patient here for 3 mo follow up CAD, afib, and pericardial effusion. Had echo last week. Denies chest pain, palpitations, and bleeding on Xarelto. C/o SOB. HPI: Kacie Case is a 83 y.o. female She has been having progressively worsening shortness of breath with mild exertion over the past several months. She denies chest pain. She has no orthopnea, she has no paroxysmal external dyspnea, she denies lower extremity edema. She denies lightheadedness, dizziness or syncope. She and her daughter both noticed that she becomes more short of breath when walking from 1 room to the next or when walking from the parking lot to the hospital. She has not seen her oncologist for a while. Cardiology ROS: Review of Systems Cardiovascular: Positive for dyspnea on exertion. Respiratory: Positive for shortness of breath. Musculoskeletal: Positive for arthritis and back pain. Neurological: Positive for dizziness and numbness (hands). All other systems reviewed and are negative. [...] , Rfl: clopidogrel (Plavix) 75 mg tablet, take 1 tablet by mouth every morning, Disp: 90 tablet, Rfl: 3 metoprolol tartrate (Lopressor) 25 mg tablet, take 1/2 tablet by mouth IN THE MORNING and at bedtime, Disp: 90 tablet, Rfl: 3 MULTIVITAMIN ORAL, Take by mouth., Disp: , Rfl: omega 4-cmh-evb-fish oil (Fish OiL) 100-160-1,000 mg capsule, Fish [...] Disp: , Rfl: Last Recorded Vitals BP 112/70 (BP Location: Right arm, Patient Position: Sitting) Pulse 87 Ht 1.549 m (5' 1 ) Wt 66.2 kg (146 lb) SpO2 98% BMI 27.59 kg/m??? Physical Examination: GENERAL: alert and oriented [...] PSYCH: appropriate mood, affect, and judgement. Echocardiogram 02/02/2024: Conclusion: 1. Mild concentric left ventricular atrophy with normal systolic function. LVEF is 60%. 2. Normal right ventricular size and systolic function 3. Severe left atrial dilatation 4. Moderate mitral regurgitation 5. Mild aortic regurgitation 6. Moderate to large circumferential pericardial effusion with echodense material suggestive of clotting or fibrinous material within effusion. No echocardiographic signs of tamponade physiology. Assessment: 1. Coronary atherosclerosis - s/p LAD [...] 9. Mass of chest wall R22.2: Localized swell (more content not included)... Normal [facility] Office Visiton 02-08-2024 Follow-up visit [id number] Kacie Case Juan 1940 Date Provider Department Center 02/08/2024 MIRIAM CALDERÓN Family History Problem Relation Age of Onset Heart disease Mother Family Status - Relation Status Age at Mother Level of Service:39484 HI OFFICE/OUTPATIENT ESTABLISHED MOD MDM 30 MIN [facility] Orders Onlyon 02-08-2024 Orders Only [id number] Sierraanant Martinez 1940 Date Provider Department Center 02/08/2024 LUIGI PEDRAZA Family History Problem Relation Age of Onset Heart disease Mother Family Status - Relation Status Age at Mother [facility] 02-03-2024 36 Patient called back and she has an apt to discuss this with Dr. Reddy on 02/08/2024. [facility] 3602-02-2024 37 Regarding echo resul t from 02/02/2024: MD Daniela Talamantes MA Can we let Mrs Case know her effusion is moderate to large: if she is more short of breath we can consider removing it with a needle. If she feels the same, we'll repeat the echo in 3 months. Thanks. for patient to return my call. [facility] Office Visiton 11-02-2023 Follow-up visit [id number] Molly Caseerica Martinez 1940 Provider Department Center 11/02/2023 MIRIAM CALDERÓN Family History Problem Relation Age of Onset Heart disease Mother Family Status - Relation Status Age at Mother Level of Service:18493 HI OFFICE/OUTPATIENT ESTABLISHED LOW MDM 20 MIN [facility] Orders Onlyon 11-02-2023 Orders Only [id number] Sierraanant Martinez 1940 F Date Provider Department [place] 11/02/2023 LUIGI PEDRAZA Family History Problem Relation Age of Onset Heart disease Mother Family Status - Relation Status Age at Mother [facility] Erika 10-14-2023 CNPN Telephone ([place]) KACIE CASE ([id number]) 1940 F Date Time Provider Department 10/14/23 [...] Fully Assessed Reason for Visit: Lab Orders [1688] Primary Visit Diagnosis: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 - atorvastatin (LIPITOR) 40 mg tablet Take 40 mg by mouth once daily. - calcium carbonate (CALTRATE) 600 mg calcium (1,500 mg) tab Take 600 mg by mouth. - acetaminophen/diphenhy dramine (TYLENOL PM ORAL) Take by mouth. - DXUSIZE-VWOW-FCIMI-ORE G-CAPRYL ORAL Take by mouth. 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 CNOVSPon 06-11-2023 CNOVSP Visit (SP) Office ([place]) KACIE CASE ([id number]) 1940 F Date Time Provider Department 06/11/23 3:00 PM NIR VELASQUEZ During your visit today, we recorded the following information about you: Temperature Pulse Respiration Blood pressure 97.8 degrees 84/minute 16/minute 156/72 Weight Height 67.6 kg 1.549 m Nir Velasquez MD 06/11/2023 8:24 PM Signed PATIENT NAME: KACIE Case DATE: 06/11/2023 PRIMARY CARE PHYSICIAN: Dr. Tk Roque OTHER PHYSICIANS: Dr. Maravilla, Dr. Gaming, Dr. Miriam Reddy ([facility]) Portions of this encounter note have [...] mg) tab Take 600 mg by mouth. acetaminophen/diphenhy dramine (TYLENOL PM ORAL) Take by mouth. OLHMTNN-XQJD-XIMDN-ORE G-CAPRYL ORAL Take by mouth. rivaroxaban (XARELTO) 20 [...] LAP, thyromegaly, (more content not included)... Normal [facility] Basic metabolic 2000 panelon 06-05-2023 Anion gap [Moles/Vol] 12 mmol/L Normal 9-18 [facility] Comment on above: Order Comment: Speci men Type: BLOOD SPECIMENOrdering Facility: [facility] Address: [address] [place] [address] Performed By: #### 2 4321-2 ####[facility] LABCLIA [id number] [place] [address] Calcium [Mass/Vol] 9.3 mg/dL Normal 8.5-10.2 [facility] Comment on above: Order Comment: Speci men Type: BLOOD SPECIMENOrdering Facility: [facility] Address: [address] [place] [address] Performed By: #### 2 4321-2 ####[facility] LABCLIA [id number] [place] [address] Chloride [Moles/Vol] 96 mmol/L Low 97-105 [facility] Comment on above: Order Comment: Speci men Type: BLOOD SPECIMENOrdering Facility: [facility] Address: [address] [place] [address] Performed By: #### 2 4321-2 ####[facility] LABCLIA [id number] [place] [address] CO2 [Moles/Vol] 26 mmol/L Normal 22-30 [facility] Comment on above: Order Comment: Speci men Type: BLOOD SPECIMENOrdering Facility: [facility] Address: [address] [place] [address] Performed By: #### 2 4321-2 ####[facility] LABCLIA [id number] [place] [address] Creatinine [Mass/Vol] 1.15 mg/dL High 0.58-0.96 [facility] Comment on above: Order Comment: Speci men Type: BLOOD SPECIMENOrdering Facility: [facility] Address: [address] [place] [address] Performed By: #### 2 4321-2 ####[facility] LABCLIA [id number] [place] [address] Creatinine and Glomerular filtration rate.predicted panel (S/P/Bld) 48 mL/min/1.73m??? Low >=60 [facility] Comment on above: Order Comment: Salena stewart Type: BLOOD SPECIMENOrdering Facility: [facility] Address: [place] [address] Result Comment: Valentine mated Glomerular Filtration Rate [...] actual GFR. Performed By: #### 2 4321-2 ####[facility] LABCLIA [id number] [place] [address] Glucose [Mass/Vol] 114 mg/dL High 74-99 [facility] Comment on above: Order Comment: Salena stewart Type: BLOOD SPECIMENOrdering Facility: [facility] Address: [place] [address] Result Comment: The [place] Diabetes Association (ADA) provides guidance for cutoff [...] Standards of Medical Care in Diabetes 2016, [place] [employer]. Diabetes Care. 2016.39(Suppl 1). Performed By: #### 2 4321-2 ####[facility] LABCLIA [id number] [place] [address] Potassium [Moles/Vol] 4.3 mmol/L Normal 3.7-5.1 [facility] Comment on above: Order Comment: Salena stewart Type: BLOOD SPECIMENOrdering Facility: [facility] Address: [address], [place] [address] Performed By: #### 2 4321-2 ####[facility] LABCLIA [id number] [place] [address] Sodium [Moles/Vol] 134 mmol/L Low 136-144 [facility] Comment on above: Order Comment: Speci men Type: BLOOD SPECIMENOrdering Facility: [facility] Address: [address] [place] [address] Performed By: #### 2 4321-2 ####[facility] LABCLIA [id number] [place] [address] Urea nitrogen [Mass/Vol] 17 mg/dL Normal 7-21 [facility] Comment on above: Order Comment: Speci men Type: BLOOD SPECIMENOrdering Facility: [facility] Address: [address] [place] [address] Performed By: #### 2 4321-2 ####[facility] LABCLIA [id number] [place] [id number] CBC W Auto Differential pane l (Bld)on 06-05-2023 Basophils (Bld) [#/Vol] 0.03 10*3/uL Normal <0.11 [facility] Comment on above: Order Comment: Speci men Type: BLOOD SPECIMENOrdering Facility: [facility] Address: [address] [place] [address] Performed By: #### 5 7021-8 ####[facility] LABCLIA [id number] [place] [id number] Basophils/100 WBC (Bld) 0.6 % Normal [facility] Comment on above: Order Comment: Speci men Type: BLOOD SPECIMENOrdering Facility: [facility] Address: [address] [place] [address] Performed By: #### 5 7021-8 ####[facility] LABCLIA [id number] [place] [address] Differential cell count method Nom (Bld) Auto Normal [facility] Comment on above: Order Comment: Speci men Type: BLOOD SPECIMENOrdering Facility: [facility] Address: [address] [place] [address] Performed By: #### 5 7021-8 ####[facility] LABCLIA [id number] [place] [address] Eosinophils (Bld) [#/Vol] 0.03 10*3/uL Normal <0.46 [facility] Comment on above: Order Comment: Speci men Type: BLOOD SPECIMENOrdering Facility: [facility] Address: [address] [place] [address] Performed By: #### 5 7021-8 ####[facility] LABCLIA [id number] [place] [address] Eosinophils/100 WBC (Bld) 0.6 % Normal [facility] Comment on above: Order Comment: Speci men Type: BLOOD SPECIMENOrdering Facility: [facility] Address: [address] [place] [address] Performed By: #### 5 7021-8 ####[facility] LABCLIA [id number] [place] [address] Erythrocyte distribution width (RBC) [Ratio] 13.7 % Normal 11.5-15.0 [facility] Comment on above: Order Comment: Speci men Type: BLOOD SPECIMENOrdering Facility: [facility] Address: [address] [place] [address] Performed By: #### 5 7021-8 ####[facility] LABCLIA [id number] [place] [address] Hematocrit (Bld) [Volume fraction] 34.2 % Low 36.0-46.0 [facility] Comment on above: Order Comment: Speci men Type: BLOOD SPECIMENOrdering Facility: [facility] Address: [address] [place] [address] Performed By: #### 5 7021-8 ####[facility] LABCLIA [id number] [place] [address] Hemoglobin (Bld) [Mass/Vol] 11.7 g/dL Normal 11.5-15.5 [facility] Comment on above: Order Comment: Speci men Type: BLOOD SPECIMENOrdering Facility: [facility] Address: [address] [place] [address] Performed By: #### 5 7021-8 ####[facility] LABCLIA [id number] [place] [address] Immature granulocytes (Bld) [#/Vol] 0.03 10*3/uL Normal <0.10 [facility] Comment on above: Order Comment: Speci men Type: BLOOD SPECIMENOrdering Facility: [facility] Address: [address] [place] [address] Performed By: #### 5 7021-8 ####[facility] LABCLIA [id number] [place] [address] Immature granulocytes/100 WBC (Bld) 0.6 % Normal [facility] Comment on above: Order Comment: Speci men Type: BLOOD SPECIMENOrdering Facility: [facility] Address: [address] [place] [address] Performed By: #### 5 7021-8 ####[facility] LABCLIA [id number] [place] [address] Lymphocytes (Bld) [#/Vol] 0.67 10*3/uL Low 1.00-4.00 [facility] Comment on above: Order Comment: Speci men Type: BLOOD SPECIMENOrdering Facility: [facility] Address: [address] [place] [address] Performed By: #### 5 7021-8 ####[facility] LABCLIA [id number] [place] [address] Lymphocytes/100 WBC (Bld) 12.5 % Normal [facility] Comment on above: Order Comment: Speci men Type: BLOOD SPECIMENOrdering Facility: [facility] Address: [address] [place] [address] Performed By: #### 5 7021-8 ####[facility] LABCLIA [id number] [place] [address] MCH (RBC) [Entitic mass] 31.0 pg Normal 26.0-34.0 [facility] Comment on above: Order Comment: Speci men Type: BLOOD SPECIMENOrdering Facility: [facility] Address: [address] [place] [address] Performed By: #### 5 7021-8 ####[facility] LABCLIA [id number] [place] [address] MCHC (RBC) [Mass/Vol] 34.2 g/dL Normal 30.5-36.0 [facility] Comment on above: Order Comment: Speci men Type: BLOOD SPECIMENOrdering Facility: [facility] Address: [address] [place] [address] Performed By: #### 5 7021-8 ####[facility] LABCLIA [id number] [place] [address] MCV (RBC) [Entitic vol] 90.5 fL Normal 80.0-100.0 [facility] Comment on above: Order Comment: Speci men Type: BLOOD SPECIMENOrdering Facility: [facility] Address: [address] [place] [address] Performed By: #### 5 7021-8 ####[facility] LABCLIA [id number] [place] [address] Monocytes (Bld) [#/Vol] 0.49 10*3/uL Normal <0.87 [facility] Comment on above: Order Comment: Speci men Type: BLOOD SPECIMENOrdering Facility: [facility] Address: [address] [place] [address] Performed By: #### 5 7021-8 ####[facility] LABCLIA [id number] [place] [address] Monocytes/100 WBC (Bld) 9.1 % Normal [facility] Comment on above: Order Comment: Speci men Type: BLOOD SPECIMENOrdering Facility: [facility] Address: [address] [place] [address] Performed By: #### 5 7021-8 ####[facility] LABCLIA [id number] [place] [address] Neutrophils (Bld) [#/Vol] 4.13 10*3/uL Normal 1.45-7.50 [facility] Comment on above: Order Comment: Speci men Type: BLOOD SPECIMENOrdering Facility: [facility] [facility] Address: [address] [place] [address] Performed By: #### 5 7021-8 ####[facility] LABCLIA [id number] [place] [address] Neutrophils/100 WBC (Bld) 76.6 % Normal [facility] Comment on above: Order Comment: Speci men Type: BLOOD SPECIMENOrdering Facility: [facility] Address: [address] [place] [address] Performed By: #### 5 7021-8 ####[facility] LABCLIA [id number] [place] [address] Nucleated RBC (Bld) [#/Vol] 10*3/uL Normal <0.01 [facility] Comment on above: Order Comment: Speci men Type: BLOOD SPECIMENOrdering Facility: [facility] Address: [address] [place] [address] Performed By: #### 5 7021-8 ####[facility] LABCLIA [id number] [place] [address] Nucleated RBC/100 WBC (Bld) [Ratio] 0.0 /100 WBC Normal [facility] Comment on above: Order Comment: Speci men Type: BLOOD SPECIMENOrdering Facility: [facility] Address: [address] [place] [address] Performed By: #### 5 7021-8 ####[facility] LABCLIA [id number] [place] [address] Platelet mean volume (Bld) [Entitic vol] 10.0 fL Normal 9.0-12.7 [facility] Comment on above: Order Comment: Speci men Type: BLOOD SPECIMENOrdering Facility: [facility] Address: [address] [place] [address] Performed By: #### 5 7021-8 ####[facility] LABCLIA [id number] [place] [address] Platelets (Bld) [#/Vol] 215 10*3/uL Normal 150-400 [facility] Comment on above: Order Comment: Speci men Type: BLOOD SPECIMENOrdering Facility: [facility] Address: [address] [place] [address] Performed By: #### 5 7021-8 ####[facility] LABIA [id number] [place] [address] RBC (Bld) [#/Vol] 3.78 10*6/uL Low 3.90-5.20 [facility] Comment on above: Order Comment: Speci men Type: BLOOD SPECIMENOrdering Facility: [facility] Address: [address] [place] [address] Performed By: #### 5 7021-8 ####[facility] LABIA [id number] [place] [address] WBC (Bld) [#/Vol] 5.38 10*3/uL Normal 3.70-11.00 [facility] Comment on above: Order Comment: Speci men Type: BLOOD SPECIMENOrdering Facility: [facility] Address: [address] [place] [address] Performed By: #### 5 7021-8 ####[facility] LABIA [id number] [place] [address] CT CHEST W IVCONon 3 CT CHEST W IVCON * * *Final Report* * * DATE OF EXAM: Jun 05 2023 11:27AM [facility] 0539 - CT CHEST W IVCON / [...] pneumobilia. Mild bilateral renal cortical atrophy. Cholecystectomy. Technical Support Agent (topogram) images: No additional findings. IMPRESSION: 1. [...] be communicated with the ordering provider via [employer] staff message or phone message by [employer] within 2 business days of report finalization. --END OF FINDING-- Algorithms for management of incidental imaging findings can be found on the [facility] Intranet Sharepoint site at: [email or web address] [email or web address] ngs%20at%20Imaging/For [email or web address] Transcribe Date/Time: Jun 05 2023 1:46P Dictated by: NORA GOODE MD This examination was interpreted and the report reviewed and electronically signed by: NORA GOODE MD on Jun 05 2023 2:12PM EST Thank you for allowing us to participate in the care of your patient. Should there be any questions regarding this interpretation, please call [phone]. If you are unable to reach us at the number above, please feel free to contact [facility] eRadiology at [phone]. [id number] ACTIONABLE Invalid Interpretation Code [facility] Ferritin SerPl-mCncon 2022 Ferritin [Mass/Vol] 181.0 ng/mL Normal 14.7-205.1 [facility] Comment on above: Order Comment: Speci men Type: BLOOD SPECIMENOrdering Facility: [facility] Address: [facility] [place] [id number] Performed By: #### 2 276-4, 52317-0 ####[facility] LABCLIA [id number] [place] [id number] [place] Iron and Iron binding capaci ty panelon 06-05-2023 Iron [Mass/Vol] 73 ug/dL Normal 41-186 [facility] Comment on above: Order Comment: Speci men Type: BLOOD SPECIMENOrdering Facility: [facility] Address: [address] [place] [address] Performed By: #### 2 276-4, 48164-3 ####[facility] LABCLIA [id number] [place] [address] [place] [facility] Iron binding capacity [Mass/Vol] 283 ug/dL Normal 232-386 [facility] Comment on above: Order Comment: Speci men Type: BLOOD SPECIMENOrdering Facility: [facility] Address: [address] [place] [address] Performed By: #### 2 276-4, 04637-2 ####[facility] LABCLIA [id number] [place] [id number] [place] Iron/TIBC [Molar ratio] 25.8 % Normal 15.0-57.0 [facility] Comment on above: Order Comment: Speci men Type: BLOOD SPECIMENOrdering Facility: [facility] Address: [address] [place] [address] Performed By: #### 2 276-4, 57165-3 ####[facility] LABCLIA [id number] [place] [id number] [place] Office Visiton 04-16-2023 Follow-up visit [id number] Kacie Case 1940 F Date Provider Department Center 04/16/2023 Michael-MIRIAM [facility] Family History Problem Relation Age of Onset Heart disease Mother Family Status - Relation Status Age at Mother Level of Service:15221 HI OFFICE/OUTPATIENT ESTABLISHED LOW MDM 20-29 MIN Normal [facility] CORTISOL BLDon 03-06-2023 Cortisol [Mass/Vol] 12.2 ug/dL 4.8 - 19.5 ug/dL [facility] FERRITIN BLDon 03-06-2023 Ferritin [Mass/Vol] 478.0 ng/mL High 14.7 - 205.1 ng/mL [facility] Iron and Iron binding capaci ty panelon 03-06-2023 Iron [Mass/Vol] 28 ug/dL Low 41 - 186 ug/dL [facility] Iron binding capacity [Mass/Vol] 332 ug/dL 232 - 386 ug/dL [facility] Iron/TIBC [Molar ratio] 8.4 % Low 15.0 - 57.0 % [facility] TSH Don 03-06-2023 TSH Qn 1.910 m[IU]/L 0.270 - 4.200 mIU/L [facility] Basic metabolic 2000 panelon 03-05-2023 Anion gap [Moles/Vol] 9 mmol/L Normal 9-18 [facility] Comment on above: Order Comment: Speci men Type: BLOOD SPECIMENOrdering Facility: [facility] Address: [address] [place] [address] Performed By: #### 2 4321-2 ####[facility] LABCLIA [id number] [place] [address] Calcium [Mass/Vol] 9.1 mg/dL Normal 8.5-10.2 [facility] Comment on above: Order Comment: Speci men Type: BLOOD SPECIMENOrdering Facility: [facility] Address: [address] [place] [address] Performed By: #### 2 4321-2 ####[facility] LABCLIA [id number] [place] [address] Chloride [Moles/Vol] 99 mmol/L Normal 97-105 [facility] Comment on above: Order Comment: Speci men Type: BLOOD SPECIMENOrdering Facility: [facility] Address: [address] [place] [address] Performed By: #### 2 4321-2 ####[facility] LABCLIA [id number] [place] [address] CO2 [Moles/Vol] 23 mmol/L Normal 22-30 [facility] Comment on above: Order Comment: Speci men Type: BLOOD SPECIMENOrdering Facility: [facility] Address: [address] [place] [address] Performed By: #### 2 4321-2 ####[facility] LABCLIA [id number] [place] [address] Creatinine [Mass/Vol] 1.24 mg/dL High 0.58-0.96 [facility] Comment on above: Order Comment: Speci men Type: BLOOD SPECIMENOrdering Facility: [facility] Address: [address] [place] [address] Performed By: #### 2 4321-2 ####[facility] LABIA [id number] [place] [address] Creatinine and Glomerular filtration rate.predicted panel (S/P/Bld) 44 mL/min/1.73m??? Low >=60 [facility] Comment on above: Order Comment: Speci men Type: BLOOD SPECIMENOrdering Facility: [facility] Address: [address] [place] [address] Result Comment: Valentine mated Glomerular Filtration Rate [...] actual GFR. Performed By: #### 2 4321-2 ####[facility] LABIA [id number] [place] [address] Glucose [Mass/Vol] 99 mg/dL Normal 74-99 [facility] Comment on above: Order Comment: Speci men Type: BLOOD SPECIMENOrdering Facility: [facility] Address: [address] [place] [address] Result Comment: The [place] [employer] Association (ADA) provides guidance for cutoff [...] Standards of Medical Care in Diabetes 2016, [place] [employer]. Diabetes Care. 2016.39(Suppl 1). Performed By: #### 2 4321-2 ####[facility] LABCLIA [id number] [place] [address] Potassium [Moles/Vol] 4.6 mmol/L Normal 3.7-5.1 [facility] Comment on above: Order Comment: Speci men Type: BLOOD SPECIMENOrdering Facility: [facility] Address: [address] [place] [address] Performed By: #### 2 4321-2 ####[facility] LABCLIA [id number] [place] [address] Sodium [Moles/Vol] 131 mmol/L Low 136-144 [facility] Comment on above: Order Comment: Speci men Type: BLOOD SPECIMENOrdering Facility: [facility] Address: [address] [place] [address] Performed By: #### 2 4321-2 ####[facility] LABCLIA [id number] [place] [address] Urea nitrogen [Mass/Vol] 22 mg/dL High 7-21 [facility] Comment on above: Order Comment: Speci men Type: BLOOD SPECIMENOrdering Facility: [facility] Address: [address] [place] [address] Performed By: #### 2 4321-2 ####[facility] LABCLIA [id number] [place] [address] Anion gap [Moles/Vol] 9 mmol/L 9 - 18 mmol/L [facility] Calcium [Mass/Vol] 9.1 mg/dL 8.5 - 10. 2 mg/dL [facility] Chloride [Moles/Vol] 99 mmol/L 97 - 105 mmol/L [facility] CO2 [Moles/Vol] 23 mmol/L 22 - 30 mmol/L [facility] Creatinine [Mass/Vol] 1.24 mg/dL High 0.58 - 0.96 mg/dL [facility] Estimated Glomerular Filtration Rate 44 mL/min/1.73m Low >=60 mL/min/1.73m [facility] Glucose [Mass/Vol] 99 mg/dL 74 - 99 mg/dL [facility] Potassium [Moles/Vol] 4.6 mmol/L 3.7 - 5.1 mmol/L [facility] Sodium [Moles/Vol] 131 mmol/L Low 136 - 144 mmol/L [facility] Urea nitrogen [Mass/Vol] 22 mg/dL High 7 - 21 mg/dL [facility] CBC W Auto Differential pane l (Bld)on 03-05-2023 Basophils (Bld) [#/Vol] 0.03 10*3/uL Normal <0.11 [facility] Comment on above: Order Comment: Speci men Type: BLOOD SPECIMENOrdering Facility: [facility] Address: [address] [place] [address] Performed By: #### 5 7021-8 ####[facility] LABCLIA [id number] [place] [address] Basophils/100 WBC (Bld) 0.4 % Normal [facility] Comment on above: Order Comment: Speci men Type: BLOOD SPECIMENOrdering Facility: [facility] Address: [address] [place] [address] Performed By: #### 5 7021-8 ####[facility] LABCLIA [id number] [place] [address] Differential cell count method Nom (Bld) Auto Normal [facility] Comment on above: Order Comment: Speci men Type: BLOOD SPECIMENOrdering Facility: [facility] Address: [address] [place] [address] Performed By: #### 5 7021-8 ####[facility] LABCLIA [id number] [place] [address] Eosinophils (Bld) [#/Vol] 10*3/uL Normal <0.46 [facility] Comment on above: Order Comment: Speci men Type: BLOOD SPECIMENOrdering Facility: [facility] Address: [address] [place] [address] Performed By: #### 5 7021-8 ####[facility] LABCLIA [id number] [place] [address] Eosinophils/100 WBC (Bld) 0.3 % Normal [facility] Comment on above: Order Comment: Speci men Type: BLOOD SPECIMENOrdering Facility: [facility] Address: [address] [place] [address] Performed By: #### 5 7021-8 ####[facility] LABCLIA [id number] [place] [address] Erythrocyte distribution width (RBC) [Ratio] 19.6 % High 11.5-15.0 [facility] Comment on above: Order Comment: Speci men Type: BLOOD SPECIMENOrdering Facility: [facility] Address: [address] [place] [address] Performed By: #### 5 7021-8 ####[facility] LABCLIA [id number] [place] [address] Hematocrit (Bld) [Volume fraction] 33.2 % Low 36.0-46.0 [facility] Comment on above: Order Comment: Speci men Type: BLOOD SPECIMENOrdering Facility: [facility] Address: [address] [place] [address] Performed By: #### 5 7021-8 ####[facility] LABCLIA [id number] [place] [address] Hemoglobin (Bld) [Mass/Vol] 10.9 g/dL Low 11.5-15.5 [facility] Comment on above: Order Comment: Speci men Type: BLOOD SPECIMENOrdering Facility: [facility] Address: [address] [place] [address] Performed By: #### 5 7021-8 ####[facility] LABCLIA [id number] [place] [address] Immature granulocytes (Bld) [#/Vol] 0.03 10*3/uL Normal <0.10 [facility] Comment on above: Order Comment: Speci men Type: BLOOD SPECIMENOrdering Facility: [facility] Address: [address] [place] [address] Performed By: #### 5 7021-8 ####[facility] LABCLIA [id number] [place] [address] Immature granulocytes/100 WBC (Bld) 0.4 % Normal [facility] Comment on above: Order Comment: Speci men Type: BLOOD SPECIMENOrdering Facility: [facility] Address: [address] [place] [address] Performed By: #### 5 7021-8 ####[facility] LABCLIA [id number] [place] [address] Lymphocytes (Bld) [#/Vol] 0.40 10*3/uL Low 1.00-4.00 [facility] Comment on above: Order Comment: Speci men Type: BLOOD SPECIMENOrdering Facility: [facility] Address: [address] [place] [address] Performed By: #### 5 7021-8 ####[facility] LABCLIA [id number] [place] [address] Lymphocytes/100 WBC (Bld) 5.2 % Normal [facility] Comment on above: Order Comment: Speci men Type: BLOOD SPECIMENOrdering Facility: [facility] Address: [address] [place] [address] Performed By: #### 5 7021-8 ####[facility] LABCLIA [id number] [place] [address] MCH (RBC) [Entitic mass] 29.1 pg Normal 26.0-34.0 [facility] Comment on above: Order Comment: Speci men Type: BLOOD SPECIMENOrdering Facility: [facility] Address: [address] [place] [address] Performed By: #### 5 7021-8 ####[facility] LABIA [id number] [place] [address] MCHC (RBC) [Mass/Vol] 32.8 g/dL Normal 30.5-36.0 [facility] Comment on above: Order Comment: Speci men Type: BLOOD SPECIMENOrdering Facility: [facility] Address: [address] [place] [address] Performed By: #### 5 7021-8 ####[facility] LABIA [id number] [place] [address] MCV (RBC) [Entitic vol] 88.8 fL Normal 80.0-100.0 [facility] Comment on above: Order Comment: Speci men Type: BLOOD SPECIMENOrdering Facility: [facility] Address: [address] [place] [address] Performed By: #### 5 7021-8 ####[facility] LABCLIA [id number] [place] [address] Monocytes (Bld) [#/Vol] 0.54 10*3/uL Normal <0.87 [facility] Comment on above: Order Comment: Speci men Type: BLOOD SPECIMENOrdering Facility: [facility] Address: [address] [place] [address] Performed By: #### 5 7021-8 ####[facility] LABCLIA [id number] [place] [address] Monocytes/100 WBC (Bld) 7.1 % Normal [facility] Comment on above: Order Comment: Speci men Type: BLOOD SPECIMENOrdering Facility: [facility] Address: [address] [place] [address] Performed By: #### 5 7021-8 ####[facility] LABCLIA [id number] [place] [address] Neutrophils (Bld) [#/Vol] 6.61 10*3/uL Normal 1.45-7.50 [facility] Comment on above: Order Comment: Speci men Type: BLOOD SPECIMENOrdering Facility: [facility] Address: [address] [place] [address] Performed By: #### 5 7021-8 ####[facility] LABCLIA [id number] [place] [address] Neutrophils/100 WBC (Bld) 86.6 % Normal [facility] Comment on above: Order Comment: Speci men Type: BLOOD SPECIMENOrdering Facility: [facility] Address: [address] [place] [address] Performed By: #### 5 7021-8 ####[facility] LABCLIA [id number] [place] [address] Nucleated RBC (Bld) [#/Vol] 10*3/uL Normal <0.01 [facility] Comment on above: Order Comment: Speci men Type: BLOOD SPECIMENOrdering Facility: [facility] Address: [address] [place] [address] Performed By: #### 5 7021-8 ####[facility] LABCLIA [id number] [place] [address] Nucleated RBC/100 WBC (Bld) [Ratio] 0.0 /100 WBC Normal [facility] Comment on above: Order Comment: Speci men Type: BLOOD SPECIMENOrdering Facility: [facility] Address: [address] [place] [address] Performed By: #### 5 7021-8 ####[facility] LABCLIA [id number] [place] [address] Platelet mean volume (Bld) [Entitic vol] 10.0 fL Normal 9.0-12.7 [facility] Comment on above: Order Comment: Speci men Type: BLOOD SPECIMENOrdering Facility: [facility] Address: [address] [place] [address] Performed By: #### 5 7021-8 ####[facility] LABCLIA [id number] [place] [address] Platelets (Bld) [#/Vol] 217 10*3/uL Normal 150-400 [facility] Comment on above: Order Comment: Speci men Type: BLOOD SPECIMENOrdering Facility: [facility] Address: [address] [place] [address] Performed By: #### 5 7021-8 ####[facility] LABIA [id number] [place] [address] RBC (Bld) [#/Vol] 3.74 10*6/uL Low 3.90-5.20 [facility] Comment on above: Order Comment: Speci men Type: BLOOD SPECIMENOrdering Facility: [facility] Address: [address] [place] [address] Performed By: #### 5 7021-8 ####[facility] LABIA [id number] [place] [address] WBC (Bld) [#/Vol] 7.63 10*3/uL Normal 3.70-11.00 [facility] Comment on above: Order Comment: Speci men Type: BLOOD SPECIMENOrdering Facility: [facility] Address: [address] [place] [address] Performed By: #### 5 7021-8 ####[facility] LABCLIA [id number] [place] [address] Basophils (Bld) [#/Vol] 0.03 10*3/uL <0.11 k/uL [facility] Basophils/100 WBC (Bld) 0.4 % [facility] Differential cell count method Nom (Bld) Auto [facility] Eosinophils (Bld) [#/Vol] <0.46 k/uL [facility] Eosinophils/100 WBC (Bld) 0.3 % [facility] Erythrocyte distribution width (RBC) [Ratio] 19.6 % High 11.5 - 15.0 % [facility] Hematocrit (Bld) [Volume fraction] 33.2 % Low 36.0 - 46.0 % [facility] Hemoglobin (Bld) [Mass/Vol] 10.9 g/dL Low 11.5 - 15.5 g/dL [facility] Immature granulocytes (Bld) [#/Vol] 0.03 10*3/uL <0.10 k/uL [facility] Immature granulocytes/100 WBC (Bld) 0.4 % [facility] Lymphocytes (Bld) [#/Vol] 0.40 10*3/uL Low 1.00 - 4.00 k/uL [facility] Lymphocytes/100 WBC (Bld) 5.2 % [facility] MCH (RBC) [Entitic mass] 29.1 pg 26.0 - 34.0 pg [facility] MCHC (RBC) [Mass/Vol] 32.8 g/dL 30.5 - 36.0 g/dL [facility] MCV (RBC) [Entitic vol] 88.8 fL 80.0 - 100.0 fL [facility] Monocytes (Bld) [#/Vol] 0.54 10*3/uL <0.87 k/uL [facility] Monocytes/100 WBC (Bld) 7.1 % [facility] Neutrophils (Bld) [#/Vol] 6.61 10*3/uL 1.45 - 7.50 k/uL [facility] Neutrophils/100 WBC (Bld) 86.6 % [facility] Nucleated RBC (Bld) [#/Vol] <0.01 k/uL [facility] Nucleated RBC/100 WBC (Bld) [Ratio] 0.0 /100 WBC [facility] Platelet mean volume (Bld) [Entitic vol] 10.0 fL 9.0 - 12.7 fL [facility] Platelets (Bld) [#/Vol] 217 10*3/uL 150 - 400 k/uL [facility] RBC (Bld) [#/Vol] 3.74 10*6/uL Low 3.90 - 5.2 0 m/uL [facility] WBC (Bld) [#/Vol] 7.63 10*3/uL 3.70 - 11. 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 She [...] (CALTRATE) 600 mg calcium (1,500 mg) tab acetaminophen/diphenhy dramine (TYLENOL PM ORAL) [id number]-KCUN-ESARM-ORE G-CAPRYL ORAL rivaroxaban (XARELTO) 20 mg tablet metoprolol [...] Recent s (more content not included)... Normal [facility] CNOVSPon 03-05-2023 CNOVSP Visit (SP) Office (NICOLAS) KACIE CASE ([id number]) 1940 F Date Time Provider Department 03/05/23 1:30 PM NIR VELASQUEZ During your visit today, we recorded the following information about you: Temperature Pulse Respiration Blood pressure 97.1 degrees 98/minute 16/minute 96/53 Weight Height 65.7 kg 1.549 m Nir Velasquez MD 03/06/2023 8:33 AM Signed PATIENT NAME: KACIE Case DATE: 03/05/2023 PRIMARY CARE PHYSICIAN: Dr. Tk Roque OTHER PHYSICIANS: Dr. Maravilla, Dr. Gaming, Dr. Miriam Reddy ([facility]) Portions of this encounter note have [...] mg) tab Take 600 mg by mouth. acetaminophen/diphenhy dramine (TYLENOL PM ORAL) Take by mouth. QPZQXUG-BRJY-RBUUJ-ORE G-CAPRYL ORAL Take by mouth. rivaroxaban (XARELTO) 20 [...] for lesi (more content not included)... Normal [facility] Cortis SerPl-mCncon 03-05-20 Cortisol [Mass/Vol] 12.2 ug/dL Normal 4.8-19.5 [facility] Comment on above: Order Comment: Speci men Type: BLOOD SPECIMENOrdering Facility: [facility] Address: [address] [place] [address] Result Comment: Prov ided reference range is from 6-10 AM sample collection time. Cortisol Reference Range: 6-10 AM = 4.8-19.5 ug/dL, 4-8 PM = 2.5-11.9 ug/dL Performed By: #### 3 016-3, 6-4, 3-6, 18308-9 ####[facility] LABCLIA [id number] [place] [address] [place] Fer[facility] 20[facility] Ferritin [Mass/Vol] 478.0 ng/mL High 14.7-205.1 [facility] Comment on above: Order Comment: Speci men Type: BLOOD SPECIMENOrdering Facility: [facility] Address: [address] [place] [address] Performed By: #### 3 016-3, 2276-4, 2143-6, 47777-0 ####[facility] LABCLIA [id number] [place] [address] [place] Iron and Iron binding capaci ty panelon 03-05-2023 Iron [Mass/Vol] 28 ug/dL Low 41-186 [facility] Comment on above: Order Comment: Speci men Type: BLOOD SPECIMENOrdering Facility: [facility] Address: [address] [place] [address] Performed By: #### 3 016-3, 2276-4, 2143-6, 05009-3 ####[facility] LABCLIA [id number] [place] [address] [place] Iron binding capacity [Mass/Vol] 332 ug/dL Normal 232-386 [facility] Comment on above: Order Comment: Speci men Type: BLOOD SPECIMENOrdering Facility: [facility] Address: [address] [place] [address] Performed By: #### 3 016-3, 2276-4, 2143-6, 14860-7 ####[facility] LABIA [id number] [place] [address] [place] Iron/TIBC [Molar ratio] 8.4 % Low 15.0-57.0 [facility] Comment on above: Order Comment: Speci men Type: BLOOD SPECIMENOrdering Facility: [facility] Address: [address] [place] [address] Performed By: #### 3 016-3, 2276-4, 2143-6, 92472-3 ####[facility] LABIA [id number] [place] [id number] [place] TSH SerPl-aCncon 03-05-2023 TSH Qn 1.910 m[IU]/L Normal 0.270-4.200 [facility] Comment on above: Order Comment: Speci men Type: BLOOD SPECIMENOrdering Facility: [facility] Address: [address] [place] [address] Performed By: #### 3 016-3, 2276-4, 2143-6, 57014-6 ####[facility] LABIA [id number] [place] [id number] [place] CNCOon 03-03-2023 CNCO Letter Text Normal [facility] NM PET/CT SKULL-THIGH SUBQon 02-26-2023 NM [...] - Background liver activity (max SUV): 3.2 Technical Support Agent (topogram) images: No additional findings. HEAD AND [...] be communicated with the ordering provider via [employer] staff message or phone message by [employer] within 2 business days of report finalization. Algorithms for management of incidental imaging findings can be found on the [facility] Intranet Sharepoint site at: [email or web address] [email or web address] [email or web address]%20Imaging/For [email or web address] Transcribe Date/Time: Feb 26 2023 2:37P Dictated by: NEEMA BLUE MD This examination was interpreted and the report reviewed and electronically signed by: ASHLEY KATE MD (more content not included)... Invalid Interpretation [facility] CNPN Telephone (HEMTSA) KACIE CASE ([id number]) 1940 F Date Time Provider Department 02/24/23 KATHRINE ROD HEMTSA During your visit today, we recorded the following information about you: Kathrine Rod, RN 02/24/2023 9:57 AM Signed Please sign pending pet order. Order was lost when pt was rescheduled thanks! Allergies As of Date: 02/24/2023 (No Known Allergies) Date Reviewed: 02/24/2023 Reviewed by: Malik Gonzalez APRN.FORMING MACHINE ADJUSTER - Fully Assessed Reason for Visit: Orders [681] Primary Visit Diagnosis:Malignant neoplasm of unspecified part of unspecified bronchus or lung (HCC) [C34.90] Order(s):NM PET/CT SKULL-THIGH SUBSEQUENT [[id number]] Order #: [id number] FUTURE Prescriptions as of 03/25/2023 - docusate sodium (STOOL SOFTENER ORAL) Take by mouth. - atorvastatin (LIPITOR) 40 mg tablet Take 40 mg by mouth once daily. - calcium carbonate (CALTRATE) 600 mg calcium (1,500 mg) tab Take 600 mg by mouth. - acetaminophen/diphenhy dramine (TYLENOL PM ORAL) Take by mouth. - LOWOTZA-FXUX-CUUFK-ORE G-CAPRYL ORAL Take by mouth. - rivaroxaban (XARELTO) [...] Encounter Status:Closed by KATHRINE ROD on [facility]/25/[facility] Social Work (HEMASA) KACIE CASE ([id number]) 1940 F Date Time Provider Department 02/18/23 RONNA LANTIGUA During your visit today, we recorded the following information about you: Ronna Lantigua LSW 02/18/2023 1:46 PM Signed Patient appears on the [facility] First Time Treatment List for a non-oncology treatment. No psychosocial assessment is indicated. MILA Alejandra-S Allergies As of Date: 02/18/2023 (No Known Allergies) Date Reviewed: 02/10/2023 Reviewed by: Claribel Arciniega LPN - Fully Assessed Prescriptions as of 02/18/2023 - docusate sodium (STOOL SOFTENER ORAL) Take by mouth. - atorvastatin (LIPITOR) 40 mg tablet Take 40 mg by mouth once daily. - calcium carbonate (CALTRATE) 600 mg calcium (1,500 mg) tab Take 600 mg by mouth. - acetaminophen/diphenhy dramine (TYLENOL PM ORAL) Take by mouth. - ZWEHYUM-XXWW-PQESF-ORE G-CAPRYL ORAL Take by mouth. - rivaroxaban (XARELTO) [...] Encounter Status:Closed by RONNA LANTIGUA on 02/18/[address] [facility] Erika 02-10-2023 CNPN Telephone (HEMTSA) KACIE CASE ([id number]) 1940 F Date Time Provider Department 02/10/23 [...] tab Take 600 mg by mouth. - acetaminophen/diphenhy dramine (TYLENOL PM ORAL) Take by mouth. - RNXXHAV-RTYX-PTZYN-ORE G-CAPRYL ORAL Take by mouth. - rivaroxaban (XARELTO) [...] Encounter Status:Closed by TRIPP VALENTINO on 02/10/[address] [facility] Erika 02-04-2023 MIMIN Telephone (HEMTSA) EVIEKACIE DOWD ([id number]) 1940 F Date Time Provider Department 02/04/23 [...] reschedule with Dr. De La Torre in [place]. She will also have them forward any [...] tab Take 600 mg by mouth. - acetaminophen/diphenhy dramine (TYLENOL PM ORAL) Take by mouth. - ZBMXBPP-RGRF-KNISW-ORE G-CAPRYL ORAL Take by mouth. - rivaroxaban (XARELTO) [...] Encounter Status:Closed by MARGARITA LUZ on 02/04/23 [facility] KACIE CASE ([id number]) 1940 F Date Time Provider Department 02/04/23 NIR VELASQUEZ [facility] During your visit today, we recorded the following information about you: James DuffyLoganen 02/04/2023 9:11 AM Signed Received call from Grover Maravilla office. Requesting [facility] last office note for Dr Maravilla. Faxed [facility] 02/02/[address] Maravilla office @ [phone]. Amy James Pss Allergies As of Date: 02/04/2023 (No Known Allergies) Date Reviewed: 02/02/2023 Reviewed by: Marie Quiñones - Fully Assessed Reason for Visit: Records Faxed To Dr Maravilla [Other] Prescriptions as of 02/04/2023 - docusate sodium (STOOL SOFTENER ORAL) Take by mouth. - atorvastatin (LIPITOR) 40 mg tablet Take 40 mg by mouth once daily. - calcium carbonate (CALTRATE) 600 mg calcium (1,500 mg) tab Take 600 mg by mouth. - acetaminophen/diphenhy dramine (TYLENOL PM ORAL) Take by mouth. - MHRERUW-NGRY-BLOTC-ORE G-CAPRYL ORAL Take by mouth. - rivaroxaban (XARELTO) [...] Encounter Status:Closed by AMY JACKSON on 02/04/23 [facility] Telephone (HEMTSA) KACIE CASE ([id number]) 1940 F Date Time Provider Department 02/04/23 [...] AM Signed Will change iron to Monoferric. Thanks, B Allergies As of Date: 02/04/2023 (No Known [...] tab Take 600 mg by mouth. - acetaminophen/diphenhy dramine (TYLENOL PM ORAL) Take by mouth. - EXGJXYM-FYFE-IJSTK-ORE G-CAPRYL ORAL Take by mouth. - rivaroxaban (XARELTO) [...] Encounter Status:Closed by KELLY ZAMUDIO on 02/10/23 [facility] Telephone (HEMTSA) KACIE CASE ([id number]) 1940 F Date Time Provider Department 02/04/23 [...] tab Take 600 mg by mouth. - acetaminophen/diphenhy dramine (TYLENOL PM ORAL) Take by mouth. - JSVYEHD-TLNW-JZAXM-ORE G-CAPRYL ORAL Take by mouth. 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] 02/02/2023 Encounter Status:Closed by ANAN THOMAS on 02/04/23 Normal [facility] FECAL OCCULT BLOOD TESTon Lower GI hemoglobin IA Ql (Stl) Positive Abnormal Negative [facility] FERRITIN BLDon 02-03-2023 Ferritin [Mass/Vol] 31.6 ng/mL 14.7 - 205.1 ng/mL [facility] Hemoccult Stl Ql IAon 2022 Lower GI hemoglobin IA Ql (Stl) Positive Abnormal Negative [facility] Comment on above: Order Comment: Speci men Type: STOOL SPECIMENOrdering Facility: [facility] Address: [address] [place] [address] Performed By: #### 2 9771-3 ####[facility] LABCLIA [id number] [place] [address] [place] Iron and Iron binding capaci ty panelon 02-03-2023 Iron [Mass/Vol] 29 ug/dL Low 41 - 186 ug/dL [facility] Iron binding capacity [Mass/Vol] 397 ug/dL High 232 - 386 ug/dL [facility] Iron/TIBC [Molar ratio] 7.3 % Low 15.0 - 57.0 % [facility] CBC W Auto Differential pane l (Bld)on 02-02-2023 Basophils (Bld) [#/Vol] 0.03 10*3/uL Normal <0.11 [facility] Comment on above: Order Comment: Speci men Type: BLOOD SPECIMENOrdering Facility: [facility] Address: [address] [place] [address] Performed By: #### 5 7021-8 ####[facility] LABCLIA [id number] [place] [address] Basophils/100 WBC (Bld) 0.5 % Normal [facility] Comment on above: Order Comment: Speci men Type: BLOOD SPECIMENOrdering Facility: [facility] Address: [address] [place] [address] Performed By: #### 5 7021-8 ####[facility] LABCLIA [id number] [place] [address] Differential cell count method Nom (Bld) Auto Normal [facility] Comment on above: Order Comment: Speci men Type: BLOOD SPECIMENOrdering Facility: [facility] Address: [address] [place] [address] Performed By: #### 5 7021-8 ####[facility] LABIA [id number] [place] [address] Eosinophils (Bld) [#/Vol] 0.12 10*3/uL Normal <0.46 [facility] Comment on above: Order Comment: Speci men Type: BLOOD SPECIMENOrdering Facility: [facility] Address: [address] [place] [address] Performed By: #### 5 7021-8 ####[facility] LABCLIA [id number] [place] [address] Eosinophils/100 WBC (Bld) 2.0 % Normal [facility] Comment on above: Order Comment: Speci men Type: BLOOD SPECIMENOrdering Facility: [facility] Address: [address] [place] [address] Performed By: #### 5 7021-8 ####[facility] LABIA [id number] [place] [address] Erythrocyte distribution width (RBC) [Ratio] 18.0 % High 11.5-15.0 [facility] Comment on above: Order Comment: Speci men Type: BLOOD SPECIMENOrdering Facility: [facility] Address: [address] [place] [address] Performed By: #### 5 7021-8 ####[facility] LABCLIA [id number] [place] [address] Hematocrit (Bld) [Volume fraction] 28.2 % Low 36.0-46.0 [facility] Comment on above: Order Comment: Speci men Type: BLOOD SPECIMENOrdering Facility: [facility] Address: [address] [place] [address] Performed By: #### 5 7021-8 ####[facility] LABCLIA [id number] [place] [address] Hemoglobin (Bld) [Mass/Vol] 9.3 g/dL Low 11.5-15.5 [facility] Comment on above: Order Comment: Speci men Type: BLOOD SPECIMENOrdering Facility: [facility] Address: [address] [place] [address] Performed By: #### 5 7021-8 ####[facility] LABCLIA [id number] [place] [address] Immature granulocytes (Bld) [#/Vol] 0.03 10*3/uL Normal <0.10 [facility] Comment on above: Order Comment: Speci men Type: BLOOD SPECIMENOrdering Facility: [facility] Address: [address] [place] [address] Performed By: #### 5 7021-8 ####[facility] LABCLIA [id number] [place] [address] Immature granulocytes/100 WBC (Bld) 0.5 % Normal [facility] Comment on above: Order Comment: Speci men Type: BLOOD SPECIMENOrdering Facility: [facility] Address: [address] [place] [address] Performed By: #### 5 7021-8 ####[facility] LABCLIA [id number] [place] [address] Lymphocytes (Bld) [#/Vol] 0.79 10*3/uL Low 1.00-4.00 [facility] Comment on above: Order Comment: Speci men Type: BLOOD SPECIMENOrdering Facility: [facility] Address: [address] [place] [address] Performed By: #### 5 7021-8 ####[facility] LABIA [id number] [place] [address] Lymphocytes/100 WBC (Bld) 13.5 % Normal [facility] Comment on above: Order Comment: Speci men Type: BLOOD SPECIMENOrdering Facility: [facility] Address: [address] [place] [address] Performed By: #### 5 7021-8 ####[facility] LABIA [id number] [place] [address] MCH (RBC) [Entitic mass] 27.5 pg Normal 26.0-34.0 [facility] Comment on above: Order Comment: Speci men Type: BLOOD SPECIMENOrdering Facility: [facility] Address: [address] [place] [address] Performed By: #### 5 7021-8 ####[facility] LABIA [id number] [place] [address] MCHC (RBC) [Mass/Vol] 33.0 g/dL Normal 30.5-36.0 [facility] Comment on above: Order Comment: Speci men Type: BLOOD SPECIMENOrdering Facility: [facility] Address: [address] [place] [address] Performed By: #### 5 7021-8 ####[facility] LABIA [id number] [place] [address] MCV (RBC) [Entitic vol] 83.4 fL Normal 80.0-100.0 [facility] Comment on above: Order Comment: Speci men Type: BLOOD SPECIMENOrdering Facility: [facility] Address: [address] [place] [address] Performed By: #### 5 7021-8 ####[facility] LABCLIA [id number] [place] [address] Monocytes (Bld) [#/Vol] 0.76 10*3/uL Normal <0.87 [facility] Comment on above: Order Comment: Speci men Type: BLOOD SPECIMENOrdering Facility: [facility] Address: [address] [place] [address] Performed By: #### 5 7021-8 ####[facility] LABCLIA [id number] [place] [address] Monocytes/100 WBC (Bld) 13.0 % Normal [facility] Comment on above: Order Comment: Speci men Type: BLOOD SPECIMENOrdering Facility: [facility] Address: [address] [place] [address] Performed By: #### 5 7021-8 ####[facility] LABCLIA [id number] [place] [address] Neutrophils (Bld) [#/Vol] 4.13 10*3/uL Normal 1.45-7.50 [facility] Comment on above: Order Comment: Speci men Type: BLOOD SPECIMENOrdering Facility: [facility] Address: [address] [place] [address] Performed By: #### 5 7021-8 ####[facility] LABCLIA [id number] [place] [address] Neutrophils/100 WBC (Bld) 70.5 % Normal [facility] Comment on above: Order Comment: Speci men Type: BLOOD SPECIMENOrdering Facility: [facility] Address: [address] [place] [address] Performed By: #### 5 7021-8 ####[facility] LABCLIA [id number] [place] [address] Nucleated RBC (Bld) [#/Vol] 10*3/uL Normal <0.01 [facility] Comment on above: Order Comment: Speci men Type: BLOOD SPECIMENOrdering Facility: [facility] Address: [address] [place] [address] Performed By: #### 5 7021-8 ####[facility] LABCLIA [id number] [place] [address] Nucleated RBC/100 WBC (Bld) [Ratio] 0.0 /100 WBC Normal [facility] Comment on above: Order Comment: Speci men Type: BLOOD SPECIMENOrdering Facility: [facility] Address: [address] [place] [address] Performed By: #### 5 7021-8 ####[facility] LABIA [id number] [place] [address] Platelet mean volume (Bld) [Entitic vol] 9.7 fL Normal 9.0-12.7 [facility] Comment on above: Order Comment: Speci men Type: BLOOD SPECIMENOrdering Facility: [facility] Address: [address] [place] [address] Performed By: #### 5 7021-8 ####[facility] LABIA [id number] [place] [address] Platelets (Bld) [#/Vol] 263 10*3/uL Normal 150-400 [facility] Comment on above: Order Comment: Speci men Type: BLOOD SPECIMENOrdering Facility: [facility] Address: [address] [place] [address] Performed By: #### 5 7021-8 ####[facility] LABIA [id number] [place] [address] RBC (Bld) [#/Vol] 3.38 10*6/uL Low 3.90-5.20 [facility] Comment on above: Order Comment: Speci men Type: BLOOD SPECIMENOrdering Facility: [facility] Address: [address] [place] [address] Performed By: #### 5 7021-8 ####[facility] LABCLIA [id number] [place] [address] WBC (Bld) [#/Vol] 5.86 10*3/uL Normal 3.70-11.00 [facility] Comment on above: Order Comment: Speci men Type: BLOOD SPECIMENOrdering Facility: [facility] Address: [address] [id number] Performed By: #### 5 7021-8 ####[facility] LABCLIA [id number] [place] [address] Basophils (Bld) [#/Vol] 0.03 10*3/uL <0.11 k/uL [facility] Basophils/100 WBC (Bld) 0.5 % [facility] Differential cell count method Nom (Bld) Auto [facility] Eosinophils (Bld) [#/Vol] 0.12 10*3/uL <0.46 k/uL [facility] Eosinophils/100 WBC (Bld) 2.0 % [facility] Erythrocyte distribution width (RBC) [Ratio] 18.0 % High 11.5 - 15.0 % [facility] Hematocrit (Bld) [Volume fraction] 28.2 % Low 36.0 - 46.0 % [facility] Hemoglobin (Bld) [Mass/Vol] 9.3 g/dL Low 11.5 - 15.5 g/dL [facility] Immature granulocytes (Bld) [#/Vol] 0.03 10*3/uL <0.10 k/uL [facility] Immature granulocytes/100 WBC (Bld) 0.5 % [facility] Lymphocytes (Bld) [#/Vol] 0.79 10*3/uL Low 1.00 - 4.00 k/uL [facility] Lymphocytes/100 WBC (Bld) 13.5 % [facility] MCH (RBC) [Entitic mass] 27.5 pg 26.0 - 34.0 pg [facility] MCHC (RBC) [Mass/Vol] 33.0 g/dL 30.5 - 36.0 g/dL [facility] MCV (RBC) [Entitic vol] 83.4 fL 80.0 - 100.0 fL [facility] Monocytes (Bld) [#/Vol] 0.76 10*3/uL <0.87 k/uL [facility] Monocytes/100 WBC (Bld) 13.0 % [facility] Neutrophils (Bld) [#/Vol] 4.13 10*3/uL 1.45 - 7.50 k/uL [facility] Neutrophils/100 WBC (Bld) 70.5 % [facility] Nucleated RBC (Bld) [#/Vol] <0.01 k/uL [facility] Nucleated RBC/100 WBC (Bld) [Ratio] 0.0 /100 WBC [facility] Platelet mean volume (Bld) [Entitic vol] 9.7 fL 9.0 - 12.7 fL [facility] Platelets (Bld) [#/Vol] 263 10*3/uL 150 - 400 k/uL [facility] RBC (Bld) [#/Vol] 3.38 10*6/uL Low 3.90 - 5.2 0 m/uL [facility] WBC (Bld) [#/Vol] 5.86 10*3/uL 3.70 - 11. 00 k/uL [facility] CNOVSPon 02-02-2023 CNOVSP Visit (SP) Office (HEMASA) KACIE CASE ([id number]) 1940 F Date Time Provider Department 02/02/23 11:00 AM NIR VELASQUEZ During your visit today, we recorded the following information about you: Temperature Pulse Respiration Blood pressure 97.9 degrees 70/minute 18/minute 136/57 Weight 69.3 kg Nir Velasquez MD 02/04/2023 6:09 AM Signed PATIENT NAME: KACIE Case DATE: 02/02/2023 PRIMARY CARE PHYSICIAN: Dr. Tk Roque OTHER PHYSICIANS: Dr. Maravilla, Dr. Gaming, Dr. Miriam Reddy ([facility]) HPI: This is an 82 year [...] of breath. 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 However, [...] have anemia. Apparently she was hospitalized at [facility] November 2022 with severe anemia (hemoglobin 7.2) [...] mg) tab Take 600 mg by mouth. acetaminophen/diphenhy dramine (TYLENOL PM ORAL) Take by mouth. XNOOEZO-BSTN-KMXIJ-ORE G-CAPRYL ORAL Take by mouth. rivaroxaban (XARELTO) 20 [...] poor nutrit (more content not included)... Normal [facility] Comprehensive metabolic 2000 panelon 02-02-2023 Albumin [Mass/Vol] 4.5 g/dL Normal 3.9-4.9 [facility] Comment on above: Order Comment: Speci men Type: BLOOD SPECIMENOrdering Facility: [facility] Address: [address] [place] [address] [place] [address] Performed By: #### 2 4323-8 ####[facility] LABCLIA [id number] [place] [address] ALP [Catalytic activity/Vol] 48 U/L Normal 34-123 [facility] Comment on above: Order Comment: Speci men Type: BLOOD SPECIMENOrdering Facility: [facility] Address: [address] [address] Performed By: #### 2 4323-8 ####[facility] LABCLIA [id number] [place] [address] ALT [Catalytic activity/Vol] 18 U/L Normal 7-38 [facility] Comment on above: Order Comment: Speci men Type: BLOOD SPECIMENOrdering Facility: [facility] Address: [address] [place] [address] Performed By: #### 2 4323-8 ####[facility] LABCLIA [id number] [place] [address] Anion gap [Moles/Vol] 10 mmol/L Normal 9-18 [facility] Comment on above: Order Comment: Speci men Type: BLOOD SPECIMENOrdering Facility: [facility] [facility] Address: [address] [place] [address] Performed By: #### 2 4323-8 ####[facility] LABCLIA [id number] [place] [address] AST [Catalytic activity/Vol] 22 U/L Normal 13-35 [facility] Comment on above: Order Comment: Speci men Type: BLOOD SPECIMENOrdering Facility: [facility] Address: [address] [place] [address] Performed By: #### 2 4323-8 ####[facility] LABCLIA [id number] [place] [address] Bilirubin [Mass/Vol] 0.2 mg/dL Normal 0.2-1.3 [facility] Comment on above: Order Comment: Speci men Type: BLOOD SPECIMENOrdering Facility: [facility] Address: [address] [address] Performed By: #### 2 4323-8 ####[facility] LABCLIA [id number] [place] [address] Calcium [Mass/Vol] 9.0 mg/dL Normal 8.5-10.2 [facility] Comment on above: Order Comment: Speci men Type: BLOOD SPECIMENOrdering Facility: [facility] Address: [address] [address] Performed By: #### 2 4323-8 ####[facility] LABCLIA [id number] [place] [address] Chloride [Moles/Vol] 92 mmol/L Low 97-105 [facility] Comment on above: Order Comment: Speci men Type: BLOOD SPECIMENOrdering Facility: [facility] Address: [address] [place] [address] Performed By: #### 2 4323-8 ####[facility] LABCLIA [id number] [place] [address] CO2 [Moles/Vol] 24 mmol/L Normal 22-30 [facility] Comment on above: Order Comment: Speci men Type: BLOOD SPECIMENOrdering Facility: [facility] Address: [address] [place] [address] Performed By: #### 2 4323-8 ####[facility] LABCLIA [id number] [place] [address] Creatinine [Mass/Vol] 1.18 mg/dL High 0.58-0.96 [facility] Comment on above: Order Comment: Speci men Type: BLOOD SPECIMENOrdering Facility: [facility] Address: [address] [place] [address] Performed By: #### 2 4323-8 ####[facility] LABCLIA [id number] [place] [address] ESTIMATED GLOMERULAR FILTRATION RATE 46 mL/min/1.73m??? Low >=60 [facility] Comment on above: Order Comment: Salena stewart Type: BLOOD SPECIMENOrdering Facility: [facility] Address: [address] [phone] Result Comment: Valentine mated Glomerular Filtration Rate [...] actual GFR. Performed By: #### 2 4323-8 ####[facility] LABCLIA [id number] [place] [address] Glucose [Mass/Vol] 106 mg/dL High 74-99 [facility] Comment on above: Order Comment: Salena stewart Type: BLOOD SPECIMENOrdering Facility: [facility] Address: [address] [phone] Result Comment: The [place] Diabetes Association (ADA) provides guidance for cutoff [...] Standards of Medical Care in Diabetes 2016, [place] [employer]. Diabetes Care. 2016.39(Suppl 1). Performed By: #### 2 4323-8 ####[facility] LABCLIA [id number] [place] [address] Potassium [Moles/Vol] 5.2 mmol/L High 3.7-5.1 [facility] Comment on above: Order Comment: Salena stewart Type: BLOOD SPECIMENOrdering Facility: [facility] Address: [address] [address] Performed By: #### 2 4323-8 ####[facility] LABCLIA [id number] [place] [address] Protein [Mass/Vol] 6.3 g/dL Normal 6.3-8.0 [facility] Comment on above: Order Comment: Speci men Type: BLOOD SPECIMENOrdering Facility: [facility] Address: [address] [address] Performed By: #### 2 4323-8 ####[facility] LABCLIA [id number] [place] [address] Sodium [Moles/Vol] 126 mmol/L Low 136-144 [facility] Comment on above: Order Comment: Speci men Type: BLOOD SPECIMENOrdering Facility: [facility] Address: [address] [place] [address] Performed By: #### 2 4323-8 ####[facility] LABCLIA [id number] [place] [address] Urea nitrogen [Mass/Vol] 15 mg/dL Normal 7-21 [facility] Comment on above: Order Comment: Speci men Type: BLOOD SPECIMENOrdering Facility: [facility] Address: [address] [place] [address] Performed By: #### 2 4323-8 ####[facility] LABCLIA [id number] [place] [address] Albumin [Mass/Vol] 4.5 g/dL 3.9 - 4.9 g/dL [facility] ALP [Catalytic activity/Vol] 48 U/L 34 - 123 U/L [facility] ALT [Catalytic activity/Vol] 18 U/L 7 - 38 U/L [facility] Anion gap [Moles/Vol] 10 mmol/L 9 - 18 mmol/L [facility] AST [Catalytic activity/Vol] 22 U/L 13 - 35 U/L [facility] Bilirubin [Mass/Vol] 0.2 mg/dL 0.2 - 1.3 mg/dL [facility] Calcium [Mass/Vol] 9.0 mg/dL 8.5 - 10. 2 mg/dL [facility] Chloride [Moles/Vol] 92 mmol/L Low 97 - 105 mmol/L [facility] CO2 [Moles/Vol] 24 mmol/L 22 - 30 mmol/L [facility] Creatinine [Mass/Vol] 1.18 mg/dL High 0.58 - 0.96 mg/dL [facility] Estimated Glomerular Filtration Rate 46 mL/min/1.73m Low >=60 mL/min/1.73m [facility] Glucose [Mass/Vol] 106 mg/dL High 74 - 99 mg/dL [facility] Potassium [Moles/Vol] 5.2 mmol/L High 3.7 - 5.1 mmol/L [facility] Protein [Mass/Vol] 6.3 g/dL 6.3 - 8.0 g/dL [facility] Sodium [Moles/Vol] 126 mmol/L Low 136 - 144 mmol/L [facility] Urea nitrogen [Mass/Vol] 15 mg/dL 7 - 21 mg/dL [facility] Ferritin SerPl-mCncon 2022 Ferritin [Mass/Vol] 31.6 ng/mL Normal 14.7-205.1 [facility] Comment on above: Order Comment: Speci men Type: BLOOD SPECIMENOrdering Facility: [facility] Address: [address] [place] [address] Performed By: #### 2 276-4, 04596-5 ####[facility] LABCLIA [id number] [place] [address] [place] Iron and Iron binding capaci ty panelon 02-02-2023 Iron [Mass/Vol] 29 ug/dL Low 41-186 [facility] Comment on above: Order Comment: Speci men Type: BLOOD SPECIMENOrdering Facility: [facility] Address: [address] [place] [address] Performed By: #### 2 276-4, 75981-8 ####[facility] LABCLIA [id number] [place] [address] [place] Iron binding capacity [Mass/Vol] 397 ug/dL High 232-386 [facility] Comment on above: Order Comment: Speci men Type: BLOOD SPECIMENOrdering Facility: [facility] Address: [address] [phone] Performed By: #### 2 276-4, 28924-3 ####[facility] LABCLIA [id number] [place] [address] [place] Iron/TIBC [Molar ratio] 7.3 % Low 15.0-57.0 [facility] Comment on above: Order Comment: Speci men Type: BLOOD SPECIMENOrdering Facility: [facility] Address: [address] [address] Performed By: #### 2 276-4, 79934-1 ####[facility] LABCLIA [id number] [address] [place] MISC [id number] 03-05-2022 Misc Sendout See Report Normal [facility] Comment on above: Order Comment: Patho logy add-on testing requested 12/24/2021 on [id number] to [facility] Performed By: #### 1 [id number] #### [facility] [address] [place] [address] Placement Secretary: German San MD HEMOGLOBINon 01-07-2022 Hemoglobin (Bld) [Mass/Vol] 10.8 g/dL Critically low 12.0-16.0 [facility] Comment on above: Performed By: #### H GB #### [facility] [address] [address] [address] Lilibeth Farooq Addendum Reporton 12-27-2021 Addendum Report [facility] Department of Pathology [address] [place] [phone] Name: KACIE CASE : 1940 [employer] [id number] Number: Gender: Female Location: [facility] Admit 81 years Attending MANUEL MCKAY Age: Provider: Ordering MANUEL MCKAY Provider: Consulting: Surgical Pathology Report ACCESSION: COLLECTED DATE/TIME: RECEIVED DATE/TIME: PATHOLOGIST: [id number] 11/18/2021 16:30 EDT 11/19/2021 13:44 EDT JASWINDER BADILLO, GERMAN CRONIN Surgical Path Addendum Report SLIDES HAVE BEEN REVIEWED BY AN OUTSIDE INSTITUTION. THE REPORT CAN BE VIEWED UNDER DOCUMENTS IN THE PATIENT'S CHART. GERMAN SAN PATHOLOGIST (Electronic Signature) Date Verified 12/27/2021 LISANDRA CRONIN Surgical Path Addendum Report SLIDES HAVE BEEN REVIEWED BY AN OUTSIDE INSTITUTION. THE REPORT CAN BE VIEWED UNDER DOCUMENTS IN THE PATIENT'S CHART. GERMAN SAN PATHOLOGIST (Electronic Signature) Date Verified 12/17/2021 CL Final Diagnosis Report for [facility] [place] (A) ULTRASOUND GUIDED CORE BIOPSY, LEFT [...] Print Date/ 12/27/2021 09:34 EDT Number: Time: [facility] Department of Pathology [address] [place] [phone] Name: KACIE CSAE : 1940 [facility] [id number] Number: Gender: Female Location: [facility] Admit 81 years Attending MANUEL MCKAY Age: Provider: Ordering MANUEL MCKAY Provider: Consulting: Surgical Pathology Report ACCESSION: COLLECTED DATE/TIME: RECEIVED DATE/TIME: PATHOLOGIST: [id number] 11/18/2021 16:30 EDT 11/19/2021 13:44 EDT GERMAN [...] Print Date/ 12/27/2021 09:34 EDT Number: Time: [facility] Department of Pathology [address] [place] [phone] Name: KACIE CASE : 1940 [facility] [id number] Number: Gender: Female Location: [facility] Admit 81 years Attending MANUEL MCKAY Age: Provider: Ordering MANUEL MCKAY Provider: Consulting: Surgical Pathology Report ACCESSION: COLLECTED DATE/TIME: RECEIVED DATE/TIME: PATHOLOGIST: [id number] 11/18/2021 16:30 EDT 11/19/2021 13:44 EDT GERMAN [...] MP/vishal 11/19/2021 Tissue pathology report for: [facility], [address] [place] [address]; PATHOLOGY SERVICES PROVIDED BY [email or web address] (CLIA #[id number]) in cooperation with [facility] at [address] [place] [address] (CLIA #[id number]) Microscopic Diagnosis NOTE: One or more of the reagents used to perform assays on this specimen MAY have contained components considered to be analyte specific reagents ( ASRs). ASRs have not been cleared or approved by the U.S. Food and Drug Administration. The performance characteristics of these assays have been determined by the Department of Pathology at [facility]. This assay was performed subsequent to (more content not included)... Normal [facility] Comment on above: Performed By: #### 9 [id number], [id number] #### [facility] [address] [place], [place] [id number] Placement Secretary: German San MD Addendum Reporton 12-17-2021 Addendum Report [facility] Department of Pathology [address] [place] [phone] Name: KACIE CASE : 1940 [facility] [id number] Number: Gender: Female Location: [facility] Admit 81 years Attending MANUEL MCKAY Age: Provider: Ordering MANUEL MCKAY Provider: Consulting: Surgical Pathology Report ACCESSION: COLLECTED DATE/TIME: RECEIVED DATE/TIME: PATHOLOGIST: [id number] 11/18/2021 16:30 EDT 11/19/2021 13:44 EDT GERMAN SAN MD Surgical Path Addendum Report SLIDES HAVE BEEN REVIEWED BY AN OUTSIDE INSTITUTION. THE REPORT CAN BE VIEWED UNDER DOCUMENTS IN THE PATIENT'S CHART. GERMAN SAN PATHOLOGIST (Electronic Signature) Date Verified 12/17/2021 CL Final Diagnosis Report for [facility], [place], [place] (A) ULTRASOUND GUIDED CORE BIOPSY, LEFT [...] Print Date/ 12/17/2021 09:25 EDT Number: Time: [facility] Department of Pathology [address] [place] [phone] Name: KAICE CASE : 1940 [facility] [id number] Number: Gender: Female Location: [facility] Admit 81 years Attending MANUEL MCKAY Age: Provider: Ordering MANUEL MCKAY Provider: Consulting: Surgical Pathology Report ACCESSION: COLLECTED DATE/TIME: RECEIVED DATE/TIME: PATHOLOGIST: [id number] 11/18/2021 16:30 EDT 11/19/2021 13:44 EDT GERMAN SAN MD Final Diagnosis These results support the above diagnosis and 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 GERMAN SAN PATHOLOGIST (Electronic Signature) Date Verified 11/21/2021 Clinical Data PRE-OP DIAGNOSIS: Not specified POST-OP [...] Print Date/ 12/17/2021 09:25 EDT Number: Time: [facility] Department of Pathology [address] [place], [place] [phone] Name: KACIE CASE : 1940 [facility] [id number] Number: Gender: Female Location: [facility] Admit 81 years Attending MANUEL MCKAY Age: Provider: Ordering MANUEL MCKAY Provider: Consulting: Surgical Pathology Report ACCESSION: COLLECTED DATE/TIME: RECEIVED DATE/TIME: PATHOLOGIST: [id number] 11/18/2021 16:30 EDT 11/19/2021 13:44 EDT GERMAN SAN MD Gross Description Tissue pathology report for: [facility], [address] [place] [address]; PATHOLOGY SERVICES PROVIDED BY [email or web address] (CLIA #[id number]) in cooperation with [facility] at [address] [place] [address] (CLIA #[id number]) Microscopic Diagnosis NOTE: One or more of the reagents used to perform assays on this specimen MAY have contained components considered to be analyte specific reagents ( ASRs). ASRs have not been cleared or approved by the U.S. Food and Drug Administration. The performance characteristics of these assays have been determined by the Department of Pathology at [facility]. This assay was performed subsequent to the H and E examination. Appropriate positive and negative controls were examined with appropriate reactivity. Codes CPT CODE: 34400 x2 + 23665 + 73818 x8 (more content not included)... Normal [facility] Comment on above: Performed By: #### 9 [id number], [id number] #### [facility] [address] [place] [address] Placement Secretary: German San MD [facility] W CON EXAMINATION: MRI BRA IN WO W CON HISTORY: Primary malignant neoplasm [...] MANUEL MCKAY Date: 2021-12-11 09:11 Normal [facility] CBC W Auto Differential pane l (Bld)on 12-06-2021 Abs Immature Gran <0.03 <0.10 k/uL [facility] Basophils (Bld) [#/Vol] 0.03 10*3/uL <0.11 k/uL [facility] Basophils/100 WBC (Bld) 0.5 % [facility] Differential cell count method Nom (Bld) Auto [facility] Eosinophils (Bld) [#/Vol] 0.06 10*3/uL <0.46 k/uL [facility] Eosinophils/100 WBC (Bld) 1.0 % [facility] Erythrocyte distribution width (RBC) [Ratio] 13.1 % 11.5 - 15.0 % [facility] Hematocrit (Bld) [Volume fraction] 30.1 % Low 36.0 - 46.0 % [facility] Hemoglobin (Bld) [Mass/Vol] 10.2 g/dL Low 11.5 - 15.5 g/dL [facility] Immature Gran % 0.3 % [facility] Lymphocytes (Bld) [#/Vol] 1.10 10*3/uL 1.00 - 4.00 k/uL [facility] Lymphocytes/100 WBC (Bld) 18.3 % [facility] MCH (RBC) [Entitic mass] 31.6 pg 26.0 - 34.0 pg [facility] MCHC (RBC) [Mass/Vol] 33.9 g/dL 30.5 - 36.0 g/dL [facility] MCV (RBC) [Entitic vol] 93.2 fL 80.0 - 100.0 fL [facility] Monocytes (Bld) [#/Vol] 0.71 10*3/uL <0.87 k/uL [facility] Monocytes/100 WBC (Bld) 11.8 % [facility] Neutrophils (Bld) [#/Vol] 4.09 10*3/uL 1.45 - 7.50 k/uL [facility] Neutrophils/100 WBC (Bld) 68.1 % [facility] Nucleated RBC (Bld) [#/Vol] 10*3/uL <0.01 k/uL [facility] Nucleated RBC/100 WBC (Bld) [Ratio] 0.0 /100 WBC [facility] Platelet mean volume (Bld) [Entitic vol] 9.6 fL 9.0 - 12.7 fL [facility] Platelets (Bld) [#/Vol] 249 10*3/uL 150 - 400 k/uL [facility] RBC (Bld) [#/Vol] 3.23 10*6/uL Low 3.90 - 5.2 0 m/uL [facility] WBC (Bld) [#/Vol] 6.01 10*3/uL 3.70 - 11. 00 k/uL [facility] Comprehensive metabolic 2000 panelon 12-06-2021 Albumin [Mass/Vol] 4.9 g/dL 3.9 - 4.9 g/dL [facility] ALP [Catalytic activity/Vol] 66 U/L 34 - 123 U/L [facility] ALT [Catalytic activity/Vol] 16 U/L 7 - 38 U/L [facility] Anion gap [Moles/Vol] 8 mmol/L Low 9 - 18 mmol/L [facility] AST [Catalytic activity/Vol] 18 U/L 13 - 35 U/L [facility] Bilirubin [Mass/Vol] 0.2 mg/dL 0.2 - 1.3 mg/dL [facility] Calcium [Mass/Vol] 9.6 mg/dL 8.5 - 10. 2 mg/dL [facility] Chloride [Moles/Vol] 97 mmol/L 97 - 105 mmol/L [facility] CO2 [Moles/Vol] 27 mmol/L 22 - 30 mmol/L [facility] Creatinine [Mass/Vol] 1.06 mg/dL High 0.58 - 0.96 mg/dL [facility] Estimated Glomerular Filtration Rate 53 mL/min/1.73m Low >=60 mL/min/1.73m [facility] Glucose [Mass/Vol] 97 mg/dL 74 - 99 mg/dL [facility] Potassium [Moles/Vol] 4.7 mmol/L 3.7 - 5.1 mmol/L [facility] Protein [Mass/Vol] 6.8 g/dL 6.3 - 8.0 g/dL [facility] Sodium [Moles/Vol] 132 mmol/L Low 136 - 144 mmol/L [facility] Urea nitrogen [Mass/Vol] 28 mg/dL High 7 - 21 mg/dL [facility] US MUSC_SOFT TISSUE BXon MUSC_SOFT TISSUE BX Begin Addendum #1 COLLECTED DATE/TIME: 11/18/2021 16:30 EDT Final Diagnosis Report for [facility] [place], [place] (A) ULTRASOUND GUIDED CORE BIOPSY, LEFT [...] results from the referring physician. Normal [facility] SURGICAL PATH REPORTon 11-21 SURGICAL PATH REPORT [facility] Department of Pathology [address] [place] [phone] Name: KACIE CASE : 1940 [employer] [id number] Number: Gender: Female Location: [facility] Admit 81 years Attending MANUEL MCKAY Age: Provider: Ordering MANUEL MCKAY Provider: Consulting: Surgical Pathology Report ACCESSION: COLLECTED DATE/TIME: RECEIVED DATE/TIME: PATHOLOGIST: [id number] 11/18/2021 16:30 EDT 11/19/2021 13:44 EDT GERMAN SAN MD Final Diagnosis Report for [facility] [place] [place] (A) ULTRASOUND GUIDED CORE BIOPSY, LEFT [...] Print Date/ 11/21/2021 12:45 EDT Number: Time: [facility] Department of Pathology [address] [place] [phone] Name: KACIE CASE : 1940 [employer] [id number] Number: Gender: Female Location: [facility] Admit 81 years Attending MANUEL MCKAY Age: Provider: Ordering MANUEL MCKAY Provider: Consulting: Surgical Pathology Report ACCESSION: COLLECTED DATE/TIME: RECEIVED DATE/TIME: PATHOLOGIST: [id number] 11/18/2021 16:30 EDT 11/19/2021 13:44 EDT GERMAN [...] MP/vishal 11/19/2021 Tissue pathology report for: [facility], [address] [place] [address]; PATHOLOGY SERVICES PROVIDED BY [employer] (CLIA #[id number]) in cooperation with [facility] at [address] [place] [address] (CLIA #[id number]) Microscopic Diagnosis NOTE: One or more of the reagents used to perform assays on this specimen MAY have contained components considered to be analyte specific reagents ( ASRs). ASRs have not been cleared or approved by the U.S. Food and Drug Administration. The performance characteristics of these assays have been determined by the Department of Pathology at [facility]. Print Date11/21/2021 12:45 EDT Number: Time: [facility] Department of Pathology [address] [place] [phone] Name: KACIE CASE : 1940 [facility] [id number] Number: Gender: Female Location: [facility] Admit 81 years Attending MANUEL MCKAY Age: Provider: Ordering MANUEL MCKAY Provider: Consulting: Surgical Pathology Report ACCESSION: COLLECTED DATE/TIME: RECEIVED DATE/TIME: PATHOLOGIST: [id number] 11/18/2021 16:30 EDT 11/19/2021 13:44 EDT JASWINDER BADILLO, GERMAN Microscopic Diagnosis This assay was performed subsequent to the H and E examination. Appropriate positive and negative controls were examined with appropriate reactivity. Codes CPT CODE: 41168 x2 + 61785 + 64419 x8 Print Date11/21/2021 12:45 EDT Number: Time: [facility] Comment on above: Performed By: #### 9 [id number], [id number] #### [facility] [address] [place] [address] Placement Secretary: German San MD MUSC_SOFT TISSUE BXon MUSC_SOFT TISSUE BX EXAMINATION: [...] by: MANUEL MCKAY Date: 2021-11-18 15:50 Normal [facility] US EXT NON VASC LIMITED LTon 11-12-2021 [...] by: MANUEL MCKAY Date: 2021-11-12 11:12 Normal [facility] XR lumbar spine AP/LAT/FLX/E XTon 11-22-2020 XR lumbar spine AP/LAT/FLX/EXT [place] [address] XRay Report Signed Patient: Kacie Case MR#: [id number] : 1940 Acct:[id number] Age/Sex: 80 / F ADM Date: 11/22/20 Loc: XD Room: Type: [facility] Attending Dr: Ventura Tierney MD Ordering Provider: [...] Janes Houston M.D.11/22/2020 4:21 PM Dictation Location: [address] [address] Transcribed By: [facility] 11/22/20 1621 Dictated By: Janes Houston II, MD 11/22/20 1618 Signed By: 11/22/20 1621 [facility] Vital Signs Date Time Vital Sign Value Performing Clinician Timi leta 03-05-2023 13:18-0400 Body height 154.9 cm Nir Velasquez MD Work Phone: [facility] 03-05-2023 13:18-0400 Body temperature 97.11 [degF] Nir Velasquez MD Work Phone: [facility] 03-05-2023 13:18-0400 Body weight 65.68 kg Nir Velasquez MD Work Phone: [facility] 03-05-2023 13:18-0400 Diastolic blood pressure 53 mm[Hg] Nir Velasquez MD Work Phone: [facility] 03-05-2023 13:18-0400 Heart rate 98 /min Nir Velasquez MD Work Phone: [facility] 03-05-2023 13:18-0400 Respiratory rate 16 /min Nir Velasquez MD Work Phone: [facility] 03-05-2023 13:18-0400 SaO2% (BldA) [Mass fraction] 98 % Nir Velasquez MD Work Phone: [facility] 03-05-2023 13:18-0400 Systolic blood pressure 96 mm[Hg] Nir Velasquez MD Work Phone: [facility] 02-02-2023 11:04-0400 Body temperature 97.9 [degF] Nir Velasquez MD Work Phone: [facility] 02-02-2023 11:04-0400 Body weight 69.31 kg Nir Velasquez MD Work Phone: [facility] 02-02-2023 11:04-0400 Diastolic blood pressure 57 mm[Hg] Nir Velasquez MD Work Phone: [facility] 02-02-2023 11:04-0400 Heart rate 70 /min Nir Velasquez MD Work Phone: [facility] 02-02-2023 11:04-0400 Respiratory rate 18 /min Nir Velasquez MD Work Phone: [facility] 02-02-2023 11:04-0400 SaO2% (BldA) [Mass fraction] 100 % Nir Velasquez MD Work Phone: [facility] 02-02-2023 11:04-0400 Systolic blood pressure 136 mm[Hg] Nir Velasquez MD Work Phone: [facility] 10-20-2022 10:28-0400 Body temperature 96.8 [degF] Vince Gaming MD Work Phone: [facility] 10-20-2022 10:28-0400 Body weight 68.95 kg Vince Gaming MD Work Phone: [facility] 10-20-2022 10:28-0400 Diastolic blood pressure 82 mm[Hg] Vince Gaming MD Work Phone: [facility] 10-20-2022 10:28-0400 Heart rate 80 /min Vince Gaming MD Work Phone: [facility] 10-20-2022 10:28-0400 Respiratory rate 18 /min Vince Gaming MD Work Phone: [facility] 10-20-2022 10:28-0400 SaO2% (BldA) [Mass fraction] 98 % Vince Gaming MD Work Phone: [facility] 10-20-2022 10:28-0400 Systolic blood pressure 169 mm[Hg] Vince Gaming MD Work Phone: [facility] 05-09-2022 10:41-0500 Body temperature 97.3 [degF] Vince Gaming MD Work Phone: [facility] 05-09-2022 10:41-0500 Body weight 70.31 kg Vince Gaming MD Work Phone: [facility] 05-09-2022 10:41-0500 Diastolic blood pressure 83 mm[Hg] Vince Gaming MD Work Phone: [facility] 05-09-2022 10:41-0500 Heart rate 76 /min Vince Gaming MD Work Phone: [facility] 05-09-2022 10:41-0500 Respiratory rate 16 /min Vince Gaming MD Work Phone: [facility] 05-09-2022 10:41-0500 SaO2% (BldA) [Mass fraction] 99 % Vince Gaming MD Work Phone: [facility] 05-09-2022 10:41-0500 Systolic blood pressure 149 mm[Hg] Vince Gaming MD Work Phone: [facility] 01-02-2022 09:06-0400 Body temperature 96.69 [degF] Vince Gaming MD Work Phone: [facility] 01-02-2022 09:06-0400 Body weight 69.4 kg Vince Gaming MD Work Phone: [facility] 01-02-2022 09:06-0400 Diastolic blood pressure 90 mm[Hg] Vince Gaming MD Work Phone: [facility] 01-02-2022 09:06-0400 Heart rate 71 /min Vince Gaming MD Work Phone: [facility] 01-02-2022 09:06-0400 Respiratory rate 18 /min Vince Gaming MD Work Phone: [facility] 01-02-2022 09:06-0400 SaO2% (BldA) [Mass fraction] 100 % Vince Gaming MD Work Phone: [facility] 01-02-2022 09:06-0400 Systolic blood pressure 144 mm[Hg] Vince Gaming MD Work Phone: [facility] 12-27-2021 10:43-0400 Body height 154.9 cm Soren Deutsch MD Work Phone: [facility] 12-27-2021 10:43-0400 Body temperature 97.3 [degF] Soren Deutsch MD Work Phone: [facility] 12-27-2021 10:43-0400 Body weight 69.22 kg Soren Deutsch MD Work Phone: [facility] 12-27-2021 10:43-0400 Diastolic blood pressure 51 mm[Hg] Soren Deutsch MD Work Phone: [facility] 12-27-2021 10:43-0400 Heart rate 77 /min Soren Deutsch MD Work Phone: [facility] 12-27-2021 10:43-0400 Respiratory rate 16 /min Soren Deutsch MD Work Phone: [facility] 12-27-2021 10:43-0400 SaO2% (BldA) [Mass fraction] 99 % Soren Deutsch MD Work Phone: [facility] 12-27-2021 10:43-0400 Systolic blood pressure 141 mm[Hg] Soren Deutsch MD Work Phone: [facility] 12-06-2021 15:47-0400 Body height 154.9 cm Soren Deutsch MD Work Phone: [facility] 12-06-2021 15:47-0400 Body temperature 97.7 [degF] Soren Deutsch MD Work Phone: [facility] 12-06-2021 15:47-0400 Body weight 68.49 kg Soren Deutsch MD Work Phone: [facility] 12-06-2021 15:47-0400 Diastolic blood pressure 80 mm[Hg] Soren Deutsch MD Work Phone: [facility] 12-06-2021 15:47-0400 Heart rate 85 /min Soren Deutsch MD Work Phone: [facility] 12-06-2021 15:47-0400 Respiratory rate 16 /min Soren Deutsch MD Work Phone: [facility] 12-06-2021 15:47-0400 SaO2% (BldA) [Mass fraction] 99 % Soren Deutsch MD Work Phone: [facility] 12-06-2021 15:47-0400 Systolic blood pressure 156 mm[Hg] Soren Deutsch MD Work Phone: [facility] Encounters Encounter Date Encounter Type Care Provider Facility Start: 02-19-2024 End: 02-19-2024 ambulatory [facility] Start: 02-08-2024 End: 02-08-2024 ambulatory [facility] Start: 01-13-2024 End: 01-13-2024 ambulatory ANNA PEREIRA Not Available Start: 11-02-2023 End: 11-02-2023 ambulatory [facility] Start: 10-14-2023 Telephone encounter Malik mata APRN.CNP Work Phone: Hematology/Oncology Comment on above: Lab Orders Start: 08-20-2023 Refill Anna Thomas RN Hemat ology/Oncology Comment on above: pain/CT order Start: 08-17-2023 End: 08-17-2023 ambulatory TK ROQUE Not Available Start: 06-11-2023 End: 06-11-2023 ambulatory NIR VELASQUEZ Facility:[facility] Start: 06-05-2023 End: 06-05-2023 ambulatory TK ROQUE II Facility:[facility] Start: 04-16-2023 End: 04-16-2023 ambulatory [facility] Start: 03-05-2023 End: 03-05-2023 ambulatory TK ROQUE II Facility:[facility] Start: 03-05-2023 End: 03-05-2023 ambulatory Nir Velasquez MD Work Phone: Hematology/Oncology Comment on above: 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); Lung nodule; Iron deficiency anemia, unspecified iron deficiency anemia type; Heart disease; Chronic obstructive pulmonary disease, unspecified COPD type (HCC) Start: 03-05-2023 End: 03-05-2023 Patient encounter procedure Nir Velasquez MD Work Phone: [facility] Comment on above: Malignant neoplasm o f unspecified part of unspecified bronchus or lung (HCC) (Primary Dx) Start: 02-26-2023 End: 02-26-2023 ambulatory TK ROQUE II Facility:[facility] Start: 02-18-2023 Social Work Ronna MARTINEZ Hematolo gy/Oncology Start: 02-10-2023 Telephone encounter Financial Navigator Sagar Work Phone: Hematology/Oncology Comment on above: Benefits Investigati on Start: 02-10-2023 End: 02-11-2023 ambulatory TK ROQUE Facility:[facility] Start: 02-04-2023 Telephone encounter Margarita Luz RN Hematology/Oncology Comment on above: Results Appointment Start: 02-03-2023 End: 02-03-2023 ambulatory TK ROQUE II Facility:[facility] Start: 02-02-2023 End: 02-02-2023 ambulatory Nir Velasquez MD Work Phone: Hematology/Oncology Comment on above: 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); Lung nodule; Iron deficiency anemia, unspecified iron deficiency anemia type Start: 02-02-2023 End: 02-02-2023 Patient encounter procedure Nir Velasquez MD Work Phone: [facility] Start: 11-03-2022 End: 11-03-[address] MARIVEL [...] above: Procedure Start: 02-18-2022 Telephone encounter Anna Guzman Hematology/Oncology Comment on above: Appointment Refill [...] encounter procedure Vince Gaming MD Work Phone: [facility] Start: 02-03-2022 Radiation Oncology Note Vince headley MD Work Phone: Radiation Oncology Comment on above: Procedure Start: 01-31-2022 End: 01-31-2022 Patient encounter procedure Jared Freeman MD Work Phone: Radiation Oncology Comment on above: Malignant neoplasm o f lung, unspecified laterality, unspecified part of lung (HCC) (Primary Dx) Start: 01-31-2022 Radiation Oncology Note Jared Freeman MD Work Phone: Radiation Oncology Comment on above: Procedure Start: 01-30-2022 Telephone encounter Vince Gaming MD Work Phone: Radiation Oncology Comment on above: Orders Start: 01-29-2022 Patient encounter procedure Vince Gaming MD Work Phone: [facility] Start: 01-29-2022 Radiation Oncology Note Vince headley MD Work Phone: Radiation Oncology Comment on above: Procedure Start: 01-17-2022 Patient encounter procedure [facility] Provider [facility] Department Start: 01-16-2022 End: 01-16-2022 Patient encounter procedure Vince Gaming MD Work Phone: [facility] Comment on above: Malignant neoplasm o f lung, unspecified laterality, unspecified part of lung (HCC) (Primary Dx) Start: 01-16-2022 Radiation Oncology Note Vince headley MD Work Phone: Radiation Oncology Comment on above: Simulation Note Treatment Planning Start: 01-07-2022 End: 01-08-2022 ambulatory VINCE GAMING Facility:[facility] Start: 01-02-2022 Telephone encounter Soren Deutsch MD Work Phone: Radiation Oncology Comment on above: Results Start: 01-02-2022 End: 01-02-2022 Patient encounter procedure Vince Gaming MD Work [...] encounter procedure Soren Deutsch MD Work Phone: [facility] Start: 12-23-2021 Orders Only Soren ny MD Work Phone: Hematology/Oncology Comment on above: Malignant neoplasm o f lung, unspecified laterality, unspecified part of lung (HCC) (Primary Dx) Start: 12-12-2021 End: 12-13-2021 ambulatory MD SOREN DEUTSCH Facility:[id number] Start: 12-10-2021 End: 12-11-[address] MANUEL [...] encounter [facility] Comment on above: Future Appointment Start: 12-04-2021 Chart abstracting Soren crooks MD Work Phone: Hematology/Oncology Start: 11-18-2021 End: 11-19-2021 ambulatory MANUEL MCKAY Facility:[facility] Start: 11-12-2021 End: 11-13-[address] COTY KNIGHT Facility:[facility] Start: 01-30-2021 End: 01-31-2021 ambulatory JUNE LEONEB Facility:[facility] Procedures Date Procedure Procedure Detail Performing Clinician Start: 02-03-2023 Blood occult fecal h gb deter ia qual feces 1-3 Nir Velasquez MD Work Phone: Plan of Treatment Date Care Activity Detail Author Start: 06-05-2026 [facility] Start: 03-05-2026 DIABETES SCREEN DIABETES SCREEN [facility] Start: 03-05-2026 [facility] Start: 02-02-2026 DIABETES SCREEN DIABETES SCREEN [facility] Start: 12-06-2024 DIABETES SCREEN DIABETES SCREEN [facility] Start: 10-15-2023 End: 01-14-2024 CBC W Auto Differential panel - Blood COMPLETE BLOOD COUNT AND DIFFERENTIAL Lab Routine 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) Expected: 10/15/2023, Expires: 01/14/2024 [facility] Work Phone: Comment on above: Expected: 10/15/2023 , Expires: 01/14/2024 Start: 10-15-2023 End: 01-14-2024 Comprehensive metabolic 2000 panel - Serum or Plasma COMPREHENSIVE METABOLIC PANEL Lab Routine 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) Expected: 10/15/2023, Expires: 01/14/2024 [facility] Comment on above: Expected: 10/15/2023 , Expires: 01/14/2024 Start: 10-15-2023 End: 01-14-2024 Ferritin [Mass/volume] in Serum or Plasma FERRITIN Lab Routine 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) Expected: 10/15/2023, Expires: 01/14/2024 [facility] Comment on above: Expected: 10/15/2023 , Expires: 01/14/2024 Start: 10-15-2023 End: 01-14-2024 Iron and Iron binding capacity panel - Serum or Plasma IRON AND TIBC Lab Routine 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) Expected: 10/15/2023, Expires: 01/14/2024 [facility] Comment on above: Expected: 10/15/2023 , Expires: 01/14/2024 Start: 06-29-2023 Advance Directive Discussion Advance Directive Discussion [facility] Start: 06-29-2023 Behavioral Health Screening Behavioral Health Screening [facility] Start: 06-29-2023 Depression Assessment Depression Ass essment [facility] Start: 06-04-2023 End: 08-04-2023 Basic metabolic 2000 panel - Serum or Plasma BASIC METABOLIC PNL Lab Routine 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) Expected: 06/04/2023 (Approximate), Expires: 08/04/2023 [facility] Work Phone: Comment on above: Expected: 06/04/2023 (Approximate), Expires: 08/04/2023 Start: 06-04-2023 End: 08-04-2023 CBC W Auto Differential panel - Blood CBC + DIFF Lab Routine 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) Expected: 06/04/2023 (Approximate), Expires: 08/04/2023 [facility] Work Phone: Comment on above: Expected: 06/04/2023 (Approximate), Expires: 08/04/2023 Start: 06-04-2023 End: 04-03-2024 CT CHEST W IVCON CT CHEST W IVCON Radiology Routine Expected: 06/04/2023 (Approximate), Expires: 04/03/2024 [facility] Work Phone: Comment on above: Expected: 06/04/2023 (Approximate), Expires: 04/03/2024 Start: 06-04-2023 End: 08-04-2023 Ferritin [Mass/volume] in Serum or Plasma FERRITIN BLD Lab Routine 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) Expected: 06/04/2023 (Approximate), Expires: 08/04/2023 [facility] Work Phone: Comment on above: Expected: 06/04/2023 (Approximate), Expires: 08/04/2023 Start: 06-04-2023 End: 08-04-2023 Iron and Iron binding capacity panel - Serum or Plasma IRON + TIBC Lab Routine 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) Expected: 06/04/2023 (Approximate), Expires: 08/04/2023 [facility] Work Phone: Comment on above: Expected: 06/04/2023 (Approximate), Expires: 08/04/2023 Start: 02-27-2023 Covid-19 Vaccine () Covid-19 Vaccine () [facility] Start: 02-27-2023 Influenza vaccination [facility] Start: 02-09-2023 End: 11-19-2023 CT CHEST W IVCON CT CHEST W IVCON Radiology Routine Neoplasm of lung Expected: 02/09/2023, Expires: 11/19/2023 [facility] Work Phone: Comment on above: Expected: 02/09/2023 , Expires: 11/19/2023 Start: 10-24-2022 End: 06-08-2023 NM PET/CT SKULL-THIGH SUBSEQUENT NM PET/CT SKULL-THIGH SUBSEQUENT Radiology Routine Malignant neoplasm of unspecified part of unspecified bronchus or lung (HCC) Expected: 10/24/2022, Expires: 06/08/2023 [facility] Work Phone: Comment on above: Expected: 10/24/2022 , Expires: 06/08/2023 Start: 10-20-2022 End: 12-20-2022 CREATININE BLD CREATININE BLD Lab Routine Malignant neoplasm of unspecified part of unspecified bronchus or lung (HCC) Neoplasm of lung Expected: 10/20/2022, Expires: 12/20/2022 [facility] Work Phone: Comment on above: Expected: 10/20/2022 , Expires: 12/20/2022 Start: 06-29-2022 ADVANCE DIRECTIVE DISCUSSION ADVANCE DIRECTIVE DISCUSSION [facility] Start: 06-29-2022 DEPRESSION ASSESSMENT DEPRESSION ASS ESSMENT [facility] Start: 05-13-2022 End: 03-01-2023 NM PET/CT SKULL-THIGH SUBSEQUENT NM PET/CT SKULL-THIGH SUBSEQUENT Radiology Routine Malignant neoplasm of lung, unspecified laterality, unspecified part of lung (HCC) Malignant neoplasm of unspecified part of unspecified bronchus or lung (HCC) Expected: 05/13/2022, Expires: 03/01/2023 [facility] Work Phone: Comment on above: Expected: 05/13/2022 , Expires: 03/01/2023 Start: 02-27-2022 Influenza vaccination [facility] Start: 12-07-2021 End: 02-06-2022 CBC W Auto Differential panel - Blood CBC + DIFF Lab Routine Malignant neoplasm of lung, unspecified laterality, unspecified part of lung (HCC) Normocytic anemia Expected: 12/07/2021, Expires: 02/06/2022 [facility] Work Phone: Comment on above: Expected: 12/07/2021 , Expires: 02/06/2022 Start: 12-07-2021 End: 02-06-2022 Cobalamin (Vitamin B12) [Mass/volume] in Serum or Plasma VITAMIN B12 BLOOD Lab Routine Malignant neoplasm of lung, unspecified laterality, unspecified part of lung (HCC) Normocytic anemia Expected: 12/07/2021, Expires: 02/06/2022 [facility] Work Phone: Comment on above: Expected: 12/07/2021 , Expires: 02/06/2022 Start: 12-07-2021 End: 02-06-2022 Ferritin [Mass/volume] in Serum or Plasma FERRITIN BLD Lab Routine Malignant neoplasm of lung, unspecified laterality, unspecified part of lung (HCC) Normocytic anemia Expected: 12/07/2021, Expires: 02/06/2022 [facility] Work Phone: Comment on above: Expected: 12/07/2021 , Expires: 02/06/2022 Start: 12-07-2021 End: 02-06-2022 Haptoglobin [Mass/volume] in Serum or Plasma HAPTOGLOBIN BLD Lab Routine Malignant neoplasm of lung, unspecified laterality, unspecified part of lung (HCC) Normocytic anemia Expected: 12/07/2021, Expires: 02/06/2022 [facility] Work Phone: Comment on above: Expected: 12/07/2021 , Expires: 02/06/2022 Start: 12-07-2021 End: 02-06-2022 Iron and Iron binding capacity panel - Serum or Plasma IRON + TIBC Lab Routine Malignant neoplasm of lung, unspecified laterality, unspecified part of lung (HCC) Normocytic anemia Expected: 12/07/2021, Expires: 02/06/2022 [facility] Work Phone: Comment on above: Expected: 12/07/2021 , Expires: 02/06/2022 Start: 12-07-2021 End: 02-06-2022 RETIC COUNT RETIC COUNT Lab Routine Malignant neoplasm of lung, unspecified laterality, unspecified part of lung (HCC) Normocytic anemia Expected: 12/07/2021, Expires: 02/06/2022 [facility] Work Phone: Comment on above: Expected: 12/07/2021 , Expires: 02/06/2022 Start: 06-29-2021 ADVANCE DIRECTIVE DISCUSSION ADVANCE DIRECTIVE DISCUSSION [facility] Start: 06-29-2021 DEPRESSION ASSESSMENT DEPRESSION ASS ESSMENT [facility] Start: 2006 BONE DENSITY BONE DENSITY [facility] Start: 2006 Bone Density Screening Bone Density Screening [facility] Start: 2006 PNEUMOCOCCAL: 65+ (1 - PCV) PNEUMOCOCCAL: 65+ (1 - PCV) [facility] Start: 2006 Screening for osteoporosis Bone Density Screening [facility] Start: 2001 RSV Vaccine (1 - 1-d ose 60+ series) RSV Vaccine (1 - 1-dose 60+ series) [facility] Start: 10-28-1991 SHINGRIX VACCINE (1 of 2) SHINGRIX VACCINE (1 of 2) [facility] Start: 1986 DIABETES SCREEN DIABETES SCREEN [facility] Start: 1960 Urine microalbumin profile [facility] Start: 1953 Adult depression screening assessment DEPRESSION SCREENING [facility] Start: 1946 COVID-19 VACCINE (#1) COVID-19 VACCI NE (#1) [facility] Start: 04-29-1942 COVID-19 VACCINE (#1) COVID-19 VACCI NE (#1) [facility] End: 01-05-2023 Mri brain brain stem w/o w/contrast material MRI BRAIN WO/W IVCON Radiology Routine Malignant neoplasm of lung, unspecified laterality, unspecified part of lung (HCC) 1 Occurrences starting 12/06/2021 until 01/05/2023 [facility] Work Phone: Comment on above: 1 Occurrences starti ng 12/06/2021 until 01/05/2023 End: 03-03-2024 NM PET/CT SKULL-THIGH SUBSEQUENT NM PET/CT SKULL-THIGH SUBSEQUENT Radiology Routine 1 Occurrences starting 02/02/2023 until 03/03/2024 [facility] Work Phone: Comment on above: 1 Occurrences starti ng 02/02/2023 until 03/03/2024 OUTSIDE SURG PATH SL JOHANNE REVIEW OUTSIDE SURG PATH SLIDE REVIEW Lab Routine Ordered: 12/06/2021 [facility] Work Phone: Comment on above: Ordered: 12/06/2021 End: 01-05-[address] attenuation skull base mid-thigh NM PET/CT SKULL-THIGH INITIAL Radiology Routine Neoplasm of lung Malignant neoplasm of upper lobe, left bronchus or lung (HCC) 1 Occurrences starting 12/06/2021 until 01/05/2023 [facility] Work Phone: Comment on above: 1 Occurrences starti ng 12/06/2021 until 01/05/2023 REFERRAL FOR ADDITIO NAL BIOMARKER AND MOLECULAR TESTING REFERRAL FOR ADDITIONAL BIOMARKER AND MOLECULAR TESTING Lab Routine Malignant neoplasm of lung, unspecified laterality, unspecified part of lung (HCC) 12/23/2021 12:02 PM EDT [facility] Work Phone: End: 02-01-2023 SPIROMETRY BASELINE ONLY SPIROMETRY BASELINE ONLY PFT Routine Malignant neoplasm of lung, unspecified laterality, unspecified part of lung (HCC) 1 Occurrences starting 01/02/2022 until 02/01/2023 [facility] Work Phone: Comment on above: 1 Occurrences starti ng 01/02/2022 until 02/01/2023 [facility] Immunizations Immunization Date Immunization Notes Care Provider [facility] 04-19-2022 influenza virus vacc ine, unspecified formulation Vince Gaming MD Work Phone: [facility] 04-08-2021 influenza, high dose seasonal, preservative-free Soren Deutsch MD Work Phone: [facility] 03-26-2020 influenza, high dose seasonal, preservative-free Soren Deutsch MD Work Phone: [facility] 11-01-2019 zoster vaccine recombinant Soren Deutsch MD Work Phone: [facility] 03-25-2019 AS03 adjuvant Soren ny MD Work Phone: [facility] 03-25-2019 Seasonal trivalent influenza vaccine, adjuvanted, preservative free Soren Deutsch MD Work Phone: [facility] 03-25-2019 zoster vaccine recombinant Soren Deutsch MD Work Phone: [facility] 03-24-2018 influenza, high dose seasonal, preservative-free Soren Deutsch MD Work Phone: [facility] 03-17-2017 influenza, high dose seasonal, preservative-free Soren Deutsch MD Work Phone: [facility] 03-02-2017 influenza, injectabl e, quadrivalent, preservative free Soren Deutsch MD Work Phone: [facility] 09-01-2016 pneumococcal polysaccharide vaccine, 23 valent Soren Deutsch MD Work Phone: [facility] 04-07-2016 pneumococcal conjuga te vaccine, 13 valent Soren Deutsch MD Work Phone: [facility] 10-26-2015 seasonal influenza, intradermal, preservative free Soren Deutsch MD Work Phone: [facility] 04-09-2015 influenza, high dose seasonal, preservative-free Soren Deutsch MD Work Phone: [facility] Payers Date Payer Category Payer Unknown [employer] [facility] [place] MEDICARE SUPPLEMENT [id number] 2013-Present [phone] [id number] [place] [address] Indemni [id number] 2013 Unknown [id number] 2008 Unknown [id number] 2006 Medicare MEDICARE MEDICAR E A AND B [id number] 2006-Present [phone] [address] [address] [place] [address] Medicare [id number] 2006 Medicare [id number] 1959 Medicare [id number] 1959 Unknown [id number] 1941 Unknown [id number] 7 1941 Unknown [id number] 9 1941 Unknown [id number] 3 1941 Unknown [id number] 3 1941 Unknown [id number] 3 1941 Unknown [id number] 3 1941 Unknown [id number] 3 1941 Unknown [id number] 59 1941 Unknown [id number] 59 Social History Date Type Detail Facility Start: 12-29-2011 Tobacco smoking stat us IAIS Never smoked tobacco [facility] Start: 12-29-2011 End: 02-02-2023 Tobacco use and exposure Smokeless tobacco non-user [facility] Start: 12-04-2021 End: 06-11-2023 Alcohol intake Current non-drinker of alcohol (finding) [facility] Start: 1941 Sex Assigned At Not on file [facility] Start: 12-06-2021 End: 02-02-2023 Tobacco smoking status NHIS [facility] [facility] Start: 11-26-2021 End: 05-09-2022 Exposure to SARS-CoV-2 (event) Not sure [facility] End: 06-29-1969 History of tobacco use Current smoker [facility] End: 06-29-1969 History of tobacco use Cigarette Smoker [facility] Start: 11-06-2022 End: 02-02-2023 Cigarettes smoked current (pack per day) - Reported 0.3 [facility] Start: 11-06-2022 End: 02-02-2023 Tobacco use panel [facility] Adult Depression Scr eening Assessment 0 [facility] Clinical Notes 12-06-2021 to 02-19-2024 Telephone Encounter - Yasmin Guerrero MA - 10/14/2023 1:00 PM EDTTelephone Encounter - Yasmin Guerrero MA - 10/14/2023 1:00 PM EDTTelephone Encounter - WilliamAnnaRIYA - 08/20/2023 3:05 PM EST Note Date & Type Note Facility 02-19-2024 Note Cardiovascular Labor atory Report FINAL IMPRESSIONS: Unsuccessful attempt at right heart catheterization via right internal jugular approach Echocardiographic evidence of minimal anterior pericardial effusion insufficient to warrant pericardiocentesis RECOMMENDATIONS: A repeat limited echocardiogram will be performed in a month Further investigations for the patient's shortness of breath as clinically appropriate; given her extensive pulmonary history, would recommend follow-up with her field education director and consideration of a repeat CT scan of the chest. She is to follow-up with Dr. Reddy in the [place] office following her echocardiogram that will scheduled in 1 month PROCEDURES: Ultrasound-guided access to the right internal jugular vein vein, inability to advance a wire into the superior vena cava, bedside transthoracic echocardiography, aborted procedure METHODS: After risks, benefits, and alternatives were explained, written informed consent was obtained. The patient was prepped and draped in usual sterile fashion over the right neck. Using 1% lidocaine solution, local infiltration anesthesia was achieved. Using a modified Seldinger technique, a micropuncture kit, and under ultrasound guidance, access to the right internal jugular vein was obtained. Inability to advance the micropuncture wire into the superior vena cava was encountered; the wire curved into the subclavian vein. This was repeated with similar results. At this point, it was elected to abort attempts at right heart catheterization. The micropuncture sheath was removed with application of manual pressure to achieve optimal hemostasis. The patient's precordium had been prepped and draped in usual sterile fashion. Limited ultrasonography was performed; this revealed minimal anterior effusion and a small to moderate posterior effusion. Given the low likelihood of successful pericardiocentesis of the anterior effusion, it was elected to abort the procedure Overall the patient tolerated the procedure well. There were no overt complications. She was to be transferred to his hospital room in stable condition. FINDINGS: Hemodynamics: AO: 158/98 [122] INDICATION: Mrs. Case is an 83-year-old woman with a history of moderate to large pericardial effusion that has been followed as an outpatient. Serial echocardiogram showed no evidence of tamponade physiology. Due to worsening shortness of breath, there was elected to attempt pericardiocentesis for diagnostic and therapeutic purposes. Further findings and recommendations as above. [facility] 02-08-2024 Note [facility] Cardiology Clinic Note Chief Complaint: Patient here for 3 mo follow up CAD, afib, and pericardial effusion. Had echo last week. Denies chest pain, palpitations, and bleeding on Xarelto. C/o SOB. HPI: Kacie Case is a 83 y.o. female She has been having progressively worsening shortness of breath with mild exertion over the past several months. She denies chest pain. She has no orthopnea, she has no paroxysmal external dyspnea, she denies lower extremity edema. She denies lightheadedness, dizziness or syncope. She and her daughter both noticed that she becomes more short of breath when walking from 1 room to the next or when walking from the parking lot to the hospital. She has not seen her oncologist for a while. Cardiology ROS: Review of Systems Cardiovascular: Positive for dyspnea on exertion. Respiratory: Positive for shortness of breath. Musculoskeletal: Positive for arthritis and back pain. Neurological: Positive for dizziness and numbness (hands). All other systems reviewed and are negative. [...] , Rfl: clopidogrel (Plavix) 75 mg tablet, take 1 tablet by mouth every morning, Disp: 90 tablet, Rfl: 3 metoprolol tartrate (Lopressor) 25 mg tablet, take 1/2 tablet by mouth IN THE MORNING and at bedtime, Disp: 90 tablet, Rfl: 3 MULTIVITAMIN ORAL, Take by mouth., Disp: , Rfl: omega 6-wxi-vhy-fish oil (Fish OiL) 100-160-1,000 mg capsule, Fish [...] Disp: , Rfl: Last Recorded Vitals BP 112/70 (BP Location: Right arm, Patient Position: Sitting) Pulse 87 Ht 1.549 m (5' 1 ) Wt 66.2 kg (146 lb) SpO2 98% BMI 27.59 kg/m??? Physical Examination: GENERAL: alert and oriented [...] PSYCH: appropriate mood, affect, and judgement. Echocardiogram 02/02/2024: Conclusion: 1. Mild concentric left ventricular atrophy with normal systolic function. LVEF is 60%. 2. Normal right ventricular size and systolic function 3. Severe left atrial dilatation 4. Moderate mitral regurgitation 5. Mild aortic regurgitation 6. Moderate to large circumferential pericardial effusion with echodense material suggestive of clotting or fibrinous material within effusion. No echocardiographic signs of tamponade physiology. Assessment: 1. Coronary atherosclerosis - s/p LAD [...] 9. Mass of chest wall R22.2: Localized swell (more content not included)... [facility] 11-02-2023 Note [facility] Cardiology Clinic Note Chief Complaint: Patient here [...] Take by mouth., Disp: , Rfl: omega 4-fcu-tig-fish oil (Fish OiL) 100-160-1,000 mg capsule, Fish [...] for her emphysema and follow-up with her field education director RTC in 6 months or sooner should problems nisha (more content not included)... [facility] 10-14-2023 Telephone encounter Note Patient coming in 10/22/23 for follow up with labs. Please add lab orders. Thanks. Yasmin Guerrero MA [facility] 09-28-2023 Miscellaneous Notes Patient coming in 10/22/23 for follow up with labs. Please add lab orders. Thanks. Yasmin Guerrero MA documented in this encounter [facility] 08-20-2023 Miscellaneous Notes Discussed with BRM. He would like to await the results of the US scheduled. He will see her, if needed, based on the results. Pt will let Dr Roque know to forward the results to BRM for review, if indicated. 10/22/23 appointment verified Anna Thomas RN Pt is having tenderness to L breast/rib/lung area. PCP ordered US of area to be completed tomorrow at [facility]. Pt asking if she is supposed to have a CT of her chest soon, as well. BRM note 06/11/[address] Chest in 6 months (November) BRM: please advise when you would like the CT completed. I pended an order, as one was not placed yet. Anna Thomas RN documented in this encounter [facility] 06-11-2023 Note HNO ID: [id number] Author: Nir eVlasquez MD Service: ? Author Type: Physician Type: Progress Notes Filed: 06/11/2023 8:24 PM Note Text: PATIENT NAME: KACIE Case DATE: 06/11/2023 PRIMARY CARE PHYSICIAN: Dr. Tk Roque OTHER PHYSICIANS: Dr. Maravilla, Dr. Gaming, Dr. Miriam Reddy ([facility]) Portions of this encounter note have [...] acetaminophen/diphenhydramine (TYLENOL PM ORAL) Take by mouth. [id number]-DYUW-DVMHW-OREG-CAPRYL ORAL Take by mouth. rivaroxaban (XARELTO) 20 [...] masses, hernia, and (more content not included)... [facility] 06-05-2023 Note HNO ID: [id number] Author: Tripp Madden RN Service: ? Author [...] DATE: June 05, 2023 TIME: 10:22 AM [facility] 06-05-2023 Note HNO ID: [id number] Author: Claudia Baron, RT(R) Service: ? Author Type: Technologist Type: Progress Notes Filed: 06/05/2023 11:33 AM Note Text: Radiology Service Progress Note PATIENT NAME: KAICE Case DATE OF SERVICE: June 05, 2023 [...] and Intact, Site disposition Discontinued SIGNED BY: RT Laith(R) June 05, 2023 11:32 AM [facility] 04-16-2023 Note [facility] Cardiology Clinic Note Chief Complaint: Patient here for 2 mo follow up CAD, PAF, and hypertension. Denies chest pain, SOB, and bleeding on Xarelto. New inhaler from Dr. Maravilla has really helped her breathing. HPI: Kacie [...] Take by mouth., Disp: , Rfl: omega 9-fmq-cbu-fish oil (Fish OiL) 100-160-1,000 mg capsule, Fish [...] for her emphysema and follow-up with her field education director RTC in 6 months or sooner should problems arise Miriam Reddy MD, MPH, [facility], [facility], [facility] Interventional Cardiology Pager Email: [email or web address] 03-05-2023 Note HNO ID: [id number] Author: Vince Gaming MD Service: ? Author [...] is somewhat worse and met with her field education director and was started on new medication. She [...] (1,500 mg) tab acetaminophen/diphenhydramine (TYLENOL PM ORAL) LMLLEJN-QZRD-OXQOY-OREG-CAPRYL ORAL rivaroxaban (XARELTO) 20 mg tablet metoprolol [...] right upper lobe (more content not included)... [facility] 03-05-2023 History of Present illness Narrative [...] is somewhat worse and met with her field education director and was started on new medication. She [...] (1,500 mg) tab acetaminophen/diphenhydramine (TYLENOL PM ORAL) SXSRTZS-LGYT-RPZNP-OREG-CAPRYL ORAL rivaroxaban (XARELTO) 20 mg tablet metoprolol [...] which included preparing to see the patient, ayfe-sf-sjbb patient care, counseling and educating the patient/family/caregiver, and communicating results to the patient/family/caregiver. This document has been created with the use of voice recognition technology. It may contain inaccuracies, misspellings, inaccurate syntax or inappropriate word context that are a result of the inadequacies/shortcomings of said technology/software. documented in this encounter [facility] 03-05-2023 Nurse Note Patient is on a temporary inhaler but cannot remember the name of it. Deborah Patel MA documented in this encounter [facility] 03-05-2023 Note HNO ID: [id number] Author: Nir Velasquez MD Service: ? Author Type: Physician Type: Progress Notes Filed: 03/06/2023 8:33 AM Note Text: PATIENT NAME: KACIE Case DATE: 03/05/2023 PRIMARY CARE PHYSICIAN: Dr. Tk Roque OTHER PHYSICIANS: Dr. Maravilla, Dr. Gaming, Dr. Miriam Reddy ([facility]) Portions of this encounter note have [...] acetaminophen/diphenhydramine (TYLENOL PM ORAL) Take by mouth. JDIOMDU-INMF-REDTN-OREG-CAPRYL ORAL Take by mouth. rivaroxaban (XARELTO) 20 [...] crepitus. LUNGS: Negative (more content not included)... [facility] 03-05-2023 History of Present illness Narrative PATIENT NAME: KACIE Case DATE: 03/05/2023 PRIMARY CARE PHYSICIAN: Dr. Tk Roque OTHER PHYSICIANS: Dr. Maravilla, Dr. Gaming, Dr. Miriam Reddy ([facility]) Portions of this encounter note have [...] acetaminophen/diphenhydramine (TYLENOL PM ORAL) Take by mouth. XRUKNPR-PLQB-FJMUD-OREG-CAPRYL ORAL Take by mouth. rivaroxaban (XARELTO) 20 [...] 11/19/2021 Left lateral chest wall mass, biopsy ([id number]; 11/19/2021): - Adenocarcinoma. PD-L1 expression 0% NGS analysis : BRAF negative, EGFR negative, K-evelin G12F detected. 01/30/2003 Left upper lobectomy and mediastinal lymph node dissection ([facility]) Adenocarcinoma, acinar type, moderately differentiated. Primary tumor [...] FDG avid osseous lesion. 01/20/[address] ([facility]) Increased size and solid nature of peripheral [...] ICD10: D50.9 The patient was hospitalized at [facility] November 2022 with anemia (hemoglobin 7.2), labs [...] per PCP/cardiology. Nir Velasquez MD CC: Dr. Maravilla ([facility]), Dr. Miriam Reddy ([facility]) documented in this encounter [facility] 02-26-2023 Note HNO ID: [id number] Author: Claudia Baron RT(R) Service: ? Author [...] 915 PATIENT DISCHARGED TO: Ambulatory patient, left NH department area. A Diagnostic radioactive procedure has taken place, with no further precautions necessary other than routine body substance precautions. More information regarding radiation safety can be found using this link: [email or web address] SIGNATURE: RT Laith(R) PATIENT NAME: KACIE Case DATE: February 26, 2023 TIME: 11:02 AM PAGER/CONTACT #: [facility] 02-26-2023 Note HNO ID: [id number] Author: Kathrine Rod RN Service: ? Author [...] DATE: February 26, 2023 TIME: 9:23 AM [facility] 02-18-2023 Note HNO ID: [id number] Author: Ronna Lantigua LSW Service: ? Author Type: Office Machines Sales Representative Type: Progress Notes Filed: 02/18/2023 1:46 PM Note Text: Patient [place] [facility] [place] [facility] [place] for a non-oncology treatment. No psychosocial assessment is indicated. RUTH Alejandra [facility] 02-18-2023 History of Present illness Narrative Patient appears [place] [facility] [place] [facility] [place] for a non-oncology treatment. No psychosocial assessment is indicated. RUTH Alejandra documented in this encounter [facility] 02-10-2023 Miscellaneous Notes Patient on 1st time treatment report-non oncology regimen (Monoferric) Patient holds medicare coverage and no FA available for this treatment. documented in this encounter [facility] 02-05-2023 Miscellaneous Notes Will change iron to Monoferric. Cas B Patient's insurance is eligible for her to [...] Kelly Zamudio RN documented in this encounter [facility] 02-04-2023 Miscellaneous Notes Pt called to inform of GI appt next week with Dr De La Torre. Occult stool result faxed to office as requested. Anna Thomas RN documented in this encounter [facility] 02-04-2023 Miscellaneous Notes FYI: Spoke with patient and she verbalized understanding. Patient will call and reschedule with Dr. De La Torre in [place]. She will also have them forward any [...] she previously canceled). documented in this encounter [facility] 02-02-2023 Note HNO ID: [id number] Author: Nir Velasquez MD Service: ? Author Type: Physician Type: Progress Notes Filed: 02/04/2023 6:09 AM Note Text: PATIENT NAME: KACIE Case DATE: 02/02/2023 PRIMARY CARE PHYSICIAN: Dr. Tk Roque OTHER PHYSICIANS: Dr. Maravilla, Dr. Gaming, Dr. Miriam Reddy ([facility]) HPI: This is an 82 year [...] of breath. 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 However, [...] have anemia. Apparently she was hospitalized at [facility] November 2022 with severe anemia (hemoglobin 7.2) [...] acetaminophen/diphenhydramine (TYLENOL PM ORAL) Take by mouth. BONMWFI-UUBX-YIUIM-OREG-CAPRYL ORAL Take by mouth. rivaroxaban (XARELTO) 20 [...] proximal muscle wea (more content not included)... [facility] 02-02-2023 History of Present illness Narrative PATIENT NAME: KACIE Case DATE: 02/02/2023 PRIMARY CARE PHYSICIAN: Dr. Tk Roque OTHER PHYSICIANS: Dr. Maravilla, Dr. Gaming, Dr. Miriam Reddy ([facility]) HPI: This is an 82 year [...] of breath. 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 However, [...] have anemia. Apparently she was hospitalized at [facility] November 2022 with severe anemia (hemoglobin 7.2) [...] acetaminophen/diphenhydramine (TYLENOL PM ORAL) Take by mouth. XYAKAUZ-MZBX-LTLYU-OREG-CAPRYL ORAL Take by mouth. rivaroxaban (XARELTO) 20 [...] 11/19/2021 Left lateral chest wall mass, biopsy ([id number]; 11/19/2021): - Adenocarcinoma. PD-L1 expression 0% NGS analysis : BRAF negative, EGFR negative, K-evelin G12F detected. LABS: Hemoglobin (g/dL) Date Value 02/02/2023 9.3 Hematocrit (%) Date Value 02/02/2023 28.2 WBC (k/uL) Date Value 02/02/2023 5.86 Platelet Count (k/uL) Date Value 02/02/2023 263 RADIOLOGY/OTHER STUDIES: 01/20/[address] ([facility]) Increased size and solid nature of peripheral [...] ICD10: D50.9 The patient was hospitalized at [facility] November 2022 with anemia (hemoglobin 7.2) and [...] per PCP/cardiology. Nir Velasquez MD CC: Dr. Maravilla ([facility]), Dr. Miriam Reddy ([facility]) documented in this encounter [facility] 10-20-2022 History of Present illness Narrative Radiation [...] disease were identified. She came back from [place] last week and has been noting discomfort [...] OIL ORAL) omeprazole (PRILOSEC) 20 mg capsule MWENGHQ-OLCE-KOHGG-OREG-CAPRYL ORAL PHYSICAL EXAM: GENERAL: Elderly woman sitting [...] which included preparing to see the patient, qfwl-kh-mddi patient care, and counseling and educating the patient/family/caregiver. This document has been created with the use of voice recognition technology. It may contain inaccuracies, misspellings, inaccurate syntax or inappropriate word context that are a result of the inadequacies/shortcomings of said technology/software. documented in this encounter [facility] 09-19-2022 Miscellaneous Notes Patient appointments have been adjusted as instructed. Patient called and notified of appointment dates and times. Darrius Cooley Dr. Gaming approved moving up Kacie's PET to after October 14, 2022. Darrius: Will you please call patient and reschedule PET and follow up? She will return to [place] 10/14/22. Claribel Arciniega LPN Kacie called stating [...] up if possible. She is currently in [place] and will return 10/14/22. Please advise. Claribel Arciniega LPN documented in this encounter [facility] 05-09-2022 History of Present illness Narrative Radiation Oncology - Follow Up Note PATIENT NAME: KACIE Case PATIENT Signed by: Vince Gaming MD I spent a total of 20 minutes on the date of the service which included preparing to see the patient, espa-hf-osup patient care, and counseling and educating the patient/family/caregiver. This document has been created with the use of voice recognition technology. It may contain inaccuracies, misspellings, inaccurate syntax or inappropriate word context that are a result of the inadequacies/shortcomings of said technology/software. documented in this encounter [facility] 03-04-2022 Miscellaneous Notes RADIATION POST [...] face visit on 05/09/[address] Gaming[address] Jessica Montanez RN documented in this encounter [facility] 02-21-2022 History of Present illness Narrative KACIE CASE [id number] [facility] [place] Radiation Oncology Department STEREOTACTIC BODY RADIOTHERAPY (SBRT) [...] the radiation oncologist reviewed images with the emergency medical technician basic to verify that the internal isocenter in [...] patient setup, the Radiation Oncologist conferred with emergency medical technician basic to approve the final setup. The Radiation [...] MD 21:52 PM documented in this encounter [facility] 02-18-2022 Miscellaneous Notes Pt LM on refill line requesting oxycodone refill. She saw Dr Deutsch, but has not been scheduled with another med onc yet. Please review and sign if agreeable. Jessica Weyer, RN documented in this encounter [facility] 02-18-2022 Miscellaneous Notes Called patient and explained to her about the last appointment and what corby had said. Pt called to ask about a statement she rec'd regarding Dr Deutsch leaving and she needed to reschedule with another physician. Anna Thomas RN documented in this encounter [facility] 02-07-2022 History of Present illness Narrative [facility] Radiation Oncology Department RADIATION ONCOLOGY - SBRT [...] MD ([facility]) Tk Roque II, MD [address] [address] [address] documented in this encounter [facility] 02-05-2022 History of Present illness Narrative KACIE CASE [id number] [facility] [place] Radiation Oncology Department STEREOTACTIC BODY RADIOTHERAPY (SBRT) [...] the radiation oncologist reviewed images with the emergency medical technician basic to verify that the internal isocenter in [...] patient setup, the Radiation Oncologist conferred with emergency medical technician basic to approve the final setup. The Radiation [...] MD 25:40 AM documented in this encounter [facility] 02-03-2022 History of Present illness Narrative KACIE CASE [id number] [facility] [place] Radiation Oncology Department STEREOTACTIC BODY RADIOTHERAPY (SBRT) [...] the radiation oncologist reviewed images with the emergency medical technician basic to verify that the internal isocenter in [...] patient setup, the Radiation Oncologist conferred with emergency medical technician basic to approve the final setup. The Radiation [...] MD 21:00 PM documented in this encounter [facility] 01-31-2022 History of Present illness Narrative See mosaiq note documented in this encounter [facility] 01-31-2022 History of Present illness Narrative KACIE CASE [id number] [facility] [place] Radiation Oncology Department STEREOTACTIC BODY RADIOTHERAPY (SBRT) DAILY PROCEDURE NOTE DATE OF PROCEDURE: 01/31/2022 DIAGNOSIS: Secondary malignant neoplasm of other specified [id number] FRACTION NUMBER: 2 of 5 FRACTIONAL DOSE: [...] the radiation oncologist reviewed images with the emergency medical technician basic to verify that the internal isocenter in [...] patient setup, the Radiation Oncologist conferred with emergency medical technician basic to approve the final setup. The Radiation [...] MD 2:52 PM documented in this encounter [facility] 01-30-2022 Miscellaneous Notes PET scan order for 3 mos post tx completion pending your approval Claribel Arciniega LPN documented in this encounter [facility] 01-29-2022 History of Present illness Narrative KACIE CASE [id number] [facility] [place] Radiation Oncology Department STEREOTACTIC BODY RADIOTHERAPY (SBRT) DAILY PROCEDURE NOTE DATE OF PROCEDURE: 01/29/2022 DIAGNOSIS: Secondary malignant neoplasm of other specified [id number] FRACTION NUMBER: 1 of 5 FRACTIONAL DOSE: [...] the radiation oncologist reviewed images with the emergency medical technician basic to verify that the internal isocenter in [...] patient setup, the Radiation Oncologist conferred with emergency medical technician basic to approve the final setup. The Radiation [...] MD 26:17 PM documented in this encounter [facility] 01-16-2022 History of Present illness [...] which included preparing to see the patient, friq-wi-mvwu patient care, and counseling and educating the patient/family/caregiver. This document has been created with the use of voice recognition technology. It may contain inaccuracies, misspellings, inaccurate syntax or inappropriate word context that are a result of the inadequacies/shortcomings of said technology/software. 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 Patient simulated at [facility] for SBRT. Compression device in place, and a 4D CT was conducted. Position: Thigh Positioner: 0 With Riser 1 Without Riser 1 Abdominal Cuff: SecureVac Cushion Index to Base @58 1 T-Vac Cushion Rt. Side [id number] Tri-Vac Cushion Lt. side [id number] Pump 0 [id number] Wingboard: Head Pad (B or F) :F [...] M.D. 24:37 PM documented in this encounter [facility] 01-16-2022 History of Present illness Narrative KACIE CASE [id number] 01/16/2022 [facility] [place] Department of Radiation Oncology Treatment Planning Note [...] M.D. 26:16 PM documented in this encounter [facility] 01-03-2022 Miscellaneous Notes Patient was notified. Jessica Montanez RN Hi. I do not have any more results than what I had mentioned last week. I should have them back hopefully next week. Thanks, SJK Pt here to see Dr Gaming for radiation consult today. Patient and family inquiring about results you were waiting on from stains to determine treatment options? I do not see any new results in chart at this time and did notify them of this. They'd like contacted [facility] when you get results that you are waiting on. Thank you Jessica Montanez RN documented in this encounter [facility] 01-02-2022 History of Present illness Narrative Images from the original note were not included. Radiation Oncology - New Patient/Consult Note PATIENT NAME: KAICE Case PATIENT Signed: Vince Gaming MD I spent a total of 60 minutes on the date of the service which included preparing to see the patient, [id number] patient care and counseling and educating the patient/family/caregiver. This document has been created with the use of voice recognition technology. It may contain inaccuracies, misspellings, inaccurate syntax or inappropriate word context that are a result of the inadequacies/shortcomings of said technology/software. documented in this encounter [facility] 12-27-2021 History of Present illness Narrative THORACIC ONCOLOGY FOLLOW UP Elements in this clinic note that are critical to medical decision making have been carefully reviewed and included from my prior clinic note dated: December 06, 2021 December 27, 2021 PCP and other physicians involved in patient's care: Tk Roque (PCP)Coty DIAGNOSIS: NSCLC, adenocarcinoma, chest wall recurrence BIOMARKERS: [...] She lives with her , Darrell in [place], [place]. MEDICATIONS AND ALLERGIES: Reviewed PHYSICAL EXAM [...] resected in 2002 and treated with postoperative FINAL CIGAR AND BOX EXAMINER. I do not have the treatment details [...] She follows with cardiology (Dr. Reddy) at [facility]. I have asked her to reach out to his team for a follow up. Follow up after radiation for surveillance scans Soren Deutsch MD I spent a total of 30 minutes on the date of the service which included preparing to see the patient, [id number] patient care, completing clinical documentation, obtaining and/or reviewing separately obtained history, performing a medically appropriate examination, counseling and educating the patient/family/caregiver, ordering medications, tests, or procedures, independently interpreting results (not separately reported) and communicating results to the patient/family/caregiver. CC: Coty Reddy, [facility] documented in this encounter [facility] 12-23-2021 History of Present illness Narrative Orders for lung adenocarcinoma NGS documented in this encounter [facility] 12-06-2021 Miscellaneous Notes 2nd opinion pathology requested from [facility] to be sent to [facility] pathology for review. documented in this encounter [facility] 12-06-2021 History of Present illness [...] wall area. She is taking acetaminophen and [place] as needed. Imaging was notable for 3.2 [...] She lives with her , Darrell in [place], [place]. MEDICATIONS AND ALLERGIES: Reviewed PHYSICAL EXAM [...] resected in 2002 and treated with postoperative FINAL CIGAR AND BOX EXAMINER. I do not have these details or [...] which included preparing to see the patient, [id number] patient care, completing clinical documentation, obtaining and/or reviewing separately obtained history, performing a medically appropriate examination, counseling and educating the patient/family/caregiver, ordering medications, tests, or procedures, independently interpreting results (not separately reported) and communicating results to the patient/family/caregiver. CC: Coty Knight documented in this encounter [facility] Evaluation note Diagnosis Malignant neoplasm of lung, unspecified laterality, unspecified part of lung (HCC)- Primary Neoplasm of lung Neoplasm of unspecified nature of respiratory system Malignant neoplasm of upper lobe, left bronchus or lung (HCC) Normocytic anemia Anemia, unspecified [facility] Malignant neoplasm of lung, unspecified laterality, unspecified part of lung (HCC)- Primary [facility] Diagnosis Normocytic anemia- Primary Anemia, unspecified Malignant neoplasm of lung, unspecified laterality, unspecified part of lung (HCC) [facility] Malignant neoplasm of lung, unspecified laterality, unspecified part of lung (HCC) [facility] Diagnosis Malignant neoplasm of lung, unspecified laterality, unspecified part of lung (HCC)- Primary [facility] Diagnosis Malignant neoplasm of lung, unspecified laterality, unspecified part of lung (HCC)- Primary [facility] Diagnosis Malignant neoplasm of lung, unspecified laterality, unspecified part of lung (HCC)- Primary Malignant neoplasm of unspecified part of unspecified bronchus or lung (HCC) [facility] Neoplasm of lung Neoplasm of unspecified nature of respiratory system [facility] Diagnosis Malignant neoplasm of unspecified part of unspecified bronchus or lung (HCC)- Primary [facility] Diagnosis Malignant neoplasm of unspecified part of unspecified bronchus or lung (HCC)- Primary Neoplasm of lung Neoplasm of unspecified nature of respiratory system [facility] Diagnosis 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)- Primary Lung nodule Solitary pulmonary nodule Iron deficiency anemia, unspecified iron deficiency anemia type [facility] Diagnosis 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)- Primary Lung nodule Solitary pulmonary nodule Iron deficiency anemia, unspecified iron deficiency anemia type Heart disease Heart disease, unspecified Chronic obstructive pulmonary disease, unspecified COPD type (HCC) [facility] Diagnosis Malignant neoplasm of unspecified part of unspecified bronchus or lung (HCC)- Primary [facility] Diagnosis History of lung cancer- Primary Personal history of malignant neoplasm of bronchus and lung Lung nodule Solitary pulmonary nodule 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 [address] Molecular & Functional Imaging [address] [place] [address] Referral ID Status Reason Start Date Expiration Date Visits Requested Visits Authorized [id number] Pending Review Auto-Generat ed Referral 12/06/2021 01/05/2023 1 1 * MRI/CT (Routine) - Pending Review Specialty Diagnoses / Procedures Referred By Yolande gallegos Referred To Contact MR IMAGING Diagnoses Malignant neoplasm of lung, unspecified laterality, unspecified part of lung (HCC) Procedures MRI BRAIN WO/W IVCON MRI BRAIN BRAIN STEM W/O W/CONTRAST MATERIAL Soren Deutsch MD [address] [place] [address] [place] [address] Mr Imaging Referral ID Status Reason Start Date Expiration Date Visits Requested Visits Authorized [id number] Pending Review Auto-Generat ed Referral 12/06/2021 01/05/2023 1 1 [facility] for referral (narrative)* Outpatient Procedure (Routine) - Pending Review Specialty Diagnoses / Procedures Referred By Contac t Referred To Contact [facility] Diagnoses Malignant neoplasm of lung, unspecified laterality, unspecified part of lung (HCC) Procedures SPIROMETRY BASELINE ONLY SPMTRY W/VC EXPIRATORY MEGHAN W/WO MXML VOL VNTJ Vince Gaming MD [address] [place] [address] [place] [address] Respiratory [place] [address] [place] [address] Referral ID Status Reason Start Date Expiration Date Visits Requested Visits Authorized [id number] Pending Review Auto-Generat ed Referral 01/02/2022 02/01/2023 1 1 T [facility] for referral (narrative)* Diagnostic Procedure Only (Routine) - Pending Review Specialty Diagnoses / Procedures Referred By Contac t Referred To Contact MOLECULAR & FUNCTIONAL IMAGING Diagnoses Malignant neoplasm of lung, unspecified laterality, unspecified part of lung (HCC) Malignant neoplasm of unspecified part of unspecified bronchus or lung (HCC) Procedures NM PET/CT SKULL-THIGH SUBSEQUENT PET IMAGING CT ATTENUATION SKULL BASE MID-THIGH Vince Gaming MD [address] [place] [address] [place] [address] Molecular & Functional Imaging [address] [place] [address] Referral ID Status Reason Start Date Expiration Date Visits Requested Visits Authorized [id number] Pending Review Auto-Generat ed Referral 03/01/2023 1 1 [facility] for referral (narrative)* Diagnostic Procedure Only (Routine) - Pending Review Specialty Diagnoses / Procedures Referred By Contac t Referred To Contact MOLECULAR & FUNCTIONAL IMAGING Diagnoses Malignant neoplasm of unspecified part of unspecified bronchus or lung (HCC) Procedures NM PET/CT SKULL-THIGH SUBSEQUENT PET IMAGING CT ATTENUATION SKULL BASE MID-THIGH Vince Gaming MD [address] [place] [address] [place] [address] Molecular & Functional Imaging [address] [place] [address] Referral ID Status Reason Start Date Expiration Date Visits Requested Visits Authorized [id number] Pending Review Auto-Generat ed Referral 10/24/2022 06/08/2023 1 1 [facility] Diagnostic Procedure Only (Routine) - Authorized Specialty Diagnoses / Procedures Referred By Contac t Referred To Contact MOLECULAR & FUNCTIONAL IMAGING Diagnoses Malignant neoplasm of unspecified part of unspecified bronchus or lung (HCC) Procedures NM PET/CT SKULL-THIGH SUBSEQUENT PET IMAGING CT ATTENUATION SKULL BASE MID-THIGH Nir Velasquez MD [address] [place] [address] [place] [address] Molecular & Functional Imaging [address] [place] [address] Referral ID Status Reason Start Date Expiration Date Visits Requested Visits Authorized [id number] Authorized Auto-Generat ed Referral 02/02/2023 03/03/2024 1 1 [facility] Summary Purpose Family History No [...] of lung (HCC) Procedures RAD/ONC CONSULT OFFICE/OUTPATIENT [facility] 60-74 MINUTES Soren Deutsch MD [address] [place] [address] [place] [address] Referral ID Status Reason Start Date Expiration Date Visits Requested Visits Authorized [id number] Authorized PCP Requested Referral 12/27/2021 12/27/2022 1 1 Specialty Diagnoses / Procedures Referred By Contac t Referred To Contact CT IMAGING Diagnoses Neoplasm of lung Procedures CT CHEST W IVCON DIAGNOSTIC COMPUTED TOMOGRAPHY THORAX W/CONTRAST Vince Gaming MD [address] [place] [address] [place] [address] Ct Imaging Referral ID Status Reason Start Date Expiration Date Visits Requested Visits Authorized [id number] Authorized Auto-Generat ed Referral 02/09/2023 11/19/2023 1 1 Specialty Diagnoses / Procedures Referred By Contac t Referred To Contact CT IMAGING Diagnoses Malignant neoplasm of unspecified part of unspecified bronchus or lung (HCC) Procedures CT CHEST W IVCON DIAGNOSTIC COMPUTED TOMOGRAPHY THORAX W/CONTRAST Nir Velasquez MD [address] [place] [address] [place] [address] Referral ID Status Reason Start Date Expiration Date Visits Requested Visits Authorized [id number] Authorized Auto-Generat ed Referral 06/04/2023 04/03/2024 1 1 Additional Source Comments INFORMATION SOURCE (unrecogn ized section and content) DATE CREATED AUTHOR 07/17/2021 [facility] DATE CREATED AUTHOR AUTHOR'S ORGANIZ ATION 01/22/2022 [facility] DATE CREATED AUTHOR AUTHOR'S ORGANIZ ATION 04/21/2022 [facility] DATE CREATED AUTHOR AUTHOR'S ORGANIZ ATION 11/06/2022 [facility] DATE CREATED AUTHOR AUTHOR'S ORGANIZ ATION 11/07/2023 [facility] DATE CREATED AUTHOR AUTHOR'S ORGANIZ ATION 01/17/2024 [facility] DATE CREATED AUTHOR AUTHOR'S ORGANIZ ATION 02/21/2024 [facility] Source Comments (unrecognize d section and content) In the event this informatio n is protected by the Federal Confidentiality of Alcohol and Drug Abuse Patient Records regulations: The Federal rules restrict any use of the information to criminally investigate or prosecute any alcohol or drug abuse patient.[facility] event this information is protected by the Federal Confidentiality of Alcohol and Drug Abuse Patient Records regulations: The Federal rules restrict any use of the information to criminally investigate or prosecute any alcohol or drug abuse patient.[facility] the event this information is protected by the Federal Confidentiality of Alcohol and Drug Abuse Patient Records regulations: The Federal rules restrict any use of the information to criminally investigate or prosecute any alcohol or drug abuse patient.[facility] the event this information is protected by the Federal Confidentiality of Alcohol and Drug Abuse Patient Records regulations: The Federal rules restrict any use of the information to criminally investigate or prosecute any alcohol or drug abuse patient.[facility] the event this information is protected by the Federal Confidentiality of Alcohol and Drug Abuse Patient Records regulations: The Federal rules restrict any use of the information to criminally investigate or prosecute any alcohol or drug abuse patient.[facility] the event this information is protected by the Federal Confidentiality of Alcohol and Drug Abuse Patient Records regulations: The Federal rules restrict any use of the information to criminally investigate or prosecute any alcohol or drug abuse patient.[facility] the event this information is protected by the Federal Confidentiality of Alcohol and Drug Abuse Patient Records regulations: The Federal rules restrict any use of the information to criminally investigate or prosecute any alcohol or drug abuse patient.[facility] Center[facility] the event this information is protected by the Federal Confidentiality of Alcohol and Drug Abuse Patient Records regulations: The Federal rules restrict any use of the information to criminally investigate or prosecute any alcohol or drug abuse patient.[facility] CenterIn the event this information is protected by the Federal Confidentiality of Alcohol and Drug Abuse Patient Records regulations: The Federal rules restrict any use of the information to criminally investigate or prosecute any alcohol or drug abuse patient.[facility] Center[facility] the event this information is protected by the Federal Confidentiality of Alcohol and Drug Abuse Patient Records regulations: The Federal rules restrict any use of the information to criminally investigate or prosecute any alcohol or drug abuse patient.[facility] Center[facility] the event this information is protected by the Federal Confidentiality of Alcohol and Drug Abuse Patient Records regulations: The Federal rules restrict any use of the information to criminally investigate or prosecute any alcohol or drug abuse patient.[facility] CenterIn the event this information is protected by the Federal Confidentiality of Alcohol and Drug Abuse Patient Records regulations: The Federal rules restrict any use of the information to criminally investigate or prosecute any alcohol or drug abuse patient.[facility] CenterIn the event this information is protected by the Federal Confidentiality of Alcohol and Drug Abuse Patient Records regulations: The Federal rules restrict any use of the information to criminally investigate or prosecute any alcohol or drug abuse patient.[facility] Center[facility] the event this information is protected by the Federal Confidentiality of Alcohol and Drug Abuse Patient Records regulations: The Federal rules restrict any use of the information to criminally investigate or prosecute any alcohol or drug abuse patient.[facility] Center[facility] the event this information is protected by the Federal Confidentiality of Alcohol and Drug Abuse Patient Records regulations: The Federal rules restrict any use of the information to criminally investigate or prosecute any alcohol or drug abuse patient.[facility] CenterIn the event this information is protected by the Federal Confidentiality of Alcohol and Drug Abuse Patient Records regulations: The Federal rules restrict any use of the information to criminally investigate or prosecute any alcohol or drug abuse patient.[facility] CenterIn the event this information is protected by the Federal Confidentiality of Alcohol and Drug Abuse Patient Records regulations: The Federal rules restrict any use of the information to criminally investigate or prosecute any alcohol or drug abuse patient.[facility] CenterIn the event this information is protected by the Federal Confidentiality of Alcohol and Drug Abuse Patient Records regulations: The Federal rules restrict any use of the information to criminally investigate or prosecute any alcohol or drug abuse patient.[facility] CenterIn the event this information is protected by the Federal Confidentiality of Alcohol and Drug Abuse Patient Records regulations: The Federal rules restrict any use of the information to criminally investigate or prosecute any alcohol or drug abuse patient.[facility] CenterIn the event this information is protected by the Federal Confidentiality of Alcohol and Drug Abuse Patient Records regulations: The Federal rules restrict any use of the information to criminally investigate or prosecute any alcohol or drug abuse patient.[facility] CenterIn the event this information is protected by the Federal Confidentiality of Alcohol and Drug Abuse Patient Records regulations: The Federal rules restrict any use of the information to criminally investigate or prosecute any alcohol or drug abuse patient.[facility] CenterIn the event this information is protected by the Federal Confidentiality of Alcohol and Drug Abuse Patient Records regulations: The Federal rules restrict any use of the information to criminally investigate or prosecute any alcohol or drug abuse patient.[facility] CenterIn the event this information is protected by the Federal Confidentiality of Alcohol and Drug Abuse Patient Records regulations: The Federal rules restrict any use of the information to criminally investigate or prosecute any alcohol or drug abuse patient.[facility] CenterIn the event this information is protected by the Federal Confidentiality of Alcohol and Drug Abuse Patient Records regulations: The Federal rules restrict any use of the information to criminally investigate or prosecute any alcohol or drug abuse patient.[facility] CenterIn the event this information is protected by the Federal Confidentiality of Alcohol and Drug Abuse Patient Records regulations: The Federal rules restrict any use of the information to criminally investigate or prosecute any alcohol or drug abuse patient.[facility] CenterIn the event this information is protected by the Federal Confidentiality of Alcohol and Drug Abuse Patient Records regulations: The Federal rules restrict any use of the information to criminally investigate or prosecute any alcohol or drug abuse patient.[facility] CenterIn the event this information is protected by the Federal Confidentiality of Alcohol and Drug Abuse Patient Records regulations: The Federal rules restrict any use of the information to criminally investigate or prosecute any alcohol or drug abuse patient.[facility] CenterIn the event this information is protected by the Federal Confidentiality of Alcohol and Drug Abuse Patient Records regulations: The Federal rules restrict any use of the information to criminally investigate or prosecute any alcohol or drug abuse patient.[facility] CenterIn the event this information is protected by the Federal Confidentiality of Alcohol and Drug Abuse Patient Records regulations: The Federal rules restrict any use of the information to criminally investigate or prosecute any alcohol or drug abuse patient.[facility] CenterIn the event this information is protected by the Federal Confidentiality of Alcohol and Drug Abuse Patient Records regulations: The Federal rules restrict any use of the information to criminally investigate or prosecute any alcohol or drug abuse patient.[facility] CenterIn the event this information is protected by the Federal Confidentiality of Alcohol and Drug Abuse Patient Records regulations: The Federal rules restrict any use of the information to criminally investigate or prosecute any alcohol or drug abuse patient.[facility] CenterIn the event this information is protected by the Federal Confidentiality of Alcohol and Drug Abuse Patient Records regulations: The Federal rules restrict any use of the information to criminally investigate or prosecute any alcohol or drug abuse patient.[facility] CenterIn the event this information is protected by the Federal Confidentiality of Alcohol and Drug Abuse Patient Records regulations: The Federal rules restrict any use of the information to criminally investigate or prosecute any alcohol or drug abuse patient.[facility] CenterIn the event this information is protected by the Federal Confidentiality of Alcohol and Drug Abuse Patient Records regulations: The Federal rules restrict any use of the information to criminally investigate or prosecute any alcohol or drug abuse patient.[facility] Center[facility] the event this information is protected by the Federal Confidentiality of Alcohol and Drug Abuse Patient Records regulations: The Federal rules restrict any use of the information to criminally investigate or prosecute any alcohol or drug abuse patient.[facility] Care Teams (unrecognized sec tion and content) Vision Therapist Relationship Specialty Start Date End Date Tk Nicholas PCP - General Family Practice 12/03/11 Vision Therapist Relationship Specialty Start Date End Date Tk Roque II [address] [facility] [address] [place] [id number] PCP - General Internal Medicine 12/06/21 Coty Knight Jr., DO [address] [place] [address] [place] [address] Orthopedics 12/06/21 Miriam Reddy MD [address] [facility]3], [place] [address] Cardiology 12/06/21 Vision Therapist Relationship Specialty Start Date End Date Tk Roque II [address] [facility] [address] [place] [address] PCP - General Internal Medicine 12/06/21 Coty Knight Jr., DO [address] [facility] [address] [place] [address] Orthopedics 12/06/21 Miriam Reddy MD [address] [facility]3], [place] [id number] Cardiology 12/06/21 Vision Therapist Relationship Specialty Start Date End Date Tk Roque II [address] [facility] [address] [place] [address] PCP - General Internal Medicine 12/06/21 Coty Knight Jr., DO [address] [facility] [address] [place] [address] Orthopedics 12/06/21 Miriam Reddy MD [address] [facility]], [place] [phone] Cardiology 12/06/21 Vision Therapist Relationship Specialty Start Date End Date Tk Roque II [address] [facility] [address] [place] [address] PCP - General Internal Medicine 12/06/21 Coty Knight Jr., DO [address] [place] [address] [place] [address] Orthopedics 12/06/21 Miriam Reddy MD [address] [facility]], [place] [address] Cardiology 12/06/21 Vision Therapist Relationship Specialty Start Date End Date Tk Roque II [address] [place] [address] [place] [address] PCP - General Internal Medicine 12/06/21 Coty Knight Jr., DO [address] [place] [address] [place] [address] Orthopedics 12/06/21 Miriam Reddy MD [address] [facility]3], [place] [address] Cardiology 12/06/21 Vision Therapist Relationship Specialty Start Date End Date Tk Roque II [address] [place] [address] [place] [address] PCP - General Internal Medicine 12/06/21 Coty Knight Jr., DO [address] [place] [address] [place] [address] Orthopedics 12/06/21 Miriam Reddy MD [address] [facility]3], [place] [address] Cardiology 12/06/21 Vision Therapist Relationship Specialty Start Date End Date Tk Roque II [address] [place] [address] [place] [address] PCP - General Internal Medicine 12/06/21 Coty Knight Jr., DO [address] [place] [address] [place] [address] Orthopedics 12/06/21 Miriam Reddy MD [address] [facility]], [place] [id number] Cardiology 12/06/21 Vision Therapist Relationship Specialty Start Date End Date Tk Roque II [address] [place] [address] [place] [address] PCP - General Internal Medicine 12/06/21 Coty Knight Jr., DO [address] [place] [address] [place] [address] Orthopedics 12/06/21 Miriam Reddy MD [address] [facility]], [place] [address] Cardiology 12/06/21 Vision Therapist Relationship Specialty Start Date End Date Tk Roque II [address] [place] [address] [place] [address] PCP - General Internal Medicine 12/06/21 Coty Knight Jr., DO [address] [place] [address] [place] [address] Orthopedics 12/06/21 Miriam Reddy MD [address] [facility]3], [place] [address] Cardiology 12/06/21 Vision Therapist Relationship Specialty Start Date End Date Tk Roque II [address] [place] [address] [place] [address] PCP - General Internal Medicine 12/06/21 Coty Knight Jr., DO [address] [place] [address] [place] [address] Orthopedics 12/06/21 Miriam Reddy MD [address] [facility]], [place] [address] Cardiology 12/06/21 Vision Therapist Relationship Specialty Start Date End Date Tk Roque II [address] [place] [address] [place] [address] PCP - General Internal Medicine 12/06/21 Coty Knight Jr., DO [address] [place] [address] [place] [address] Orthopedics 12/06/21 Miriam Reddy MD [address] [facility]], [place] [address] Cardiology 12/06/21 Vision Therapist Relationship Specialty Start Date End Date Tk Roque II [address] [place] [address] [place] [address] PCP - General Internal Medicine 12/06/21 Coty Knight Jr., DO [address] [place] [address] [place] [address] Orthopedics 12/06/21 Miriam Reddy MD [address] [facility]3], [place] [address] Cardiology 12/06/21 Vision Therapist Relationship Specialty Start Date End Date Tk Roque II [address] [place] [address] [place] [address] PCP - General Internal Medicine 12/06/21 Coty Knight Jr., DO [address] [place] [address] [place] [address] Orthopedics 12/06/21 Miriam Reddy MD [address] [facility]], [place] [phone] Cardiology 12/06/21 Vision Therapist Relationship Specialty Start Date End Date Tk Roque II [address] [place] [address] [place] [address] PCP - General Internal Medicine 12/06/21 Coty Kinght Jr., DO [address] [facility] [address] [place] [address] Orthopedics 12/06/21 Miriam Reddy MD [address] [facility]3], [place] [address] Cardiology 12/06/21 Vision Therapist Relationship Specialty Start Date End Date Tk Roque II [address] [place] [address] [place] [address] PCP - General Internal Medicine 12/06/21 Coty Knight Jr., DO [address] [facility] [address] [place] [address] Orthopedics 12/06/21 Miriam Reddy MD [address] [facility]3], [place] [phone] Cardiology 12/06/21 Vision Therapist Relationship Specialty Start Date End Date Tk Roque II, MD [address] [place] [address] [place] [address] PCP - General Internal Medicine 12/06/21 Coty Knight Jr., DO [address] [place] [address] [place] [address] Orthopedics 12/06/21 Miriam Reddy MD [address] [facility]], [place] [address] Cardiology 12/06/21 Vision Therapist Relationship Specialty Start Date End Date Tk Roque II, MD [address] [place] [address] [place] [address] PCP - General Internal Medicine 12/06/21 Coty Knight Jr., DO [address] [facility] [address] [place] [address] Orthopedics 12/06/21 Miriam Reddy MD [address] [facility]], [place] [phone] Cardiology 12/06/21 Vision Therapist Relationship Specialty Start Date End Date Tk Roque II, MD [address] [facility] [address] [place] [address] PCP - General Internal Medicine 12/06/21 Coty Knight Jr., DO [address] [facility] [address] [place] [address] Orthopedics 12/06/21 Miriam Reddy MD [address] [facility]3], [place] [phone] Cardiology 12/06/21 Vision Therapist Relationship Specialty Start Date End Date Tk Roque II, MD [address] [facility] [address] [place] [address] PCP - General Internal Medicine 12/06/21 Coty nKight Jr., DO [address] [facility] [address] [place] [address] Orthopedics 12/06/21 Miriam Reddy MD [address] [facility]3], [place] [phone] Cardiology 12/06/21 Vision Therapist Relationship Specialty Start Date End Date Tk Roque II, MD [address] [facility] [place] [address] PCP - General Internal Medicine 12/06/21 Coty Knight Jr., DO [address] [facility] [place] [address] Orthopedics 12/06/21 Miriam Reddy MD [address] [facility]3], [place] [phone] Cardiology 12/06/21 Vision Therapist Relationship Specialty Start Date End Date Tk Roque II, MD [address] [facility] [place] [address] PCP - General Internal Medicine 12/06/21 Coty Knight Jr., DO [address] [facility] [address] [place] [address] Orthopedics 12/06/21 Miriam Reddy MD [address] [facility]3], [place] [phone] Cardiology 12/06/21 Vision Therapist Relationship Specialty Start Date End Date Tk Roque II, MD [address] [place] [address] [place] [address] PCP - General Internal Medicine 12/06/21 Coty Knight Jr., [address] [place] [address] [place] [address] Orthopedics 12/06/21 Miriam Reddy MD [address] [place] [address] [place] [address] Cardiology 12/06/21 Reason for Visit (unrecogniz ed section and content) Reason Comments Lung Cancer Specialty Diagnoses / Procedures Referred By Contac t Referred To Contact Radiation Oncology Diagnoses Malignant neoplasm of lung, unspecified laterality, unspecified part of lung (HCC) Procedures RAD/ONC CONSULT OFFICE/OUTPATIENT [facility] 60-74 MINUTES Soren Deutsch MD [address] [place] [address] [place] [address] Referral ID Status Reason Start Date Expiration Date V isits Requested Visits Authorized [id number] Closed PCP Requested Referral 12/27/2021 12/27/2022 1 [...] BE BASED ON THE PRIMARY CLINICAL RECORDS. [facility] [employer] [facility]. provides no warranty or guarantee of the accuracy or completeness of information in this document.
--- NOTE | 2024-03-04 08:30 | CA_ITS ---
Patient Name: ANH CASE MR#: [id number] : 1940 Exam Date: 03/04/2024 Ordering Doctor: DR MIRIAM GODINEZ M.D. ECHOCARDIOGRAM REPORT PROCEDURE: CA ECHO LIMITED INDICATIONS: Pericardial effusion COMPARISON: None. DESCRIPTION: Limited ECHOCARDIOGRAM Real-time transthoracic echocardiography with 2D and M-mode performed. QUALITY: Technical quality was good. Limited echocardiogram per physician order. LEFT VENTRICLE: Normal chamber size. Proximal septal hypertrophy (sigmoid septum). LV EF: Global left ventricular systolic function is normal; visually estimated ejection fraction is 55 to 60%. No significant wall motion abnormalities. LEFT ATRIUM: Severe dilatation. RIGHT ATRIUM: Mild dilatation. RIGHT VENTRICLE: Normal chamber size. TRICUSPID VALVE: Normal mobility and thickness. MITRAL VALVE: Normal mobility and thickness. Mild mitral annular calcification. AORTIC VALVE: Normal trileaflet appearance. Thickened aortic valve. Normal leaflet mobility. AORTIC ROOT: Normal diameter and appearance. Ascending aorta is normal in size. PULMONIC VALVE: Normal thickness and mobility. PERICARDIUM: Small anterior and small to moderate posterior pericardial effusion. Echodense material seen anteriorly likely representing thrombus vs mass. No significant evidence of chamber compression. IVC: Collapses with inspirations. CONCLUSION: 1. Global left ventricular systolic function is normal; visually estimated ejection fraction is 55 to 60% 2. Normal right ventricular size and systolic function 3. Biatrial enlargement 4. A small anterior and small to moderate posterior pericardial effusion is seen; echodense material seen anteriorly likely represented thrombus vs mass A limited echocardiogram was performed Adult Echocardiography Procedure Report Left Ventricle LVEDD (3.7 - 5.6 cm): 3.79 cm LVESD (2.2 - 4.0 cm): 3.31 cm LVIVS thickness (0.6 - 1.2 cm): 1.72 cm LVPW thickness (0.5 - 1.0 cm): 1.40 cm LVOT Diameter 1.93 cm Left Atrium LA Volume Index (2D A2C): 70.56 ml/m2 Left Atrium Systolic Dimension: 4.60 cm Mitral Valve Right Ventricle Aorta AO Root Diam: 2.86 cm Ascending Ao Diam: 3.30 cm Aortic Valve Tricuspid Valve Pulmonic Valve Right Atrium Right Atrium Systolic Pressure: 44.16 ml, 44.16 ml Dictated by: Miriam Godinez M.D. on 03/04/2024 at 15:15 Approved by: Miriam Godinez M.D. on 03/04/2024 at 15:21
== END 2024-03-04 08:04 | disposition home or self-care (01) ==
LOC: CARD 08:03
PROVIDERS: PCP Internal Medicine; Visit Provider Internal Medicine Interventional Cardiology
DX: I31.39 Other pericardial effusion (noninflammatory) (principal)
CPT/HCPCS: 93308

== ENCOUNTER 2024-10-19 09:46 | Outpatient (OUT) | payer MEDICARE, OTHER, SELFPAY ==
--- NOTE | 2024-10-19 10:00 | CA_ITS ---
Patient Name: ANH CASE MR#: [id number] : 1940 Exam Date: 10/19/2024 Ordering Doctor: DR SANDRO GODINEZ M.D. ECHOCARDIOGRAM REPORT PROCEDURE: CA ECHO DOPPLER COMPLETE INDICATIONS: Dyspnea on exertion, pericardial effusion, lung cancer, lobectomy 2002 COMPARISON: None. DESCRIPTION: COMPLETE ECHOCARDIOGRAM Real-time transthoracic echocardiography with 2D, M-mode, spectral and color flow Doppler performed. QUALITY: Technical quality was good. LEFT VENTRICLE: Normal chamber size. Proximal septal moderate hypertrophy (sigmoid septum). LV EF: Normal left ventricular systolic function without wall motion abnormalities, ejection fraction 65-70% DIASTOLIC: Grade I diastolic dysfunction. ATRIAL SEPTUM: Visually appears intact. LEFT ATRIUM: Severe dilatation. RIGHT ATRIUM: Mild dilatation. RIGHT VENTRICLE: Normal chamber size. Midly reduced systolic function TRICUSPID VALVE:Normal mobility and thickness. No stenosis with no regurgitation. Can not estimate RVSP due to lack of measurable TR MITRAL VALVE: Normal mobility and thickness. No evidence of mitral valve stenosis. Moderate mitral annular calcification. Trivial mitral regurgitation. AORTIC VALVE: Normal trileaflet appearance. No visible sclerosis. Normal leaflet mobility. No evidence of aortic valve stenosis. Trivial aortic regurgitation. AORTIC ROOT: Normal diameter and appearance. PULMONIC VALVE:Normal thickness and mobility. No stenosis. Trivial regurgitation. PERICARDIUM: Moderate to large circumferential pericardial effusion. Echodense material is seen layering in the free wall of the right ventricle indicative of clotting or fibrinous material in the pericardial effusion. Beginning evidence of tamponade physiology is seen. IVC: IVC is normal in size, does not fully collapse. PLEURA: CONCLUSION: Normal left ventricle size and systolic function, no wall motion abnormalities, EF 65-70% Sigmoidal septum with moderately increased proximal thickness Grad I LV diastolic dysfunction Mildly reduced right ventricle systolic function, but normal size No significant valvular abnormalities Biatrial dilatation Adult Echocardiography Procedure Report Left Ventricle LVEDD (3.7 - 5.6 cm): 4.15 cm LVESD (2.2 - 4.0 cm): 3.18 cm LVIVS thickness (0.6 - 1.2 cm): 1.41 cm LVPW thickness (0.5 - 1.0 cm): 1.06 cm e': 0.06 m/s E - e': 10.42 LVOT Max Gradient: 2.29 mm[Hg] LVOT Area (cm2): 0.76 m/s Peak Velocity (LVOT): 0.76 m/s Mean Velocity (LVOT): 0.53 m/s LVOT Diameter 2.35 cm Left Ventricular Ejection Fraction: Left Atrium LA Volume Index (2D A2C): 55.04 ml/m2 Left Atrium Systolic Dimension: 3.69 cm Mitral Valve MV E to A Ratio: 0.75 MV Max Gradient: MV Mean Gradient: Mitral Valve A-Wave Peak Velocity: 0.86 m/s Mitral Valve E-Wave Peak Velocity: 0.65 m/s Cardiovascular Orifice Area: Right Ventricle RV Internal Diastolic Dimension: Aorta AO Root Diam: 3.02 cm Ascending Ao Diam: Aortic Valve AoV Area (Peak Aman): 1.95 cm2, 1.95 cm2 AoV Area (VTI): 2.34 cm2, 2.34 cm2 Deceleration [place]: Pressure Half-Time: Peak Velocity(Antegrade Flow): 1.68 m/s Peak Gradient(Antegrade Flow): 11.35 mm[Hg] Mean Velocity(Antegrade Flow): 1.09 m/s Mean Gradient(Antegrade Flow): 5.71 mm[Hg] Velocity Time Integral: 36.21 cm Tricuspid Valve Peak Velocity (Regurgitant Flow): Peak Velocity: Pulmonic Valve Mean Gradient: 2.54 mm[Hg] Mean Velocity: 0.75 m/s Peak Velocity: 1.10 m/s, 0.97 m/s Peak Gradient: 3.75 mm[Hg], 4.88 mm[Hg] Right Atrium Right Atrium Systolic Pressure: 61.33 ml, 61.33 ml Dictated by: Willie Awad MD on 10/19/2024 at 12:32 Approved by: Willie Awad MD on 10/19/2024 at 12:43
== END 2024-10-19 09:47 | disposition home or self-care (01) ==
LOC: CARD 09:47
PROVIDERS: PCP Internal Medicine; Visit Provider Internal Medicine Interventional Cardiology
DX: R06.09 Other forms of dyspnea (principal); I31.39 Other pericardial effusion (noninflammatory)
CPT/HCPCS: 93306

== ENCOUNTER 2024-11-18 07:21 | Emergency (ER) | payer MEDICARE, OTHER, SELFPAY ==
--- OUTSIDE RECORDS SUMMARY | 2024-11-17 13:16 | XMS_ITS ---
Author Name Auto Generated Organization OHIP Support Name Relationship Address Phone JEREMY AYON Next of Kin Unknown [phone] RAFAEL AYON Next of Kin Unknown [phone] MARINES, JOHN Next of Kin Unknown [phone] JEREMY AYON Next of Kin Unknown [phone] RAFAEL AYON Next of Kin Unknown [phone] GUSTAVOS, JOHN Next of Kin Unknown [phone] JEREMY AYON Next of Kin Unknown [phone] RAFAEL AYON Next of Kin Unknown [phone] GUSTAVOS, JOHN Next of Kin Unknown [phone] JEREMY AYON Next of Kin Unknown [phone] OSMIN FLORENCEIDI Next of Kin Unknown [phone] JEREMY AYON Next of Kin Unknown [phone] JUDIE FLORENCE Next of Kin Unknown [phone] JEREMY AYON Next of Kin Unknown [phone] JUDIE FLORENCE Next of Kin Unknown [phone] JEREMY AYON Next of Kin Unknown [phone] JUDIE FLORENCE Next of Kin Unknown [phone] NOVA AYON Next of Kin Unknown [phone] JEREMY AYON Next of Kin Unknown [phone] RAFAEL AYON Next of Kin Unknown [phone] GUSTAVOS, JOHN Next of Kin Unknown [phone] Care Team Providers Care Drama Critic Name Role Phone NIR VELASQUEZ Referring Unavailable TK ROQUE II Primary Care Unavailable NIR VELASQUEZ Attending Unavailable NIR VELASQUEZ Referring Unavailable ROQUE II, TK B Primary Care Unavailable NIR VELASQUEZ Referring Unavailable ROQUE II, TK B Primary Care Unavailable NIR VELASQUEZ Attending Unavailable NIR VELASQUEZ Referring Unavailable ROQUE II, TK B Primary Care Unavailable NIR VELASQUEZ Referring Unavailable ROQUE II, TK B Primary Care Unavailable DANUTA, NIR R Referring Unavailable ROQUE II, TK B Primary Care Unavailable ANNA PEREIRA Attending Unavailable ANNA PEREIRA Attending Unavailable NOVA CARDOZA Attending Unavailable HARRISON SCOTT Attending Unavailable ELTAHAWY, EHAB Attending Unavailable ELTAHAWY, EHAB Referring Unavailable ELTAHAWY, EHAB Admitting Unavailable ELTAHAWY, EHAB Attending Unavailable ELTAHAWY, EHAB Referring Unavailable ELTAHAWY, EHAB Attending Unavailable PROBLEMS DATE TYPE CONDITION / CODE ATTENDING STATUS [facility] 02/02/2023 Active Iron deficiency anemia, unspecified iron deficiency anemia type / D50.9(ICD-10) NIR VELASQUEZ Active [facility] 10/05/2024 Admitting Diagnosis Other forms of dyspnea / R06.09(ICD-10) [facility] Active 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 02/08/2024 Admitting Diagnosis Other pericardial effusion (noninflammatory) / I31.39(ICD-10) [facility] Active [facility] PROCEDURES No Procedure Records Found RESULTS CNOVSP Observed: 11/14/2024 3:40 PM Status: COMPLETED Source: [facility] Visit (SP) Office ([place]) KACIE PEDRAZA ([id number]) 1940 F Date Time Provider Department 11/14/24 3:40 PM NIR VELASQUEZ During your visit today, we recorded the following information about you: Temperature Pulse Respiration Blood pressure 97.3 degrees 81/minute 16/minute 173/81 Weight 68 kg Nir Velasquez MD 11/15/2024 8:27 PM Signed PATIENT NAME: KACIE Ayon DATE: 11/14/2024 PRIMARY CARE PHYSICIAN: Dr. Roque OTHER PHYSICIANS: Dr. Salgado, Dr. Shea, Dr. Miriam Godinez ([facility]) Portions of this encounter note have been copied from my note from 03/31/2024 and has been updated where appropriate, and reflect my current medical decision making from today. CC: This is an 84 year old female with a history of recurrent lung cancer, persistent pulmonary nodules, and iron deficiency anemia - seen for scheduled follow-up. INTERIM HISTORY: Since the patient's last visit here she has had no significant medical changes. Denies any cough, shortness of breath, or other pulmonary symptoms. No evidence of bleeding. She continues to mourn the of her last year. She spent the winter at their house in [place]. MEDICATIONS: Current Outpatient Medications Medication Sig albuterol HFA (PROVENTIL HFA, VENTOLIN HFA) 90 mcg/actuation inhaler Inhale 1 Puff as instructed every 6 hours as needed for wheezing/shortness of breath. tiotropium-olodaterol (STIOLTO RESPIMAT) 2.5-2.5 mcg/actuation inhale 2 puffs by mouth and INTO THE LUNGS once daily atorvastatin (LIPITOR) 40 mg tablet Take 40 mg by mouth once daily. rivaroxaban (XARELTO) 20 mg tablet Take 20 mg by mouth daily with dinner. metoprolol succinate ER (TOPROL XL) 25 mg 24 hr tablet Take 12.5 mg by mouth twice daily. clopidogrel (PLAVIX) 75 mg tablet Take 75 mg by mouth once daily. vit A/vit C/vit E/zinc/copper (PRESERVISION AREDS ORAL) Take by mouth. MULTIVITAMIN ORAL Take by mouth. docosahexaenoic acid/epa (FISH OIL ORAL) Take by mouth. melatonin 3 mg capsules Take 3 mg by mouth daily at bedtime. Takes 2 at night MAGNESIUM ORAL Take by mouth daily at bedtime. Takes 2 at night docusate sodium (STOOL SOFTENER ORAL) Take by mouth. (Patient not taking: Reported on 11/14/2024) calcium carbonate (CALTRATE) 600 mg calcium (1,500 mg) tab Take 600 mg by mouth. (Patient not taking: Reported on 11/14/2024) acetaminophen/diphenhydramine (TYLENOL PM ORAL) Take by mouth. EAXGJTV-WDGA-FKUIR-OREG-CAPRYL ORAL Take by mouth. (Patient not taking: Reported on 11/14/2024) cholecalciferol, vitamin D3, (VITAMIN D3 ORAL) Take by mouth. (Patient not taking: Reported on 11/14/2024) ascorbic acid (VITAMIN C ORAL) Take by mouth. (Patient not taking: Reported on 11/14/2024) omeprazole (PRILOSEC) 20 mg capsule Take 1 capsule by mouth once daily. (Patient not taking: Reported on 11/14/2024) No current facility-administered medications for this visit. [...] Social History Tobacco Use Smoking status: Former Current packs/day: 0.00 Types: Cigarettes Quit date: 1969 Years since quittin.4 Smokeless tobacco: Never Substance Use Topics Alcohol [...] anxiety, depression, or other. PHYSICAL EXAM: BP 173/81 Pulse 81 Temp 36.3 ?C (97.3 ?F) (Temporal) Resp 16 Wt 68 kg (149 lb 14.6 oz) SpO2 98% BMI 28.34 kg/m? GENERAL EXAM: Well developed/well nourished; in [...] done PSYCHIATRIC: Negative for mood/affect changes, recent AND remote memory changes, and judgement and insight. NEUROLOGICAL: Alert, oriented x person, place, time. Cranial nerves 2-12 intact. Sensory for pain, light touch, vibration intact on all 4 extremities. Reflexes symmetric for biceps/brachioradial/patella/achilles. MUSCULOSKELETAL: Negative examination of joints, bones, muscles/tendons of all four extremities for inspection, percussion, and palpation. Negative for misallignment, asymmetry, crepitation, tenderness, mass, effusions. Range of motion normal. Negative for joint instability, laxity, dislocation. Gait steady. Negative for swelling, erythema, tenderness, soft tissue swelling, and atrophy. PATHOLOGY: 11/19/2021 Left lateral chest wall mass, biopsy ([id number]; 11/19/2021): - Adenocarcinoma. PD-L1 expression 0% NGS analysis : BRAF negative, EGFR negative, K-evelin G12F detected. 01/30/2003 Left upper lobectomy and mediastinal lymph node dissection ([facility]) Adenocarcinoma, acinar type, moderately differentiated. Primary tumor size 1.8 cm. 1 left hilar lymph node positive for metastasis. LABS: Hemoglobin (g/dL) Date Value 11/14/2024 11.6 Hematocrit (%) Date Value 11/14/2024 34.6 WBC (k/uL) Date Value 11/14/2024 6.72 Platelet Count (k/uL) Date Value 11/14/2024 194 RADIOLOGY/OTHER STUDIES: 04/04/2024 CT chest IMPRESSION: 1. A 7 mm right upper lobe groundglass opacity is less conspicuous. 2. Additional new 3 mm right upper lobe groundglass opacity. Consider interval follow-up. 3. Other multiple nodular opacities and ground glass opacities, stable since 06/05/23. 03/04/2024 ECHO ([facility]) 1. Global left ventricular systolic function is normal; visually estimated ejection fraction is 55 to 60% 2. Normal right ventricular size and systolic function 3. Biatrial enlargement 4. A small anterior and small to moderate posterior pericardial effusion is seen; echodense material seen anteriorly likely represented thrombus vs mass A limited echocardiogram was performed 06/05/2023 CT chest IMPRESSION: 1. There are multiple pulmonary nodules [...] 3 months to reassess the pleural thickening. 02/26/2023 PET scan IMPRESSION: HEAD/NECK: * No [...] FDG avid osseous lesion. 01/20/[address] ([facility]) Increased size and solid nature of [...] no clear-cut evidence of recurrence. Most recent PET scan 02/26/[address] chest 04/11/2024 stable. Currently no evidence of disease. At this time will continue close observation. Repeat chest CT at 1 year (February 2025). The patient will then return for follow-up. Assuming she remains stable will then see her on a yearly basis with labs and chest CT. 2. Iron deficiency anemia - ICD9: 280.9, ICD10: D50.9 The patient was hospitalized at [facility] November 2022 with anemia (hemoglobin 7.2), labs consistent with iron deficiency, and she received PRBC x 2. Most likely the patient had occult GI bleeding exacerbated by anticoagulants. GI evaluation with upper and lower endoscopy has been recommended, but apparently the patient declined. She received IV iron with Monoferric 04/08/2024. CBC currently improved. At this time will monitor labs closely and give additional IV iron if indicated. Will monitor for evidence of GI bleeding and refer to GI for endoscopic evaluation as indicated. 3. Emphysema The patient has a long history of smoking, quit approximately 1989. She has radiographic evidence of emphysema. Most likely emphysema is contributing to her chronic shortness of breath. Continue management per PCP/pulmonary. 4. History of coronary artery disease, pericardial effusion Coronary artery disease diagnosed 2020. Status post stent placement November 2020. She was discovered to have a pericardial effusion on echocardiogram in October 2023. Repeat echocardiogram January 2024 revealed persistence. Pericardiocentesis was attempted 02/19/2024, but apparently no fluid was obtained. Repeat echocardiogram 03/04/2024 improved. Continue follow-up with cardiology as scheduled. Nir Velasquez MD CC: Dr. Salgado ([facility]), Dr. 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 Palm. Follow-up and Disposition History for Encounter Date Provider Department Center 11/14/2024 [id number] VELASQUEZ [facility] [place] Prescriptions as of 11/15/2024 - melatonin 3 mg capsules Take 3 mg by mouth daily at bedtime. Takes 2 at night - MAGNESIUM ORAL Take by mouth daily at bedtime. Takes 2 at night - albuterol HFA (PROVENTIL HFA, VENTOLIN HFA) 90 mcg/actuation inhaler Inhale 1 Puff as instructed every 6 hours as needed for wheezing/shortness of breath. - tiotropium-olodaterol (STIOLTO RESPIMAT) 2.5-2.5 mcg/actuation inhale 2 puffs by mouth and INTO THE LUNGS once daily - docusate sodium (STOOL SOFTENER ORAL) Take by mouth. - atorvastatin (LIPITOR) 40 mg tablet Take 40 mg by mouth once daily. - QXQQSFK-RJKM-PCPTE-OREG-CAPRYL ORAL Take by mouth. - rivaroxaban (XARELTO) [...] (VITAMIN D3 ORAL) Take by mouth. - docosahexaenoic acid/epa (FISH OIL ORAL) Take by mouth. 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] 12/29/2011 Iron deficiency anemia [D50.9] 02/02/2023 Encounter Status:Closed by NIR VELASQUEZ on 11/15/24 COMP METAB 2000 PNL SERPL Collected: 3:06 PM Status: F Source: [facility] Order Comment: Specimen Type : BLOOD SPECIMEN Ordering Facility: [facility] Address: [address] [place] [address] TYPE CODE TESTS RESULT OUT OF RANGE REFERENCE UNITS LAB 2885-2(LOINC) Prot SerPl-mCnc 6.7 6.3-8.0 g/dL LAB 1751-7(LOINC) Albumin SerPl-mCnc 4.4 3.9-4.9 g/dL LAB 35841-6(LOINC) Calcium SerPl-mCnc 9.4 8.5-10.2 mg/dL LAB 1975-2(LOINC) Bilirub SerPl-mCnc 0.3 0.2-1.3 mg/dL LAB 6768-6(LOINC) ALP SerPl-cCnc 56 34-123 U/L LAB 1920-8(LOINC) AST SerPl-cCnc 22 13-35 U/L LAB 1742-6(LOINC) ALT SerPl-cCnc 22 7-38 U/L LAB 2345-7(LOINC) Glucose SerPl-mCnc 118 High 74-99 mg/dL Result Comment: The [place] [employer] (ADA) provides guidance for cutoff [...] Standards of Medical Care in Diabetes 2016, [place] [employer]. Diabetes Care. 2016.39(Suppl 1). LAB 3094-0(LOINC) BUN SerPl-mCnc 32 High 7-21 mg/ dL LAB 2160-0(LOINC) Creat SerPl-mCnc 1.09 High 0.58-0.96 mg/dL LAB 2951-2(LOINC) Sodium SerPl-sCnc 129 Low 136-144 mmol/L LAB 2823-3(LOINC) Potassium SerPl-sCnc 4.8 3.7-5.1 mmol/L LAB 2075-0(LOINC) Chloride SerPl-sCnc 95 Low 98-107 mmol/L LAB 2028-9(LOINC) CO2 SerPl-sCnc 26 22-30 mmo l/L LAB 79300-5(LOINC) Anion Gap SerPl-sCnc 8 8-15 mmol/L LAB 96374-2(LOINC) Creatinine + eGFR Pnl SerPlBld 51 Low >=60 mL/min/1 .73m??? Result Comment: Estimated Gl omerular Filtration Rate (eGFR) is calculated using the 2020 CKD-EPI creatinine equation. This equation utilizes serum creatinine, sex, and age as parameters. The creatinine assay has traceable calibration to isotope dilution-mass spectrometry. Refer to KDIGO guidelines for clinical interpretation. In patients with unstable renal function, e.g. those with acute kidney injury, the eGFR may not accurately reflect actual GFR. Performed By: #### 58577-4 # ### [facility] CLIA [id number] [address] [place] [address] CBC W AUTO DIFF BLD Collected: 11/14/2024 3:[address] atus: F Source: [facility] Order Comment: Specimen Type : BLOOD SPECIMEN Ordering Facility: [facility] Address: [address] [place] [address] TYPE CODE TESTS RESULT OUT OF RANGE REFERENCE UNITS LAB 6690-2(LOINC) WBC # Bld Auto 6.72 3.70-11.00 k/uL LAB 789-8(LOINC) RBC # Bld Auto 3.68 Low 3.90-5.20 m/ uL LAB 718-7(LOINC) Hgb Bld-mCnc 11.6 11.5-15.5 g/dL LAB 4544-3(LOINC) Hct VFr Bld Auto 34.6 Low 36.0-46.0 % LAB 787-2(LOINC) MCV RBC Auto 94.0 80.0-100.0 fL LAB 785-6(LOINC) MCH RBC Qn Auto 31.5 26.0-34.0 p g LAB 786-4(LOINC) MCHC RBC Auto-mCnc 33.5 30.5-36.0 g/dL LAB 99154-9(LOINC) RDW RBC-Rto 12.2 11.5-15.0 % LAB 777-3(LOINC) Platelet # Bld Auto 194 150-400 k/uL LAB 93589-2([facility]) PMV Bld Auto 9.7 9.0-12.7 fL LAB 770-8([facility]) Neutrophils/leuk NFr Bld Auto 70.5 % LAB 751-8([facility]) Neutrophils # Bld Auto 4.73 1.45-7.50 k/uL LAB 736-9([facility]) Lymphocytes/leuk NFr Bld Auto 17.4 % LAB 731-0([facility]) Lymphocytes # Bld Auto 1.17 1.00-4.00 k/uL LAB 5905-5([facility]) Monocytes/leuk NFr Bld Auto 10.0 % LAB 742-7([facility]) Monocytes # Bld Auto 0.67 <0.87 k/uL LAB 713-8([facility]) Eosinophil/leuk NFr Bld Auto 1.3 % LAB 711-2([facility]) Eosinophil # Bld Auto 0.09 <0.46 k/uL LAB 706-2([facility]) Basophils/leuk NFr Bld Auto 0.4 % LAB 704-7([facility]) Basophils # Bld Auto 0.03 <0.11 k/uL LAB 00747-2([facility]) Imm Granulocytes/tati k NFr Bld Auto 0.4 % LAB 41932-4([facility]) Imm Granulocytes # Bld Auto 0.03 <0.10 k/uL LAB 20645-0([facility]) nRBC/100 WBC Bld-Rto 0.0 /100 WBC LAB 771-6([facility]) nRBC # Bld Auto <0.01 <0.01 k/u L LAB 61095-1([facility]) Differential method Bld Auto Performed By: #### 73457-9 # ### [facility] CLIA [id number] [address] [place] [address] IRON+TIBC PNL SERPL Collected: 11/14/2024 3:[address] atus: F Source: [facility] Order Comment: Specimen Type : BLOOD SPECIMEN Ordering Facility: [facility] Address: [address] [place] [address] TYPE CODE TESTS RESULT OUT OF RANGE REFERENCE UNITS LAB 2498-4(LOINC) Iron SerPl-mCnc 50 41-186 ug/dL LAB 2500-7(LOINC) TIBC SerPl-mCnc 310 232-386 ug/dL LAB 62462-6(LOINC) Iron/TIBC SerPl-sRto 16.1 15.0-57.0 % Performed By: #### 2276-4, 5 0190-8 #### [facility] CLIA [id number] [address] [place] [address] FERRITIN SERPL-MCNC Collected: 11/15/19 3:06 PM Status: F Source: [facility] Order Comment: Specimen Type : BLOOD SPECIMEN Ordering Facility: [facility] Address: [address] [place] [address] TYPE CODE TESTS RESULT OUT OF RANGE REFERENCE UNITS LAB 2276-4(LOINC) Ferritin SerPl-mCnc 145.0 14.7-205.1 ng/mL Performed By: #### 2276-4, 5 0190-8 #### [facility] CLIA [id number] [address] [place] [address] PROGRESS Observed: 11/12/2024 8:45 AM Status: COMPLETED Source: [facility] HNO ID: [id number] Author: NIR VELASQUEZ MD Service: ? Author Type: Physician Type: Progress Notes Filed: 11/15/2024 20:27 Note Text: PATIENT NAME: KACIE Ayon DATE: 11/14/2024 PRIMARY CARE PHYSICIAN: Dr. Roque OTHER PHYSICIANS: Dr. Salgado, Dr. Shea, Dr. Miriam Godinez ([facility]) Portions of this encounter note have been copied from my note from 03/31/2024 and has been updated where appropriate, and reflect my current medical decision making from today. CC: This is an 84 year old female with a history of recurrent lung cancer, persistent pulmonary nodules, and iron deficiency anemia - seen for scheduled follow-up. INTERIM HISTORY: Since the patient's last visit here she has had no significant medical changes. Denies any cough, shortness of breath, or other pulmonary symptoms. No evidence of bleeding. She continues to mourn the of her last year. She spent the winter at their house in [place]. MEDICATIONS: Current Outpatient Medications Medication Sig albuterol HFA (PROVENTIL HFA, VENTOLIN HFA) 90 mcg/actuation inhaler Inhale 1 Puff as instructed every 6 hours as needed for wheezing/shortness of breath. tiotropium-olodaterol (STIOLTO RESPIMAT) 2.5-2.5 mcg/actuation inhale 2 puffs by mouth and INTO THE LUNGS once daily atorvastatin (LIPITOR) 40 mg tablet Take 40 mg by mouth once daily. rivaroxaban (XARELTO) 20 mg tablet Take 20 mg by mouth daily with dinner. metoprolol succinate ER (TOPROL XL) 25 mg 24 hr tablet Take 12.5 mg by mouth twice daily. clopidogrel (PLAVIX) 75 mg tablet Take 75 mg by mouth once daily. vit A/vit C/vit E/zinc/copper (PRESERVISION AREDS ORAL) Take by mouth. MULTIVITAMIN ORAL Take by mouth. docosahexaenoic acid/epa (FISH OIL ORAL) Take by mouth. melatonin 3 mg capsules Take 3 mg by mouth daily at bedtime. Takes 2 at night MAGNESIUM ORAL Take by mouth daily at bedtime. Takes 2 at night docusate sodium (STOOL SOFTENER ORAL) Take by mouth. (Patient not taking: Reported on 11/14/2024) calcium carbonate (CALTRATE) 600 mg calcium (1,500 mg) tab Take 600 mg by mouth. (Patient not taking: Reported on 11/14/2024) acetaminophen/diphenhydramine (TYLENOL PM ORAL) Take by mouth. JAZQLKQ-NXKR-PYRZQ-OREG-CAPRYL ORAL Take by mouth. (Patient not taking: Reported on 11/14/2024) cholecalciferol, vitamin D3, (VITAMIN D3 ORAL) Take by mouth. (Patient not taking: Reported on 11/14/2024) ascorbic acid (VITAMIN C ORAL) Take by mouth. (Patient not taking: Reported on 11/14/2024) omeprazole (PRILOSEC) 20 mg capsule Take 1 capsule by mouth once daily. (Patient not taking: Reported on 11/14/2024) No current facility-administered medications for this visit. [...] Social History Tobacco Use Smoking status: Former Current packs/day: 0.00 Types: Cigarettes Quit date: 1969 Years since quittin.4 Smokeless tobacco: Never Substance Use Topics Alcohol [...] anxiety, depression, or other. PHYSICAL EXAM: BP 173/81 Pulse 81 Temp 36.3 ?C (97.3 ?F) (Temporal) Resp 16 Wt 68 kg (149 lb 14.6 oz) SpO2 98% BMI 28.34 kg/m? GENERAL EXAM: Well developed/well nourished; in [...] done PSYCHIATRIC: Negative for mood/affect changes, recent AND remote memory changes, and judgement and insight. NEUROLOGICAL: Alert, oriented x person, place, time. Cranial nerves 2-12 intact. Sensory for pain, light touch, vibration intact on all 4 extremities. Reflexes symmetric for biceps/brachioradial/patella/achilles. MUSCULOSKELETAL: Negative examination of joints, bones, muscles/tendons of all four extremities for inspection, percussion, and palpation. Negative for misallignment, asymmetry, crepitation, tenderness, mass, effusions. Range of motion normal. Negative for joint instability, laxity, dislocation. Gait steady. Negative for swelling, erythema, tenderness, soft tissue swelling, and atrophy. PATHOLOGY: 11/19/2021 Left lateral chest wall mass, biopsy ([id number]; 11/19/2021): - Adenocarcinoma. PD-L1 expression 0% NGS analysis : BRAF negative, EGFR negative, K-evelin G12F detected. 01/30/2003 Left upper lobectomy and mediastinal lymph node dissection ([facility]) Adenocarcinoma, acinar type, moderately differentiated. Primary tumor size 1.8 cm. 1 left hilar lymph node positive for metastasis. LABS: Hemoglobin (g/dL) Date Value 11/14/2024 11.6 Hematocrit (%) Date Value 11/14/2024 34.6 WBC (k/uL) Date Value 11/14/2024 6.72 Platelet Count (k/uL) Date Value 11/14/2024 194 RADIOLOGY/OTHER STUDIES: 04/04/2024 CT chest IMPRESSION: 1. A 7 mm right upper lobe groundglass opacity is less conspicuous. 2. Additional new 3 mm right upper lobe groundglass opacity. Consider interval follow-up. 3. Other multiple nodular opacities and ground glass opacities, stable since 06/05/23. 03/04/2024 ECHO ([facility]) 1. Global left ventricular systolic function is normal; visually estimated ejection fraction is 55 to 60% 2. Normal right ventricular size and systolic function 3. Biatrial enlargement 4. A small anterior and small to moderate posterior pericardial effusion is seen; echodense material seen anteriorly likely represented thrombus vs mass A limited echocardiogram was performed 06/05/2023 CT chest IMPRESSION: 1. There are multiple pulmonary nodules [...] 3 months to reassess the pleural thickening. 02/26/2023 PET scan IMPRESSION: HEAD/NECK: * No [...] FDG avid osseous lesion. 01/20/[address] ([facility]) Increased size and solid nature of [...] no clear-cut evidence of recurrence. Most recent PET scan 02/26/[address] recent [address] chest 04/11/2024 stable. Currently no evidence of disease. At this time will continue close observation. Repeat chest CT at 1 year (February 2025). The patient will then return for follow-up. Assuming she remains stable will then see her on a yearly basis with labs and chest CT. 2. Iron deficiency anemia - ICD9: 280.9, ICD10: D50.9 The patient was hospitalized at [facility] November 2022 with anemia (hemoglobin 7.2), labs consistent with iron deficiency, and she received PRBC x 2. Most likely the patient had occult GI bleeding exacerbated by anticoagulants. GI evaluation with upper and lower endoscopy has been recommended, but apparently the patient declined. She received IV iron with Monoferric 04/08/2024. CBC currently improved. At this time will monitor labs closely and give additional IV iron if indicated. Will monitor for evidence of GI bleeding and refer to GI for endoscopic evaluation as indicated. 3. Emphysema The patient has a long history of smoking, quit approximately 1989. She has radiographic evidence of emphysema. Most likely emphysema is contributing to her chronic shortness of breath. Continue management per PCP/pulmonary. 4. History of coronary artery disease, pericardial effusion Coronary artery disease diagnosed 2020. Status post stent placement November 2020. She was discovered to have a pericardial effusion on echocardiogram in October 2023. Repeat echocardiogram January 2024 revealed persistence. Pericardiocentesis was attempted 02/19/2024, but apparently no fluid was obtained. Repeat echocardiogram 03/04/2024 improved. Continue follow-up with cardiology as scheduled. Nir Velasquez MD CC: Dr. Salgado ([facility]), Dr. Miriam Godinez ([facility]) 36 Observed: 10/31/2024 4:40 PM Status: COMPLETED Source: [facility] Regarding echo result from : MD Daniela Talamantes MA Please let her know that her ejection fraction is normal. She still has a small to moderate anterior effusion that appears to be clotted (i.e. the body is dealing with it). Behind the heart there is a moderate effusion. Neither of them are amenable to needle draining and I do not believe she needs it at this time. Thank you. Patient informed and result and verbalized understanding. OFFICE VISIT Observed: 10/05/2024 10:30 AM Status: COMPLETED Source: [facility] [id number] Kacie Ayon 0 1940 F Date Provider Department Center 10/05/2024 271-MIRIAM GODINEZ CARD [facility] Family History Problem Relation Age of Onset Heart disease Mother Family Status - Relation Status Age at Mother Level of Service:11098 PA OFFICE/OUTPATIENT ESTABLISHED MOD MDM 30 MIN PROGRESS Observed: 10/05/2024 10:30 AM Status: COMPLETED Source: [facility] Clinic Note Chief Complaint: Patient here for 6 mo follow up CAD, afib, and pericardial effusion. Had echo back in Feb 2024 after last apt. Says she's still struggling to breathe. Very fatigued lately, which isn't like her she says. Denies chest pain and bleeding on Xarelto. Her LE are very bruised and discolored. She denies trauma to the area. Has follow up with Dr. Salgado next month. HPI: Kacie Ayon is a 83 y.o. female She has [...] not seen her oncologist for a while. : Main complaint relates to fatigue . She seems to be able to sleep anytime of the day because she is so tired. Upon further questioning, she sleeps very poorly. She would be latosha if she sleeps 2 or 3 hours at night. She has significant insomnia ever since her . Denies chest pain. She is short of breath with minimal exertion. This is about the same. No significant orthopnea or paroxysmal, dyspnea. No lower extremity edema. Bruises easily. No blood in the urine or stools. Cardiology ROS: Review of Systems Constitutional: Positive for malaise/fatigue. Cardiovascular: Positive for dyspnea on exertion. Respiratory: Positive for shortness of breath. Hematologic/Lymphatic: Bruises/bleeds easily. Skin: Positive for color change. Musculoskeletal: Positive for arthritis and back pain. Neurological: Positive for dizziness and numbness (hands). All other systems reviewed and are negative. Past Medical History She has a past medical history of Abnormal ECG, Aneurysm, Arrhythmia, Atrial fibrillation (CMS/HCC), Cancer (CMS/HCC), Coronary artery disease, Hypertension, Pericardial effusion, and Subclavian artery stenosis, left. Surgical History She has a past surgical [...] AT BEDTIME, Disp: 90 tablet, Rfl: 3 clopidogrel (Plavix) 75 mg tablet, take 1 tablet by mouth every morning, Disp: 90 tablet, Rfl: 3 metoprolol tartrate (Lopressor) 25 mg tablet, take 1/2 tablet by mouth IN THE MORNING and at bedtime, Disp: 90 tablet, Rfl: 3 MULTIVITAMIN ORAL, Take by mouth., Disp: , Rfl: omega 1-ggu-czy-fish oil (Fish OiL) 100-160-1,000 mg capsule, Fish [...] Disp: , Rfl: Last Recorded Vitals BP 120/68 (BP Location: Right arm, Patient Position: Sitting) Pulse 77 Ht 1.549 m (5' 1 ) Wt 66.2 kg (146 lb) SpO2 99% BMI 27.59 kg/m??? Physical Examination: GENERAL: alert [...] on PET scan I31.3: Pericardial effusion (noninflammatory) Moderate to large echo 01/2024 11. Anemia; questionable blood loss 12. Fatigue 13. Emphysema no evidence of pulmonary fibrosis; scattered pulmonary nodules 14. Orthostatic hypotension - dizziness Plan: Will obtain a complete echocardiogram At this juncture, I do not believe she needs an ischemic workup unless there are significant abnormalities by echo. I recommend that she talk to her family physician regarding her insomnia Continue current medical therapy Return to clinic in 4 to 6 months or sooner should problems arise Miriam Godinez MD, MPH, [facility], [facility], [facility] Interventional Cardiology Pager Email: [email or web address] Observed: 08/09/2024 9:35 AM Status: COMPLETED Source: [facility] Spoke with patient and made her aware. 36 Observed: 08/08/2024 10:17 AM Status: COMPLETED Source: [facility] Patient called c/o increased SOB w/ ambulation. She's currently in [place] and has been walking daily. She's noticed she's huffing and puffing when she walks the 30 feet to her mailbox. Denies LE edema. She takes no diuretics. Any recommendations? Please advise. Thanks. TELEPHONE Observed: 08/08/2024 12:00 AM Status: COMPLETED Source: [facility] [id number] Kacie Ayon 0 1940 F Date Provider Department Center 08/08/2024 8-DANIELA MEDINA [facility] Family History Problem Relation Age of Onset Heart disease Mother Family Status - Relation Status Age at Mother NOMAN Observed: 04/12/2024 12:00 AM Status: COMPLETED Source: [facility] Telephone (HEMASA) RYLANKACIE MCPHERSON ([id number]) 1940 F Date Time Provider Department 04/12/24 ANNA THOMAS During your visit today, we recorded the following information about you: Anna Thomas RN 04/12/2024 9:18 AM Signed ----- Message from Nir Velasquez MD sent at 04/12/2024 7:39 AM EDT ----- Please inform the patient that her chest CT is stable. We still see small pulmonary nodules but no obvious signs of cancer. Would recommend a repeat chest CT in October after she returns to [place]. Will see her as scheduled on 11/14/2024, then arrange for follow-up scan. Anna Thomas RN 04/12/2024 9:19 AM Signed Pt informed of [facility] message, once verified, using 2 patient identifiers. Pt requests imaging and reports to code inspector and chronometer repairer at [facility]: Montrell Denney and Samsa. Chayo Montanez to send. Patient denies any questions, needs or concerns at this time. Appointment verified. Anna Thomas RN Allergies As of Date: 04/12/2024 (No Known Allergies) Date Reviewed: 03/31/2024 Reviewed by: Sherrie Rinaldi MA - Fully Assessed Reason for Visit: Results [95] Prescriptions as of 04/12/2024 - albuterol HFA (PROVENTIL HFA, VENTOLIN HFA) 90 mcg/actuation inhaler Inhale 1 Puff as instructed every 6 hours as needed for wheezing/shortness of breath. - tiotropium-olodaterol (STIOLTO RESPIMAT) 2.5-2.5 mcg/actuation inhale 2 puffs by mouth and INTO THE LUNGS once daily - docusate sodium (STOOL SOFTENER ORAL) Take by mouth. - atorvastatin (LIPITOR) 40 mg tablet Take 40 mg by mouth once daily. - calcium carbonate (CALTRATE) 600 mg calcium (1,500 mg) tab Take 600 mg by mouth. - acetaminophen/diphenhydramine (TYLENOL PM ORAL) Take by mouth. - UHAYIPS-AIDI-LDIEI-OREG-CAPRYL ORAL Take by mouth. - rivaroxaban (XARELTO) [...] once daily. 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 Call placed to Grover and message left for her stating Dr Velasquez will be following up in October when pt returns from [place], and we will then do scans. Matilda Krishnamurthy RN Allergies As of Date: 04/12/2024 (No Known Allergies) Date Reviewed: 03/31/2024 Reviewed by: Sherrie Rinaldi MA - Fully Assessed Reason for Visit: Clinical Update [1735] Prescriptions as of 04/12/2024 - albuterol HFA (PROVENTIL HFA, VENTOLIN HFA) 90 mcg/actuation inhaler Inhale 1 Puff as instructed every 6 hours as needed for wheezing/shortness of breath. - tiotropium-olodaterol (STIOLTO RESPIMAT) 2.5-2.5 mcg/actuation inhale 2 puffs by mouth and INTO THE LUNGS once daily - docusate sodium (STOOL SOFTENER ORAL) Take by mouth. - atorvastatin (LIPITOR) 40 mg tablet Take 40 mg by mouth once daily. - calcium carbonate (CALTRATE) 600 mg calcium (1,500 mg) tab Take 600 mg by mouth. - acetaminophen/diphenhydramine (TYLENOL PM ORAL) Take by mouth. - HACSJZT-EZCC-RYQUK-OREG-CAPRYL ORAL Take by mouth. - rivaroxaban (XARELTO) [...] once daily. 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 Author Type: Automatic Pinsetter Adjuster Type: Progress Notes Filed: 04/11/2024 09:27 Note Text: Patient's name appears on the [facility] First Time Treatment List for a non-oncology treatment. No psychosocial assessment is indicated. RUTH Alejandra Goals of Care Advance Directives are not on file. SIGNATURE: JUAN Alejandra PATIENT NAME: Kacie Pedraza DATE: April 11, 2024 TIME: 9:27 AM PAGER/CONTACT #: CT CHEST W IVCON Observed: 04/08/2024 2:47 PM Status: F Source: [facility] * * *Final Report* * * DATE OF EXAM: Apr 08 2024 2:47PM [facility] 0539 - CT CHEST W IVCON / PROCEDURE REASON: Malignant neoplasm of unspecified part of unspecified bronchus or lung (HCC) * * * * Physician Interpretation * * * * RESULT: EXAMINATION: CHEST CT WITH CONTRAST CLINICAL HISTORY: Non-small cell lung cancer, January 2003 the patient was diagnosed with stage II (T1, N1, M0) adenocarcinoma of the left lung. Primary treatment consisted of left upper lobectomy and regional lymph node dissection 01/30/2003. Postop the patient received adjuvant chemotherapy followed by adjuvant radiation therapy completed March 2003. 2021 local recurrence in the left chest wall, status post definitive radiation with SBRT Technique: Spiral CT acquisition of the chest from the thoracic inlet to the upper abdomen following IV contrast. MQ: [id number] Contrast: 50 mL Omnipaque [address] Radiation dose: Integrated Dose-length product (DLP) for this visit = 218 mGy*cm CT Dose Reduction Employed: Automated exposure control (AEC) Comparison: 06/05/23 RESULT: Limitations: None. Lines, tubes, and devices: None. Lung parenchyma and airways: Status post left upper lobectomy. Bilateral perihilar consolidative opacities most likely related to post radiation change, stable. Mild emphysematous changes in the lungs. Multiple airspace opacities. For example: * 7 mm right upper lobe groundglass opacity (4:51) decreased in attenuation * New 3 mm right upper lobe groundglass opacity posteriorly (4: 52) * Multiple additional ground glass opacities and nodular opacities measuring up to 6 mm in the right lung (4:63, 65, 96, 124) and left lung (4: 25, 59, 62, 68, 98), stable Pleural space: No pleural effusion. No pleural thickening. Lower neck, lymph nodes, and mediastinum: The imaged thyroid gland is normal. No lymphadenopathy in the supraclavicular, axillary, mediastinal, or hilar regions. Heart, pericardium, and thoracic vessels: The thoracic aorta and main pulmonary artery are normal in caliber. The cardiac chambers are normal in size. Atherosclerotic coronary artery calcifications are noted. Small to moderate pericardial effusion, stable. Bones and soft tissues: Compression deformities of the T1, T10, T12 vertebral bodies, stable. No new osseous abnormalities. Upper abdomen: Pneumobilia is noted. Cholecystectomy clips. Localizer images: No additional findings. IMPRESSION: 1. A 7 mm right upper lobe groundglass opacity is less conspicuous. 2. Additional new 3 mm right upper lobe groundglass opacity. Consider interval follow-up. 3. Other multiple nodular opacities and ground glass opacities, stable since 06/05/23. Transcribe Date/Time: Apr 11 2024 10:42A Dictated by: DAVID MELENDREZ MD This examination was interpreted and the report reviewed and electronically signed by: DAVID MELENDREZ MD on Apr 11 2024 10:59AM EST Thank you for allowing us to participate in the care of your patient. Should there be any questions regarding this interpretation, please call [phone]. If you are unable to reach us at the number above, please feel free to contact [facility] eRadiology at [phone]. [id number] PROGRESS Observed: 04/08/2024 12:45 PM Status: COMPLETED Source: [facility] HNO ID: [id number] Author: ANASTACIO RUIZ RT(R) Service: ? Author Type: Technologist Type: Progress Notes Filed: 04/08/2024 13:28 Note Text: Radiology Service Progress Note PATIENT NAME: Kacie Pedraza DATE OF SERVICE: April 08, 2024 TIME: 1:27 PM PATIENT IDENTITY VERIFICATION COMPLETED USING TWO (2) IDENTIFIERS: Name and Date of confirmed by patient verbally. FALL SCREENING: Has the patient had 2 falls in the last year or 1 fall with injury or currently using an Ambulatory Assistive Device (Walker, Cane, Wheelchair, Crutches, etc.)? No PATIENT GENDER DATA: Female. status: : No status: NO. PATIENT RELEVANT IMPLANT DATA REVIEWED: Not Applicable PATIENT PRESENTS WITH AN IMPLANTABLE OR ATTACHED BLAST HOLE DRILLER: No RADIOLOGY DEPARTMENT: CT; Exam(s) Completed: Chest Abdomen Pelvis PERIPHERAL IV DATA: Site assessment: Clean,Dry and Intact, Site disposition Discontinued SIGNED BY: RT Laith(R) April 08, 2024 1:27 PM PROGRESS Observed: 04/08/2024 12:45 PM Status: COMPLETED Source: [facility] ID: [id number] Author: TRIPP MADDEN RN Service: ? Author Type: Registered Nurse Type: Progress Notes Filed: 04/08/2024 13:18 Note Text: Radiology Service Progress Note DATE OF SERVICE: April 08, 2024 TIME: 1:17 PM PATIENT WEIGHT: 147LBS PATIENT IDENTITY VERIFICATION COMPLETED USING TWO (2) [...] CREATININE: Creatinine Date Value Ref Range Status 03/31/2024 1.15 (H) 0.58 - 0.96 mg/dL Final 06/05/2023 1.15 (H) 0.58 - 0.96 mg/dL Final 03/05/2023 1.24 (H) 0.58 - 0.96 mg/dL Final Estimated Glomerular Filtration Rate Date Value Ref Range Status 03/31/2024 48 (L) >=60 mL/min/1.73m? Final Comment: Estimated Glomerular [...] RESULTS: POC done: Yes, See Lab Tab April 08, 2024 TREATMENT: N/A IV SITE: Ambulatory: A peripheral IV was started in the Right antecubital site with a Angio cath: 22 gauge. IV SITE APPEARANCE: Clean,Dry and Intact SIGNATURE: Tripp Madden RN PATIENT NAME: Kacie Pedraza DATE: April 08, 2024 TIME: 1:17 PM CNPN Observed: 04/04/2024 12:00 AM Status: COMPLETED Source: [facility] Telephone (HEMASA) YOUSUFKACIE ([id number]) 1940 F Date Time Provider Department 04/04/24 ANNA THOMAS During your visit today, we recorded the following information about you: Anna Thomas RN 04/04/2024 12:12 PM Signed BRM: Please review labs and advise any recommendations RIYA Fagan Brian R, MD 04/04/2024 12:56 PM Signed Iron levels normal but ferritin has dropped slightly. Transferrin saturation slightly low. She might benefit from IV iron x 1. Please schedule if in agreement. Anna Thomas RN 04/04/2024 1:02 PM Signed Pt aware and agreeable to plan of care, IV Iron. Pharmacy: please place Iron orders PSS: Please call to schedule RIYA Fagan Brittany 04/04/2024 1:28 PM Signed Patient was scheduled to be here on Thursday, 04/[address] scan so made her Iron appointment to follow. Patient has been notified, Thanks! Elda Cevallos Allergies As of Date: 04/04/2024 (No Known Allergies) Date Reviewed: 03/31/2024 Reviewed by: Sherrie Rinaldi MA - Fully Assessed Reason for Visit: Results [95] Prescriptions as of 04/04/2024 - albuterol HFA (PROVENTIL HFA, VENTOLIN HFA) 90 mcg/actuation inhaler Inhale 1 Puff as instructed every 6 hours as needed for wheezing/shortness of breath. - tiotropium-olodaterol (STIOLTO RESPIMAT) 2.5-2.5 mcg/actuation inhale 2 puffs by mouth and INTO THE LUNGS once daily - docusate sodium (STOOL SOFTENER ORAL) Take by mouth. - atorvastatin (LIPITOR) 40 mg tablet Take 40 mg by mouth once daily. - calcium carbonate (CALTRATE) 600 mg calcium (1,500 mg) tab Take 600 mg by mouth. - acetaminophen/diphenhydramine (TYLENOL PM ORAL) Take by mouth. - CZYTSTH-CTCU-HGEBU-OREG-CAPRYL ORAL Take by mouth. - rivaroxaban (XARELTO) [...] once daily. 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] 12/29/2011 Iron deficiency anemia [D50.9] 02/02/2023 Encounter Status:Closed by ELDA CEVALLOS on 04/04/24 CNOVSP Observed: 03/31/2024 3:45 PM Status: COMPLETED Source: [facility] Visit (SP) Office (HEMASA) RYLANKACIE MCPHERSON ([id number]) 1940 F Date Time Provider Department 03/31/24 3:45 PM NIR VELASQUEZ During your visit today, we recorded the following information about you: Temperature Pulse Respiration Blood pressure 97.1 degrees 98/minute 16/minute 124/67 Weight Height 67.3 kg 1.549 m Nir Velasquez MD 04/01/2024 6:17 AM Signed PATIENT NAME: KACIE Ayon DATE: 03/31/2024 PRIMARY CARE PHYSICIAN: Dr. Tk Roque OTHER PHYSICIANS: Dr. Salgado, Dr. Shea, Dr. Miriam Godinez ([facility]) Portions of this encounter note have been copied from my note from 06/11/2023 and has been updated where appropriate, and reflect my current medical decision making from today. CC: This is an 83 year old female with a history of recurrent lung cancer, persistent pulmonary nodules, and iron deficiency anemia - seen for scheduled follow-up. INTERIM HISTORY: Since the patient's last visit here she was discovered to have a pericardial effusion on echocardiogram in October 2023. Repeat echocardiogram January 2024 revealed persistence. Pericardiocentesis was attempted on 02/19/2024, but apparently no fluid was obtained. Repeat echocardiogram 03/04/2024 improved. Per cardiology continued follow-up recommended. Otherwise the patient has had no significant medical changes. Chronic shortness of breath persists, and she currently is on bronchodilators per pulmonary. She denies any significant cough, hemoptysis, or chest pain. No other evidence of bleeding. She continues to mourn the of her last year. She plans to spend the winter at their house in [place]. MEDICATIONS: Current Outpatient Medications Medication Sig tiotropium-olodaterol (STIOLTO RESPIMAT) 2.5-2.5 mcg/actuation inhale 2 puffs by mouth and INTO THE LUNGS once daily docusate sodium (STOOL SOFTENER ORAL) Take by mouth. atorvastatin (LIPITOR) 40 mg tablet Take 40 mg by mouth once daily. calcium carbonate (CALTRATE) 600 mg calcium (1,500 mg) tab Take 600 mg by mouth. acetaminophen/diphenhydramine (TYLENOL PM ORAL) Take by mouth. KLVRUKL-JLEP-WCUNJ-OREG-CAPRYL ORAL Take by mouth. rivaroxaban (XARELTO) 20 [...] Social History Tobacco Use Smoking status: Former Current packs/day: 0.00 Types: Cigarettes Quit date: 1969 Years since [...] anxiety, depression, or other. PHYSICAL EXAM: BP 124/67 Pulse 98 Temp 36.2 ?C (97.1 ?F) (Temporal) Resp 16 Ht 154.9 cm (5' 0.98 ) Wt 67.3 kg (148 lb 5.9 oz) SpO2 97% BMI 28.05 kg/m? GENERAL EXAM: Well developed/well nourished; in [...] done PSYCHIATRIC: Negative for mood/affect changes, recent AND remote memory changes, and judgement and insight. NEUROLOGICAL: Alert, oriented x person, place, time. Cranial nerves 2-12 intact. Sensory for pain, light touch, vibration intact on all 4 extremities. Reflexes symmetric for biceps/brachioradial/patella/achilles. MUSCULOSKELETAL: Negative examination of joints, bones, muscles/tendons of all four extremities for inspection, percussion, and palpation. Negative for misallignment, asymmetry, crepitation, tenderness, mass, effusions. Range of motion normal. Negative for joint instability, laxity, dislocation. Gait steady. Negative for swelling, erythema, tenderness, soft tissue swelling, and atrophy. PATHOLOGY: 11/19/2021 Left lateral chest wall mass, biopsy ([id number]; 11/19/2021): - Adenocarcinoma. PD-L1 expression 0% NGS analysis : BRAF negative, EGFR negative, K-evelin G12F detected. 01/30/2003 Left upper lobectomy and mediastinal lymph node dissection ([facility]) Adenocarcinoma, acinar type, moderately differentiated. Primary tumor size 1.8 cm. 1 left hilar lymph node positive for metastasis. LABS: Hemoglobin (g/dL) Date Value 03/31/2024 11.3 Hematocrit (%) Date Value 03/31/2024 32.9 WBC (k/uL) Date Value 03/31/2024 5.50 Platelet Count (k/uL) Date Value 03/31/2024 213 RADIOLOGY/OTHER STUDIES: 03/04/2024 ECHO ([facility]) 1. Global left ventricular systolic function is normal; visually estimated ejection fraction is 55 to 60% 2. Normal right ventricular size and systolic function 3. Biatrial enlargement 4. A small anterior and small to moderate posterior pericardial effusion is seen; echodense material seen anteriorly likely represented thrombus vs mass A limited echocardiogram was performed 06/05/2023 CT chest IMPRESSION: 1. There are multiple pulmonary nodules [...] 3 months to reassess the pleural thickening. 02/26/2023 PET scan IMPRESSION: HEAD/NECK: * No [...] FDG avid osseous lesion. 01/20/[address] ([facility]) Increased size and solid nature of [...] abnormalities, but no clear-cut evidence of recurrence. Follow-up chest CT 01/20/2023 revealed a 0.8 cm nodule in the right upper lobe which had increased in size and density slightly compared to prior. Repeat PET scan 02/26/2023 revealed a 0.7 cm groundglass nodule in the right upper lobe, too small to accurately characterize. Most recent chest CT 06/05/2023 stable. At this time will continue close observation. Will repeat chest CT this month. Assuming her scan is stable she plans to spend the winter in [place]. Will schedule a temporary return visit here in October after she returns to [place]. 2. Iron deficiency anemia - ICD9: 280.9, ICD10: D50.9 The patient was hospitalized at [facility] November 2022 with anemia (hemoglobin 7.2), labs consistent with iron deficiency, and she received PRBC x 2. Most likely the patient had occult GI bleeding exacerbated by anticoagulants. GI evaluation with upper and lower endoscopy has been recommended, but apparently the patient declined. She received IV iron with Monoferric 02/10/2023. CBC currently improved. At this time will monitor labs closely and give additional IV iron if indicated. Will monitor for evidence of GI bleeding and refer to GI for endoscopic evaluation as indicated. 3. Emphysema The patient has a long history of smoking, quit approximately 1989. She has radiographic evidence of emphysema. Most likely emphysema is contributing to her chronic shortness of breath. Continue management per PCP/pulmonary. 4. History of coronary artery disease, pericardial effusion Coronary artery disease diagnosed 2020. Status post stent placement November 2020. She was discovered to have a pericardial effusion on echocardiogram in October 2023. Repeat echocardiogram January 2024 revealed persistence. Pericardiocentesis was attempted 02/19/2024, but apparently no fluid was obtained. Repeat echocardiogram 03/04/2024 improved. Continue follow-up with cardiology as scheduled. Nir Velasquez MD CC: Dr. Salgado ([facility]), Dr. 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) [C34.92] Other Visit Diagnoses:Lung nodules [R91.8] Iron deficiency anemia, unspecified iron deficiency anemia type [D50.9] Order(s):COMPLETE BLOOD COUNT AND DIFFERENTIAL [SQCBCDIF] Order #: [id number] FUTURE COMPREHENSIVE METABOLIC PANEL [SQCMP] Order #: [id number] FUTURE IRON AND TIBC [SQIRON] Order #: [id number] FUTURE FERRITIN [SQFERR] Order #: [id number] FUTURE CT CHEST W IVCON [[id number]] Order #: [id number] FUTURE iv contrast (will be provided with radiology test)CT Chest W -Inject, intravenously, once for 1 [...] protocol in the CT contrast administration guidelines link.Disp: 1 EachRfl: 0 Disposition: Return in about 7 months (around 11/14/2024). Follow-up and Disposition History for Encounter Date Provider Department Center 03/31/2024 [id number] VELASQUEZ Prescriptions as of 04/01/2024 - albuterol HFA (PROVENTIL HFA, VENTOLIN HFA) 90 mcg/actuation inhaler Inhale 1 Puff as instructed every 6 hours as needed for wheezing/shortness of breath. - iv contrast (will be provided with radiology [...] in the CT contrast administration guidelines link. - tiotropium-olodaterol (STIOLTO RESPIMAT) 2.5-2.5 mcg/actuation inhale 2 puffs by mouth and INTO THE LUNGS once daily - docusate sodium (STOOL SOFTENER ORAL) Take by mouth. - atorvastatin (LIPITOR) 40 mg tablet Take 40 mg by mouth once daily. - calcium carbonate (CALTRATE) 600 mg calcium (1,500 mg) tab Take 600 mg by mouth. - acetaminophen/diphenhydramine (TYLENOL PM ORAL) Take by mouth. - PTKQWKM-HXRR-CXTSY-OREG-CAPRYL ORAL Take by mouth. - rivaroxaban (XARELTO) [...] once daily. 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] 12/29/2011 Iron deficiency anemia [D50.9] 02/02/2023 Encounter Status:Closed by NIR VELASQUEZ on 04/01/24 CBC W AUTO DIFF BLD Collected: 03/31/2024 3:[address] atus: F Source: [facility] Order Comment: Specimen Type : BLOOD SPECIMEN Ordering Facility: [facility] Address: [address] [place] [address] TYPE CODE TESTS RESULT OUT OF RANGE REFERENCE UNITS LAB 6690-2(LOINC) WBC # Bld Auto 5.50 3.70-11.00 k/uL LAB 789-8(LOINC) RBC # Bld Auto 3.73 Low 3.90-5.20 m/ uL LAB 718-7(LOINC) Hgb Bld-mCnc 11.3 Low 11.5-15.5 g/dL LAB 4544-3(LOINC) Hct VFr Bld Auto 32.9 Low 36.0-46.0 % LAB 787-2(LOINC) MCV RBC Auto 88.2 80.0-100.0 fL LAB 785-6(LOINC) MCH RBC Qn Auto 30.3 26.0-34.0 p g LAB 786-4(LOINC) MCHC RBC Auto-mCnc 34.3 30.5-36.0 g/dL LAB 09541-0([facility]) RDW RBC-Rto 13.4 11.5-15.0 % LAB 777-3([facility]) Platelet # Bld Auto 213 150-400 k/uL LAB 06118-9([facility]) PMV Bld Auto 10.4 9.0-12.7 fL LAB 770-8([facility]) Neutrophils/leuk NFr Bld Auto 75.5 % LAB 751-8([facility]) Neutrophils # Bld Auto 4.15 1.45-7.50 k/uL LAB 736-9([facility]) Lymphocytes/leuk NFr Bld Auto 16.7 % LAB 731-0([facility]) Lymphocytes # Bld Auto 0.92 Low 1.00-4.00 k/uL LAB 5905-5([facility]) Monocytes/leuk NFr Bld Auto 6.0 % LAB 742-7([facility]) Monocytes # Bld Auto 0.33 <0.87 k/uL LAB 713-8([facility]) Eosinophil/leuk NFr Bld Auto 0.9 % LAB 711-2([facility]) Eosinophil # Bld Auto 0.05 <0.46 k/uL LAB 706-2([facility]) Basophils/leuk NFr Bld Auto 0.4 % LAB 704-7([facility]) Basophils # Bld Auto <0.03 <0.11 k/uL LAB 28419-8([facility]) Imm Granulocytes/tati k NFr Bld Auto 0.5 % LAB 15203-5([facility]) Imm Granulocytes # Bld Auto 0.03 <0.10 k/uL LAB 56147-0([facility]) nRBC/100 WBC Bld-Rto 0.0 /100 WBC LAB 771-6([facility]) nRBC # Bld Auto <0.01 <0.01 k/u L LAB 45710-8([facility]) Differential method Bld Auto Performed By: #### 62359-9 # ### [facility] CLIA [id number] [address] [place] [address] IRON+TIBC PNL SERPL Collected: 03/31/2024 3:[address] atus: F Source: [facility] Comment: Specimen Type : BLOOD SPECIMEN Ordering Facility: [facility] Address: [address] [place] [address] TYPE CODE TESTS RESULT OUT OF RANGE REFERENCE UNITS LAB 2498-4(LOINC) Iron SerPl-mCnc 48 41-186 ug/dL LAB 2500-7(LOINC) TIBC SerPl-mCnc 377 232-386 ug/dL LAB 25759-2(LOINC) Iron/TIBC SerPl-sRto 12.7 Low 15.0-57.0 % Performed By: #### 49234-9, 2275-4 #### [facility] CLIA [id number] [address] [place] [address] OF JUAN J FERRITIN SERPL-MCNC Collected: 03/31/20 3:27 PM Status: F Source: [facility] Comment: Specimen Type : BLOOD SPECIMEN Ordering Facility: [facility] Address: [address] [place] [address] TYPE CODE TESTS RESULT OUT OF RANGE REFERENCE UNITS LAB 2276-4(INC) Ferritin SerPl-mCnc 34.1 14.7-205.1 ng/mL Performed By: #### 05264-9, 2275-4 #### [facility] CLIA [id number] [address] [place] [address] [place] COMP METAB 2000 PNL SERPL Collected: 3:27 PM Status: F Source: [facility] Comment: Specimen Type : BLOOD SPECIMEN Ordering Facility: [facility] Address: [address] [place] [address] TYPE CODE TESTS RESULT OUT OF RANGE REFERENCE UNITS LAB 2885-2(LOINC) Prot SerPl-mCnc 6.9 6.3-8.0 g/dL LAB 1751-7(LOINC) Albumin SerPl-mCnc 4.5 3.9-4.9 g/dL LAB 20280-4(LOINC) Calcium SerPl-mCnc 9.2 8.5-10.2 mg/dL LAB 1975-2(LOINC) Bilirub SerPl-mCnc 0.2 0.2-1.3 mg/dL LAB 6768-6(LOINC) ALP SerPl-cCnc 54 34-123 U/L LAB 1920-8(LOINC) AST SerPl-cCnc 24 13-35 U/L LAB 1742-6(LOINC) ALT SerPl-cCnc 26 7-38 U/L LAB 2345-7(LOINC) Glucose SerPl-mCnc 154 High 74-99 mg/dL Result Comment: The [place] [employer] Association (ADA) provides guidance for cutoff [...] Standards of Medical Care in Diabetes 2016, [place] [employer]. Diabetes Care. 2016.39(Suppl 1). LAB 3094-0(LOINC) BUN SerPl-mCnc 31 High 7-21 mg/ dL LAB 2160-0(LOINC) Creat SerPl-mCnc 1.15 High 0.58-0.96 mg/dL LAB 2951-2(LOINC) Sodium SerPl-sCnc 134 Low 136-144 mmol/L LAB 2823-3(LOINC) Potassium SerPl-sCnc 4.4 3.7-5.1 mmol/L LAB 2075-0(LOINC) Chloride SerPl-sCnc 96 Low 98-107 mmol/L LAB 2028-9(LOINC) CO2 SerPl-sCnc 25 22-30 mmo l/L LAB 42209-3(LOINC) Anion Gap SerPl-sCnc 13 8-15 mmol/L LAB 29329-3(LOINC) Creatinine + eGFR Pnl SerPlBld 48 Low >=60 mL/min/1 .73m??? Result Comment: Estimated Gl omerular Filtration Rate (eGFR) is calculated using the 2020 CKD-EPI creatinine equation. This equation utilizes serum creatinine, sex, and age as parameters. The creatinine assay has traceable calibration to isotope dilution-mass spectrometry. Refer to KDIGO guidelines for clinical interpretation. In patients with unstable renal function, e.g. those with acute kidney injury, the eGFR may not accurately reflect actual GFR. Performed By: #### 30146-3 # ### [facility] CLIA [id number] [address] [place] [address] PROGRESS Observed: 03/30/2024 2:22 PM Status: COMPLETED Source: [facility] HNO ID: [id number] Author: NIR VELASQUEZ MD Service: ? Author Type: Physician Type: Progress Notes Filed: 04/01/2024 06:17 Note Text: PATIENT NAME: KACIE Ayon DATE: 03/31/2024 PRIMARY CARE PHYSICIAN: Dr. Tk Roque OTHER PHYSICIANS: Dr. Salgado, Dr. Shea, Dr. Miriam Godinez ([facility]) Portions of this encounter note have been copied from my note from 06/11/2023 and has been updated where appropriate, and reflect my current medical decision making from today. CC: This is an 83 year old female with a history of recurrent lung cancer, persistent pulmonary nodules, and iron deficiency anemia - seen for scheduled follow-up. INTERIM HISTORY: Since the patient's last visit here she was discovered to have a pericardial effusion on echocardiogram in October 2023. Repeat echocardiogram January 2024 revealed persistence. Pericardiocentesis was attempted on 02/19/2024, but apparently no fluid was obtained. Repeat echocardiogram 03/04/2024 improved. Per cardiology continued follow-up recommended. Otherwise the patient has had no significant medical changes. Chronic shortness of breath persists, and she currently is on bronchodilators per pulmonary. She denies any significant cough, hemoptysis, or chest pain. No other evidence of bleeding. She continues to mourn the of her last year. She plans to spend the winter at their house in [place]. MEDICATIONS: Current Outpatient Medications Medication Sig tiotropium-olodaterol (STIOLTO RESPIMAT) 2.5-2.5 mcg/actuation inhale 2 puffs by mouth and INTO THE LUNGS once daily docusate sodium (STOOL SOFTENER ORAL) Take by mouth. atorvastatin (LIPITOR) 40 mg tablet Take 40 mg by mouth once daily. calcium carbonate (CALTRATE) 600 mg calcium (1,500 mg) tab Take 600 mg by mouth. acetaminophen/diphenhydramine (TYLENOL PM ORAL) Take by mouth. EVZNDMV-SNRT-UKVDL-OREG-CAPRYL ORAL Take by mouth. rivaroxaban (XARELTO) 20 [...] Social History Tobacco Use Smoking status: Former Current packs/day: 0.00 Types: Cigarettes Quit date: 1969 Years since [...] anxiety, depression, or other. PHYSICAL EXAM: BP 124/67 Pulse 98 Temp 36.2 ?C (97.1 ?F) (Temporal) Resp 16 Ht 154.9 cm (5' 0.98 ) Wt 67.3 kg (148 lb 5.9 oz) SpO2 97% BMI 28.05 kg/m? GENERAL EXAM: Well developed/well nourished; in [...] done PSYCHIATRIC: Negative for mood/affect changes, recent AND remote memory changes, and judgement and insight. NEUROLOGICAL: Alert, oriented x person, place, time. Cranial nerves 2-12 intact. Sensory for pain, light touch, vibration intact on all 4 extremities. Reflexes symmetric for biceps/brachioradial/patella/achilles. MUSCULOSKELETAL: Negative examination of joints, bones, muscles/tendons of all four extremities for inspection, percussion, and palpation. Negative for misallignment, asymmetry, crepitation, tenderness, mass, effusions. Range of motion normal. Negative for joint instability, laxity, dislocation. Gait steady. Negative for swelling, erythema, tenderness, soft tissue swelling, and atrophy. PATHOLOGY: 11/19/2021 Left lateral chest wall mass, biopsy ([id number]; 11/19/2021): - Adenocarcinoma. PD-L1 expression 0% NGS analysis : BRAF negative, EGFR negative, K-evelin G12F detected. 01/30/2003 Left upper lobectomy and mediastinal lymph node dissection ([facility]) Adenocarcinoma, acinar type, moderately differentiated. Primary tumor size 1.8 cm. 1 left hilar lymph node positive for metastasis. LABS: Hemoglobin (g/dL) Date Value 03/31/2024 11.3 Hematocrit (%) Date Value 03/31/2024 32.9 WBC (k/uL) Date Value 03/31/2024 5.50 Platelet Count (k/uL) Date Value 03/31/2024 213 RADIOLOGY/OTHER STUDIES: 03/04/2024 ECHO ([facility]) 1. Global left ventricular systolic function is normal; visually estimated ejection fraction is 55 to 60% 2. Normal right ventricular size and systolic function 3. Biatrial enlargement 4. A small anterior and small to moderate posterior pericardial effusion is seen; echodense material seen anteriorly likely represented thrombus vs mass A limited echocardiogram was performed 06/05/2023 CT chest IMPRESSION: 1. There are multiple pulmonary nodules [...] 3 months to reassess the pleural thickening. 02/26/2023 PET scan IMPRESSION: HEAD/NECK: * No [...] FDG avid osseous lesion. 01/20/[address] ([facility]) Increased size and solid nature of [...] abnormalities, but no clear-cut evidence of recurrence. Follow-up chest CT 01/20/2023 revealed a 0.8 cm nodule in the right upper lobe which had increased in size and density slightly compared to prior. Repeat PET scan 02/26/2023 revealed a 0.7 cm groundglass nodule in the right upper lobe, too small to accurately characterize. Most recent chest CT 06/05/2023 stable. At this time will continue close observation. Will repeat chest CT this month. Assuming her scan is stable she plans to spend the winter in [place]. Will schedule a temporary return visit here in October after she returns to [place]. 2. Iron deficiency anemia - ICD9: 280.9, ICD10: D50.9 The patient was hospitalized at [facility] November 2022 with anemia (hemoglobin 7.2), labs consistent with iron deficiency, and she received PRBC x 2. Most likely the patient had occult GI bleeding exacerbated by anticoagulants. GI evaluation with upper and lower endoscopy has been recommended, but apparently the patient declined. She received IV iron with Monoferric 02/10/2023. CBC currently improved. At this time will monitor labs closely and give additional IV iron if indicated. Will monitor for evidence of GI bleeding and refer to GI for endoscopic evaluation as indicated. 3. Emphysema The patient has a long history of smoking, quit approximately 1989. She has radiographic evidence of emphysema. Most likely emphysema is contributing to her chronic shortness of breath. Continue management per PCP/pulmonary. 4. History of coronary artery disease, pericardial effusion Coronary artery disease diagnosed 2020. Status post stent placement November 2020. She was discovered to have a pericardial effusion on echocardiogram in October 2023. Repeat echocardiogram January 2024 revealed persistence. Pericardiocentesis was attempted 02/19/2024, but apparently no fluid was obtained. Repeat echocardiogram 03/04/2024 improved. Continue follow-up with cardiology as scheduled. Nir Velasquez MD CC: Dr. Salgado ([facility]), Dr. Miriam Godinez ([facility]) 36 Observed: 03/09/2024 11:01 AM Status: COMPLETED Source: [facility] Spoke with patient and made her aware. She will cancel apt on 03/[address] Godinez. She is going to [place] for a few months soon and will call us for an apt when she's home in [facility] if needed. Otherwise, she's due to follow up with Dr. Godinez in October 2024. CNPN Observed: 03/07/2024 12:00 AM Status: COMPLETED Source: [facility] Telephone (HEMTSA) EVIEKACIE ([id number]) 1940 F Date Time Provider Department 03/07/24 MARGARITA LUZ During your visit today, we recorded the following information about you: Margarita Luz RN 03/07/2024 9:43 AM Signed Pt called on Thursday03/04/24 and left message that she needs a follow up appointment with sherin Ariza on Dr. Velasquez per her code inspector. Has not been seen since 05/2023. Matilda Sellers 03/07/2024 9:44 AM Signed I just sent a message to Wilfrido Guerrero about her, thank you! Luz Elena Arciniega LPN 03/08/2024 9:35 AM Addendum Kacie left a couple messages to get an update regarding her need for an appt for follow up. She states her code inspector recommended she schedule follow up with her oncologist. Kacie states she is leaving for [place] 04/19/24 and will return in May for [place]. 06/11/[address] Velasquez indicates he planned to repeat CT chest in November 2023. She would like to see Dr. Velasquez [facility] prior to her leaving 04/19/24. I notified Kacie that our office will call her to arrange a follow up once Dawna is able to find an opening in Dr. Velasquez's schedule. Rosario Montanez: Will you please print last pulmonology office note and any radiology studies since 2022 from [facility]? Thanks RIYA Hopper Jennifer L 03/08/2024 10:06 AM Signed Patient is seeing Dr. Salgado (pulmonary) on 03/16/24. They have not seen her since May. That note is already scanned.She had unsuccessful heart cath on 02/19/24. Cardiology notes/procedure and imaging are in Epic. No other recent imaging. Dawna Guerrero RN 03/09/2024 1:21 PM Signed Please schedule with Dr. Velasquez on Mar.31 at 345pm Thanks Janina Crandall 03/09/2024 2:43 PM Signed Spoke to patient AND scheduled her on 03/31/2024 for lab at 3:30 pm AND BRM at 3:45 pm. ASHA Curiel Allergies As of Date: 03/07/2024 (No Known Allergies) Date Reviewed: 06/11/2023 Reviewed by: Deborah Patel MA - Fully Assessed Reason for Visit: Appointment [186] Prescriptions as of 03/09/2024 - tiotropium-olodaterol (STIOLTO RESPIMAT) 2.5-2.5 mcg/actuation inhale 2 puffs by mouth and INTO THE LUNGS once daily - docusate sodium (STOOL SOFTENER ORAL) Take by mouth. - atorvastatin (LIPITOR) 40 mg tablet Take 40 mg by mouth once daily. - calcium carbonate (CALTRATE) 600 mg calcium (1,500 mg) tab Take 600 mg by mouth. - acetaminophen/diphenhydramine (TYLENOL PM ORAL) Take by mouth. - SLNMAWM-FTTV-CVPCJ-OREG-CAPRYL ORAL Take by mouth. - rivaroxaban (XARELTO) [...] once daily. 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 It has decreased since her last echocardiogram in [place]. I would not pursue any interventions on this fluid at this point. She should mention it to her oncologist when she sees them in follow-up. As mentioned in the [employer], I would recommend she see her chronometer repairer for her worsening shortness of breath. Thank you Spoke with patient and made her aware of result per Dr. Godinez, also with other recommendations. She verbalized understanding. She is scheduled to see you on 03/21/2024. Patient wants to know if she still needs to keep this apt with you? Please advise. NURSNOTE Observed: 02/19/2024 11:51 AM Status: COMPLETED Source: [facility] RN educated pt on d/c instru ctions. RN encouraged pt to voice any questions or concerns. Pt verbalizes no questions or concerns at this time. Pt was wheeled off of unit with all of belongings. PROGRESS Observed: 02/19/2024 11:21 AM Status: COMPLETED Source: [facility] Cardiovascular Laboratory Re port FINAL IMPRESSIONS: Unsuccessful attempt at right heart catheterization via right internal jugular approach Echocardiographic evidence of minimal anterior pericardial effusion insufficient to warrant pericardiocentesis RECOMMENDATIONS: A repeat limited echocardiogram will be performed in a month Further investigations for the patient's shortness of breath as clinically appropriate; given her extensive pulmonary history, would recommend follow-up with her chronometer repairer and consideration of a repeat CT scan of the chest. She is to follow-up with Dr. Godinez in the [place] office following her echocardiogram that will scheduled [...] FINDINGS: Hemodynamics: AO: 158/98 [122] INDICATION: Mrs. Ayon is an 83-year-old woman with a history of moderate to large pericardial effusion that has been followed as an outpatient. Serial echocardiogram showed no evidence of tamponade physiology. Due to worsening shortness of breath, there was elected to attempt pericardiocentesis for diagnostic and therapeutic purposes. Further findings and recommendations as above. ANES Observed: 02/19/2024 9:38 AM Status: COMPLETED Source: [facility] Attestation signed by Miriam Godinez MD at 02/19/2024 9:43 AM Miriam Godinez MD, MPH, [facility], [facility], [facility] Interventional Cardiology Pager Email: [email or web address] Patient: Kacie Ayon Procedure Information Date/Time: 02/19/24 9899 Procedures: Right heart cath (Right) - TO BE DONE 2023 PERICARDIOCETESIS ECHO GUIDED Pericardiocentesis - ECHO GUIDED Location: [facility] CURATOR OF COLLECTIONS 3 / [facility] VASCULAR LAB (Cath) Providers: Miriam Godinez MD Clinical information reviewed: Allergies Meds OB [...] Plan discussed with attending. Additional Equipment Requests HP Observed: 02/19/2024 9:30 AM Status: COMPLETED Source: [facility] H&P reviewed. The patient wa s examined and there are no changes to the H&P. Miriam Godinez MD, MPH, [facility], [facility], [facility] Interventional Cardiology Pager Email: [email or web address] HP Observed: 02/19/2024 9:30 AM Status: COMPLETED Source: [facility] H&P reviewed. The patient wa s examined and there are no changes to [...] to proceed. Signed, Elise Copeland MD PGY-4 Incident Response Specialist Pager: [phone] HP Observed: 02/08/2024 9:45 AM Status: COMPLETED Source: [facility] Cardiology Clinic Note Chief Complaint: Patient here for 3 mo follow up CAD, afib, and pericardial effusion. Had echo last week. Denies chest pain, palpitations, and bleeding on Xarelto. C/o SOB. HPI: Kacie Ayon is a 83 y.o. female She has [...] Take by mouth., Disp: , Rfl: omega 6-uyl-tqm-fish oil (Fish OiL) 100-160-1,000 mg capsule, Fish [...] on PET scan I31.3: Pericardial effusion (noninflammatory) Moderate to large echo 01/2024 11. Anemia; questionable blood loss 12. Fatigue 13. Emphysema no evidence of pulmonary fibrosis; scattered pulmonary nodules 14. Orthostatic hypotension - dizziness Plan: She has a number of potential etiologies for her shortness of breath, however the pericardial effusion is an obvious one that we may intervene on to at least improve her symptomatology. Given her worsening exertional dyspnea, and the size of the pericardial effusion, pericardiocentesis for both diagnostic and therapeutic purposes is a reasonable option. We will schedule her for a right heart catheterization to evaluate for tamponade physiology followed by pericardiocentesis under echocardiographic guidance. She is to stop her Xarelto for 2 days prior to the procedure. The pericardial fluid will be sent for analysis; I did emphasize the need to follow-up with her oncologist particularly if any cancer cells are found in the effusion. Continue current medical therapy. Further recommendations pending the above Miriam Godinez MD, MPH, FACC, [facility], [facility] Interventional Cardiology Pager Email: [email or web address] PROGRESS Observed: 02/08/2024 9:45 AM Status: COMPLETED Source: [facility] Cardiology Clinic Note Chief Complaint: Patient here for 3 mo follow up CAD, afib, and pericardial effusion. Had echo last week. Denies chest pain, palpitations, and bleeding on Xarelto. C/o SOB. HPI: Kacie Ayon is a 83 y.o. female She has [...] Take by mouth., Disp: , Rfl: omega 5-vvg-bcy-fish oil (Fish OiL) 100-160-1,000 mg capsule, Fish [...] on PET scan I31.3: Pericardial effusion (noninflammatory) Moderate to large echo 01/2024 11. Anemia; questionable blood loss 12. Fatigue 13. Emphysema no evidence of pulmonary fibrosis; scattered pulmonary nodules 14. Orthostatic hypotension - dizziness Plan: She has a number of potential etiologies for her shortness of breath, however the pericardial effusion is an obvious one that we may intervene on to at least improve her symptomatology. Given her worsening exertional dyspnea, and the size of the pericardial effusion, pericardiocentesis for both diagnostic and therapeutic purposes is a reasonable option. We will schedule her for a right heart catheterization to evaluate for tamponade physiology followed by pericardiocentesis under echocardiographic guidance. She is to stop her Xarelto for 2 days prior to the procedure. The pericardial fluid will be sent for analysis; I did emphasize the need to follow-up with her oncologist particularly if any cancer cells are found in the effusion. Continue current medical therapy. Further recommendations pending the above Miriam Godinez MD, MPH, FACC, [facility], [facility] Interventional Cardiology Pager Email: [email or web address] OFFICE VISIT Observed: 02/08/2024 9:45 AM Status: COMPLETED Source: [facility] [id number] Kacie Ayon 0 1940 Provider Department Center 02/08/2024 271-MIRIAM GODINEZ TYESHA Rosas Family History Problem Relation Age of Onset Heart disease Mother Family Status - Relation Status Age at Mother Level of Service:57516 PA OFFICE/OUTPATIENT ESTABLISHED MOD MDM 30 MIN ORDERS ONLY Observed: 02/08/2024 12:00 AM Status: COMPLETED Source: [facility] [id number] Kacie Ayon 0 1940 Provider Department Center 02/08/2024 895-LUIGI CARPIO Family History Problem Relation Age of Onset Heart disease Mother Family Status - Relation Status Age at Mother 36 Observed: 02/03/2024 11:03 AM Status: COMPLETED Source: [facility] Patient called back and she has an apt to discuss this with Dr. Godinez on 02/08/2024. 37 Observed: 02/02/2024 4:20 PM Status: COMPLETED Source: [facility] Regarding echo result from : MD Daniela Talamantes MA Can we let Mrs Ayon know her effusion is moderate to large: if she is more short of breath we can consider removing it with a needle. If she feels the same, we'll repeat the echo in 3 months. Thanks. for patient to return my call. ALLERGIES DATE TYPE / CODE NAME / CODE REACTION SEVERITY SOURCE Drug Class/328654707(SNO MED CT) NO KNOWN ALLERGIES [place] [facility] a[place] SYSTEMIC/[id number]( SNOMED CT) NO KNOWN ALLERGIES [facility] ENCOUNTERS ADMIT/DISCHARGE ACCOUNT NUMBER ADMITTING ENCOUNTER CLASS LOCATION SOURCE 11/17/2024/11/18/19 [id number] Ambulatory Building:NOM S [facility] 11/17/2024/11/18/19 [id number] Ambulatory Building:NOM S [facility] 11/14/2024/11/15/19 [id number] [facility]ulatory [facility] 11/14/2024/11/15/19 [id number] Ambulatory [facility] Hospital[facility]il ding:HOLLIE [facility] 10/25/2024/10/26/19 [id number] Ambulatory Building:NOM S [facility] 10/05/2024/10/06/19 [id number] Ambulatory Building:CCB [facility] 04/08/2024/04/08/20 24 [id number] Ambulatory [facility] HospitalBuil ding:HETS [facility] 04/08/2024/04/08/20 24 [id number] Ambulatory [facility] HospitalBuil ding:PCSA [facility] 03/31/2024/03/31/20 24 [id number] Ambulatory [facility] HospitalBuil ding:HESA [facility] 03/31/2024/03/31/20 24 [id number] Ambulatory [facility]:HOLLIE [facility] 02/19/2024 [id number] Ambulatory Building:[facility] 02/19/2024/02/19/20 [id number] Ambulatory Building:[facility] 02/19/2024/02/19/20 [id number] MIRIAM GODINEZ Ambulatory Buildin 0Room: [facility] VASCULAR POOLBed: [address] [facility] 02/08/2024/02/08/20 [id number] Ambulatory Building:CCB [facility] 01/13/2024/01/13/20 [id number] [facility] EPIC PAYERS ENCOUNTER GUARANTOR PAYER SUBSCRIBER SOURCE 11/17/2024 KACIE SANDERSB: [place] [address]Xbj: (HP) Primary Insurance:MEDICAREPolic y Number: [id number] Date:7315-86-10Uqmd Name:Medicare KACIE SANDERSB: [id number] [place] [address] [facility] 11/17/2024 Secondary Insurance:MUTUAL OF [facility] Number: [id number] Date:2022-11-17 KACIE SANDERSB: [id number] [place] [address] [facility] 11/17/2024 KACIE SANDERSB: [place] [address]Cnl: (HP) Primary Insurance:MEDICAREPolic y Number: [id number] Date:2365-43-62Yjug Name:Medicare KACIE SANDERSB: [id number] [place] [address] [facility] 11/17/2024 Secondary Insurance:MUTUAL OF [facility] Number: [id number] Date:2022-11-17 KACIE SANDERSB: [id number] [place] [address] [facility] 11/14/2024 Primary Insurance:MEDICARE A AND BPolicy Number: [id number] Date:1070-27-13Iour Name:Pramod KACIE Juan CHAIREZB: [id number] [place] [address] [facility] 11/14/2024 Secondary Insurance:M[place]UAL OF [place] MEDICARE SUPPLEMENTPolicy Number: [id number] Date:0398-68-21Gzyi Name:Karoline CHAIREZB: [id number] [place] [address] [facility] 11/14/2024 Primary Insurance:MEDICARE A AND BPolicy Number: [id number] Date:3913-00-26Joqm Name:Pramod LONGKat Martinez MIHAELAB: [id number] [place] [address] [facility] 11/14/2024 Secondary Insurance:M[place]UAL OF [place] MEDICARE SUPPLEMENTPolicy Number: [id number] Date:1221-61-11Anax Name:Karoline CHAIREZB: [id number] [place] [address] [facility] 10/25/2024 KACIE CARPENTER: [place] [address]Ctw: () Primary Insurance:MEDICAREPolic y Number: [id number] Date:7962-74-64Intp Name:Medicare JOANNE M CROCKETTDOB: [id number] [place] [address] [facility] 10/25/2024 Secondary Insurance:[facility]UTUAL OF [facility] Number: [id number] Date:2022-11-17 KACIE SANDERSB: [id number] [place] [address] [facility] 10/05/2024 Primary Insurance:MEDICAREPolic y Number: [id number] Date:3860-18-23Lycw Name:Medicare KACIE Martinez MARILYNB: [id number] [place] [address] [facility] 10/05/2024 Secondary Insurance:[facility]UAL OF [facility] Number: [id number] Date:2013-01-27 KACIE SANDERSB: [id number] [place] [address] [facility] 04/08/2024 Primary Insurance:MEDICARE A AND BPolicy Number: [id number] Date:3531-53-95Inmt Name:Pramod CHAIREZB: [id number] [place] [address] [facility] 04/08/2024 Secondary Insurance:[place]UAL OF [place] MEDICARE SUPPLEMENTPolicy Number: [id number] Date:3183-70-03Zuhq Name:Karoline BAR: [id number] [place] [address] [facility] 04/08/2024 Primary Insurance:MEDICARE A AND BPolicy Number: [id number] Date:6870-94-10Jymm Name:Pramod CHAIREZB: [id number] [place] [address] [facility] 04/08/2024 Secondary Insurance:[place]UAL OF [place] MEDICARE SUPPLEMENTPolicy Number: [id number] Date:9185-76-40Wzyo Name:Karoline BAR: [id number] [place] [address] [facility] 03/31/2024 Primary Insurance:MEDICARE A AND BPolicy Number: [id number] Date:2901-61-53Borf Name:Pramod Martinez MIHAELAB: [id number] [place] [address] [facility] 03/31/2024 Secondary Insurance:[place]UAL OF [place] MEDICARE SUPPLEMENTPolicy Number: [id number] Date:0050-66-22Sxtw Name:Karoline Martinez MIHAELAB: [id number] [place] [address] [facility] 03/31/2024 Primary Insurance:MEDICARE A AND BPolicy Number: [id number] Date:4277-12-69Gwml Name:Pramod Martinez MIHAELAB: [id number] [place] [address] [facility] 03/31/2024 Secondary Insurance:MUTUAL OF [place] MEDICARE SUPPLEMENTPolicy Number: [id number] Date:9270-54-33Fzgt Name:Karoline KACIE M MIHAELAB: [id number] [place] [address] [facility] 02/19/2024 Primary Insurance:MEDICAREPolic y Number: [id number] Date:4764-78-23Mcha Name:Medicare KACIE Martinez MARILYNB: [id number] [place] [address] [facility] 02/19/2024 Secondary Insurance:MUTUAL OF [place] Number: [id number] Date:2013-01-27 KACIE SANDERSB: [id number] [place] [address] [facility] 02/19/2024 Primary Insurance:MEDICAREPolic y Number: [id number] Date:0533-32-93Jxbl Name:Medicare KACIE Martinez MARILYNB: [id number] [place] [address] [facility] 02/19/2024 Secondary Insurance:MUTUAL OF [place] Number: [id number] Date:2013-01-27 KACIE SANDERSB: [id number] [place] [address] [facility] 02/19/2024 Primary Insurance:MEDICAREPolic y Number: [id number] Date:3263-05-87Etrl Name:Medicare JOANNE M CROCKETTDOB: [id number] [place] [address] [facility] 02/19/2024 Secondary Insurance:MUTUAL OF [place] Number: [id number] Date:2013-01-27 KACIE SANDERSB: [id number] [place] [address] [facility] 02/08/2024 Primary Insurance:MEDICAREPolic y Number: [id number] Date:4362-69-11Nmky Name:Medicare KACIE SANDERSB: [id number] [place] [address] [facility] 02/08/2024 Secondary Insurance:MUTUAL OF [place] Number: [id number] Date:2013-01-27 KACIE SANDERSB: [id number] [place] [address] [facility] 01/13/2024 KACIE SANDERSB: [place] [address]Wyn: () Primary Insurance:MEDICAREPolic y Number: [id number] Date:5160-03-58Qzro Name:Medicare JOANNE M CROCKETTDOB: [id number] [place] [address] [facility] 01/13/2024 Secondary Insurance:MUTUAL OF [place] Number: [id number] Date:2022-11-17 KACIE SANDERSB: [id number] [place] [address] [facility] EPIC
[2024-11-18 07:24] VITALS: BP 132/69; PULSE 90; TEMP 37.1; O2SAT 99; BMI 27.6
[2024-11-18] MEDS: TRANEXAMIC ACID 1,000 MG/10 ML AMPUL 1000 MG TOPICAL ×2 (08:34→11:04)
--- NOTE | 2024-11-18 08:44 | PC.NURSE ---
Pressure dressing applied to open area on back of head. Patient and family aware of recheck at 0900. Patient denies discomforts at this time.
[2024-11-18] MEDS: 0.9 % SODIUM CHLORIDE 1,000 ML 1000 ML IV (10:23)
[2024-11-18 10:25] LABS: Hematocrit 35.8 % (36.0-48.0); Hemoglobin 12.1 g/dL (12.0-16.0); Mean Corpuscular HGB Conc 33.8 g/dL (29.9-35.2); Mean Corpuscular Hemoglobin 31.8 pg (26.7-34.0); Mean Corpuscular Volume 94.2 fL (81.0-99.0); Mean Platelet Volume 10.8 fL (9.5-13.5); Platelet Count 217 10^3/uL (150-450); Red Cell Distribution Width 11.9 % (11.0-15.0); White Blood Count 7.8 10^3/uL (4.0-11.0)
[2024-11-18 10:36] LABS: Anion Gap 10.6; BUN Creatinine Ratio 26.9; Calcium 8.9 mg/dL (8.5-10.1); Chloride 100 mmol/L (98-107); Estimated GFR (African America >60 (>=60 mL/min/1.73m^2); Estimated GFR (Non-African Ame 58 (>=60 mL/min/1.73m^2); Glucose 97 mg/dL (74-106); Potassium 4.6 mmol/L (3.5-5.1); Sodium 133 mmol/L (136-145)
[2024-11-18 10:39] LABS: Basophils Abs Manual 0.07 10^3/uL (0.00-0.10); Lymphocytes Absolute Manual 0.78 10^3/uL (1.20-3.80); Monocytes Absolute Manual 0.15 10^3/uL (0.30-0.80); Segmented Neut Absolute Manual 6.78 10^3/uL (1.4-6.5)
[2024-11-18 11:03] VITALS: BP 161/87; PULSE 87; O2SAT 97
[2024-11-18] MEDS: ACETAMINOPHEN 500 MG TABLET PO (11:04)
--- NOTE | 2024-11-18 11:08 | ED_ITS ---
HPI HPI - General Adult General Chief complaint: Skin/Abscess/Foreign Body Stated complaint: POST OP COMPLICATION OPEN WOUND Time Seen by Provider: 11/18/24 07:39 Source: patient Mode of arrival: walk-in History of Present Illness HPI narrative: Patient is a 84-year-old female who is presenting to the ER today for wound reevaluation. Patient had surgical procedure done at Dr. Burns office yesterday where she had a elliptical incision yesterday to the top of her head, above her occiput right basal cell carcinoma was removed. Patient had a larger area removed through MOHS procedure in Dr. Burns's office. This was done at 1030 yesterday morning. Patient then went to see a plastic surgeon at a 130 appointment because patient will need a procedure next Thursday to help close the wound in the area. Patient is on 2 blood thinners, Xarelto and Plavix. Patient did not hold her blood thinners prior to the procedure. Patient had several areas that were cauterized by Dr. Burns. When patient left the office she still had some oozing from the area. Patient then went to see the plastic surgeon yesterday. Patient with the plastic surgeon office she still had some minimal bleeding and oozing according to patient and family. Patient had bleeding that continued through the night. Patient had soaked through multiple dressings. This morning the son had called the plastic surgeon office and is recommended the patient come to the ER for evaluation. Patient is minimally lightheaded/dizzy. Patient has no shortness of breath. No near-syncope. No chest pain or shortness of breath. None no other acute complaints. Patient came in with a dressing around the head that was soaked in blood and has some blood clot. All systems are negative except as noted/marked. All systems reviewed and ot herwise negative. Patient's son and daughter at bedside. Nurses note and vital signs reviewed and patient is not hypoxic. General: The patient appears well and in no apparent distress. Patient is resting comfortably on cart. Patient is not toxic, lethargic, or listless Skin: Warm, dry, no pallor noted. There is no rash noted. No petechiae, purpura. Patient has a open elliptical incision that is approximately 2.5 x 3 cm in width. Dried clot noted at the base of the wound, patient had dried blood around the hair and clot as well. This will be cleaned up by nursing staff. Head: Normocephalic, atraumatic, no new traumatic findings besides patient's procedure done yesterday. Eye: Normal conjunctiva, no drainage, EOMI. PERRL Ears, Nose, Mouth, and Throat: oral mucosa is moist. Nares patent. Mouth without vesicles. Cardiovascular: Regular Rate and Rhythm, no murmur, gallop, rub Respiratory: Patient is in no distress, no accessory muscle use, lungs are clear to auscultation, no wheezing, rales or rhonchi Back: non-tender, no CVA tenderness bilaterally to percussion. No CT LS midline pain GI: no tenderness to palpation, no masses appreciated. No rebound, guarding, or rigidity noted. No distention Musculoskeletal: Patient has full range of motion of all of the extremities, no motor, sensory, or focal neurological deficits Neurological: A&O x4, normal speech Psychiatric: Cooperative, patient is very lively, joking, looks well. Related Data Home Medications ?Medication ?Instructions ?Recorded ?Confirmed atorvastatin 40 mg tablet 40 mg PO .qhs 12/03/2211/18 cholecalciferol (vitamin D3) 25 25 mcg PO DAILY 11/18/24 mcg (1,000 unit) capsule clopidogrel 75 mg tablet 75 mg PO QDAY 12/03/2211/18 docusate sodium 100 mg capsule 100 mg PO DAILY 3 11/18/24 (Colace) metoprolol tartrate 25 mg tablet 12.5 mg PO Q12H 12/0311/18/24 multivitamin (Daily Multi-Vitamin 1 tab PO DAILY 12/0311/18/24 tablet) rivaroxaban 20 mg tablet (Xarelto) 20 mg PO QDAY 12/0311/18/24 cephalexin 500 mg capsule 500 mg PO BID 11/18/2411/18 tiotropium 2.5 mcg-olodaterol 2.5 2 puff inhalation DA PARTHA 11/18/24 11/18/24 mcg/actuation mist for inhalation (Stiolto Respimat) Allergies Allergy/AdvReac Type Severity Reaction Status Date / Time No Known Drug Allergies Allergy Verified 02/18/23 11:03 [facility] Medical History (Updated 11/18/24 @ 11:08 by Jeremiah Vázquez MD) Emphysema lung ?J43.9 - Emphysema, unspecified (ICD-10) Coronary artery disease ?I25.10 - Atherosclerotic heart disease of [place] coronary artery without angina pectoris (ICD-10) Anticoagulated ?Z79.01 - residential (current) use of anticoagulants (ICD-10) Anemia ?D64.9 - Anemia, unspecified (ICD-10) Hyperlipemia ?E78.5 - Hyperlipidemia, unspecified (ICD-10) A-fib ?I48.91 - Unspecified atrial fibrillation (ICD-10) CHF (congestive heart failure) ?I50.9 - Heart failure, unspecified (ICD-10) Lung cancer ?C34.90 - Malignant neoplasm of unspecified part of unspecified bronchus or lung (ICD-10) Surgical History (Updated 02/18/23 @ 11:14 by Jessica Valdivia NP) History of tonsillectomy ?Z90.89 - Acquired absence of other organs (ICD-10) History of colonoscopy ?Z98.890 - Other specified postprocedural states (ICD-10) History of lobectomy of lung ?Z90.2 - Acquired absence of lung [part of] (ICD-10) History of hysterectomy ?Z90.710 - Acquired absence of both cervix and uterus (ICD-10) History of appendectomy ?Z90.49 - Acquired absence of other specified parts of digestive tract (ICD- 10) History of cholecystectomy ?Z90.49 - Acquired absence of other specified parts of digestive tract (ICD- 10) Stented coronary artery ?Z95.5 - Presence of coronary angioplasty implant and graft (ICD-10) Family History (Updated 12/03/22 @ 16:04 by Yumiko Guerrero) Aunt No problems noted. Mother Family history of COPD (chronic obstructive pulmonary disease) Brother Family history of cancer Sister Family history of cancer Social History (Updated 12/03/22 @ 16:08 by Yumiko Guerrero) Within the past year, how often did you have a drink containing alcohol: never Within the past year, how often did you have six or more drinks on one occasion: never Score interpretation: A score less than 3 is consistent with normal alcohol consumption. Smoking status: Former smoker Non-prescribed substance use: denies use Previous occupational history: retired Known occupational exposures/hazards: No Highest level of school completed/degree received: some college, no degree Are you now , , , , never or living with a partner: In a typical week, how many times do you talk on the telephone with family, friends, or neighbors: 3 or more times per week How often do you get together with friends or relatives: twice per week How often do you attend anabaptism or yarsanism services: 4 or more times per year Do you belong to any clubs or organizations such as anabaptism groups unions, fraAutoUncle or athletic groups, or school groups: no Total score: 3 Score interpretation: A score of greater than or equal to 2 indicates the lowest level of social isolation. Little interest or pleasure in doing things: not at all Feeling down, depressed, or hopeless: not at all Feel stressed/tense/nervous/anxious/difficulty sleeping: not at all Due to disability, difficulty making decisions: No Do you think of yourself as: straight/heterosexual Gender Identity: female Exam Constitutional Vital Signs, click to edit/add: Last Vital Signs Temp 98.8 F 11/18/24 07:24 Pulse 87 11/18/24 11:03 Resp 16 11/18/24 11:03 BP 161/87 H 11/18/24 11:03 Pulse Ox 97 11/18/24 11:03 Course Vital Signs Vital signs: Vital Signs Temperature 98.8 F 11/18/24 07:24 Pulse Rate 90 11/18/24 07:24 Respiratory Rate 18 11/18/24 07:24 Blood Pressure 132/69 11/18/24 07:24 Pulse Oximetry 99 11/18/24 07:24 Temperature 98.8 F 11/18/24 07:24 Pulse Rate 87 11/18/24 11:03 Respiratory Rate 16 11/18/24 11:03 Blood Pressure 161/87 H 11/18/24 11:03 Pulse Oximetry 97 11/18/24 11:03 Medical Decision Making [facility] Narrative Medical decision making narrative: Patient seen and examined: Patient had her wound cleaned by nursing staff with peroxide. Differential diagnosis includes but is not limited to: Bleeding, new laceration, foreign body, coagulopathy state, Diagnostics and management: Patient will have laboratory studies Relevant laboratory interpretation: Patient white blood cells were 7, hemoglobin hematocrit were 12/35, platelets were 217. Shared decision making: I discussed with the patient the necessary laboratory findings and radiological findings. Social barriers to healthcare: There are no food insecurities, there is no issue with transportation, there are no insurance barriers. Disposition: I discussed with the patient, son and daughter at bedside. Patient was seen by me initially in the manage critical care patient that we are with for several hours. Patient and family were very understanding. Patient initially had the wound cleaned by nursing staff, TXA was applied with a pressure dressing for approximately 45 minutes. The pressure dressing was taken off, there is still small oozing to the superior right lateral aspect of the wound that still had slow continuous oozing/bleeding, not pulsatile. The dressing was taken off, I visualized the dressing. Pressure was held again. I had spoken to Dr. Burns, felt cutting machine operator who performed the procedure yesterday. Dr. Burns stated to use a TXA second time, pressure dressing, no injection of lido epi as needed. He will see the patient in the office and take care of the wound and bleeding which is very helpful and thankful of him to do. Patient go directly to the office when discharged from the ER. This was explained to family that Dr. Burns will see the patient from the ER which is great. We applied TXA with Telfa, 4 x 4 gauze, and a Coban and then Brandin wrap pressure dressing was applied by myself with Janina Alvarez RN assisting. Patient tolerated dressing well, son and daughter at bedside while the dressing was placed by myself. Patient was given Tylenol to help prevent headache, she did not have a headache while she was in the ER. 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 Patient did feel little better after IV fluids. Patient hemoglobin was 12.1. Education on hemoglobin levels was discussed at bedside. Patient was very thankful, son and daughter very thankful for help and explanations of care. Lab Data Labs: Lab Results 11/18/24 Range/Units 09:50 WBC 7.8 (4.0-11.0) 10^3/uL RBC 3.80 L (4.20-5.40) 10^6/uL Hgb 12.1 (12.0-16.0) g/dL Hct 35.8 L (36.0-48.0) % MCV 94.2 (81.0-99.0) fL MCH 31.8 (26.7-34.0) pg MCHC 33.8 (29.9-35.2) g/dL RDW 11.9 (11.0-15.0) % Plt Count 217 (150-450) 10^3/uL MPV 10.8 (9.5-13.5) fL Seg Neuts % (Manual) 87.0 H (43.0-75.0) Lymphocytes % (Manual) 10.0 L (20.5-60.0) % Monocytes % (Manual) 2.0 (1.7-12.0) % Eosinophils % (Manual) 0.0 L (0.9-7.0) % Basophils % (Manual) 1.0 (0.2-2.0) % Neutrophils # (Manual) 6.78 H (1.4-6.5) 10^3/uL Lymphocytes # (Manual) 0.78 L (1.20-3.80) 10^3/uL Monocytes # (Manual) 0.15 L (0.30-0.80) 10^3/uL Eosinophils # (Manual) 0.00 (0.00-0.70) 10^3/uL Basophils # (Manual) 0.07 (0.00-0.10) 10^3/uL Sodium 133 L (136-145) mmol/L Potassium 4.6 (3.5-5.1) mmol/L Chloride 100 (98-107) mmol/L Carbon Dioxide 27.0 (21.0-32.0) mmol/L Anion Gap 10.6 BUN 25.0 H (7.0-18.0) mg/dL Creatinine 0.93 (0.55-1.02) mg/dL Est GFR ( Amer) >60 (>=60 mL/min/1.73m^2) Est GFR (Non-Af Amer) 58 L (>=60 mL/min/1.73m^2) BUN/Creatinine Ratio 26.9 Glucose 97 (74-106) mg/dL Calcium 8.9 (8.5-10.1) mg/dL Discharge Plan Discharge Chief Complaint: Skin/Abscess/Foreign Body Clinical Impression: Bleeding, Light-headedness Patient Disposition: Home, Self-Care Time of Disposition Decision: 11:05 Condition: Fair Mode of Transportation: Private Vehicle Prescriptions / Home Meds: No Action atorvastatin 40 mg tablet 40 mg PO .qhs clopidogrel 75 mg tablet 75 mg PO QDAY metoprolol tartrate 25 mg tablet 12.5 mg PO Q12H Xarelto 20 mg tablet 20 mg PO QDAY multivitamin [Daily Multi-Vitamin] Tablet 1 tab PO DAILY cholecalciferol (vitamin D3) 25 mcg (1,000 unit) capsule 25 mcg PO DAILY docusate sodium [Colace] 100 mg capsule 100 mg PO DAILY cephalexin 500 mg capsule 500 mg PO BID Stiolto Respimat 2.5-2.5 mcg/actuation mist 2 puff INHALATION DAILY Print Language: Bengali Instructions: Acute Wounds (ED) Additional Instructions: Keep your pressure dressing on until you go to Dr. Burns office. Go directly to Dr. Burns office right now. You are given Tylenol in the ER. You were given IV fluids. You are given a copy of your labs as well. He had TXA applied twice in the ER. Dr. Vázquez has spoken to Dr. Burns. Go directly to his office right now Referrals: MOHAMUD CASTRO [Primary Care Provider, Internal Medicine] - 1 week Discharge Date/Time: 11/18/24 11:37
== END 2024-11-18 11:37 | disposition home or self-care (01) ==
PROVIDERS: Emergency Provider Emergency Medicine; PCP Internal Medicine
DX: L76.21 Postprocedural hemorrhage of skin and subcutaneous tissue following a dermatologic procedure (principal); Z79.01 Long term (current) use of anticoagulants; Z79.02 Long term (current) use of antithrombotics/antiplatelets; Z90.2 Acquired absence of lung [part of]; Z90.710 Acquired absence of both cervix and uterus; Z90.49 Acquired absence of other specified parts of digestive tract; Z95.5 Presence of coronary angioplasty implant and graft; Z87.891 Personal history of nicotine dependence; R42 Dizziness and giddiness
CPT/HCPCS: 36415; 80048; 85007; 85027; 99284